=== PATIENT | female | born 1940 | race Caucasian/White ===

== ENCOUNTER 2022-09-14 16:32 | Observation (INO) | payer MEDICARE, OTHER, SELFPAY ==
[2022-09-14] VITALS (10 sets, daily range): BP systolic 112–130; BP diastolic 54–81; PULSE 60–80; RESP 16–18; TEMP 36.6–36.8; O2SAT 88–100; BMI 25.3; BMI 25.8
--- NOTE | 2022-09-14 17:22 | CRLHL7_ITS ---
For Patients: As a result of the Century Cures Act, medical imaging exams and procedure reports are released immediately into your electronic medical record. You may view this report before your referring provider. If you have questions, please contact your health care provider. INDICATION: Fall. TECHNIQUE: CT head without contrast. COMPARISON: None. FINDINGS: CSF spaces: Within normal limits for age. Brain parenchyma and extra-axial spaces: The freedman-white differentiation is normal. No sign of mass, hemorrhage, or midline shift. No extra-axial fluid collection. Skull base and calvarium: The visualized paranasal sinuses and mastoid air cells demonstrate no acute or significant findings. The visualized orbits are grossly unremarkable. Bilateral lens prostheses. No skull fractures. IMPRESSION: No intracranial hemorrhage identified. No skull fractures identified. Please note that all CT scans at this facility use dose modulation, iterative reconstruction, and/or weight-based dosing when appropriate to reduce radiation dose to as low as reasonably achievable. Dictated by Teresa Mendez MD @ 09/14/2022 7:17:10 PM (Electronically Signed)
--- NOTE | 2022-09-14 17:22 | CRLHL7_ITS ---
For Patients: As a result of the Century Cures Act, medical imaging exams and procedure reports are released immediately into your electronic medical record. You may view this report before your referring provider. If you have questions, please contact your health care provider. INDICATION: Shortness of breath. TECHNIQUE: Chest 1 views. COMPARISON: None. FINDINGS: Lungs: Diffuse interstitial prominence is suggestive of pulmonary edema. Patchy left lower lobe opacities. Pleura: Small left pleural effusion. Heart and Mediastinum: The heart is enlarged. Single lead pacemaker has its battery pack in the left chest wall. Valve annuloplasty appears to be in the aortic valve. The vessels are unremarkable. Bones: Unremarkable. IMPRESSION: Constellation of findings suggest congestive heart failure. Dictated by Randolph Haro MD @ 09/14/2022 7:17:18 PM (Electronically Signed)
--- NOTE | 2022-09-14 17:32 | ED_ITS ---
HPI - General Adult General Date Seen: 09/14/22 Chief complaint: Altered Mental Status Stated complaint: Psych episode earlier, incoherent Time Seen by Provider: 09/14/22 17:07 Source: patient and family History of Present Illness HPI narrative: Patient is an 81-year-old woman visiting here from [place], here with her daughter for evaluation of a confusional spell today. Her daughter says that around 130, she had an episode of vomiting which her daughter describes as bilious. After that, her daughter says she just was ?spaced out, she specifically denies any loss of consciousness or seizure activity, but she says her mom's answers to questions sometimes did not make sense. She says her mom was repeating the Lord's prayer. She asked her mom several times if she wanted to go the hospital but her mother said no. She does say that her mom has a history of some spells like this a number of years ago which she does not remember if they were ever specifically diagnosed as anything, and her mother and her dad who is 86, are not able to remember this as well. Patient says that she woke up feeling somewhat poorly this morning, she is not able to tell me exactly in what way she felt poorly. Her daughter says that she complained of a headache this morning as well as some stomach problems. There are no reported fevers, chest pain, coughing, abdominal pain or diarrhea. She has a history of a valve replacement and pacemaker, she is on Coumadin apparently for the valve. No reported history of atrial fibrillation or ME, no reported history of stroke. Symptoms persisted for about an hour or and then seem to improve somewhat, but daughter does not feel that she is completely back to normal and so ultimately brought her to the ER at around 430. Related Data Home Medications Medication Instructions Recorded Confirmed allopurinol 300 mg tablet 300 mg PO DAILY 09/14/22 09/14/22 amlodipine 5 mg tablet (Norvasc) 5 mg PO DAILY 09/14/22 09/14/22 coq10 09/14/22 folic acid 1 mg tablet 1 mg PO DAILY 09/14/22 09/14/22 furosemide 20 mg tablet 20 mg PO DAILY 09/14/22 09/14/22 glucosamine chond 09/14/22 hydrochlorothiazide 12.5 mg tablet 12.5 mg PO DAILY 09/14/22 09/14/22 isosorbide dinitrate 30 mg tablet 30 mg PO BID 09/14/22 09/14/22 metoprolol succinate 100 mg 100 mg PO DAILY 09/14/22 09/14/22 tablet,extended release 24 hr metoprolol succinate 100 mg 100 mg PO DAILY 09/14/22 09/14/22 tablet,extended release 24 hr (Toprol XL) pantoprazole 40 mg tablet,delayed 40 mg PO DAILY 09/14/22 09/14/22 release potassium chloride 20 mEq oral 20 meq PO BID 09/14/22 09/14/22 packet (Klor-Con) prednisone 5 mg tablet 5 mg PO DAILY 09/14/22 09/14/22 trazodone 50 mg tablet 50 mg PO DAILY 09/14/22 09/14/22 vitamin d2 09/14/22 warfarin 2 mg tablet 2 mg PO DAILY 09/14/22 09/14/22 Allergies Allergy/AdvReac Type Severity Reaction Status Date / Time erythromycin base Allergy Unknown Verified 09/14/22 17:03 Review of Systems Status of ROS: Reports: unobtainable due to mental status PFSH [facility] Social History Smoking Status: Former smoker Do you use any of these nicotine containing products: None Second hand tobacco smoke exposure: No How often do you have a drink containing alcohol: never How often do you have six or more drinks on one occasion: Never AUDIT-C Alcohol total score: 0 Non-prescribed substance use: denies use Exam Narrative: Exam Narrative: Vital signs as noted above. In general, an alert, nontoxic elderly woman. Somewhat fatigued appearing. Head: Normocephalic, atraumatic. Eyes: Pupils are equal reactive. Extraocular movements are full. Conjunctivae are normal. ENT: Mucous membranes are moist. Throat is normal. Neck: Supple without lymphadenopathy. No bruits. Heart: Regular rate and rhythm. No murmur or rub. Lungs: Clear bilaterally. No increased work of breathing, crackles or wheezes. Abdomen: Soft and nondistended, intermittently seems to have some diffuse mild tenderness, no rebound guarding or rigidity. No organomegaly. Extremities: Well perfused. Mild bilateral lower extremity which daughter says is baseline. No calf tenderness. Neurologic: Patient is alert and conversant. Not oriented at this time to place or date, notes that she just can not remember right now. Speech is fluent. Face is symmetric. Moves all extremities equally, strength is equal in bilateral extremities. Not able to early repeat no ifs and or buts. Follows commands well. Cerebellar function is intact by finger-nose testing. Affect: Normal. Skin: Warm and dry. Well perfused. Const: Vital Signs, click to edit/add: Vital Signs - 24 hr 09/14/22 16:49 09/14/22 18:05 09/14/22 17:00 Temperature 98 F Pulse Rate [Pulse Oximeter] 74 67 66 Respiratory Rate 18 Blood Pressure [Ri ght Upper Arm] 115/54 L 112/74 115/54 L Pulse Oximetry 88 96 Oxygen Delivery Me thod Room Air Room Air 09/14/22 18:30 09/14/22 20:07 09/14/22 20:51 Temperature Pulse Rate [Pulse Oximeter] 60 72 Respiratory Rate Blood Pressure [Ri ght Upper Arm] 123/81 Pulse Oximetry 92 93 Oxygen Delivery Me thod Room Air Room Air 09/14/22 21:30 Temperature Pulse Rate [Pulse Oximeter] 72 Respiratory Rate Blood Pressure [Ri ght Upper Arm] Pulse Oximetry 93 Oxygen Delivery Me thod Room Air Documenting provider has reviewed patient's vital signs: yes Course Course Hospital Course: Following initial evaluation, patient had an EKG which by my review shows a paced rhythm, ventricular rate of 65 beats per minute. I do think noncontrast head CT is warranted, I do not think a CT angiogram is likely to be very helpful as I would doubt that she is going to have large vessel occlusion. At this time, she seems to have some confusion, history of perhaps some speech diffic ulty although it is difficult to say for sure given the daughter's history. She is notably not at all hypertensive here. She is mildly hypoxic on room air without specific complaints of shortness of breath. At this time, I think her symptoms certainly could be metabolic, cardiac, infectious, verses TIA/stroke. Patient's daughter felt that she did improve somewhat while here but not entirely back to baseline. She said that she did remember her birthday after I left the room. Did not have any further episodes of entirely nonsensical speech. Labs were overall fairly unremarkable. She had a depressed white blood cell count of 3.2, but her viral swabs were all negative including COVID, influenza and RSV. Hemoglobin slightly low 11.1. INR was therapeutic at 2.25. Venous gas fairly unremarkable, bicarb was a little high at 31 but her pH was normal, pCO2 was 50. Metabolic panel unremarkable, sodium was 140, potassium slightly low at 3.3. BUN creatinine normal, LFTs entirely within normal limits. Her BNP was 44, TSH was a little elevated but her free T4 was essentially normal, slightly elevated at 1.93. Urinalysis notable for 2+ blood and 1+ leukocyte Estrace but essentially negative otherwise with 2-5 red cells and 2-5 white cells. A troponin was 0.01. Head CT by my review was negative for anything acute, final radiology read was likewise negative. Her chest x-ray idalia wed diffuse interstitial patchiness, which Radiology read as likely congestive heart failure. She also has cardiomegaly. No previous available for comparison. I did discuss this with the radiologist as with a BNP of 44 I think congestive heart failure is a very unlikely cause for her chest x-ray findings. He said that it could be potentially an atypical pneumonia, she definitely has small effusion on the left and he said that that could be hiding something like a more bacterial pneumonia. She does have borderline O2 sats hanging out in the low 90s, but she does not have complaints of shortness of breath or cough. My suspicion for bacterial pneumonia is rather low given the absence of fever and with a low white blood cell count, but certainly a viral process would be a possibility. It is not out of the realm of possibility that she could have had a very small stroke tonight as well, and I have discussed this possibility with her daughter as well as the patient. Neurologically she is very nonfocal at this time aside from some minor memory problems and difficulty with repeating phrases, and occasionally her daughter says she still saying some things that do not make sense. However, with her pacemaker, an MRI will not be a possibility here. A CT angiogram I think will be of limited use in terms of anything definitive, it would potentially be helpful just to rule out any critical stenoses. However, it is possible is a chest CT will also help further define what ever process is going on her chest, and I think of the [address] is probably the more helpful tonight. Therefore, I am going to order a chest CT, and we can push CT angiogram of the head until tomorrow. Patient will stay in the hospital for observation for tonight. Vital Signs Vital signs: Initial Vital Signs Temperature 98 F 09/14/22 16:49 Temperature Source Temporal Artery Scan 09/14/22 16:49 Pulse Rate 74 09/14/22 16:49 Respiratory Rate 18 09/14/22 16:49 Blood Pressure 115/54 L 09/14/22 16:49 Blood Pressure Mean 74 09/14/22 16:49 Blood Pressure Position Supine 09/14/22 16:49 Pulse Oximetry 88 09/14/22 16:49 Oxygen Delivery Method 09/14/22 16:49 Vital Signs Temperature 98 F 09/14/22 16:49 Pulse Rate 74 09/14/22 16:49 Respiratory Rate 18 09/14/22 16:49 Blood Pressure 115/54 L 09/14/22 16:49 Pulse Oximetry 88 09/14/22 16:49 Oxygen Delivery Method 09/14/22 16:49 Temperature 98 F 09/14/22 16:49 Pulse Rate 72 09/14/22 21:30 Respiratory Rate 18 09/14/22 16:49 Blood Pressure 123/81 09/14/22 18:30 Pulse Oximetry 93 09/14/22 21:30 Oxygen Delivery Method 09/14/22 21:30 Medical Decision Making Lab Data Labs: Lab Results 09/14/22 09/14/22 09/14/22 Range/Units 17:24 17:29 17:50 WBC 3.21 L (4.50-11.00) K/uL RBC 4.01 (4.00-5.20) m/uL Hgb 11.1 L (12.0-16.0) gm/dL Hct 35.6 (33.0-51.0) % MCV 89 (80-100) fL MCH 28 (26-34) pg MCHC 31 L (32-36) gm/dL RDW Coeff of Monica 18.8 H (11.5-15.5) % Plt Count 129 L (140-440) K/uL Neut % (Auto) 57.4 (42.0-72.0) % Lymph % (Auto) 25.2 (20-44) % [place] % (Auto) 10.6 (0.0-11.0) % Eos % (Auto) 5.6 (0.0-7.0) % Baso % (Auto) 1.2 (0.0-3.0) % Neut # (Auto) 1.80 (1.7-7.0) K/uL Lymph # (Auto) 0.80 L (0.90-2.90) K/uL [place] # (Auto) 0.30 (0.00-0.90) K/UL Eos # (Auto) 0.20 (0.00-0.50) K/uL Baso # (Auto) 0.00 (0.00-0.30) K/uL Abs Immat Gran (auto) 0.00 (0.00-0.30) K/uL Imm/Tot Granulo (auto) Not Reportable INR (0.91-1.10) VBG pH (7.32-7.43) VBG pCO2 (40-50) mmHG VBG pO2 (25-47) mmHG VBG HCO3 (21-28) mmol/L Sodium (135-149) mmol/L Potassium (3.6-5.1) mmol/L Chloride (96-114) mmol/L Carbon Dioxide (20-32) mmol/L BUN (7-30) mg/dL Creatinine (0.5-1.5) mg/dL Estimated Creat Clear Estimated GFR ml/min Glucose (60-115) mg/dL Lactate (0.5-1.9) mmol/L Calcium (8.4-10.6) mg/dL Total Bilirubin (0.1-1.5) mg/dL Direct Bilirubin (0.0-0.5) mg/dL AST (12-35) U/L ALT (4-35) U/L Alkaline Phosphatase (40-150) U/L C-Reactive Protein (0.5-1.0) mg/dL NT-Pro-B Natriuret Pep (0-450) PG/mL Total Protein (6.0-8.3) g/dL Albumin (3.3-5.0) g/dL TSH (0.270-4.200) uIU/mL Free T4 (0.70-1.85) ng/dL Urine Color (Yellow) Urine Appearance (Clear) Urine pH (5.0-8.5) Ur Specific [place] (1.000-1.030) Urine Protein (Negative) Urine Glucose (UA) (Negative) Urine Ketones (Negative) Urine Blood (Negative) Urine Nitrite (Negative) Urine Bilirubin (Negative) Urine Urobilinogen (0.2-1.0) Ur Leukocyte Esterase (Negative) Urine RBC (0-2) Urine WBC (0-5) Ur Squamous Epith Cells (None-Few) Urine Bacteria (None) SARS-CoV-2 (PCR) Negative SARS-CoV-2 (Negative) Influenza Type A (PCR) Negative PCR FLU A (Negative) Influenza Type B (PCR) Negative PCR FLU B (Negative) RSV (PCR) Negative PCR RSV (Negative) POC Troponin I 0.01 (0.01-0.04) ng/ml 09/14/22 09/14/22 09/14/22 Range/Units 17:50 17:50 17:50 WBC (4.50-11.00) K/uL RBC (4.00-5.20) m/uL Hgb (12.0-16.0) gm/dL Hct (33.0-51.0) % MCV (80-100) fL MCH (26-34) pg MCHC (32-36) gm/dL RDW Coeff of Monica (11.5-15.5) % Plt Count (140-440) K/uL Neut % (Auto) (42.0-72.0) % Lymph % (Auto) (20-44) % [place] % (Auto) (0.0-11.0) % Eos % (Auto) (0.0-7.0) % Baso % (Auto) (0.0-3.0) % Neut # (Auto) (1.7-7.0) K/uL Lymph # (Auto) (0.90-2.90) K/uL [place] # (Auto) (0.00-0.90) K/UL Eos # (Auto) (0.00-0.50) K/uL Baso # (Auto) (0.00-0.30) K/uL Abs Immat Gran (auto) (0.00-0.30) K/uL Imm/Tot Granulo (auto) INR (0.91-1.10) VBG pH (7.32-7.43) VBG pCO2 (40-50) mmHG VBG pO2 (25-47) mmHG VBG HCO3 (21-28) mmol/L Sodium 140 (135-149) mmol/L Potassium 3.3 L (3.6-5.1) mmol/L Chloride 101 (96-114) mmol/L Carbon Dioxide 30 (20-32) mmol/L BUN 25 (7-30) mg/dL Creatinine 1.1 (0.5-1.5) mg/dL Estimated Creat Clear 33.74 Estimated GFR 51 ml/min Glucose 99 (60-115) mg/dL Lactate 0.7 (0.5-1.9) mmol/L Calcium 9.5 (8.4-10.6) mg/dL Total Bilirubin 1.0 (0.1-1.5) mg/dL Direct Bilirubin 0.1 (0.0-0.5) mg/dL AST 33 (12-35) U/L ALT 17 (4-35) U/L Alkaline Phosphatase 89 (40-150) U/L C-Reactive Protein 0.6 (0.5-1.0) mg/dL NT-Pro-B Natriuret Pep (0-450) PG/mL Total Protein 6.5 (6.0-8.3) g/dL Albumin 4.2 (3.3-5.0) g/dL TSH 4.560 H (0.270-4.200) uIU/mL Free T4 1.93 H (0.70-1.85) ng/dL Urine Color (Yellow) Urine Appearance (Clear) Urine pH (5.0-8.5) Ur Specific [place] (1.000-1.030) Urine Protein (Negative) Urine Glucose (UA) (Negative) Urine Ketones (Negative) Urine Blood (Negative) Urine Nitrite (Negative) Urine Bilirubin (Negative) Urine Urobilinogen (0.2-1.0) Ur Leukocyte Esterase (Negative) Urine RBC (0-2) Urine WBC (0-5) Ur Squamous Epith Cells (None-Few) Urine Bacteria (None) SARS-CoV-2 (PCR) (Negative) Influenza Type A (PCR) (Negative) Influenza Type B (PCR) (Negative) RSV (PCR) (Negative) POC Troponin I (0.01-0.04) ng/ml 09/14/22 09/14/22 09/14/22 Range/Units 17:50 17:50 18:26 WBC (4.50-11.00) K/uL RBC (4.00-5.20) m/uL Hgb (12.0-16.0) gm/dL Hct (33.0-51.0) % MCV (80-100) fL MCH (26-34) pg MCHC (32-36) gm/dL RDW Coeff of Monica (11.5-15.5) % Plt Count (140-440) K/uL Neut % (Auto) (42.0-72.0) % Lymph % (Auto) (20-44) % [place] % (Auto) (0.0-11.0) % Eos % (Auto) (0.0-7.0) % Baso % (Auto) (0.0-3.0) % Neut # (Auto) (1.7-7.0) K/uL Lymph # (Auto) (0.90-2.90) K/uL [place] # (Auto) (0.00-0.90) K/UL Eos # (Auto) (0.00-0.50) K/uL Baso # (Auto) (0.00-0.30) K/uL Abs Immat Gran (auto) (0.00-0.30) K/uL Imm/Tot Granulo (auto) INR 2.25 H (0.91-1.10) VBG pH 7.394 (7.32-7.43) VBG pCO2 50 (40-50) mmHG VBG pO2 41.7 (25-47) mmHG VBG HCO3 31 H (21-28) mmol/L Sodium (135-149) mmol/L Potassium (3.6-5.1) mmol/L Chloride (96-114) mmol/L Carbon Dioxide (20-32) mmol/L BUN (7-30) mg/dL Creatinine (0.5-1.5) mg/dL Estimated Creat Clear Estimated GFR ml/min Glucose (60-115) mg/dL Lactate (0.5-1.9) mmol/L Calcium (8.4-10.6) mg/dL Total Bilirubin (0.1-1.5) mg/dL Direct Bilirubin (0.0-0.5) mg/dL AST (12-35) U/L ALT (4-35) U/L Alkaline Phosphatase (40-150) U/L C-Reactive Protein (0.5-1.0) mg/dL NT-Pro-B Natriuret Pep (0-450) PG/mL Total Protein (6.0-8.3) g/dL Albumin (3.3-5.0) g/dL TSH (0.270-4.200) uIU/mL Free T4 (0.70-1.85) ng/dL Urine Color Yellow (Yellow) Urine Appearance Clear (Clear) Urine pH 5.0 (5.0-8.5) Ur Specific [place] 1.015 (1.000-1.030) Urine Protein Negative (Negative) Urine Glucose (UA) Negative (Negative) Urine Ketones Negative (Negative) Urine Blood 2+ A (Negative) Urine Nitrite Negative (Negative) Urine Bilirubin Negative (Negative) Urine Urobilinogen 0.2 (0.2-1.0) Ur Leukocyte Esterase 1+ A (Negative) Urine RBC 2-5 A (0-2) Urine WBC 2-5 (0-5) Ur Squamous Epith Cells Few (None-Few) Urine Bacteria None (None) SARS-CoV-2 (PCR) (Negative) Influenza Type A (PCR) (Negative) Influenza Type B (PCR) (Negative) RSV (PCR) (Negative) POC Troponin I (0.01-0.04) ng/ml 09/14/22 Range/Units 19:21 WBC (4.50-11.00) K/uL RBC (4.00-5.20) m/uL Hgb (12.0-16.0) gm/dL Hct (33.0-51.0) % MCV (80-100) fL MCH (26-34) pg MCHC (32-36) gm/dL RDW Coeff of Monica (11.5-15.5) % Plt Count (140-440) K/uL Neut % (Auto) (42.0-72.0) % Lymph % (Auto) (20-44) % [place] % (Auto) (0.0-11.0) % Eos % (Auto) (0.0-7.0) % Baso % (Auto) (0.0-3.0) % Neut # (Auto) (1.7-7.0) K/uL Lymph # (Auto) (0.90-2.90) K/uL [place] # (Auto) (0.00-0.90) K/UL Eos # (Auto) (0.00-0.50) K/uL Baso # (Auto) (0.00-0.30) K/uL Abs Immat Gran (auto) (0.00-0.30) K/uL Imm/Tot Granulo (auto) INR (0.91-1.10) VBG pH (7.32-7.43) VBG pCO2 (40-50) mmHG VBG pO2 (25-47) mmHG VBG HCO3 (21-28) mmol/L Sodium (135-149) mmol/L Potassium (3.6-5.1) mmol/L Chloride (96-114) mmol/L Carbon Dioxide (20-32) mmol/L BUN (7-30) mg/dL Creatinine (0.5-1.5) mg/dL Estimated Creat Clear Estimated GFR ml/min Glucose (60-115) mg/dL Lactate (0.5-1.9) mmol/L Calcium (8.4-10.6) mg/dL Total Bilirubin (0.1-1.5) mg/dL Direct Bilirubin (0.0-0.5) mg/dL AST (12-35) U/L ALT (4-35) U/L Alkaline Phosphatase (40-150) U/L C-Reactive Protein (0.5-1.0) mg/dL NT-Pro-B Natriuret Pep 44 (0-450) PG/mL Total Protein (6.0-8.3) g/dL Albumin (3.3-5.0) g/dL TSH (0.270-4.200) uIU/mL Free T4 (0.70-1.85) ng/dL Urine Color (Yellow) Urine Appearance (Clear) Urine pH (5.0-8.5) Ur Specific [place] (1.000-1.030) Urine Protein (Negative) Urine Glucose (UA) (Negative) Urine Ketones (Negative) Urine Blood (Negative) Urine Nitrite (Negative) Urine Bilirubin (Negative) Urine Urobilinogen (0.2-1.0) Ur Leukocyte Esterase (Negative) Urine RBC (0-2) Urine WBC (0-5) Ur Squamous Epith Cells (None-Few) Urine Bacteria (None) SARS-CoV-2 (PCR) (Negative) Influenza Type A (PCR) (Negative) Influenza Type B (PCR) (Negative) RSV (PCR) (Negative) POC Troponin I (0.01-0.04) ng/ml Discharge Plan Discharge Discharge Location: [facility] Prescriptions: No Action potassium chloride [Klor-Con] 20 mEq packet 20 meq PO BID prednisone 5 mg tablet 5 mg PO DAILY allopurinol 300 mg tablet 300 mg PO DAILY metoprolol succinate [Toprol XL] 100 mg tablet extended release 24 hr 100 mg PO DAILY folic acid 1 mg tablet 1 mg PO DAILY pantoprazole 40 mg tablet,delayed release (DR/EC) 40 mg PO DAILY warfarin 2 mg tablet 2 mg PO DAILY amlodipine [Norvasc] 5 mg tablet 5 mg PO DAILY metoprolol succinate 100 mg tablet extended release 24 hr 100 mg PO DAILY vitamin d2 isosorbide dinitrate 30 mg tablet 30 mg PO BID Rx Instructions: allow nitrate-free interval of 12-14 hrs per 24-hr period hydrochlorothiazide 12.5 mg tablet 12.5 mg PO DAILY glucosamine chond coq10 trazodone 50 mg tablet 50 mg PO DAILY furosemide 20 mg tablet 20 mg PO DAILY
--- OUTSIDE RECORDS SUMMARY | 2022-09-14 17:49 | XMS_ITS | Continuity of Care Document ---
:1940 External Reference #:[id number] Author Care Team Providers Name Role Phone Avelina Banks M.D. Care Team Information [employer]ologist Rosmery Ku M.D. Primary Care Physician Unavailable Allergies and adverse reactions Active Allergies Criticality Reaction Severity Comments Date Persantine Unable to assess 06/01/2007 criticality Erythromycin Unable to assess 06/01/2007 criticality Celebrex Unable to assess 06/01/2007 criticality Neurontin Unable to assess 06/01/2007 criticality Levaquin Unable to assess 06/01/2007 criticality Medications Active Medications SIG Qnty Indications Ordering Provide r Date Amoxicillin Pre-Surgery Stephania Ward PA-C 06/01/2007 Fosamax Unknown Zetia Unknown Coumadin Unknown Desyrel Unknown Protonix Unknown Toprol XL Unknown Prednisone Unknown Folic Acid Unknown Tricor Unknown Norvasc Unknown Lasix Unknown Potassium Chloride Unknown [place]-3 Unknown Calcium Unknown
--- OUTSIDE RECORDS SUMMARY | 2022-09-14 17:49 | XMS_ITS ---
:1940 Author Organization [facility] Address [address] [place] [address] Care Team Providers Name Role Phone PARK CRUZ Primary Care Physician Encounter PAMT_JENNA [id number] Date(s): 09/09/19 - 09/09/[address] [address] [facility] Discharge Disposition: 01 DISCHARGED HOME/SELF CARE Attending Physician: JAKOB CONROY MD Admitting Physician: JAKOB CONROY MD Referring Physician: PARK CRUZ MD Reason for Visit REF LABS Problem List Condition Effective Dates Status Health Status Informant Activity intolerance(Confirmed)1 Active Gout of right wrist(Confirmed) Active At risk for falls(Confirmed)2 Active Cervical cancer(Confirmed) Resolved Chest pain(Confirmed) Active CHF - Congestive heart Active failure(Confirmed) Chronic atrial Active fibrillation(Confirmed) 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) Active Decreased cardiac output(Confirmed)3 Active Corticosteroid dependence(Confirmed) Active GERD - Gastro-esophageal reflux Active disease(Confirmed) Gout(Confirmed) Active H/O mitral valve replacement with Active mechanical valve(Confirmed) Hypertension(Confirmed) Active JOSETTE (acute kidney injury)(Confirmed) Active Wound of left lower Active extremity(Confirmed) MRSA infection(Confirmed) < 08/21/18 Resolved 1Problem added automatically by system based on initiation of Activity Intolerance Plan of Care.2Problem added automatically by system based on initiation of Falls Risk of Plan of Care.3Problem added automatically by system based on initiation of the Cardiac Output-Decreased Plan of Care. Allergies, Adverse Reactions, Alerts Substance Reaction Severity Status erythromycin Unknown Active Neosporin Unknown Active Neurontin Unknown Active Levaquin Unknown Active Lidoderm Unknown Active Vioxx Unknown Active CeleBREX Unknown Active Eggs Unknown Active Medications acetaminophen (Tylenol 325 mg oral tablet) 2 Tab(s) Oral every 4 hours as needed Pain-mild or Tem p > 100.4 F. Al hydroxide/Mg hydroxide/simethicone (Maalox Antacid [place] Regular Strength) 30 Milliliter(s) Oral every 4 hours as needed dyspepsi a. allopurinol 300 Milligram(s) Oral every day. amLODIPine (Norvasc) 10 Milligram(s) Oral every day. atorvastatin (Lipitor 10 mg oral tablet) 1 Tab(s) Oral every day. calcium carbonate (Tums 500 (1250 mg calcium carbonate ) oral tablet, chewable) 2 Tab(s) Chewed every 2 hours (interval) as needed ind igestion. ergocalciferol (Vitamin D2) 50,000 International Unit(s) Oral every week. folic acid 1 Milligram(s) Oral every day. furosemide (furosemide 40 mg oral tablet) 1 Tab(s) Oral twice a day. isosorbide dinitrate (isosorbide dinitrate 10 mg oral tablet) 3 Tab(s) Oral three times a day. metoprolol (Toprol-XL 100 mg oral tablet, extended rel ease) 1 Tab(s) Oral every day. oxyCODONE-acetaminophen (Percocet 5/325) 1 Tab(s) Oral every 6 hours (interval) as needed pain- moderate 4 to 6. pantoprazole 40 Milligram(s) Oral every day. potassium chloride (potassium chloride 20 mEq oral tab let, extended release) 1 Tab(s) Oral twice a day. predniSONE (predniSONE 5 mg oral tablet) 1 Tab(s) Oral every day. spironolactone (Aldactone 25 mg oral tablet) 1 Tab(s) Oral every day. traZODone 50 Milligram(s) Oral once a day (at bedtime). vancomycin (vancomycin 750 mg/150 mL-D5% intravenous s olution) 150 Milliliter(s) Intravenous every 12 hours. warfarin (Coumadin 4 mg oral tablet) 1 Tab(s) Oral every day. Refills: 0. Ordering provider: HILDA CRUZ MD Results Most recent to oldest [Reference Range]: 1 RBC [4.04-5.48 x10^6/mcL] 3.30 x10^6/mcL *LOW* (09/09/19 12:53 PM) Basophil Man [0-2 %] 1 % (09/09/19 12:53 PM) BUN [7-25 mg/dL] 43 mg/dL *HI* (09/09/19 12:53 PM) Albumin [3.5-5.7 g/dL] 4.0 g/dL (09/09/19 12:53 PM) Alkaline Phosphatase [34-104 unit/L] 66 unit/L (09/09/19 12:53 PM) ALT [7-52 unit/L] 11 unit/L (09/09/19 12:53 PM) Anisocytosis 1+ (09/09/19 12:53 PM) AST [13-39 unit/L] 18 unit/L (09/09/19 12:53 PM) Basophils# Auto [0.00-0.26 x10^3/mcL] 0.00 x10^3/mcL (09/09/19 12:53 PM) Basophils% Auto [0.0-2.6 %] 0.4 % (09/09/19 12:53 PM) Bili Total [0.3-1.0 mg/dL] 1.3 mg/dL *HI* (09/09/19 12:53 PM) Calcium [8.6-10.3 mg/dL] 9.0 mg/dL (09/09/19 12:53 PM) Creatinine [0.6-1.3 mg/dL] 2.2 mg/dL *HI* (09/09/19 12:53 PM) eGFR 24 *NA* (09/09/19 12:53 PM) eGFR Non 21 *NA* (09/09/19 12:53 PM) Eos# Auto [0.00-0.70 x10^3/mcL] 0.30 x10^3/mcL (09/09/19 12:53 PM) Eosinophils% Auto [0.0-7.0 %] 4.4 % (09/09/19 12:53 PM) HCT [35.9-47.9 %] 29.4 % *LOW* (09/09/19 12:53 PM) Hgb [12.6-16.2 g/dL] 9.9 g/dL *LOW* (09/09/19 12:53 PM) Potassium [3.5-5.1 mmol/L] 3.5 mmol/L (09/09/19 12:53 PM) Lymphocytes# Auto [0.60-3.40 x10^3/mcL] 1.30 x10^3/mcL (09/09/19 12:53 PM) Lymphocytes% Auto [15.0-45.0 %] 20.5 % (09/09/19 12:53 PM) Lymphocytes Man [15-45 %] 22 % (09/09/19 12:53 PM) MCH [25.4-34.6 pg] 30.1 pg (09/09/19 12:53 PM) MCHC [30.0-36.0 gm/dL] 33.8 gm/dL (09/09/19 12:53 PM) MCV [80.0-98.0 fL] 89.1 fL (09/09/19 12:53 PM) Monocytes# Auto [0.00-1.22 x10^3/mcL] 0.50 x10^3/mcL (09/09/19 12:53 PM) Monocytes% Auto [0.0-12.0 %] 8.3 % (09/09/19 12:53 PM) Monocytes Man [0-12 %] 5 % (09/09/19 12:53 PM) Neutrophils# Auto [2.00-6.90 x10^3/mcL] 4.10 x10^3/mcL (09/09/19 12:53 PM) Neutrophils% Auto [45.0-80.0 %] 66.4 % (09/09/19 12:53 PM) Neutrophils Man [45-80 %] 69 % (09/09/19 12:53 PM) Plt Estimate Decreased *ABN* (09/09/19 12:53 PM) Plt Cnt [142-424 x10^3 cells/mcL] 77 x10^3 cells/mcL *CRIT* (09/09/19 12:53 PM) Platelets Large 1+ (09/09/19 12:53 PM) Poikilocytosis 1+ (09/09/19 12:53 PM) Prot Total [6.4-8.9 g/dL] 6.2 g/dL *LOW* (09/09/19 12:53 PM) RDW [11.6-14.8 %] 16.6 % *HI* (09/09/19 12:53 PM) WBC [4.60-10.20 x10^3/mcL] 6.20 x10^3/mcL (09/09/19 12:53 PM) Sodium [136-145 mmol/L] 139 mmol/L (09/09/19 12:53 PM) Ca Corrected [8.6-10.3 mg/dL] 9.0 mg/dL (09/09/19 12:53 PM) Glucose [65-110 mg/dL] 80 mg/dL (09/09/19 12:53 PM) MPV [6.7-11.3 fL] 10.3 fL (09/09/19 12:53 PM) Chloride [98-107 mmol/L] 101 mmol/L (09/09/19 12:53 PM) Eosinophil Man [0-7 %] 3 % (09/09/19 12:53 PM) Sed Rate Auto [0-30 mm/hr] 17 mm/hr (09/09/19 12:53 PM) Vancomycin Lvl Tr [5.00-10.00 mcg/mL] 11.63 mcg/mL *HI* (09/09/19 12:53 PM) Basophils Absolute Man [0-0 thou/mcL] 0 thou/mcL (09/09/19 12:53 PM) Eosinophils Absolute Man [0-1 thou/mcL] 0 thou/mcL (09/09/19 12:53 PM) Lymphocytes Absolute Man [1-3 thou/mcL] 1 thou/mcL (09/09/19 12:53 PM) Monocytes Absolute Man [0-1 thou/mcL] 0 thou/mcL (09/09/19 12:53 PM) Neutrophils Absolute Man [2-5 thou/mcL] 4 thou/mcL (09/09/19 12:53 PM) Carbon Dioxide [21-31 mmol/L] 28 mmol/L (09/09/19 12:53 PM) Procedures Procedure Date Related Diagnosis Body Site Status Wound Debridement (Surgery)1 08/22/18 Completed Heart valve repair Completed Hysterectomy Completed Open heart surgery Completed 1auto-populated from documented surgical case Social History Social History Type Response Smoking Status Tobacco use status 30 days p rior to admission No tobacco use of any form; Former smoker, quit more than 30 days ago entered on: 08/21/19
--- OUTSIDE RECORDS SUMMARY | 2022-09-14 17:50 | XMS_ITS | Encounter Summary ---
:1940 Author Care Team Providers Name Role Phone Rosmery Leroy Primary Care Provider [phone] Michael Esquivel Button Grader [phone] Shwetha SCOTT-Pascale Software Developer Mid Level [phone] Bren Rain MD Ophthalmologist [phone] Jose Brannon MD Orthopedic Surgeon [phone] Alli Bahena MD Orthopedic Surgeon [phone] Ashwin Chand MD Medical Oncologist [phone] Reason for Visit Telehealth Medicare Wellness Visit - Fem arlene, Subsequent Assessment and Plan Assessment Note Medicare Wellness Visit performed via [facility] with patient. Service was provided using telemedicine. Patient verbally consents to this services (virtual check-in). Names and roles of all persons participa ting in telemedicine services include: EDUAR DOWNEY RN, BSN Patient is located at [facility] an d is an established patient. A total of _33__ minutes were spent in c onsultation via [email or web address] audio only for this wellness visit. The following component(s) vital signs p leonarda auscultation of lungs, heart, and abdomen, and provider palpation of abdomen and skin were not obtained due to the service being provided via telehealth during the COVID-19 pandemic. Time Spent: Alcohol screening and counselin marcel eric Depression Screening and counselin m inutes 1. Adult health examination ? Advance Care Directives Patient Webli nk Handout ? advance directives: care instructions ? multi-dimensional health assessment q uestionnaire* ? hearing loss: care instructions ? heart-healthy diet: care instructions ? dash diet: care instructions ? preventing falls: care instructions 2. Screening for disorder 3. Depression screening 4. Body mass index 25-29 - overweight Discussion Note: None recorded. Plan of Care Patient Instructions Personalized Health Plan and Screening Recommendations Advance Directives - Do you have one? No Refer to handout Advance Care Directives Weblink handout and Advance Directives: Care Instructions Advance Directives - Do we have your adv ance directive on file in your health record? Primary Prevention/Intervention (preven ts or decreases the chance of common diseases from occurring) Tobacco/Nicotine Risk: Former Smoker DAVID T 44 YEARS AGO Alcohol Misuse Screening: Low risk Weight: Overweight Physical activity: Maintain appropriate physical activity Nutrition: Good Fall Risk (screened today): Intermediate risk Recommend regular use of cane or walker Vaccines Influenza: Not indicated/ALLERGIC Pneumococcal: Series completed Shingles: Series completed COVID-19: Recommended? ALLERGY Tetanus: Hepatitis B: Secondary Prevention/Intervention (dete cts treatable diseases before they may cause symptoms, disability, or ) Breast Cancer Screening with mammogram: Recommended today, but you have declinedLAST MAMMOGRAM WAS 10/11/2017 Cervical Cancer Screening: No screening necessary Osteoporosis Screening: Recommended toda y, but you have declinedLAST DEXA WAS 10/11/2017=OSTEOPENIA Colon Cancer Screening: Colonoscopy Herb mmended today, but you have declined Eye Disease Screening: Recommended Depression Screening: Low risk Cognitive Screening: Normal Diabetes Screening: Not indicated Cardiovascular Disease (CVD) Screening: labs - Aspirin Recommendations: you are ON COUM FROYLAN Abdominal Aortic Aneurysm (AAA) Screeni ng: Lung Cancer Screening: Hepatitis B Screening: Hepatitis C Screening: Sexually Transmitted Infections Screenin g: Human Immunodeficiency Virus (HIV) Scree darian: Tertiary Prevention/Intervention (ident ifies your current known diseases and attempts to prevent complications of those diseases) Complications of many of these diseases can be minimized through the primary prevention/interventions listed above but some may require medication addition/change or referrals and will be addressed today or at a follow-up appointment Pain Control Status: no pain or pain und er adequate control Pain Medication Use and Risk for Opioid Misuse: You do not use addictive opioid medications, and therefore are not at risk Pain Management Plan: Reminders Provider Appointments *Follow-up 15 10/19/2022 1:45PM Rosmery adams MD Lab None recorded. ? ? Referral None recorded. ? ? Procedures None recorded. ? ? Surgeries None recorded. ? ? Imaging None recorded. ? ? Medications Name Start Date ? ? allopurinol 300 mg tablet ? TAKE 1 TABLET ONCE DAILY amlodipine 5 mg tablet ? TAKE 1 TABLET DAILY Calcium 600 + D(3) 600 mg-5 mcg (200 unit) tablet ? ONE PILL TWICE A DAY coenzyme Q10 100 mg capsule 09/01/2020 2 DAILY ergocalciferol (vitamin D2) 1,250 mcg (50,000 unit) ca psule ? one cap weekly folic acid 1 mg tablet ? one tab daily furosemide 20 mg tablet ? TAKE 1 TABLET DAILY Glucosamine ? 2 DAILY hydrochlorothiazide 12.5 mg capsule ? Take 1 capsule every day by oral route. hydrocortisone 2.5 % topical cream with perineal appli cator ? APPLY A THIN LAYER TO THE AFFECTED AREA(S) BY TOPICAL ROUTE 2-4 TIMESDAILY isosorbide mononitrate 10 mg tablet ? Take 1 tablet every day by oral route. Jantoven 2 mg tablet ? 1-1/2 tabs daily or as dir. Klor-Con M20 mEq tablet,extended release ? lactulose 10 gram/15 mL oral solution ? bid NEEDED metoprolol succinate ER 100 mg tablet,extended release 24 hr ? TAKE 1 TABLET DAILY FOR BLOOD PRESSURE, HOLD IF HEART RATE LESS THAN 50 PERMINUTE Miralax 17 gram/dose oral powder ? Take 34 g twice a day by oral route. pantoprazole 40 mg tablet,delayed release ? TAKE 1 TABLET DAILY (ACID REFLUX/HEARTBURN) prednisone 5 mg tablet ? TAKE 1 TABLET DAILY rosuvastatin 10 mg tablet ? 1 TABLET DAILY (LOWERS CHOLESTEROL) senna ? bid NEEDED trazodone 50 mg tablet ? 1 tab at bedtime Tylenol 8 Hour 650 mg tablet,extended release ? 2 TABS EVERY 8 HOURS NEEDED Notes: COMPLETE MEDICATION REVIEW WAS DONE WITH PATIENT TODAY, 09/07/2022, AND MEDCIATION LIST WAS UPDATED. Medications Administered None recorded. Vitals Height Weight BMI 5 ft 3 in 142 lbs 25.2 kg/m2 Results Lab Results None recorded. Allergies Code Code System Name Reaction Severity Onset 988931 RxNorm Celebrex ? ? ? 3521 RxNorm Dipyridamole ? ? ? 4268866 RxNorm Egg ? ? ? 4053 RxNorm Erythromycin Base ? ? ? 1411022 RxNorm Fluad [id number] (65 Yr up)(Pf) ? ? ? 5521 RxNorm Hydroxychloroquine ? ? ? 712406 RxNorm Levaquin ? ? ? 789659 RxNorm Lidoderm ? ? ? Neosporin ([id number]) ? ? ? 623401 RxNorm Neurontin ? ? ? Persantine ? ? ? 673382 RxNorm Plaquenil ? ? ? 031598 RxNorm Rofecoxib ? ? ? Vioxx ? ? ? Notes: ALLERGIES UPDATED TODAY, 2021. Problems Name Status Onset Date Source ? Endocarditis Active 11/14/1976 ? Rheumatic Fever without Heart Involvement Active 1992 ? Atrial Fibrillation Active 04/14/1993 ? Urolith Active 04/14/1993 ? Depressive Disorder Active 07/09/1994 ? Alopecia Active 05/12/1995 ? Osteoarthritis Active 10/24/1995 ? Acute Pyelonephritis Active 06/07/1997 ? Hypertensive Disorder Active 02/06/1999 ? Fibromyositis Active 03/09/1999 ? Osteopenia Active 04/21/2000 ? Thyroid Nodule Active 06/07/2011 ? Hyperlipidemia Active 05/28/2013 ? Hip Pain Active 05/28/2013 ? Replacement of Total Knee Joint Active 04/03/2014 ? Anemia Active 05/22/2014 ? Gouty Arthropathy Active 06/13/2014 ? Disorder of Connective Tissue Active 07/31/2014 ? 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 Infection Due to Streptococcus Group D Active 5 ? Diastolic Heart Failure Active 12/01/2014 ? Vitamin D Deficiency Active 08/18/2015 ? Tomography - Chest Abnormal Active 09/25/2015 ? Raised Antinuclear Antibody Active 09/25/2015 ? Systemic Lupus Erythematosus Active 09/30/2015 ? Splenic Infarction Active 10/14/2015 ? Asthma Active 03/03/2016 ? Mixed Hyperlipidemia Active 07/01/2016 History Postmenopausal State Active 08/22/2017 ? Essential Hypertension Active 09/19/2017 External Coronary Arteriosclerosis in [place] Artery Active 09/19 External Mitral Valve Disorder Active 09/19/2017 External Aortic Valve Stenosis with Insufficiency Active 017 External Tricuspid Valve Disorder, Non-rheumatic Active 09/19/20 17 External Rheumatoid Arthritis Active 09/19/2017 External Fibromyalgia Active 09/19/2017 External Ex-smoker Active 09/19/2017 External Cardiac Pacemaker in Situ Active 09/19/2017 ? Heart Valve Replacement Active 09/19/2017 External Secondary Pulmonary Hypertension Active 04/26/2018 External Sciatica Active 04/26/2018 External Electrocardiogram Abnormal Active 04/26/2018 Exter nal Polymyalgia Rheumatica Active 10/25/2018 ? Hypothyroidism Active 11/12/2018 External Family History of Ischemic Heart Disease Active 018 External Hyperglycemia Active 03/21/2019 ? Bacterial Endocarditis Active 08/29/2019 ? Renal Failure Syndrome Active 08/29/2019 ? 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 Edema Active 08/05/2020 External Chest Pain Active 08/19/2020 ? Cardiomyopathy Active 09/03/2020 External Congestive Heart Failure Active 09/03/2020 ? Fever Active 09/03/2020 External Cough Active 09/03/2020 External Chronic Systolic Heart Failure Active 10/21/2021 E xternal Chronic Atrial Fibrillation Active ? Exte rnal Sinus Node Dysfunction Active ? External Chronic Kidney Disease Stage 1 Active ? E xternal Abnormal Findings Diagnostic Imaging Heart+coronary Active ? External Circulat Procedures Date Name Performed by ? ? Colonoscopy Information not avai lable Notes: MITRAL VALVE REPLACEMENT CHOLEYSTECTOMY PACEMAKER RIGHT TOTAL KNEE LEFT LEG SKIN GRAFT left hip replacement Vaccine List Vaccine Type influenza, seasonal, injectable 08/22/2013 09/04/2014 influenza, unspecified formulation 09/04/2001 07/06/2002 08/31/2002 05/06/2003 08/28/2003 02/08/2005 10/13/2005 09/08/2006 09/30/2008 09/15/2010 07/26/2011 11/23/2012 pneumococcal conjugate PCV 13 10/01/2015?0.5 mL pneumococcal polysaccharide PPV23 11/14/1997 10/13/2011 Td(adult) unspecified formulation 12/15/1999 09/14/2010 zoster live 01/25/2011 Notes: Declined, 02/08/2005, CVX: 88, Vaccine: flu vax, Reason: ; Social History Tobacco Smoking Status Former Smoker Do you have difficulty walking Y Notes: USES A CANE FOR or climbing stairs? STABILIZATION AT [facility] What type of diet are you REGULAR following? Are you able to care for Y yourself? 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 Advance directive - Provider N has reviewed directives and consents to follow them (insert provider name with any objections in notes field) What is your relationship status? What is your level of alcohol None consumption? Do you wear a helmet when N Notes: N/A biking? Are you deaf or do you have N serious difficulty hearing? Do you use your seat belt or Y car seat routinely? Are you passively exposed to N smoke? Do you or have you ever used N any other forms of tobacco or nicotine? At what age did you start 19 smoking tobacco? Are there any guns present in Y Notes: S ECURED your home? Do you have difficulty N dressing or bathing? What is the highest grade or [id number] level of school you have completed or the highest degree you have received? Has tobacco cessation N Notes: QUIT 44 Y EARS AGO counseling been provided? Are you blind or do you have N Notes: PT FOLLOWS WITH difficulty seeing? [employer] FOR HER EYE CARE. LAST EXAM WAS 2 YEAR S AGO, SHE WILL NOT GO DUE TO C OVID FEAR. DENIES ANY VISUAL DI STURBANCE. SHE WEARS CORRECTIVE LENSES FOR READING ONLY. Do you have smoke and carbon Y monoxide detectors in your home? Do you have difficulty doing N Notes: MA EFERS NOT TO GO errands alone? ALONE, HER A CCOMPANIES HER. Do you use sunscreen N Notes: AVOIDS DIR ECT SUN routinely? EXPOSURE What was the date of your most 09/07/2022 recent tobacco screening? Do you have an advanced N directive? Presence of domestic violence N Do you use any illicit or N recreational drugs? When did you quit smoking? 17+yearssincelastcijorge Notes: QUIT 44 YEARS AGO e How many years have you smoked 19 tobacco? What is your exercise level? None Do you have difficulty N concentrating, remembering or making decisions? What is your level of caffeine None Notes: USES DECAF PRODUCTS consumption? Have you recently traveled N Notes: ROB [place]VAR[place]O VISITING abroad? HER DAUGHTER IN [facility] FOR 3 WEEKS. Family History Relation Problem Onset Age of Age Notes Mother Arthritis (No Information) N/A (No Notes) Mother Hypertensive disorder (No Information) N/A (N o Notes) Functional Status Do you have difficulty walking or climbing stairs?? Yes Past Encounters 09/07/2022 Adult Health Examination; Screening for Disorder; Depression Screening; Body Mass Index 25-29 - Overweight Rosmery Harper MD: [address] [place] [address], Ph. History of Present Illness None recorded. Review of Systems None recorded. Physical Exam None recorded.
--- OUTSIDE RECORDS SUMMARY | 2022-09-14 17:50 | XMS_ITS | Continuity of Care Document ---
:1940 External Reference #:[id number] Author Care Team Providers Name Role Phone Avelina Banks M.D. Care Team Information Hand Alterations Tailor Rosmery Ku M.D. Primary Care Physician Unavailable [...] Norvasc Unknown Lasix Unknown Potassium Chloride Unknown [place]-3 Unknown Calcium Unknown
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
--- OUTSIDE RECORDS SUMMARY | 2022-09-14 17:50 | XMS_ITS ---
:1940 Author Organization [facility] Address [address] [place] [id number] Care Team Providers Name Role Phone PARK CRUZ Primary Care Physician Encounter JULIETTE_JENNA [id number] Date(s): 09/03/19 - 09/03/19 [facility] [address] [place] [id number] [place] Discharge Disposition: 01 DISCHARGED HOME/SELF CARE Attending Physician: JAKOB CONROY MD Admitting Physician: JAKOB CONROY MD Referring Physician: JAKOB CONROY MD Reason for Visit ENDOCARDITIS HTN Problem List Condition Effective Dates Status Health Status Informant Activity intolerance(Confirmed)1 Active Gout of right wrist(Confirmed) Active At risk for falls(Confirmed)2 Active Cervical cancer(Confirmed) Resolved Chest pain(Confirmed) Active CHF - Congestive heart Active failure(Confirmed) Chronic atrial Active fibrillation(Confirmed) 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) Active Decreased cardiac output(Confirmed)3 Active Corticosteroid [...] recent to oldest [Reference Range]: 1 RBC [3.42-5.26 x10^6/mcL] 3.78 x10^6/mcL (09/03/19 2:55 PM) PT [12.0-14.1 second(s)] 46.5 second(s) 1 *HI* (09/03/19 2:55 PM) INR [0.90-1.11] 4.98 2, 3 *HI* (09/03/19 2:55 PM) BUN [7-25 mg/dL] 42 mg/dL *HI* (09/03/19 2:55 PM) Albumin [3.5-5.7 g/dL] 4.1 g/dL (09/03/19 2:55 PM) Alkaline Phosphatase [34-104 unit/L] 76 unit/L (09/03/19 2:55 PM) ALT [7-52 unit/L] 8 unit/L (09/03/19 2:55 PM) Anion Gap [3-11 mmol/L] 11 mmol/L (09/03/19 2:55 PM) AST [13-39 unit/L] 18 unit/L (09/03/19 2:55 PM) Basophils# Auto [0.0-0.2 x10^3/mcL] 0.1 x10^3/mcL (09/03/19 2:55 PM) Basophils% Auto [0.0-1.9 %] 0.8 % (09/03/19 2:55 PM) Bili Total [0.30-1.00 mg/dL] 1.07 mg/dL *HI* (09/03/19 2:55 PM) Calcium [8.6-10.3 mg/dL] 9.1 mg/dL (09/03/19 2:55 PM) Creatinine [0.60-1.30 mg/dL] 2.24 mg/dL *HI* (09/03/19 2:55 PM) eGFR 24 *NA* (09/03/19 2:55 PM) eGFR Non 20 *NA* (09/03/19 2:55 PM) Eos# Auto [0.0-0.5 x10^3/mcL] 0.3 x10^3/mcL (09/03/19 2:55 PM) Eosinophils% Auto [0.0-6.4 %] 4.2 % (09/03/19 2:55 PM) HCT [35.4-44.0 %] 33.8 % *LOW* (09/03/19 2:55 PM) Hgb [12.5-15.3 g/dL] 11.0 g/dL *LOW* (09/03/19 2:55 PM) Potassium [3.5-5.1 mmol/L] 3.9 mmol/L (09/03/19 2:55 PM) Lymphocytes# Auto [1.0-3.2 x10^3/mcL] 1.1 x10^3/mcL (09/03/19 2:55 PM) Lymphocytes% Auto [16.2-42.4 %] 14.7 % *LOW* (09/03/19 2:55 PM) MCH [27.7-34.9 pg] 29.2 pg (09/03/19 2:55 PM) MCHC [33.4-37.2 g/dL] 32.7 g/dL *LOW* (09/03/19 2:55 PM) MCV [79.8-97.2 fL] 89.4 fL (09/03/19 2:55 PM) Monocytes# Auto [0.0-0.9 x10^3/mcL] 0.5 x10^3/mcL (09/03/19 2:55 PM) Monocytes% Auto [2.9-10.7 %] 6.8 % (09/03/19 2:55 PM) Neutrophils# Auto [1.4-6.2 x10^3/mcL] 5.6 x10^3/mcL (09/03/19 2:55 PM) Neutrophils% Auto [42.5-71.3 %] 73.5 % *HI* (09/03/19 2:55 PM) Plt Cnt [126-398 x10^3/mcL] 102 x10^3/mcL *LOW* (09/03/19 2:55 PM) Prot Total [6.4-8.9 g/dL] 6.5 g/dL (09/03/19 2:55 PM) RDW [10.3-13.1 %] 14.9 % *HI* (09/03/19 2:55 PM) WBC [3.7-9.9 x10^3/mcL] 7.7 x10^3/mcL (09/03/19 2:55 PM) Sodium [136-145 mmol/L] 138 mmol/L (09/03/19 2:55 PM) Glucose [65-99 mg/dL] 103 mg/dL *HI* (09/03/19 2:55 PM) MPV [4.9-9.9 fL] 10.5 fL *HI* (09/03/19 2:55 PM) Chloride [98-107 mmol/L] 104 mmol/L (09/03/19 2:55 PM) Sed Rate Auto [0-36 mm/hr] 33 mm/hr 4 (09/03/19 2:55 PM) Vancomycin Lvl Tr [5.0-10.0 mcg/mL] 17.5 mcg/mL 5, 6 *CRIT* (09/03/19 2:55 PM) C Reactive Protein [0.00-10.00 mg/L] 2.37 mg/L (09/03/19 2:55 PM) Carbon Dioxide [21-31 mmol/L] 24 mmol/L (09/03/19 2:55 PM) 1Result Comment: RESULT [id number] Comment: RESULT [id number] Comment: Faxed report to [phone]_ at 09/03/2019 20:26:08 EDT_ by [email or web address]_.4Result Comment: RESULTS VERIFIED BY REPEAT ANALYSIS.5Result Comment: Called to Marialuisa/customer service at 09/03/2019 19:54:16 EDT by [id number] Comment: Service Called 09/03/2019 20:11:25 EDT spn Critical Result Called with Read Back Verification to Marita 09/03/2019 20:25:08 EDT spn Procedures Procedure Date Related Diagnosis Body Site [...]
--- OUTSIDE RECORDS SUMMARY | 2022-09-14 17:50 | XMS_ITS ---
:1940 Author Care Team Providers Name Role Phone PARK NANCY Primary Care Provider [phone] JENNY LOZA PA-C Bonding Machine Operator [phone] AILEEN ARGUETA MD Orthopedic Surgeon [phone] JESSICA SEGAL MD Orthopedic Surgeon [phone] LONNY NICHOLS MD Medical Oncologist [phone] LONNY CRUZ Critical Care Physician Assistant [phone] STEFANY SHEFFIELD MD Ophthalmologist [phone] Allergies Code Code System Name Reaction Severity Status Onset 175858 RxNorm Celebrex ? ? Active ? 3521 RxNorm Dipyridamole ? ? Active ? 5316744 RxNorm Egg ? ? Active ? 4053 RxNorm Erythromycin Base ? ? Active ? 5129956 RxNorm Fluad 6440-8455 (65 Yr ? ? Active ? up)(Pf) 5521 RxNorm Hydroxychloroquine ? ? Active ? 653868 RxNorm Levaquin ? ? Active ? 514257 RxNorm Lidoderm ? ? Active ? Neosporin ([id number]) ? ? Acti ve ? 490786 RxNorm Neurontin ? ? Active ? Persantine ? ? Active ? [id number] RxNorm Plaquenil ? ? Active ? 739101 RxNorm Rofecoxib ? ? Active ? Vioxx ? ? Active ? Notes: ALLERGIES UPDATED TODAY, 2021. Medications Name Status Start Date Stop Date ? ? allopurinol 300 mg tablet Active ? Not av ailable amlodipine 10 mg tablet Completed ? 04/08/20 21 amlodipine 5 mg tablet Active ? Not avail able amoxicillin 500 mg-potassium clavulanate 125 mg Completed ? 04/08/2021 tablet baclofen 10 mg tablet Completed ? 03/08/2022 bumetanide 1 mg tablet Completed ? 05/26/202 1 Calcium 600 + D(3) 600 mg-5 mcg (200 unit) tablet Active ? Not available ONE PILL TWICE A DAY cephalexin 500 mg capsule Completed ? 2021 cephalexin 500 mg tablet Completed ? 022 one tab daily as dir. coenzyme Q10 100 mg capsule Active 09/01/2020 Not available 2 DAILY ergocalciferol (vitamin D2) 1,250 mcg (50,000 Active ? Not available unit) capsule folic acid 1 mg tablet Active ? Not avail able furosemide 20 mg tablet Active ? Not avai lable Glucosamine Active ? Not available 2 DAILY hydrochlorothiazide 12.5 mg capsule Active ? Not available Take 1 capsule every day by oral route. hydrochlorothiazide 12.5 mg tablet Completed ? 06/22/2022 hydrochlorothiazide 25 mg tablet Completed ? 08/11/2021 hydrocortisone 2.5 % topical cream with Active ? Not available perineal applicator isosorbide dinitrate 30 mg tablet Completed ? 04/08/2021 isosorbide mononitrate 10 mg tablet Active ? Not available isosorbide mononitrate ER 30 mg tablet,extended Completed ? 04/07/2022 release 24 hr isosorbide mononitrate ER 60 mg tablet,extended Completed ? 10/14/2021 release 24 hr Jantoven 2 mg tablet Active ? Not availab le Klor-Con M20 mEq tablet,extended release Active ? Not available lactulose 10 gram/15 mL oral solution Active ? Not available bid NEEDED lactulose 20 gram/30 mL oral solution Completed ? 03/08/2022 Take 30 mL every day by oral route as needed. methylprednisolone 4 mg tablets in a dose pack Completed ? 06/22/2022 metoprolol succinate ER 100 mg tablet,extended Active ? Not available release 24 hr Miralax 17 gram oral powder packet Completed ? 09/07/2022 Miralax 17 gram/dose oral powder Active ? Not available Take 34 g twice a day by oral route. pantoprazole 40 mg tablet,delayed release Active ? Not available potassium chloride ER 10 mEq tablet,extended Completed ? 06/22/2022 release potassium chloride ER 10 mEq tablet,extended Completed ? 09/07/2022 release(part/cryst) potassium chloride ER 20 mEq tablet,extended Completed ? 02/16/2022 release prednisone 5 mg tablet Active ? Not avail able rosuvastatin 10 mg tablet Active ? Not av ailable senna Active ? Not available bid NEEDED torsemide 20 mg tablet Completed ? tramadol 50 mg tablet Completed ? 06/22/2022 trazodone 50 mg tablet Active ? Not avail able Tylenol 8 Hour 650 mg tablet,extended release Active ? Not available 2 TABS EVERY 8 HOURS NEEDED Notes: COMPLETE MEDICATION REVIEW WAS DONE WITH PATIENT TODAY, 09/07/2022, AND MEDCIATION LIST WAS UPDATED. Problems Name Status Onset Date Source ? 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 08/25/2022 PT/INR Alert Inr 2.13 ? Final [facility] (Lab): [address] [facility] ? ? Alert Prothrom 22.2 sec Final [facility] bin Time .9 sec [facility] (Lab): [address] [facility] 07/22/2022 PT/INR Alert Inr 2.23 ? Final [facility] (Lab): [address] [facility] ? ? Alert Prothrom 23.2 sec Final [facility] bin Time .9 sec [facility] (Lab): [address] [facility] 07/22/2022 PT/INR ? Prothrom 23.2 ? ? bin Time 07/22/2022 INR, Plasma ? Inr 2.23 ? ? 06/21/2022 PT/INR Alert Inr 2.64 ? Final [facility] (Lab): [address], [place] ? ? Alert Prothrom 27.2 sec 10.1-11 Final [place] High bin Time .9 sec [facility] (Lab): [address], [place] 06/07/2022 PT/INR Alert Inr 2.20 ? Final [facility] (Lab): [address] , [place] ? ? Alert Prothrom 22.9 sec 10.1-11 Final Wayn e High bin Time .9 sec [facility] (Lab): [address] , [place] 06/03/2022 PT/INR Panic Inr 4.19 ? Final [facility] (Lab): [address] ? ? Alert Prothrom 42.3 sec 10.1-11 Final Wayn e High bin Time .9 sec [facility] (Lab): [address], [place] 06/03/2022 PT/INR ? Prothrom 42.3 ? ? bin Time 06/03/2022 INR, Plasma ? Inr 4.19 ? ? 05/20/2022 PT/INR Alert Inr 3.52 ? Final [facility] (Lab): [address] ? ? Alert Prothrom 35.8 sec 10.1-11 Final Wayn e High bin Time .9 sec [facility] (Lab): [address], [place] 05/20/2022 PT/INR ? Prothrom 35.8 ? ? bin Time 05/20/2022 INR, Plasma ? Inr 3.52 ? ? 05/06/2022 PT/INR Alert Inr 2.22 ? Final [facility] (Lab): [address] ? ? Alert Prothrom 23.1 sec 10.1-11 Final Wayn e High bin Time .9 sec [facility] (Lab): [address], [place] 05/04/2022 PT/INR Alert Inr 3.93 ? Final [facility] (Lab): [address] , [place] ? ? Alert Prothrom 39.8 sec 10.1-11 Final Wayn e High bin Time .9 sec [facility] (Lab): [address] , [place] 05/04/2022 PT/INR ? Prothrom 39.8 ? ? bin Time 05/04/2022 INR, Plasma ? Inr 3.93 ? ? 04/27/2022 INR, Plasma ? Inr 1.83 ? ? 04/23/2022 PT/INR Alert Inr 3.34 ? Final [facility] (Lab): [address] [facility] [place] ? ? Alert Prothrom 34.1 sec 10.1-11 [facility] .[facility] (Lab): [address] [facility] 04/23/2022 PT/INR ? Prothrom 34.1 ? ? bin Time 04/23/2022 INR, Plasma ? Inr 3.34 ? ? 04/21/2022 PT/INR Panic Inr 4.50 ? Final [facility] (Lab): [address] [facility] ? ? Alert Prothrom 45.2 sec 10.1-11 [facility] Time .9 sec [facility] (Lab): [address] [facility] 04/21/2022 PT/INR ? Prothrom 45.2 ? ? bin Time 04/21/2022 INR, Plasma ? Inr 4.5 ? ? 04/07/2022 PT/INR ? Prothrom 37.4 ? ? bin Time 04/07/2022 INR, Plasma ? Inr 3.1 ? ? 03/31/2022 CBC W/ Auto BLOOD ? Wbc 5.10 4.60-10 Final Herman Diff x10^3/mcL .20 [place] x10^3/m [facility] c[facility] (Lab): [address], [place] ? ? BLOOD Low Rbc 3.85 4.04-5. Final Herman x10^6/mcL 48 [place] x10^6/m [facility] (Lab): [address], [place] ? ? BLOOD Low Hgb 10.9 g/dL 12.6-16 Final Herman .2 g/dL [facility] (Lab): [address], [place] ? ? BLOOD Low Hct 33.6 % 35.9-47 Final Herman .9 % [facility] (Lab): [address], [place] ? ? BLOOD ? Mch 28.2 pg 25.4-34 Final Herman .[address] [facility] (Lab): [address], [place] ? ? BLOOD ? Mchc 32.3 gm/dL 30.0-36 Final Herman .0 [place] gm/dL [facility] (Lab): [address], [place] ? ? BLOOD ? Mcv 87.2 fL 80.0-98 Final Herman .[address] [facility] (Lab): [address], [place] ? ? BLOOD ? Plt Cnt 154 x10^3 142-424 Final Dillan s cells/mcL x10^3 [place] cells/m [facility] c[facility] (Lab): [address], [place] ? ? BLOOD ? Mpv 10.4 fL 6.7-11. Final Herman [address] [facility] (Lab): [address], [place] ? ? BLOOD High Rdw 16.2 % 11.6-14 Final Herman .8 % [facility] (Lab): [address], [place] 03/31/2022 Wbc Diff, BLOOD ? Neutroph 60.8 % 45.0-80 Final Herman Auto, Blood ils% Auto .0 % [facility] (Lab): [address], [place] ? ? BLOOD ? Lymphocy 25.8 % 15.0-45 Final Herman eric% Auto .0 % [facility] (Lab): [address], [place] ? ? BLOOD ? Monocyte 8.2 % 0.0-12. Final Herman s% Auto 0 % [facility] (Lab): [address], [place] ? ? BLOOD ? Eosinoph 4.4 % 0.0-7.0 Final Herman ils% Auto % [facility] (Lab): [address], [place] ? ? BLOOD ? Basophil 0.8 % 0.0-2.6 Final Herman s% Auto % [facility] (Lab): [address], [place] ? ? BLOOD ? Neutroph 3.10 2.00-6. Final Herman ils# Auto x10^3/mcL 90 Tayl or x10^3/m Hospital c[facility] (Lab): [address], [place] ? ? BLOOD ? Lymphocy 1.30 0.60-3. Final Herman eric# Auto x10^3/mcL 40 Tayl or x10^3/m Hospital cL (Lab): [address], [place] ? ? BLOOD ? Monocyte 0.40 0.00-1. Final Herman s# Auto x10^3/mcL 22 [place] x10^3/m Hospital c[facility] (Lab): [address], [place] ? ? BLOOD ? Eos# 0.20 0.00-0. Final Herman Auto x10^3/mcL 70 [place] x10^3/m [facility] (Lab): [address], [place] ? ? BLOOD ? Basophil 0.00 0.00-0. Final Herman s# Auto x10^3/mcL 26 [place] x10^3/m [facility] (Lab): [address], [place] 03/31/2022 PT/INR ? Prothrom 26 ? ? bin Time 03/31/2022 INR, Plasma ? Inr 2.2 ? ? 03/25/2022 PT/INR ? Prothrom 26.2 ? ? bin Time 03/25/2022 INR, Plasma ? Inr 2.2 ? ? 03/23/2022 PT/INR ? Prothrom 46.8 ? ? bin Time 03/23/2022 INR, Plasma ? Inr 3.9 ? ? 03/22/2022 PT/INR ? Prothrom 47.7 ? ? bin Time 03/22/2022 INR, Plasma ? Inr 4.0 ? ? 03/12/2022 PT/INR BLOOD High Pt 20.9 11.6-14 Final [facility] second(s) .8 [facility]( Hospital s) (Lab): [address] [facility] ? ? BLOOD High Inr 1.78 0.90-1. Final [facility] r 11 [facility] (Lab): [address] [facility] 03/08/2022 PT/INR BLOOD High Pt 29.4 11.6-14 Final [facility] second(s) .8 [facility]( Hospital s) (Lab): [address] [facility] ? ? BLOOD High Inr 2.74 0.90-1. Final [facility] r 11 [facility] (Lab): [address] [facility] 03/05/2022 CBC W/ Auto BLOOD Low Wbc 3.4 4.5-11. Final Ron-Bar Diff x10^3/mcL 0 re Gene ral x10^3/m Hospital cL (Lab): [address] [facility] ? ? BLOOD Low WBC Cnt 3.4 4.5-11. Final Ron- Bar x10^3/mcL 0 re Gene ral x10^3/m Hospital cL (Lab): [address] [facility] ? ? BLOOD Low Rbc 2.87 3.79-5. Final Ron-Ba r x10^6/mcL 23 re Gene ral x10^6/m Hospital cL (Lab): [address] [facility] ? ? BLOOD Low Hgb 8.9 g/dL 11.7-15 Final [facility]- Bar .7 g/dL [facility] (Lab): [address] [facility] ? ? BLOOD Low Hct 27.5 % 34.9-46 Final Ron-Ba r .9 % [facility] (Lab): [address] [facility] ? ? BLOOD ? Mch 30.9 pg 26.6-33 Final Ron-B ar .8 pg [facility] (Lab): [address] [facility] ? ? BLOOD ? Mchc 32.3 g/dL 31.5-35 Final [facility] -Bar .9 g/dL [facility] (Lab): [address] [facility] ? ? BLOOD ? Mcv 95.6 fL 80.5-99 Final [facility]-B ar .7 fL [facility] (Lab): [address] [facility] ? ? BLOOD Low Plt Cnt 117 150-400 Final [facility]- Bar x10^3/mcL x10^3/m [facility] (Lab): [address] [facility] ? ? BLOOD ? Mpv 10.7 fL 8.0-13. Final [facility] ar 0 fL [facility] (Lab): [address] [place] [address] ? ? BLOOD High Rdw 17.1 % 11.0-16 Final Ron-Ba r .0 % [facility] (Lab): [address] [facility] ? ? BLOOD ? Conditio present ? Final Ron -Bar n [facility] (Lab): [address] [facility] 03/05/2022 Wbc Diff, BLOOD ? Neutroph 53.2 % 42.0-76 Final Ron-Bar Auto, Blood ils% Auto .0 % [facility] (Lab): [address] [facility] ? ? BLOOD ? Lymphocy 30.7 % 17.0-51 Final [facility] -Bar eric% Auto .0 % [facility] (Lab): [address] [facility] ? ? BLOOD ? Monocyte 10.3 % 4.8-12. Final Ron -Bar s% Auto 8 % [facility] (Lab): [address] [facility] ? ? BLOOD High Eosinoph 5.4 % 0.0-4.5 Final Ron -Bar ils% Auto % [facility] (Lab): [address] [facility] ? ? BLOOD ? Basophil 0.4 % 0.0-2.0 Final Ron -Bar s% Auto % [facility] (Lab): [address] [facility] ? ? BLOOD ? Neutroph 1.8 1.8-7.7 Final Ron -Bar ils# Auto x10^3/mcL x10^3/m [facility] (Lab): [address] [facility] ? ? BLOOD ? Lymphocy 1.0 1.0-4.8 Final [facility] -Bar eric# Auto x10^3/mcL x10^3/m [facility] (Lab): [address] [facility] ? ? BLOOD ? Monocyte 0.3 0.0-1.5 Final [facility] -Bar s# Auto x10^3/mcL x10^3/m [facility] (Lab): [address] [facility] ? ? BLOOD ? Eos# 0.2 0.0-0.7 Final Ron-Ba r Auto x10^3/mcL x10^3/m [facility] (Lab): [address] [facility] ? ? BLOOD ? Basophil 0.0 0.0-0.2 Final [facility] -Bar s# Auto x10^3/mcL x10^3/m [facility] (Lab): [address] [facility] 03/05/2022 BMP, Blood BLOOD ? Sodium 143 mmol/L 136-145 Fin al Ron-Bar mmol/L [facility] (Lab): [address] [facility] ? ? BLOOD ? Potassiu 4.2 mmol/L 3.5-5.1 Final Wi lkes-Bar m mmol/L [facility] (Lab): [address] [facility] ? ? BLOOD ? Chloride 106 mmol/L 98-107 Final Gerry kes-Bar mmol/L [facility] (Lab): [address] [facility] ? ? BLOOD [place] 33 mmol/L 21-31 Final [facility] -Bar Dioxide mmol/L [facility] (Lab): [address] [facility] ? ? BLOOD ? Bun 14 mg/dL 7-25 Final [facility]-B ar mg/dL [facility] (Lab): [address] [place] [address] ? ? BLOOD ? Creatini 0.82 mg/dL 0.60-1. Final Mi lkes-Bar ne 30 [facility] mg/dL Hospital (Lab): [address] [place] [address] ? ? BLOOD ? Glucose 66 mg/dL 65-99 Final [facility] -Bar mg/dL [facility] (Lab): [address] [facility] ? ? BLOOD Low Calcium 8.3 mg/dL 8.6-10. Final Rosa M es-Bar 3 mg/dL [facility] (Lab): [address] [place] [address] ? ? BLOOD ? eGFR Non 68 ? Final Ron- Bar [facility] (Lab): [address] [place] [address] ? ? BLOOD ? eGFR 78 ? Final Ron-Bar [facility] (Lab): [address] [place] [address] ? ? BLOOD ? Anion 4 mmol/L 3-11 Final [facility]-B ar [place] mmol/L [facility] (Lab): [address] [place] [address] 03/05/2022 PT/INR BLOOD High Pt 33.5 11.6-14 Final Kamlesh s-Bar second(s) .8 [facility] second( Hospital s) (Lab): [address] [place] [address] ? ? BLOOD High Inr 3.23 0.90-1. Final Ron-Ba r 11 [facility] (Lab): [address] [place] [address] 03/01/2022 PT/INR BLOOD High Pt 29.6 11.6-14 Final [facility] second(s) .8 [facility] second( Hospital s) (Lab): [address] [facility] ? ? BLOOD High Inr 2.77 0.90-1. Final [facility] r 11 [facility] (Lab): [address] [facility] 02/26/2022 PT/INR BLOOD High Pt 24.6 11.6-14 Final [facility] second(s) .8 [facility] second( Hospital s) (Lab): [address] [facility] ? ? BLOOD High Inr 2.19 0.90-1. Final [facility] 11 [facility] (Lab): [address] [facility] 02/18/2022 CBC W/ Auto BLOOD ? Wbc 5.50 4.60-10 Final Herman Diff x10^3/mcL .20 [place] x10^3/m [facility] (Lab): [address], [place] ? ? BLOOD Low Rbc 3.23 4.04-5. Final Herman x10^6/mcL 48 [place] x10^6/m [facility] c[facility] (Lab): [address], [place] ? ? BLOOD Low Hgb 10.0 g/dL 12.6-16 Final Herman .2 g/dL [facility] (Lab): [address], [place] ? ? BLOOD Low Hct 29.1 % 35.9-47 Final Herman .9 % [facility] (Lab): [address], [place] ? ? BLOOD ? Mch 30.9 pg 25.4-34 Final Herman .[address] [facility] (Lab): [address], [place] ? ? BLOOD ? Mchc 34.2 gm/dL 30.0-36 Final Herman .0 [place] gm/[facility] (Lab): [address], [place] ? ? BLOOD ? Mcv 90.2 fL 80.0-98 Final Herman .[address] [facility] (Lab): [address], [place] ? ? BLOOD CRITICAL Plt Cnt 111 x10^3 142-424 Final Mo ses LOW cells/mcL x10^3 [facility] cells/[facility] cL (Lab): [address], [place] ? ? BLOOD ? Mpv 10.0 fL 6.7-11. Final Herman [address] [facility] (Lab): [address], [place] ? ? BLOOD High Rdw 16.5 % 11.6-14 Final Herman .8 % [facility] (Lab): [address], [place] 02/18/2022 Wbc Diff, BLOOD ? Neutroph 66.9 % 45.0-80 Final Herman Auto, Blood ils% Auto .0 % [facility] (Lab): [address], [place] ? ? BLOOD ? Lymphocy 21.8 % 15.0-45 Final Herman eric% Auto .0 % [facility] (Lab): [address], [place] ? ? BLOOD ? Monocyte 7.3 % 0.0-12. Final Herman s% Auto 0 % [facility] (Lab): [address], [place] ? ? BLOOD ? Eosinoph 2.6 % 0.0-7.0 Final Herman ils% Auto % [facility] (Lab): [address], [place] ? ? BLOOD ? Basophil 1.4 % 0.0-2.6 Final Herman s% Auto % [facility] (Lab): [address], [place] ? ? BLOOD ? Neutroph 3.70 2.00-6. Final Herman ils# Auto x10^3/mcL 90 [facility] (Lab): [address], [place] ? ? BLOOD ? Lymphocy 1.20 0.60-3. Final Herman eric# Auto x10^3/mcL 40 Tayl or x10^3/m Hospital c[facility] (Lab): [address], [place] ? ? BLOOD ? Monocyte 0.40 0.00-1. Final Herman s# Auto x10^3/mcL 22 [place] x10^3/m Hospital [facility] (Lab): [address], [place] ? ? BLOOD ? Eos# 0.10 0.00-0. Final Herman Auto x10^3/mcL 70 [place] x10^3/m Hospital [facility] (Lab): [address], [place] ? ? BLOOD ? Basophil 0.10 0.00-0. Final Herman s# Auto x10^3/mcL 26 [place] x10^3/m [facility] (Lab): [address], [place] 02/18/2022 CMP, Serum BLOOD ? Sodium 140 mmol/L 136-145 Fin al Herman or Plasma mmol/L [facility] (Lab): [address], [place] ? ? BLOOD CRITICAL Potassiu 2.9 mmol/L 3.5-5.1 Final Herman LOW m mmol/L [facility] (Lab): [address], [place] ? ? BLOOD ? Chloride 104 mmol/L 98-107 Final Mos es mmol/L [facility] (Lab): [address], [place] ? ? BLOOD ? Carbon 29 mmol/L 21-31 Final Herman Dioxide mmol/L [facility] (Lab): [address], [place] ? ? BLOOD ? Bun 13 mg/dL 7-25 Final Herman mg/dL [facility] (Lab): [address], [place] ? ? BLOOD ? Creatini 0.9 mg/dL 0.6-1.3 Final Mos es ne mg/dL [facility] (Lab): [address], [place] ? ? BLOOD ? eGFR Non 60 ? Final [facility] (Lab): [address], [place] ? ? BLOOD ? eGFR >60 ? Final [facility] (Lab): [address], [place] ? ? BLOOD ? Glucose 93 mg/dL 65-110 Final Herman mg/dL [facility] (Lab): [address], [place] ? ? BLOOD ? Calcium 9.2 mg/dL 8.6-10. Final Dillan s 3 mg/dL [facility] (Lab): [address], [place] ? ? BLOOD Low Prot 5.7 g/dL 6.4-8.9 Final Herman Total g/dL [facility] (Lab): [address], [place] ? ? BLOOD ? Albumin 3.9 g/dL 3.5-5.7 Final Herman g/dL [facility] (Lab): [address], [place] ? ? BLOOD ? Bili 1.0 mg/dL 0.3-1.0 Final Herman Total mg/dL [facility] (Lab): [address], [place] ? ? BLOOD ? Ast 21 unit/L 13-39 Final Herman unit/L [facility] (Lab): [address], [place] ? ? BLOOD ? Alt 14 unit/L 7-52 Final Herman unit/L [facility] (Lab): [address], [place] ? ? BLOOD ? Alkaline 76 unit/L 34-104 Final Dillan s Phosphata unit/L [facility] (Lab): [address], [place] ? ? BLOOD ? Ca 9.3 mg/dL 8.6-10. Final Herman Corrected 3 mg/dL [facility] (Lab): [address], [place] ? ? BLOOD ? Anion 9.9 mmol/L 7.0-16. Final Herman [place] 0 [place] mmol/L [facility] (Lab): [address], [place] 02/18/2022 PT/INR BLOOD High Pt 24.0 9.5-12. Final Herman second(s) 1 [facility]( Hospital s) (Lab): [address], [place] ? ? BLOOD High Inr 2.36 0.86-1. Final Herman 15 [facility] (Lab): [address], [place] 02/18/2022 Magnesium, BLOOD ? Magnesiu 1.8 mg/dL 1.6-2.4 Fi nal [facility] Serum or m mg/dL [facility] (Lab): [address], [place] 02/18/2022 Troponin I, BLOOD CRITICAL Troponin 17 pg/mL 0-12 F inal Herman Serum or HIGH I Qnt pg/mL [facility] (Lab): [address], [place] 02/18/2022 TSH, Serum BLOOD ? Tsh 1.58 mIU/L 0.45-5. Carolina l Herman or Plasma 33 [place] mIU/L [facility] (Lab): [address], [place] 02/13/2022 CBC W/ Auto BLOOD ? Wbc 5.30 4.60-10 Final Herman Diff x10^3/mcL .20 [place] x10^3/m [facility] c[facility] (Lab): [address], [place] ? ? BLOOD ? Rbc 4.36 4.04-5. Final Herman x10^6/mcL 48 [place] x10^6/m [facility] (Lab): [address], [place] ? ? BLOOD ? Hgb 13.3 g/dL 12.6-16 Final Herman .2 g/dL [facility] (Lab): [address], [place] ? ? BLOOD ? Hct 39.2 % 35.9-47 Final Herman .9 % [facility] (Lab): [address], [place] ? ? BLOOD ? Mch 30.6 pg 25.4-34 Final Herman .[address] [facility] (Lab): [address], [place] ? ? BLOOD ? Mchc 34.0 gm/dL 30.0-36 Final Herman .0 [place] gm/dL [facility] (Lab): [address], [place] ? ? BLOOD ? Mcv 89.9 fL 80.0-98 Final Herman .[address] [facility] (Lab): [address], [place] ? ? BLOOD CRITICAL Plt Cnt 112 x10^3 142-424 Final Mo ses LOW cells/mcL x10^3 [place] cells/m [facility] c[facility] (Lab): [address], [place] ? ? BLOOD ? Mpv 10.0 fL 6.7-11. Final Herman [address] [facility] (Lab): [address], [place] ? ? BLOOD High Rdw 16.8 % 11.6-14 Final Herman .8 % [facility] (Lab): [address], [place] 02/13/2022 Wbc Diff, BLOOD ? Neutroph 75.1 % 45.0-80 Final Herman Auto, Blood ils% Auto .0 % [facility] ([facility] [address], [place] ? ? BLOOD Low Lymphocy 14.1 % 15.0-45 Final Herman eric% Auto .0 % [facility] (Lab): [address], [place] ? ? BLOOD ? Monocyte 5.6 % 0.0-12. Final Herman s% Auto 0 % [facility] (Lab): [address], [place] ? ? BLOOD ? Eosinoph 4.1 % 0.0-7.0 Final Herman ils% Auto % [facility] (Lab): [address], [place] ? ? BLOOD ? Basophil 1.1 % 0.0-2.6 Final Herman s% Auto % [facility] (Lab): [address], [place] ? ? BLOOD ? Neutroph 4.00 2.00-6. Final Herman ils# Auto x10^3/mcL 90 [facility] (Lab): [address], [place] ? ? BLOOD ? Lymphocy 0.80 0.60-3. Final Herman eric# Auto x10^3/mcL 40 [facility] or x10^3/m Hospital cL (Lab): [address], [place] ? ? BLOOD ? Monocyte 0.30 0.00-1. Final Herman s# Auto x10^3/mcL 22 [facility] x10^3/m [facility] (Lab): [address], [place] ? ? BLOOD ? Eos# 0.20 0.00-0. Final Herman Auto x10^3/mcL 70 [facility] x10^3/m [facility] cL (Lab): [address], [place] ? ? BLOOD ? Basophil 0.10 0.00-0. Final Herman s# Auto x10^3/mcL 26 [facility] x10^3/m [facility] cL (Lab): [address], [place] 02/13/2022 Fecal Occult FECES ABNORMAL Occult positive negativ F inal Herman Blood, Stool Bld Card e Ta ylor [address] [place] [address] (Lab): [address], [place] ? ? FECES ? Dev Lot [id number] ? Final Herman Number [facility] (Lab): [address], [place] ? ? FECES ? Dev Exp [id number] ? Final Herman [facility] (Lab): [address], [place] 02/13/2022 PT BLOOD High Thrombop 32.2 23.9-30 Final Mo ses (Prothrombin lastin second(s) .7 T aylor Time) Mixing Time second( Hos pital Study Partial s) (Lab): [address], [place] 02/13/2022 PT/INR BLOOD High Pt 24.4 9.5-12. Final Herman second(s) 1 [facility] second( Hospital s) (Lab): [address], [place] ? ? BLOOD High Inr 2.40 0.86-1. Final Herman 15 [facility] (Lab): [address], [place] 02/13/2022 Lipase, BLOOD ? Lipase 45 unit/L 11-82 Final M oses Serum or unit/L [facility] (Lab): [address], [place] 02/13/2022 Troponin I, BLOOD ? Troponin 12 pg/mL 0-12 Fin al [facility] Serum or I Qnt pg/mL [facility] (Lab): [address], [place] 02/13/2022 CMP, Serum BLOOD ? Sodium 136 mmol/L 136-145 Fin al [facility] or Plasma mmol/L [facility] (Lab): [address], [place] ? ? BLOOD ? Potassiu 4.3 mmol/L 3.5-5.1 Final Mo ses m mmol/L [facility] (Lab): [address], [place] ? ? BLOOD ? Chloride 101 mmol/L 98-107 Final Mos es mmol/L [facility] (Lab): [address], [place] ? ? BLOOD ? Carbon 27 mmol/L 21-31 Final Herman Dioxide mmol/L [facility] (Lab): [address], [place] ? ? BLOOD ? Bun 18 mg/dL 7-25 Final Herman mg/dL [facility] (Lab): [address], [place] ? ? BLOOD ? Creatini 0.8 mg/dL 0.6-1.3 Final Mos es ne mg/dL [facility] (Lab): [address], [place] ? ? BLOOD ? eGFR Non >60 ? [facility] [address], [place] ? ? BLOOD ? eGFR >60 ? Final [facility] (Lab): [address], [place] ? ? BLOOD High Glucose 128 mg/dL 65-110 Final Herman mg/dL [facility] (Lab): [address], [place] ? ? BLOOD ? Calcium 9.7 mg/dL 8.6-10. Final Dillan s 3 mg/dL [facility] (Lab): [address], [place] ? ? BLOOD ? Prot 6.9 g/dL 6.4-8.9 Final Herman Total g/dL [facility] (Lab): [address], [place] ? ? BLOOD ? Albumin 4.5 g/dL 3.5-5.7 Final Herman g/dL [facility] (Lab): [address], [place] ? ? BLOOD High Bili 1.5 mg/dL 0.3-1.0 Final Herman Total mg/dL [facility] (Lab): [address], [place] ? ? BLOOD High Ast 41 unit/L 13-39 Final Herman unit/L [facility] (Lab): [address], [place] ? ? BLOOD ? Alt 17 unit/L 7-52 Final Herman unit/L [facility] (Lab): [address], [place] ? ? BLOOD ? Alkaline 68 unit/L 34-104 Final Dillan s Phosphata unit/L [facility] (Lab): [address], [place] ? ? BLOOD ? Ca 9.3 mg/dL 8.6-10. Final Herman Corrected 3 mg/dL [facility] (Lab): [address], [place] ? ? BLOOD ? Anion 12.3 7.0-16. Final Herman [place] mmol/L 0 [facility] mmol/L [facility] (Lab): [address], [place] 02/13/2022 Leukocyte URINE ? Ur void ? Final Mos es Esterase, Collectio Tayl or QL, Urine n [facility] ([facility] [address], [place] ? ? URINE ? Ur Color yellow yellow Final [facility] (Lab): [address], [place] ? ? URINE ? Ur clear clear Final Herman Appearanc [facility] (Lab): [address], [place] ? ? URINE ? Ur negative negativ Final [facility] Glucose e [facility] (Lab): [address], [place] ? ? URINE ? Ur Bili negative negativ Final [facility] (Lab): [address], [place] ? ? URINE ? Ur negative negativ Final [facility] Ketone [facility] (Lab): [address], [place] ? ? URINE ? Ur 1.014 1.001-1 Final Herman Specific .030 [facility] (Lab): [address], [place] ? ? URINE ? Ur Blood negative negativ Final [facility] e [facility] (Lab): [address], [place] ? ? URINE ? Ur pH 6.0 4.5-8.0 Final [facility] (Lab): [address], [place] ? ? URINE ? Ur negative negativ Final [facility] Protein [facility] (Lab): [address], [place] ? ? URINE ABNORMAL Ur 4.0 mg/dL normal Final [facility] Urobilino mg/dL [facility] (Lab): [address], [place] ? ? URINE ? Ur negative negativ Final [facility] Nitrite [facility] (Lab): [address], [place] ? ? URINE ? Ur negative negativ Final [facility] Leukocyte [facility] (Lab): [address], [place] ? ? URINE ? Ur WBC 0-4 /hpf 0-4 Final [facility] /hpf [facility] (Lab): [address], [place] ? ? URINE ? Ur RBC 0-2 /hpf 0-2 Final Herman /[facility] (Lab): [address], [place] ? ? URINE ABNORMAL Ur rare /hpf none Final [facility] Epithelia /hpf [facility] (Lab): [address], [place] ? ? URINE ? Ur rare /hpf none Final [facility] Bacteria /hpf [facility] (Lab): [address], [place] ? ? URINE ABNORMAL Ur Mucus trace /lpf none Final M oses seen [facility] (Lab): [address], [place] 02/13/2022 Culture, U ? Urine ? ? Final [facility] Urine CLEANC Culture [facility] (Lab): [address], [place] 02/10/2022 Leukocyte URINE ? Ur void ? Final Reg ional Esterase, Collectio Hosp ital QL, Urine n Source [facility] [place] (Lab): [address], [place] ? ? URINE ? Ur Color yellow ? Final [facility] [place] (Lab): [address], [place] ? ? URINE ? Ur slightly clear Final [facility] [place] (Lab): [address], [place] ? ? URINE ? Ur negative negativ Final Regiona l Glucose mg/dL e mg/dL [facility] [place] (Lab): [address], [place] ? ? URINE ? Ur Bili negative negativ Final Regio nal mg/dL e mg/dL [facility] [place] (Lab): [address], [place] ? ? URINE ? Ur negative negativ Final Regiona l Ketone mg/dL e mg/dL [facility] [place] (Lab): [address], [place] ? ? URINE ? Ur 1.013 1.005-1 Final Regional Specific .030 [facility] [place] (Lab): [address], [place] ? ? URINE ? Ur Blood negative negativ Final Abril onal mg/dL e mg/dL [facility] [place] (Lab): [address], [place] ? ? URINE ? Ur pH 5.0 5.0-8.0 Final [facility] (Lab): [address], [place] ? ? URINE ? Ur negative negativ Final Regiona l Protein mg/dL e mg/dL [facility] [place] (Lab): [address], [place] ? ? URINE ? Ur normal normal Final Regional Urobilino mg/dL mg/dL Hospita [facility] gen [facility] [place] (Lab): [address], [place] ? ? URINE ? Ur negative negativ Final Regiona l Nitrite e [facility] [place] (Lab): [address], [place] ? ? URINE ABNORMAL Ur large negativ Final Regiona l Leukocyte e Hospita l Esterase [facility] [place] (Lab): [address], [place] ? ? URINE High Ur WBC 33 /hpf 0-4 Final Regional /[facility] [place] (Lab): [address], [place] ? ? URINE ? Ur RBC 1 /hpf 0-5 Final [facility] [place] (Lab): [address], [place] ? ? URINE ? Ur 5 /lpf 0-5 Final Regional Epithelia /lpf Hospita l l Cells [facility] [place] (Lab): [address], [place] ? ? URINE ? Ur few /hpf negativ Final Regiona l Bacteria e /hpf [facility] (Lab): [address], [place] ? ? URINE ABNORMAL Ur Mucus rare /lpf negativ Final R egional e /lpf [facility] (Lab): [address], [place] ? ? URINE ABNORMAL Urine rare negativ Final Regiona l Amorphous e [facility] [place] (Lab): [address] [place] 02/09/2022 CBC W/ Auto BLOOD ? Wbc 5.20 4.80-10 Final Regional Diff x10^3/mcL .80 Hospita l x10^3/m [facility] [place] (Lab): [address], [place] ? ? BLOOD ? Rbc 4.43 4.20-5. Final Regional x10^6/mcL 40 Hospita l x10^6/m [facility] [place] (Lab): [address], [place] ? ? BLOOD ? Hgb 13.2 g/dL 12.0-16 Final Region al .0 g/dL [facility] (Lab): [address], [place] ? ? BLOOD ? Hct 40.8 % 37.0-47 Final Regional .0 % [facility] (Lab): [address], [place] ? ? BLOOD ? Mch 29.8 pg 26.0-34 Final Regional .0 pg [facility] (Lab): [address], [place] ? ? BLOOD ? Mchc 32.3 g/dL 32.0-36 Final Region al .0 g/dL [facility] (Lab): [address], [place] ? ? BLOOD ? Mcv 92.2 fL 81.0-99 Final Regional .0 fL [facility] (Lab): [address], [place] ? ? BLOOD Low Plt Cnt 104.0 130.0-4 Final Regiona l x10^3/mcL 00.0 Hospita l x10^3/m Of [place] (Lab): [address], [place] ? ? BLOOD ? Mpv 10.2 fL 7.3-11. Final Regional 9 fL [facility] ([facility] [address], [place] ? ? BLOOD High Rdw 17.3 % 11.5-15 Final Regional .5 % [facility] [place] (Lab): [address] [place] 02/09/2022 Wbc Diff, BLOOD High Neutroph 78.1 % 42.2-75 Final Regional Auto, Blood ils% Auto .2 % Ho [facility]ital [facility] [place] (Lab): [address], [place] ? ? BLOOD Low Lymphocy 12.5 % 15.0-41 Final Region al eric% Auto .0 % [facility]osp[facility] [place] (Lab): [address], [place] ? ? BLOOD ? Monocyte 7.1 % 0.0-13. Final Region al s% Auto 0 % [facility] [place] (Lab): [address], [place] ? ? BLOOD ? Eosinoph 1.4 % 0.0-10. Final Region al ils% Auto 0 % [facility]osp[facility] [place] (Lab): [address], [place] ? ? BLOOD ? Basophil 0.9 % 0.0-2.0 Final Region al s% Auto % [facility] [place] (Lab): [address], [place] ? ? BLOOD ? Neutroph 4.00 1.40-6. Final Region al ils# Auto x10^3/mcL 50 Hosp ital x10^3/m Of cL [place] (Lab): [address], [place] ? ? BLOOD Low Lymphocy 0.60 1.00-3. Final Region al eric# Auto x10^3/mcL 00 Hosp ital x10^3/m Of cL [place] (Lab): [address], [place] ? ? BLOOD ? Monocyte 0.40 0.00-1. Final Region al s# Auto x10^3/mcL 00 Hospit al x10^3/m Of cL [place] (Lab): [address], [place] ? ? BLOOD ? Eos# 0.10 0.00-0. Final Regional Auto x10^3/mcL 70 Hospita l x10^3/m Of cL [place] (Lab): [address], [place] ? ? BLOOD ? Basophil 0.00 0.00-0. Final Region al s# Auto x10^3/mcL 10 Hospit al x10^3/m Of cL [place] (Lab): [address] [place] 02/09/2022 Lactic Acid, BLOOD ? Lactic 1.0 mmol/L 0.5-2.2 F inal Regional Blood Acid mmol/L [facility] (Lab): [address] [place] 02/09/2022 Magnesium, BLOOD ? Magnesiu 1.9 mg/dL 1.9-2.7 Fi nal Regional Serum or m mg/dL [facility] Plasma [facility] [address] [place] 02/09/2022 CMP, Serum BLOOD ? Sodium 143 mmol/L 136-145 Fin al Regional or Plasma mmol/L [facility]ospita [facility] [place] (Lab): [address], [place] ? ? BLOOD Low Potassiu 3.6 mmol/L 3.8-5.1 Final Re gional m mmol/L [facility] (Lab): [address] [place] ? ? BLOOD ? Chloride 105 mmol/L 98-107 Final Reg ional mmol/L [facility] (Lab): [address] [place] ? ? BLOOD ? Carbon 28 mmol/L 21-31 Final Region al Dioxide mmol/L [facility] (Lab): [address], [place] ? ? BLOOD ? Bun 22 mg/dL 7-25 Final Regional mg/dL [facility] (Lab): [address], [place] ? ? BLOOD ? Creatini 0.9 mg/dL 0.6-1.2 Final Reg ional ne mg/dL [facility] (Lab): [address], [place] ? ? BLOOD ? eGFR Non 60 ? Final Regiona [facility] (Lab): [address], [place] ? ? BLOOD ? eGFR >60 ? Final [facility] (Lab): [address], [place] ? ? BLOOD High Glucose 154 mg/dL 70-105 Final Regio nal mg/dL [facility] (Lab): [address], [place] ? ? BLOOD ? Calcium 10.3 mg/dL 8.6-10. Final Reg ional 3 mg/dL [facility] (Lab): [address], [place] ? ? BLOOD ? Prot 7.1 g/dL 6.4-8.9 Final Regiona l Total g/dL [facility] (Lab): [address], [place] ? ? BLOOD ? Albumin 4.4 g/dL 3.5-5.7 Final Regio nal g/dL [facility] (Lab): [address], [place] ? ? BLOOD High Bili 1.10 mg/dL 0.30-1. Final Regio nal Total 00 Hospital mg/dL [facility] ([facility] [address], [place] ? ? BLOOD ? Ast 21 unit/L 13-39 Final Regiona l unit/L [facility] (Lab): [address], [place] ? ? BLOOD ? Alt 14 unit/L 7-52 Final Regiona l unit/L [facility] (Lab): [address], [place] ? ? BLOOD ? Alkaline 63 unit/L 34-104 Final Abril onal Phosphata unit/L Hospita l [facility] (Lab): [address], [place] ? ? BLOOD ? Globulin 2.7 g/dL 2.4-3.5 Final Abril onal g/dL [facility] (Lab): [address], [place] ? ? BLOOD ? Albumin/ 1.6 g/dL 1.1-2.2 Final Abril onal globulin g/dL Hospital Ratio [facility] [place] (Lab): [address], [place] ? ? BLOOD ? Ca 10.0 mg/dL 8.8-10. Final Regio nal Corrected 2 mg/dL Hospit [facility] (Lab): [address], [place] ? ? BLOOD ? BUN/crea 24.4 mg/dL 6.7-40. Final Re gional Ratio 0 mg/dL [facility] (Lab): [address], [place] ? ? BLOOD ? Anion 13.6 7.0-16. Final Regional Gap mmol/L 0 Hospital mmol/L [facility] [place] (Lab): [address] [place] 02/09/2022 Troponin I, BLOOD CRITICAL Troponin 17 pg/mL 0-14 F inal Regional Serum or HIGH I Qnt pg/mL Hospital Plasma [facility] [place] (Lab): [address] [place] 02/09/2022 BNP (B-type BLOOD High B Type 147.0 0.0-100 Final Regional Natriuretic Natriuret pg/mL .0 Ho spital Peptide), ic pg/mL Of Blood Peptide [place] (Lab): [address] [place] 02/09/2022 Rapid SARS NASAL ? First yes ? Final Re gional CoV 2 Ag, QL SWAB Test? Hosp ital [place], Of Respiratory Scran ton Specimen (Lab): [address], [place] ? ? NASAL ? Employed no ? Final Regiona l SWAB in Hospital [facility] Of e? [place] (Lab): [address], [place] ? ? NASAL ? Symptoma no ? Final Regiona l SWAB tic as Hospital Defined Of by Cdc? [place] (Lab): [address], [place] ? ? NASAL ? Date of n/a ? Final Regional SWAB Symptom Hospital Onset? [facility] [place] (Lab): [address], [place] ? ? NASAL ? Hospital unknown ? Final Region al SWAB ized? [facility] [place] (Lab): [address], [place] ? ? NASAL ? Icu? no ? Final Regional SWAB [facility] [place] (Lab): [address], [place] ? ? NASAL ? Resident no ? Final Regiona l SWAB in Hospital Congregat Of e Care? [place] (Lab): [address], [place] ? ? NASAL ? no ? Final Regiona l SWAB ?. [facility] [place] (Lab): [address], [place] ? ? NASAL ? [id number] negative negativ Final Abril onal SWAB arsagfia e [facility] ([facility] [address], [place] 02/09/2022 Troponin I, BLOOD CRITICAL Troponin 21 pg/mL 0-14 F [facility] Regional Serum or HIGH I Qnt pg/mL Hospital Plasma [facility] [place] (Lab): [address], [place] 02/04/2022 PT Panel, Alert Inr 2.3 0.9-1.2 Final [facility]: Coagulation, High [address] , Poor Plasma [place] ? ? Alert Prothrom 23.4 sec 9.1-12. Final Labc orp: High bin Time 0 sec [address], [place] 01/29/2022 PT Panel, Alert Inr 3.4 0.9-1.2 Final [facility]: Coagulation, High [address] , Poor Plasma [place] ? ? Alert Prothrom 34.7 sec 9.1-12. Final Labc orp: High bin Time 0 sec [address], [place] 01/12/2022 PT Panel, Alert Inr 2.9 0.9-1.2 Final [facility]: Coagulation, High [address] , Poor Plasma [place] ? ? Alert Prothrom 29.5 sec 9.1-12. Final Labc orp: High bin Time 0 sec [address], [place] 12/28/2021 PT Panel, Alert Inr 2.2 0.9-1.2 Final [facility]: Coagulation, High [address] , Poor Plasma [place] ? ? Alert Prothrom 23.0 sec 9.1-12. Final Labc orp: High bin Time 0 sec [address], [place] 12/21/2021 PT Panel, Alert Inr 1.7 0.9-1.2 Final [facility]: Coagulation, High [address] , Poor Plasma [place] ? ? Alert Prothrom 17.7 sec 9.1-12. Final Labc orp: High bin Time 0 sec [address], [place] 12/18/2021 PT/INR ? Prothrom 29.3 ? ? bin Time 12/18/2021 INR, Plasma ? Inr 2.9 ? ? 12/17/2021 PT Panel, Alert Inr 2.9 0.9-1.2 Final [facility]: Coagulation, High [address] , Poor Plasma [place] ? ? Alert Prothrom 29.3 sec 9.1-12. Final Labc orp: High bin Time 0 sec [address], [place] 12/16/2021 PT/INR ? Prothrom 47.1 ? ? bin Time 12/16/2021 INR, Plasma ? Inr 4.7 ? ? 12/15/2021 PT Panel, Alert Inr 4.7 0.9-1.2 Final [facility]: Coagulation, High [address] , Poor Plasma [place] ? ? Alert Prothrom 47.1 sec 9.1-12. Final Labc orp: High bin Time 0 sec [address], [place] 12/01/2021 PT/INR Alert Inr 3.07 ? Final [facility] ([facility] [address] [facility] ? ? Alert Prothrom 31.4 sec 10.1-[address] [facility] High bin Time [address] [place] [address] (Lab): [address] [facility] 12/01/2021 PT/INR ? Prothrom 31.4 ? ? bin Time 12/01/2021 INR, Plasma ? Inr 3.07 ? ? 12/01/2021 PT/INR ? No ? ? ? observati on recorded. 11/25/2021 PT/INR Alert Inr 1.56 ? Final [facility] (Lab[facility] [address] [facility] ? ? Alert Prothrom 16.5 sec 10.1-[address] [facility] High bin Time [address] [place] [address] (Lab): [address] [facility] 11/25/2021 PT/INR ? Prothrom 16.5 ? ? bin Time 11/25/2021 INR, Plasma ? Inr 1.56 ? ? 11/17/2021 PT/INR Alert Inr 1.52 ? Final [facility] (Lab[facility] [address] [facility] ? ? Alert Prothrom 16.1 sec 10.1-11 Final [facility] bin Time [address] [place] [address] (Lab): [address] [facility] 11/17/2021 PT/INR ? Prothrom 16.1 ? ? bin Time 11/17/2021 INR, Plasma ? Inr 1.52 ? ? 10/26/2021 PT/INR Alert Inr 2.27 ? Final [facility] (Lab): [address] ? ? Alert Prothrom 23.6 sec 10.1-11 Final [facility] bin Time .9 [facility] (Lab): [address] 10/20/2021 PT/INR Alert Inr 1.72 ? Final [facility] (Lab): [address] ? ? Alert Prothrom 18.1 sec 10.-11 Final [facility] bin Time [address] [place] [address] (Lab): [address] 10/20/2021 INR, Blood ? No ? ? ? observati on recorded. 10/20/2021 PT/INR ? Prothrom 18.1 ? ? bin Time 10/20/2021 INR, Plasma ? Inr 1.72 ? ? 10/15/2021 PT/INR Alert Inr 1.63 ? Final [facility] (Lab): [address] ? ? Alert Prothrom 17.2 sec 10.-11 Final [facility] bin Time .9 [facility] (Lab): [address] 10/01/2021 PT/INR ? Prothrom 18.1 ? ? bin Time 10/01/2021 INR, Plasma ? Inr 1.72 ? ? 09/30/2021 PT/INR Alert Inr 1.72 ? Final [facility] (Lab): [address] ? ? Alert Prothrom 18.1 sec 10.-11 Final [facility] bin Time .9 [facility] (Lab): [address] 08/26/2021 PT/INR ? Prothrom 24.6 ? ? bin Time 08/26/2021 INR, Plasma ? Inr 2.1 ? ? 08/10/2021 PT/INR ? Prothrom 30.1 ? ? bin Time 08/10/2021 INR, Plasma ? Inr 2.5 ? ? 08/03/2021 PT/INR ? Prothrom 37.5 ? ? bin Time 08/03/2021 INR, Plasma ? Inr 3.1 ? ? 07/29/2021 PT/INR BLOOD High Pt 38.0 12.6-14 Final Kamlesh second(s) .4 [facility]( General s) Hospital: [address] [place] [address] ? ? BLOOD High Inr 3.88 0.90-1. Final [address]: [address] [place] [address] 07/22/2021 PT/INR BLOOD High Pt 30.1 12.6-14 Final Kamlesh second(s) .4 [facility] Hospital: [address] [place] [address] ? ? BLOOD High Inr 2.86 0.90-1. Final [address]: [address] [place] [address] 07/22/2021 BMP, Serum BLOOD ? Sodium 140 mmol/L 136-145 Fin al Ron or Plasma mmol/L [facility]: [address] [place] [address] ? ? BLOOD ? Potassiu 3.8 mmol/L 3.5-5.1 Final Wi lkes m mmol/L [facility]: [address] [place] [address] ? ? BLOOD ? Chloride 100 mmol/L 98-107 Final Gerry kes mmol/L [facility]: [address] [place] [address] ? ? BLOOD High Carbon 33 mmol/L 21-31 Final [facility] Dioxide mmol/L [facility]: [address] [place] [address] ? ? BLOOD ? Bun 13 mg/dL 7-25 Final [facility] mg/dL [facility]: [address] [place] [address] ? ? BLOOD ? Creatini 0.79 mg/dL 0.60-1. Final Wi lkes ne [address] [facility] [place] mg/dL [facility]: [address] [place] [address] ? ? BLOOD ? Glucose 81 mg/dL 65-99 Final [facility] mg/dL [facility]: [address] [place] [address] ? ? BLOOD Low Calcium 8.5 mg/dL 8.6-10. Final Rosa M es 3 mg/dL [facility]: [address] [place] [address] ? ? BLOOD ? eGFR Non 71 ? Final [facility]: [address] [place] [address] ? ? BLOOD ? eGFR 83 ? Final [facility]: [address] [place] [address] ? ? BLOOD ? Anion 7 mmol/L 3-11 Final [facility] Gap mmol/L [facility]: [address] [place] [address] 07/17/2021 PT/INR BLOOD High Pt 23.9 12.6-14 Final Kamlesh s second(s) .4 [facility] second( General s) Hospital: [address] [place] [address] ? ? BLOOD High Inr 2.11 0.90-1. Final [facility] 11 [facility]: [address] [place] [address] 07/17/2021 Ferritin, BLOOD ? Ferritin 152.0 11.0-30 Final [facility] Quant, Blood NG/mL 7.0 De Anda e NG/mL [facility]: [address] [place] [address] 07/17/2021 BMP, Serum BLOOD Low Sodium 135 mmol/L 136-145 Fin al Ron or Plasma mmol/L [facility]: [address] [place] [place] [address] ? ? BLOOD Low Potassiu 3.0 mmol/L 3.5-5.1 Final Wi lkes m mmol/L [facility]: [address] [place] [address] ? ? BLOOD Low Chloride 97 mmol/L 98-107 Final Rosa M es mmol/L [facility]: [address] [place] [address] ? ? BLOOD ? Carbon 31 mmol/L 21-31 Final Ron Dioxide mmol/L [facility]: [address] [place] [address] ? ? BLOOD ? Bun 21 mg/dL 7-25 Final Ron mg/dL [facility]: [address] [place] [address] ? ? BLOOD ? Creatini 0.87 mg/dL 0.60-1. Final Wi lkes ne 30 [place] mg/dL [facility]: [address] [place] [address] ? ? BLOOD ? Glucose 84 mg/dL 65-99 Final Ron mg/dL [facility]: [address] [place] [address] ? ? BLOOD Low Calcium 8.0 mg/dL 8.6-10. Final Rosa M es 3 mg/dL [facility]: [address] [place] [address] ? ? BLOOD ? eGFR Non 63 ? Final [facility]: [address] [place] [address] ? ? BLOOD ? eGFR 73 ? Final [facility]: [address] [place] [address] ? ? BLOOD ? Anion 8 mmol/L 3-11 Final Ron Gap mmol/L [facility]: [address] [place] [address] 07/17/2021 Iron + Total BLOOD Low Iron 16 mcg/dL 50-212 Carolina hanna Velasquez Iron-binding mcg/dL [facility]: Serum [address] [place] [address] ? ? BLOOD Low Iron 8 % 20-55 % Final Ron Saturatio [place] [facility] Hospital: [address] [place] [address] ? ? BLOOD ? Ibc 182 mcg/dL 155-355 Final Kamlesh s Unbound mcg/dL [facility]: [address] [place] [address] ? ? BLOOD Low Ibc 198 mcg/dL 262-474 Final Kamlesh s Total mcg/dL [facility]: [address] [place] [address] 07/13/2021 Cbc BLOOD ? Wbc 5.4 4.5-11. Final Kamlesh s x10^3/mcL 0 [place] x10^3/m [facility]: [address] [place] [address] ? ? BLOOD ? WBC Cnt 5.4 4.5-11. Final Ron x10^3/mcL 0 [place] x10^3/[facility] Hospital: [address] [place] [address] ? ? BLOOD Low Rbc 2.63 3.79-5. Final Ron x10^6/mcL 23 [place] x10^6/m [facility]: [address] [place] [address] ? ? BLOOD Low Hgb 7.9 g/dL 11.7-15 Final Ron .7 g/dL [facility]: [address] [place] [address] ? ? BLOOD Low Hct 24.2 % 34.9-46 Final [facility] .9 % [facility]: [address] [place] [address] ? ? BLOOD ? Mch 30.1 pg 26.6-33 Final [facility] .8 pg [facility]: [address] [place] [address] ? ? BLOOD ? Mchc 32.8 g/dL 31.5-35 Final Ron .9 g/dL [facility]: [address] [place] [address] ? ? BLOOD ? Mcv 91.7 fL 80.5-99 Final [facility] .7 fL [facility]: [address] [place] [address] ? ? BLOOD ? Plt Cnt 195 150-400 Final Ron x10^3/mcL x10^3/m [facility] Hospital: [address] [place] [address] ? ? BLOOD ? Mpv 9.9 fL 8.0-13. Final [facility] 0 fL [facility]: [address] [place] [address] ? ? BLOOD High Rdw 17.6 % 11.0-16 Final Ron .0 % [facility]: [address] [place] [address] ? ? BLOOD ? Conditio present ? Final [facility] Hospital: [address] [place] [address] 07/13/2021 PT/INR BLOOD High Pt 27.1 12.6-14 Final Kamlesh s second(s) .4 [place] second( General s) Hospital: [address] [place] [address] ? ? BLOOD High Inr 2.49 0.90-1. Final [address]: [address] [place] [address] 07/10/2021 Cbc BLOOD ? Wbc 5.4 4.5-11. Final Kamlesh s x10^3/mcL 0 [place] x10^3/m [facility]: [address] [place] [address] ? ? BLOOD ? WBC Cnt 5.4 4.5-11. Final [facility] x10^3/mcL 0 [place] x10^3/m [facility]: [address] [place] [address] ? ? BLOOD Low Rbc 2.74 3.79-5. Final [facility] x10^6/mcL 23 [place] x10^6/m [facility]: [address] [place] [address] ? ? BLOOD Low Hgb 8.2 g/dL 11.7-15 Final Ron .7 g/dL [facility]: [address] [place] [address] ? ? BLOOD Low Hct 24.9 % 34.9-46 Final [facility] .9 % [facility]: [address] [place] [address] ? ? BLOOD ? Mch 29.9 pg 26.6-33 Final Ron .8 pg [facility]: [address] [place] [address] ? ? BLOOD ? Mchc 32.9 g/dL 31.5-35 Final [facility] .9 g/dL [facility]: [address] [place] [address] ? ? BLOOD ? Mcv 90.9 fL 80.5-99 Final Ron .7 fL [facility]: [address] [place] [address] ? ? BLOOD ? Plt Cnt 214 150-400 Final Ron x10^3/mcL x10^3/m [place] [facility]: [address] [place] [address] ? ? BLOOD ? Mpv 9.6 fL 8.0-13. Final Ron 0 fL [facility]: [address] [place] [address] ? ? BLOOD High Rdw 17.3 % 11.0-16 Final [facility] .0 % [facility]: [address] [place] [address] ? ? BLOOD ? Conditio present ? Final [facility]: [address] [place] [address] 07/10/2021 BMP, Serum BLOOD ? Sodium 138 mmol/L 136-145 Fin al Ron or Plasma mmol/L [facility]: [address] [place] [address] ? ? BLOOD ? Potassiu 4.3 mmol/L 3.5-5.1 Final Wi lkes m mmol/L [facility]: [address] [place] [address] ? ? BLOOD ? Chloride 106 mmol/L 98-107 Final Gerry kes mmol/L [facility]: [address] [place] [address] ? ? BLOOD ? Carbon 28 mmol/L 21-31 Final [facility] Dioxide mmol/L [facility]: [address] [place] [address] ? ? BLOOD ? Bun 14 mg/dL 7-25 Final [facility] mg/dL [facility]: [address] [place] [address] ? ? BLOOD ? Creatini 0.87 mg/dL 0.60-1. Final Wi lkes ne 30 [place] mg/dL [facility]: [address] [place] [address] ? ? BLOOD ? Glucose 86 mg/dL 65-99 Final Ron mg/dL [facility]: [address] [place] [address] ? ? BLOOD ? Calcium 8.6 mg/dL 8.6-10. Final Rosa M es 3 mg/dL [facility]: [address] [place] [address] ? ? BLOOD ? eGFR Non 63 ? Final [facility]: [address] [place] [address] ? ? BLOOD ? eGFR 73 ? Final [facility]: [address] [place] [address] ? ? BLOOD ? Anion 4 mmol/L 3-11 Final [facility] Gap mmol/L [facility]: [address] [facility] 07/09/2021 PT/INR BLOOD High Pt 27.6 12.6-14 Final Kamlesh s second(s) .4 [place] second( General s) Hospital: [address] [facility] ? ? BLOOD High Inr 2.55 0.90-1. Final [facility] 11 [facility]: [address] [facility] 06/27/2021 PT BLOOD ? Thrombop 29.1 22.6-29 Final Re gional (Prothrombin lastin second(s) .2 H ospital Time) Mixing Time second( Of Study Partial s) [place] (Lab): [address] 06/27/2021 PT/INR BLOOD High Pt 22.1 9.4-11. Final Regio nal second(s) 6 Hospita l second( Of s) [place] (Lab): [address] ? ? BLOOD High Inr 2.18 0.89-1. Final [address] (Lab): [address] 06/27/2021 CMP, Serum BLOOD ? Sodium 142 mmol/L 136-145 Fin al Regional or Plasma mmol/L [facility] (Lab): [address] [place] ? ? BLOOD Low Potassiu 3.0 mmol/L 3.8-5.1 Final Re gional m mmol/L [facility] (Lab): [address] [place] ? ? BLOOD ? Chloride 103 mmol/L 98-107 Final Reg ional mmol/L [facility] (Lab): [address] [place] ? ? BLOOD ? Carbon 31 mmol/L 21-31 Final Region al Dioxide mmol/L [facility] (Lab): [address] [place] ? ? BLOOD ? Bun 13 mg/dL 7-25 Final [facility] mg/dL [facility] (Lab): [address] [place] ? ? BLOOD ? Creatini 1.1 mg/dL 0.6-1.2 Final Reg ional ne mg/dL [facility] (Lab): [address] [place] ? ? BLOOD ? eGFR Non 48 ? Final Regiona l [facility] (Lab): [address] [place] ? ? BLOOD ? eGFR 55 ? Final [facility] (Lab): [address] [place] ? ? BLOOD High Glucose 107 mg/dL 70-105 Final Regio nal mg/dL [facility] (Lab): [address] [place] ? ? BLOOD ? Calcium 9.5 mg/dL 8.6-10. Final Abril onal 3 mg/dL [facility] (Lab): [address] [place] ? ? BLOOD Low Prot 6.2 g/dL 6.4-8.9 Final Regiona l Total g/dL [facility] (Lab): [address] [place] ? ? BLOOD ? Albumin 4.3 g/dL 3.5-5.7 Final Regio nal g/dL [facility] (Lab): [address] [place] ? ? BLOOD High Bili 1.4 mg/dL 0.3-1.0 Final Region al Total mg/dL [facility] (Lab): [address] [place] ? ? BLOOD ? Ast 22 unit/L 13-39 Final Regiona l unit/L [facility] (Lab): [address] [place] ? ? BLOOD ? Alt 14 unit/L 7-52 Final Regiona l unit/L [facility] (Lab): [address] [place] ? ? BLOOD ? Alkaline 55 unit/L 34-104 Final Abril onal Phosphata unit/L [facility] [address] [place] ? ? BLOOD Low Globulin 1.9 g/dL 2.4-3.5 Final Abril onal g/dL [facility] (Lab): [address] [place] ? ? BLOOD High Albumin/ 2.3 g/dL 1.1-2.2 Final Abril onal globulin g/dL [facility] (Lab): [address] ? ? BLOOD ? Ca 9.3 mg/dL 8.8-10. Final Region al Corrected 2 mg/dL Hospit al [facility] [place] (Lab): [address] ? ? BLOOD ? BUN/crea 11.8 mg/dL 6.7-40. Final Re gional Ratio 0 mg/dL [facility] (Lab): [address] ? ? BLOOD ? Anion 11.0 7.0-16. Final Regional Gap mmol/L 0 Hospital mmol/L [facility] [place] (Lab): [address] 06/27/2021 Pathology BLOOD ? Smear yes ? Final Reg ional Review, Review Hospital Smear Performed Of ? [facility] (Lab): [address] ? ? BLOOD ? Action? RBC ? Final Regional morphology Hospit al [facility] (Lab): [address] 06/27/2021 RBC BLOOD ABNORMAL Anisocyt slight ? Final R egional Morphology, osis Hospi tommy Blood [facility] [place] (Lab): [address] ? ? BLOOD ABNORMAL Poikiloc moderate ? Final Reg ional ytosis [facility] (Lab): [address] ? ? BLOOD ABNORMAL Ovalocyt few ? Final Regio nal es [facility] (Lab): [address] ? ? BLOOD ABNORMAL Schistoc few ? Final [facility] [address] ? ? BLOOD ? Plt decreased ? Final Regiona l Estimate [facility] (Lab): [address] 06/27/2021 CBC W/ Auto BLOOD ? Wbc 5.60 4.80-10 Final Regional Diff x10^3/mcL .80 Hospita l x10^3/m Of cL [place] (Lab): [address] ? ? BLOOD Low Rbc 4.17 4.20-5. Final Regional x10^6/mcL 40 Hospita l x10^6/m Of cL [facility] (Lab): [address] ? ? BLOOD ? Hgb 12.9 g/dL 12.0-16 Final Region al .0 g/dL [facility] (Lab): [address] ? ? BLOOD ? Hct 37.3 % 37.0-47 Final Regional .0 % [facility] (Lab): [address] [place] ? ? BLOOD ? Mch 30.8 pg 26.0-34 Final Regional .0 pg [facility] (Lab): [address] [place] ? ? BLOOD ? Mchc 34.5 g/dL 32.0-36 Final Region al .0 g/dL [facility] (Lab): [address] [place] ? ? BLOOD ? Mcv 89.4 fL 81.0-99 Final Regional .0 fL [facility] (Lab): [address] [place] ? ? BLOOD Low Plt Cnt 88.0 130.0-4 Final Regiona l x10^3/mcL 00.0 Hospita l x10^3/m Of [facility] (Lab): [address] [place] ? ? BLOOD ? Mpv 10.8 fL 7.3-11. Final Regional 9 fL [facility] (Lab): [address] ? ? BLOOD High Rdw 16.1 % 11.5-15 Final Regional .5 % [facility] (Lab): [address] ? ? BLOOD ? Smear yes ? Final Regional Review? [facility] (Lab): [address] 06/27/2021 Wbc Diff, BLOOD ? Neutroph 67.1 % 42.2-75 Final Regional Auto, Blood ils% Auto .2 % Ho spital [facility] (Lab): [address] ? ? BLOOD ? Lymphocy 24.0 % 15.0-41 Final Region al eric% Auto .0 % Hospita l [facility] (Lab): [address] ? ? BLOOD ? Monocyte 6.1 % 0.0-13. Final Region al s% Auto 0 % [facility] (Lab): [address], [place] ? ? BLOOD ? Eosinoph 2.2 % 0.0-10. Final Region al ils% Auto 0 % Hospita l [facility] [place] (Lab): [address], [place] ? ? BLOOD ? Basophil 0.6 % 0.0-2.0 Final Region al s% Auto % Hospital [facility] [place] (Lab): [address], [place] ? ? BLOOD ? Neutroph 3.70 1.40-6. Final Region al ils# Auto x10^3/mcL 50 Hosp ital x10^3/m Of cL [place] (Lab): [address], [place] ? ? BLOOD ? Lymphocy 1.30 1.00-3. Final Region al eric# Auto x10^3/mcL 00 Hosp ital x10^3/m Of cL [place] (Lab): [address], [place] ? ? BLOOD ? Monocyte 0.30 0.00-1. Final Region al s# Auto x10^3/mcL 00 Hospit al x10^3/m Of cL [place] (Lab): [address], [place] ? ? BLOOD ? Eos# 0.10 0.00-0. Final Regional Auto x10^3/mcL 70 Hospita l x10^3/m Of cL [place] (Lab): [address], [place] ? ? BLOOD ? Basophil 0.00 0.00-0. Final Region al s# Auto x10^3/mcL 10 Hospit al x10^3/m Of cL [facility] (Lab): [address], [place] 06/27/2021 Rapid SARS NASAL ? First unknown ? Final R egional CoV 2 Ag, QL SWAB Test? Hosp ital [place], Of Respiratory Scran ton Specimen (Lab): [address], [place] ? ? NASAL ? Employed no ? Final Regiona l SWAB in Hospital Healthcar Of e? [place] (Lab): [address], [place] ? ? NASAL ? Symptoma no ? Final Regiona l SWAB tic as Hospital Defined Of by Cdc? [facility] (Lab): [address], [place] ? ? NASAL ? Date of n/a ? Final Regional SWAB Symptom Hospital Onset? [facility] [place] (Lab): [address], [place] ? ? NASAL ? Hospital no ? Final Regiona l SWAB ized? [facility] (Lab): [address], [place] ? ? NASAL ? Icu? no ? Final Regional SWAB [facility] (Lab): [address], [place] ? ? NASAL ? Resident no ? Final Regiona l SWAB in Hospital Congregat Of e Care? [facility] (Lab): [address], [place] ? ? NASAL ? no ? Final Regiona l SWAB ?. [facility] (Lab): [address], [place] ? ? NASAL ? [id number] negative negativ Final Abril onal SWAB arsagfia e [facility] (Lab): [address] 06/27/2021 Abo Group + BLOOD ? ABORH A neg ? Final R egional Rh Type, Solid Hospital Blood Phase [facility] [place] (Lab): [address] 06/27/2021 Antibody BLOOD ? Antibody positive ? Final Regional Screen Solid Screen absc Hosp ital Phase Solid Of Phase [place] (Lab): [address] 06/27/2021 Direct BLOOD ? JESSICA-poly negative ? Final R egional Antiglobulin Hosp ital Test, IgG Of Specific [place] Reagent, (Lab): 7 46 Qualitative, Nabeel asher RBC Sonal, [place] 06/27/2021 Antibody BLOOD ? Antibody ? ? Final R egional Screen W/ Id Hospita l Identificati Of on, Serum [place] (Lab): [address] 06/27/2021 RBC Antigen BLOOD ? Antigen C- ? Final Regional Typing [facility] (Lab): [address] 06/27/2021 RBC Count, BLOOD ? Product yes ? Final Regional Blood Ready RBC Hospita l [facility] [place] (Lab): [address] 06/23/2021 PT/INR ? Prothrom 22.4 ? ? bin Time 06/23/2021 INR, Plasma ? Inr 2.15 ? ? 06/22/2021 PT/INR Alert Inr 2.15 ? Final [facility] (Lab): [address] ? ? Alert Prothrom 22.4 sec 10.1-11 Final Wayn e High bin Time .9 sec [facility] (Lab): [address] 06/08/2021 PT/INR Alert Inr 2.12 ? Final [facility] (Lab): [address] ? ? Alert Prothrom 22.1 sec 10.1-11 Final Wayn e High bin Time .9 sec [facility] (Lab): [address] 06/04/2021 PT/INR Alert Inr 1.19 ? Final [facility] (Lab): [address] ? ? Alert Prothrom 12.6 sec 10.1-11 Final Wayn e High bin Time .9 sec [facility] (Lab): [address] 06/04/2021 INR, Plasma ? Inr 1.19 ? ? 05/25/2021 PT/INR iStat ? No ? ? ? Berny observati [facility]oria l on Hospital recorded. (Outpat ien t Dept): [address] 05/25/2021 PT/INR Alert Inr 3.27 ? Final [facility] (Lab): [address] ? ? Alert Prothrom 33.9 sec 10.1-11 Final Wayn e High bin Time .9 sec [facility] (Lab): [address] 05/25/2021 PT/INR ? Prothrom 33.9 ? ? bin Time 05/25/2021 INR, Plasma ? Inr 3.29 ? ? 04/23/2021 PT/INR Alert Inr 2.92 ? Final [facility] (Lab): [address] ? ? Alert Prothrom 30.3 sec 10.1-11 Final Wayn e High bin Time .9 sec [facility] (Lab): [address] 04/09/2021 CMP, Serum ? Glucose 82 mg/dL 65-99 Final [facility] or Plasma mg/dL [facility]: [address], [place] ? ? ? Bun 15 mg/dL 8-27 Final [facility] mg/dL [facility]: [address] [place] ? ? ? Creatini 0.93 mg/dL 0.57-1. Final [facility] ne 00 [facility]: 69 mg/dL [address], [place] ? ? Below Low eGFR If 59 >59 Final [facility] Normal Nonafricn mL/min/1.7 mL/min/ PS C: [address] [place] ? ? ? eGFR If 68 >59 Final [facility] Africn AM mL/min/1.7 mL/min/ PS C: [address] [place] ? ? ? BUN/crea 16 12-28 Final [facility] tinine [facility]: [address], [place] ? ? ? Sodium 142 mmol/L 134-144 Final [facility] orp mmol/L [facility]: [address] [place] ? ? ? Potassiu 3.6 mmol/L 3.5-5.2 Final [facility] m mmol/L [facility]: [address], [place] ? ? ? Chloride 105 mmol/L 96-106 Final Lab zoila mmol/L [facility]: [address] [place] ? ? ? Carbon 25 mmol/L 20-29 Final [facility] p Dioxide, mmol/L [facility]: [address] [place] ? ? ? Calcium 9.2 mg/dL 8.7-10. Final [facility] orp 3 mg/dL [facility]: [address] [place] ? ? ? Protein, 6.3 g/dL 6.0-8.5 Final [facility] Total g/dL [facility]: [address], [place] ? ? ? Albumin 4.1 g/dL 3.7-4.7 Final [facility] g/dL [facility]: [address] [place] ? ? ? Globulin 2.2 g/dL 1.5-4.5 Final Lab[facility] orp , Total g/dL [facility]: [address] [place] ? ? ? A/g 1.9 1.2-2.2 Final [facility] Ratio [facility]: [address] [place] ? ? ? Bilirubi 0.9 mg/dL 0.0-1.2 Final Lab zoila n, Total mg/dL [facility]: [address] [place] ? ? ? Alkaline 66 IU/L 48-121 Final [facility] p Phosphata IU/L [facility]: [address] [place] ? ? ? Ast 23 IU/L 0-40 Final [facility] (Sgot) IU/L [facility]: [address] [place] ? ? ? Alt 16 IU/L 0-32 Final [facility] (Sgpt) IU/L [facility]: [address] [place] 04/09/2021 Lipid Panel, ? Choleste 160 mg/dL 100-199 Final [facility] Serum rol, mg/dL [facility]: [address] [place] ? ? ? Triglyce 64 mg/dL 0-149 Final [facility] rides mg/dL [facility]: [address] [place] ? ? ? HDL 95 mg/dL >39 Final [facility] Cholester mg/dL [facility]: [address] [place] ? ? ? VLDL 13 mg/dL 5-40 Final [facility] Cholester mg/dL [facility]: [address] [place] ? ? ? LDL Chol 52 mg/dL 0-99 Final [facility] Calc mg/dL [facility]: [address] [place] ? ? ? 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 Cancelled [facility]: [address] [place] 04/09/2021 PT/INR Alert Inr 2.72 ? Final [facility] (Lab): [address] [facility] ? ? Alert Prothrom 28.3 sec 10.11-24 Final [facility] bin Time .9 [facility] (Lab): [address] [facility] 04/09/2021 PT/INR ? Prothrom 28.3 ? ? bin Time 04/09/2021 INR, Plasma ? Inr 2.72 ? ? 03/19/2021 PT/INR Alert Inr 2.75 ? Final [facility] (Lab): [address] [facility] ? ? Alert Prothrom 28.6 sec 10.-11 Final [facility] bin Time .9 [facility] (Lab): [address] [facility] 03/19/2021 PT/INR ? Prothrom 28.6 ? ? bin Time 03/19/2021 INR, Plasma ? Inr 2.75 ? ? 02/20/2021 PT/INR Alert Inr 2.54 ? Final [facility] (Lab): [address] ? ? Alert Prothrom 26.4 sec 10.-11 Final [facility] bin Time .9 sec [facility] (Lab): [address] 02/20/2021 PT/INR ? Prothrom 26.4 ? ? bin Time 02/20/2021 INR, Plasma ? Inr 2.54 ? ? 01/22/2021 PT/INR Alert Inr 3.23 ? Final [facility] (Lab): [address] ? ? Alert Prothrom 33.8 sec 10.- Final [facility] bin Time .9 sec [facility] (Lab): [address] 01/22/2021 PT/INR ? Prothrom 33.8 ? ? bin Time 01/22/2021 INR, Plasma ? Inr 3.23 ? ? 01/22/2021 PT/INR ? No ? ? ? observati on recorded. ? Multi-dimens ? No ? ? ? Pha_ [facility] observati P cp: 521 Assessment on [facility] Questionnair recorded. 1 , e* [place] ? Multi-dimens ? No ? ? ? Pha_ [facility] observati P cp: 521 Assessment on [facility] Questionnair recorded. 1 , e* [place] Past Encounters 09/07/2022 Adult Health Examination; Screening for Disorder; Depression Screening; Body Mass Index 25-29 - Overweight Park Harper MD: [address] [address], [place] [phone], Ph. 06/22/2022 Overweight; Mixed Hyperlipidemia; Long-t erm Current Use of Anticoagulant; Congestive Heart Failure Park Harper MD: [address] [address], [place] [phone], Ph. 03/15/2022 Anemia; Peripheral Edema Park Harper MD: [address] [address], [place] [phone], Ph. 03/08/2022 Rectal Hemorrhage SONIA Dior: [address] [facility] [address], [place] [phone], Ph. 02/15/2022 Asthenia; Thrombocytopenic Disorder Park Harper MD: [address] [address] [phone], Ph. 09/02/2021 Adult Health Examination; Screening for Disorder; Depression Screening Park Harper MD: [address] [address] [phone], Ph. 08/11/2021 Anemia; Congestive Heart Failure Park Harper MD: [address] [address] [phone], Ph. 04/08/2021 Hyperlipidemia; Hypertensive Disorder Park Harper MD: [address] [address] [phone], Ph. Social History Tobacco Smoking Status Former Smoker Vaccine List Vaccine Type influenza, seasonal, injectable 08/22/2013 09/04/2014 influenza, unspecified formulation 09/04/2001 07/06/2002 08/31/2002 05/06/2003 08/28/2003 02/08/2005 10/13/2005 09/08/2006 09/30/2008 09/15/2010 07/26/2011 11/23/2012 pneumococcal conjugate PCV 13 10/01/2015?0.5 mL pneumococcal polysaccharide [id number] 11/14/1997 10/13/2011 Td(adult) unspecified formulation 12/15/1999 09/14/2010 zoster live 01/25/2011 Notes: Declined, 02/08/2005, CVX: 88, Vaccine: flu vax, Reason: ; Plan of Care Patient Instructions Personalized Health [...] diseases from occurring) Tobacco/Nicotine Risk: Former Smoker DAVDI T 44 YEARS AGO Alcohol Misuse Screening: [...] are not at risk Pain Management Plan: Personalized Health Plan and Screening Recommendations Advance Directives - Do you have one??No ?You have indicated that you are capable of preparing your advance care directive Advance Directives - Do we have your adv ance directive on file in your health record?? Primary Prevention/Intervention (preven ts or decreases the chance of common diseases from occurring) Tobacco/Nicotine Risk:?Non-Smoker? Alcohol Misuse Screening:?Low risk? Weight:?Appropriate? Physical activity:?Appropriate physical activity? Nutrition:?Good? Fall Risk (screened today):?Intermediate risk? Vaccines Influenza:?Not indicated Pneumococcal:? Shingles:? COVID-19:? Tetanus:? Hepatitis B:? Secondary Prevention/Intervention (dete cts treatable diseases before they may cause symptoms, disability, or ) Breast Cancer Screening with mammogram:? No screening necessary Cervical Cancer Screening: No screening necessary Osteoporosis Screening:?Recommended Colon Cancer Screening:?No screening nec essary? Eye Disease Screening:?Recommended Depression Screening:?Low risk? Cognitive Screening:?Normal ? Diabetes Screening: Not indicated Cardiovascular Disease (CVD) Screening: labs - Not indicated Aspirin Recommendations: you are not at increased risk Abdominal Aortic Aneurysm (AAA) Screeni ng: Not indicated Lung Cancer Screening: Not indicated Hepatitis B Screening: You are not at in creased risk, testing is not indicated today Hepatitis C Screening: You are not at in creased risk, testing is not indicated today Sexually Transmitted Infections Screenin g: You are not at increased risk, testing is not indicated today Human Immunodeficiency Virus (HIV) Scree darian: You are not at increased risk, testing is not indicated today Tertiary Prevention/Intervention (ident ifies your current known diseases and attempts to prevent complications of those diseases) Complications of many of these diseases can be minimized through the primary prevention/interventions listed above but some may require medication addition/change or referrals and will be addressed today or at a follow-up appointment? Pain Control Status: ?no pain or pain un kimberlee adequate control Pain Medication Use and Risk for Opioid Misuse: ?You do not use addictive opioid medications, and therefore are not at risk Pain Management Plan: ?No interventions or changes required, alternative therapies have been assessed and documented in your chart Please review your medication list of y our Summary of Care from this visit and if any differences from what you are candace vac[place] taking at home please call us to discuss. Reminders Provider Appointments None recorded. ? ? Lab None recorded. ? ? Referral None recorded. ? ? Procedures None recorded. ? ? Surgeries None recorded. ? ? Imaging None recorded. ? ? Vitals 09/07/2022 03:15PM *[facility] 30 Height Weight BMI 5 ft 3 in 142 lbs 25.2 kg/m2 06/22/2022 01:30PM *Follow-up 15 Height Weight BMI Blood Pressure 5 ft 3 in 142 lbs 25.2 kg/m2 100/50 mm[Hg] 03/15/2022 10:30AM *Follow-up 15 Height Weight BMI Blood Pressure 5 ft 3 in 147 lbs 26 kg/m2 142/62 mm[Hg] 03/08/2022 11:00AM *New Patient 30 Height Weight BMI Blood Pressure 5 ft 3 in 145 lbs 25.7 kg/m2 126/74 mm[Hg] 08/11/2021 10:15AM *Follow-up 15 Height Weight BMI Blood Pressure 5 ft 3 in 148 lbs 26.2 kg/m2 122/62 mm[Hg] 04/08/2021 01:30PM Est Patient 15m Height Weight BMI Blood Pressure 5 ft 3 in 154 lbs 27.3 kg/m2 120/64 mm[Hg] 11/18/2020 Height Weight BMI Blood Pressure 5 ft 3 in 153 lbs 27.10 kg/m2 126/64 mm[Hg] 07/16/2020 Height Weight BMI Blood Pressure 5 ft 3 in 157 lbs 27.81 kg/m2 120/60 mm[Hg] 03/29/2020 Height Weight BMI 5 ft 3 in 158 lbs 27.99 kg/m2 08/29/2019 Height Weight BMI Blood Pressure 5 ft 3 in 158 lbs 27.99 kg/m2 130/62 mm[Hg] 08/06/2019 Height Weight BMI Blood Pressure 5 ft 3 in 160 lbs 28.34 kg/m2 130/62 mm[Hg] 03/21/2019 Height Weight BMI Blood Pressure 5 ft 3 in 165 lbs 29.23 kg/m2 118/58 mm[Hg] 09/19/2018 Weight BMI Blood Pressure 157.08 lbs 28.27 kg/m2 124/60 mm[Hg] 08/07/2018 Weight BMI Blood Pressure 168 lbs 30.23 kg/m2 142/60 mm[Hg] 02/21/2018 Weight BMI Blood Pressure 167.08 lbs 30.18 kg/m2 136/62 mm[Hg] 08/22/2017 Height Weight BMI Blood Pressure 5 ft 2.5 in 169.04 lbs 30.54 kg/m2 (1) 140/60 mm[H g] (2) 140/70 mm[Hg ] (3) 138/70 mm[Hg ] 03/23/2017 Height Weight BMI Blood Pressure 5 ft 3 in 168.04 lbs 29.87 kg/m2 126/70 mm[Hg] 02/04/2017 Weight BMI Blood Pressure 167 lbs 30.17 kg/m2 132/60 mm[Hg] 10/21/2016 Weight BMI Blood Pressure 169.08 lbs 30.54 kg/m2 132/64 mm[Hg] 07/01/2016 Weight BMI Blood Pressure 163 lbs 29.44 kg/m2 134/60 mm[Hg] 03/03/2016 Height Weight BMI Blood Pressure 5 ft 2.5 in 156 lbs 28.18 kg/m2 140/60 mm[Hg] 10/30/2015 Height Weight BMI Blood Pressure 5 ft 3 in 169 lbs 29.93 kg/m2 140/92 mm[Hg] 09/30/2015 Height Weight BMI Blood Pressure 5 ft 2.75 in 164 lbs 29.39 kg/m2 140/70 mm[Hg] 09/25/2015 Weight BMI Blood Pressure 164 lbs 29.28 kg/m2 122/60 mm[Hg] 09/01/2015 Weight BMI Blood Pressure 167 lbs 29.82 kg/m2 134/60 mm[Hg] 08/18/2015 Height Weight BMI Blood Pressure 5 ft 2.75 in 171 lbs 30.64 kg/m2 140/70 mm[Hg] 05/14/2015 Height Weight BMI Blood Pressure 5 ft 2.75 in 168 lbs 29.99 kg/m2 142/60 mm[Hg] 02/18/2015 Height Weight BMI Blood Pressure 5 ft 2.5 in 158 lbs 28.54 kg/m2 116/64 mm[Hg] 01/14/2015 Height Weight BMI Blood Pressure 5 ft 2.5 in 166 lbs 29.99 kg/m2 130/60 mm[Hg] 09/04/2014 Weight BMI Blood Pressure 180 lbs 32.00 kg/m2 132/64 mm[Hg] 07/31/2014 Height Weight BMI Blood Pressure 5 ft 3 in 181 lbs 32.18 kg/m2 120/80 mm[Hg] 06/25/2014 Height Weight BMI Blood Pressure 5 ft 3 in 181 lbs 32.18 kg/m2 120/80 mm[Hg] 06/13/2014 Weight BMI Blood Pressure 180 lbs 32.00 kg/m2 116/62 mm[Hg] 06/05/2014 Weight BMI Blood Pressure 183 lbs 32.53 kg/m2 128/60 mm[Hg] 05/22/2014 Weight BMI Blood Pressure 181 lbs 32.18 kg/m2 142/60 mm[Hg] 02/04/2014 Height Weight BMI Blood Pressure 5 ft 3 in 187 lbs 33.25 kg/m2 142/66 mm[Hg] 08/22/2013 Weight BMI Blood Pressure 181 lbs 32.18 kg/m2 138/70 mm[Hg] 05/28/2013 Weight BMI Blood Pressure 184 lbs 32.71 kg/m2 152/70 mm[Hg] 04/16/2013 Height Weight BMI Blood Pressure 5 ft 3 in 184 lbs 32.71 kg/m2 136/70 mm[Hg] 06/28/2012 Weight BMI Blood Pressure 178 lbs 31.15 kg/m2 144/70 mm[Hg] 05/12/2012 Height Weight BMI Blood Pressure 5 ft 3.5 in 176 lbs 30.80 kg/m2 144/70 mm[Hg] 02/28/2012 Weight BMI Blood Pressure 171 lbs 29.92 kg/m2 122/70 mm[Hg] 10/13/2011 Weight BMI Blood Pressure 175 lbs 30.62 kg/m2 122/64 mm[Hg] 06/04/2011 Height Weight BMI Blood Pressure 5 ft 3.5 in 164 lbs 28.70 kg/m2 122/60 mm[Hg] 01/25/2011 Height Weight BMI Blood Pressure 5 ft 3.5 in 157.5 lbs 27 kg/m2 (1) 120/60 mm[H g] (2) 122/60 mm[Hg ] 09/14/2010 Weight Blood Pressure 164 lbs 122/80 mm[Hg] 05/13/2010 Height Weight Blood Pressure 5 ft 3.5 in 165 lbs 132/74 mm[Hg] 04/23/2010 Height Weight Blood Pressure 8 ft 2.4 in 164 lbs 120/80 mm[Hg] 02/09/2010 Height Weight Blood Pressure 5 ft 3 in 163 lbs (1) 120/80 mm[Hg] (2) 126/80 mm[Hg] 09/08/2009 Weight Blood Pressure 170 lbs 128/78 mm[Hg] 06/02/2009 Weight Blood Pressure 170 lbs 142/70 mm[Hg] 01/29/2009 Height Weight Blood Pressure 5 ft 3.75 in 171 lbs 140/70 mm[Hg] 09/30/2008 Weight Blood Pressure 179 lbs 144/78 mm[Hg] 07/01/2008 Weight Blood Pressure 199 lbs 130/70 mm[Hg] 02/26/2008 Height Weight Blood Pressure 5 ft 3.5 in 195 lbs 134/78 mm[Hg] 10/25/2007 Weight Blood Pressure 189 lbs 124/80 mm[Hg] 07/26/2007 Weight Blood Pressure 194 lbs 150/80 mm[Hg] 04/24/2007 Weight Blood Pressure 194 lbs 148/80 mm[Hg] 02/13/2007 Weight Blood Pressure 188 lbs 148/80 mm[Hg] 01/20/2007 Weight Blood Pressure 189 lbs 132/80 mm[Hg] 10/14/2006 Weight Blood Pressure 195 lbs 138/80 mm[Hg] 06/13/2006 Weight Blood Pressure 193 lbs 138/80 mm[Hg] 02/11/2006 Weight Blood Pressure 185 lbs 128/80 mm[Hg] 10/13/2005 Weight Blood Pressure 187 lbs 144/80 mm[Hg] 06/11/2005 Height Weight Blood Pressure 5 ft 3.75 in 179 lbs 140/80 mm[Hg] 02/08/2005 Weight Blood Pressure 187 lbs 132/78 mm[Hg] 10/14/2004 Weight Blood Pressure 192 lbs 130/80 mm[Hg] 09/16/2004 Weight Blood Pressure 192 lbs 124/70 mm[Hg] 09/02/2004 Weight Blood Pressure 191 lbs 150/82 mm[Hg] 06/08/2004 Weight Blood Pressure 195 lbs 134/80 mm[Hg] 02/07/2004 Height Weight Blood Pressure 5 ft 3.5 in 194 lbs 140/70 mm[Hg] 10/09/2003 Weight Blood Pressure 198 lbs 110/70 mm[Hg] 08/28/2003 Weight Blood Pressure 197 lbs 130/90 mm[Hg] 07/17/2003 Weight Blood Pressure 195 lbs 132/70 mm[Hg] 05/15/2003 Blood Pressure 160/90 mm[Hg] 05/06/2003 Weight Blood Pressure 188 lbs 142/80 mm[Hg] 01/02/2003 Height Weight Blood Pressure 5 ft 3.75 in 189 lbs 154/80 mm[Hg] 08/31/2002 Weight Blood Pressure 192 lbs 138/70 mm[Hg] 08/01/2002 Height Blood Pressure 5 ft 146/80 mm[Hg] 07/06/2002 Height Blood Pressure 5 ft 4 in 138/76 mm[Hg] 04/11/2002 Weight Blood Pressure 192 lbs 134/80 mm[Hg] 02/22/2002 Blood Pressure 146/90 mm[Hg] 02/05/2002 Blood Pressure 144/90 mm[Hg] 01/29/2002 Weight Blood Pressure 193 lbs 144/80 mm[Hg] 01/05/2002 Height Weight Blood Pressure 5 ft 4 in 195 lbs 128/84 mm[Hg] 09/04/2001 Height Weight Blood Pressure 5 ft 4 in 199 lbs 142/80 mm[Hg] 08/07/2001 Weight Blood Pressure 198 lbs 144/80 mm[Hg] 05/05/2001 Height Weight Blood Pressure 5 ft 3.75 in 188 lbs 144/80 mm[Hg] 01/30/2001 Weight Blood Pressure 184 lbs 138/80 mm[Hg] 04/14/2000 Height 5 ft 3.25 in
--- OUTSIDE RECORDS SUMMARY | 2022-09-14 17:51 | XMS_ITS ---
:1940 Author Organization [facility] Address [address] [place] [address] Care Team Providers Name Role Phone PARK CRUZ Primary Care Physician Encounter PARS_FIN [id number] Date(s): 08/25/20 - 08/25/20 [facility] [address] [facility] [place] [address] [facility] Discharge Disposition: DISCHARGED HOME/SELF CARE Attending Physician: LONNY CRUZ MD Admitting Physician: LONNY CRUZ MD Referring Physician: LONNY CRUZ MD Reason for Visit LEFT AND RIGHT Problem List Condition Effective Dates Status Health Status Informant Activity intolerance(Confirmed)1 Active Gout of right wrist(Confirmed) Active At risk for falls(Confirmed)2 Active Cervical cancer(Confirmed) Resolved Chest pain(Confirmed) Active CHF - Congestive heart Active failure(Confirmed) Chronic atrial Active fibrillation(Confirmed) 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 acetaminophen (Tylenol 8 Hour Caplet 650 mg oral table t, extended release) Status: Ordered Start Date: 08/06/20 1 Tab(s) Oral every day as needed. allopurinol Status: Ordered Start Date: 08/19/18 300 Milligram(s) Oral every day. amLODIPine (Norvasc) Status: Ordered Start Date: 08/19/18 5 Milligram(s) Oral every day. atorvastatin (Lipitor 10 mg oral tablet) Status: Ordered Start Date: 08/29/18 1 Tab(s) Oral every day. ergocalciferol (Vitamin D2) Status: Ordered Start Date: 08/19/18 50,000 International Unit(s) Oral every week. folic acid Status: Ordered Start Date: 08/19/18 1 Milligram(s) Oral every day. glucosamine (glucosamine 500 mg oral capsule) Status: Ordered Start Date: 08/06/20 2 cap Oral every day. hydrochlorothiazide (hydrochlorothiazide 12.5 mg oral tablet) Status: Ordered Start Date: 08/06/20 1 Tab(s) Oral every day. isosorbide dinitrate (isosorbide dinitrate 10 mg oral tablet) Status: Ordered Start Date: 08/29/18 1 Tab(s) Oral three times a day. metoprolol (Toprol-XL 100 mg oral tablet, extended rel ease) Status: Ordered Start Date: 08/19/18 1 Tab(s) Oral every day. pantoprazole Status: Ordered Start Date: 08/19/18 40 Milligram(s) Oral every day. polyethylene glycol 3350 (MiraLax) Status: Ordered Start Date: 08/06/20 1 cap Oral every day as needed. potassium chloride (potassium chloride 20 mEq oral tab let, extended release) Status: Ordered Start Date: 08/21/19 1 Tab(s) Oral twice a day. predniSONE (predniSONE 5 mg oral tablet) Status: Ordered Start Date: 08/21/19 1 Tab(s) Oral every day. traZODone Status: Ordered Start Date: 08/19/18 50 Milligram(s) Oral once a day (at bedtime). warfarin Status: Ordered Start Date: 08/06/20 See Instructions. 3/4 MG Oral Daily i nstructed last dose 08/21/20. Results Most recent to oldest [Reference Range]: 1 PT [9.9-11.6 second(s)] 12.1 second(s) *HI* (08/25/20 12:00 PM) INR [0.92-1.09] 1.17 *HI* (08/25/20 12:00 PM) Procedures Procedure Date Related Diagnosis Body Site Status Wound Debridement (Surgery)1 08/22/18 Completed Hysterectomy Completed mvr Completed 1auto-populated from documented surgical case Social History Social History Type Response Smoking Status Tobacco use status 30 days p rior to admission No tobacco use of any form; Former smoker, quit more than 30 days ago entered on: 08/06/20
--- OUTSIDE RECORDS SUMMARY | 2022-09-14 17:51 | XMS_ITS ---
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 Allergies, Adverse Reactions, Alerts [...] oral tablet) 1 Tab(s) Oral every day. ergocalciferol (Vitamin D2) 50,000 International Unit(s) Oral every week. folic acid 1 Milligram(s) Oral every day. furosemide (furosemide 40 mg oral tablet) 1 Tab(s) Oral twice a day. glucagon (glucagon 1 mg injection) 1 Kit(s) Intramuscular As Indicated as needed other (s ee comment). glucose (glucose 50% intravenous solution) 25 Milliliter(s) Intravenous Push As Indicated as need ed other (see comment). insulin lispro Medium-Dose Subcutaneous four time s a day (with meals and at bedtime). See Order Comments for Sliding Scale Comments.. isosorbide dinitrate (isosorbide dinitrate 10 mg oral tablet) 3 Tab(s) Oral three times a day. magnesium hydroxide (Milk of Magnesia 8% oral suspensi on) 30 Milliliter(s) Oral every day as needed constipation . meropenem 1 gram IV Piggyback every 12 hours (interval) for 10 D ays. metoprolol (Toprol-XL 100 mg oral tablet, extended rel ease) 1 Tab(s) Oral every day. oxyCODONE (oxyCODONE 5 mg oral tablet) 1 Tab(s) Oral every 4 hours as needed pain-moderate 4 to 6. oxyCODONE (oxyCODONE 5 mg oral tablet) 2 Tab(s) Oral every 4 hours as needed pain-severe 7 to 10. pantoprazole 40 Milligram(s) Oral every day. polyethylene glycol 3350 (MiraLax) 17 gram Oral twice a day. predniSONE 5 Milligram(s) Oral every day. start 09/02/2018. spironolactone (Aldactone 25 mg oral tablet) 1 Tab(s) Oral every day. traZODone 50 Milligram(s) Oral once a day (at bedtime). vancomycin (vancomycin 1 g/200 mL-D5% intravenous solu tion) 200 Milliliter(s) Intravenous every 24 hours (interval ) for 10 Days. warfarin (warfarin 5 mg oral tablet) 1 Tab(s) Oral every day for 30 Days. Refills: 0. Ordering provider: MARINE NORWOOD MD Procedures Procedure Date Related Diagnosis Body Site Status Wound Debridement (Surgery)1 08/22/18 Completed Heart valve repair Completed Hysterectomy Completed 1auto-populated from documented surgical case Social History Social History Type Response Smoking Status Tobacco use status 30 days p rior to admission No tobacco use of any form; Former smoker entered on: 08/19/18
--- OUTSIDE RECORDS SUMMARY | 2022-09-14 17:51 | XMS_ITS ---
:1940 Author Organization [facility] Address [address] [address] Care Team Providers Name Role Phone PARK CRUZ Primary Care Physician Encounter PARS_FIN [id number] Date(s): 09/18/19 - 09/18/19 [facility] [address] [facility] [place] [address] [facility] Discharge Disposition: DISCHARGED HOME/SELF CARE Attending Physician: PARK CRUZ MD Admitting Physician: PARK CRUZ MD Referring Physician: PARK CRUZ MD Reason for Visit LAB DROP OFF Problem List Condition Effective Dates Status Health Status Informant Activity intolerance(Confirmed)1 Active Gout of right wrist(Confirmed) Active At risk for falls(Confirmed)2 Active Cervical cancer(Confirmed) Resolved Chest pain(Confirmed) Active CHF - Congestive heart Active failure(Confirmed) Chronic atrial Active fibrillation(Confirmed) 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 Decreased cardiac output(Confirmed)3 Active Corticosteroid [...] recent to oldest [Reference Range]: 1 RBC [4.20-5.40 x10^6/mcL] 3.35 x10^6/mcL *LOW* (09/18/19 4:00 PM) Basophils# Auto [0.00-0.10 x10^3/mcL] 0.00 x10^3/mcL (09/18/19 4:00 PM) Basophils% Auto [0.0-2.0 %] 0.7 % (09/18/19 4:00 PM) Creatinine [0.60-1.20 mg/dL] 1.80 mg/dL *HI* (09/18/19 4:00 PM) eGFR 31 *NA* (09/18/19 4:00 PM) eGFR Non 27 *NA* (09/18/19 4:00 PM) Eos# Auto [0.00-0.70 x10^3/mcL] 0.10 x10^3/mcL (09/18/19 4:00 PM) Eosinophils% Auto [0.0-10.0 %] 2.0 % (09/18/19 4:00 PM) HCT [37.0-47.0 %] 30.2 % *LOW* (09/18/19 4:00 PM) Hgb [12.0-16.0 g/dL] 10.4 g/dL *LOW* (09/18/19 4:00 PM) Lymphocytes# Auto [1.00-3.00 x10^3/mcL] 0.90 x10^3/mcL *LOW* (09/18/19 4:00 PM) Lymphocytes% Auto [15.0-41.0 %] 13.9 % *LOW* (09/18/19 4:00 PM) MCH [26.0-34.0 pg] 30.9 pg (09/18/19 4:00 PM) MCHC [32.0-36.0 g/dL] 34.3 g/dL (09/18/19 4:00 PM) MCV [81.0-99.0 fL] 89.9 fL (09/18/19 4:00 PM) Monocytes# Auto [0.00-1.00 x10^3/mcL] 0.30 x10^3/mcL (09/18/19 4:00 PM) Monocytes% Auto [0.0-13.0 %] 3.9 % (09/18/19 4:00 PM) Neutrophils# Auto [1.40-6.50 x10^3/mcL] 5.30 x10^3/mcL (09/18/19 4:00 PM) Neutrophils% Auto [42.2-75.2 %] 79.5 % *HI* (09/18/19 4:00 PM) Plt Cnt [130.0-400.0 x10^3/mcL] 96.0 x10^3/mcL *LOW* (09/18/19 4:00 PM) RDW [11.5-15.5 %] 17.3 % *HI* (09/18/19 4:00 PM) WBC [4.80-10.80 x10^3/mcL] 6.60 x10^3/mcL (09/18/19 4:00 PM) MPV [7.3-11.9 fL] 10.8 fL (09/18/19 4:00 PM) Sed Rate Manual [0-30 mm/hr] 30 mm/hr (09/18/19 4:00 PM) Vancomycin Lvl Tr [10.0-20.0 mcg/mL] 10.1 mcg/mL (09/18/19 4:00 PM) C Reactive Protein [0.00-10.00 mg/dL] 0.35 mg/dL (09/18/19 4:00 PM) Procedures Procedure Date Related Diagnosis Body [...]
--- OUTSIDE RECORDS SUMMARY | 2022-09-14 17:51 | XMS_ITS ---
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 CHF - Congestive heart failure (Discharge Diagnosis) - 08/10/19 Hyperbilirubinemia (Discharge Diagnosis) - 08/18/19 JOSETTE (acute kidney injury) (Discharge Diagnosis) - 08/10/19 CAD in [place] artery (Discharge Diagnosis) - 08/10/19 Thrombocytopenia (Discharge Diagnosis) - 08/11/19 Acute on chronic systolic heart failure (Discharge Diagnosis) - 08/14/19 GERD - Gastro-esophageal reflux disease (Discharge Diagnosis) - 08/10/19 Gout (Discharge Diagnosis) - 08/10/19 Hypertension (Discharge Diagnosis) - 08/10/19 Corticosteroid dependence (Discharge Diagnosis) - 08/10/19 Chronic atrial fibrillation (Discharge Diagnosis) - 08/10/19 H/O mitral valve replacement with mechanical valve (Discharge Diagnosis) - 08/10/19 Discharge Disposition: 03 LONG-TERM FACILITY Attending Physician: HILDA CRUZ MD Admitting Physician: HILDA CRUZ MD Referring Physician: HILDA CRUZ MD Reason for Visit SIRS Vital Signs Most recent to oldest [Reference Range]: 1 2 Patient Height 160.02 cm (08/10/19 12:58 PM) Patient Weight (kg) 55.9 kg (08/10/19 12:58 PM) [place] Body Weight Calculated 52.4 kg (08/10/19 12:43 PM) BSA Measured 1.58 m2 (08/10/19 12:43 PM) Body Mass Index Measured 21.83 kg/m2 21.83 kg/m2 (08/10/19 12:58 PM) (08/10/19 12:58 PM) Blood Pressure [95-120/59-81 mmHg] 148/70 mmHg *HI* (08/21/19 12:21 PM) Mean Arterial Pressure, Cuff 96 mmHg (08/21/19 12:21 PM) Problem List Condition Effective Dates Status Health Status Informant Activity intolerance(Confirmed)1 Active Gout of right wrist(Confirmed) Active At risk for falls(Confirmed)2 Active Cervical cancer(Confirmed) Resolved Chest pain(Confirmed) Active CHF - Congestive heart Active failure(Confirmed) Chronic atrial Active fibrillation(Confirmed) CAD in [place] artery(Confirmed) Active Decreased cardiac output(Confirmed)3 Active Corticosteroid [...] HILDA CRUZ MD Results Most recent to 2 3 4 5 6 7 8 9 10 11 oldest [Reference Range]: RBC [4.20-5.40 4.17 x10^6/mcL 3.76 x10^6/mcL 3.80 x10^6/mcL 3.96 x10^ 6/mcL 4.22 x10^6/mcL 4.48 x10^6/mcL x10^6/mcL] *LOW* *LOW* *LOW* *LOW* (08/11/19 7:46 AM) (08/10/19 9:00 AM) (08/18/19 9:23 AM) (08/16/19 7:18 AM) (08/13/19 8:51 AM) (08/12/19 9:03 AM) PT [9.9-11.6 16.4 second(s) 15.0 second(s) 22.1 second(s) 26.3 second (s) 30.3 second(s) 43.9 second(s) 40.6 second(s) 28.7 second(s) 19.3 second(s) 17.3 second(s) 18.6 second(s) second(s)] *HI* *HI* *HI* *HI* *HI* *HI* *HI* *HI* *HI* *HI* *HI * (08/21/19 5:50 AM) (08/20/19 9:15 AM) (08/18/19 9:23 AM) (08/17/19 11:23 AM) (08/16/19 7:18 AM) (08/15/19 8:37 AM) (08/14/19 8:20 AM) (08/13/19 8:51 AM) (08/12/19 9:03 AM) (08/11/19 7:46 AM) (08/10/19 9:00 AM) INR [0.92-1.09] 1.57 1.43 2.13 2.55 2.98 4.38 4.04 2.82 1.85 1.65 1.78 *HI* *HI* *HI* *HI* *HI* *HI* *HI* *HI* *HI* *HI* *HI* (08/21/19 5:50 AM) (08/20/19 9:15 AM) (08/18/19 9:23 AM) (08/17/19 11:23 AM) (08/16/19 7:18 AM) (08/15/19 8:37 AM) (08/14/19 8:20 AM) (08/13/19 8:51 AM) (08/12/19 9:03 AM) (08/11/19 7:46 AM) (08/10/19 9:00 AM) BUN [7-25 15 mg/dL 11 mg/dL 8 mg/dL 7 mg/dL 10 mg/dL 18 mg/dL 16 mg/dL 23 mg/dL mg/dL] (08/21/19 5:50 AM) (08/20/19 9:15 AM) (08/18/19 9:23 AM) (08/16/19 7:18 AM) (08/15/19 8:37 AM) (08/12/19 9:03 AM) (08/11/19 7:46 AM) (08/10/19 9:00 AM) Flu Comment A negative test result does not eliminate the possibility of influenza A or influenza B infection and should be confirmed by viral culture or an FDA-cleared influenza A and B molecular assay. Please no tify the laboratory immediat scout if you would like to order confirmation testing. *Unknown* (08/11/19 11:32 AM) Albumin 3.2 g/dL 3.8 g/dL 3.4 g/dL 3.9 g/dL 3.3 g/dL 3.7 g/dL 3.7 g/dL 4. 4 g/dL [3.5-5.7 g/dL] *LOW* (08/20/19 9:15 AM) *LOW* (08/18/19 9:23 AM) *LOW* (08/15/19 8:37 AM) (08/11/19 7:46 AM) (08/10/19 9:00 AM) (08/21/19 5:50 AM) (08/19/19 8:15 AM) (08/16/19 7:18 AM) Alkaline 89 unit/L 121 unit/L 113 unit/L 133 unit/L 106 unit/L 169 unit/L Phosphatase (08/21/19 5:50 AM) *HI* *HI* *HI* *HI* *HI* [34-104 unit/L] (08/20/19 9:15 AM) (08/19/19 8:15 AM) ( 9:23 AM) (08/16/19 7:18 AM) (08/10/19 9:00 AM) ALT [7-52 10 unit/L 13 unit/L 15 unit/L 19 unit/L 24 unit/L 26 unit/L unit/L] (08/21/19 5:50 AM) (08/20/19 9:15 AM) (08/19/19 8:15 AM) (08/18/19 9:23 AM) (08/16/19 7:18 AM) (08/10/19 9:00 AM) Anion Gap 10.4 mmol/L 11.8 mmol/L 10.2 mmol/L 13.1 mmol/L 13.1 mmol/L 12.3 mmol/L 11.7 mmol/L 13.4 mmol/L [7.0-16.0 (08/21/19 5:50 AM) (08/20/19 9:15 AM) (08/18/19 9:23 AM) (08/16/19 7:18 AM) (08/15/19 8:37 AM) (08/12/19 9:03 AM) (08/11/19 7:46 AM) (08/10/19 9:00 AM ) mmol/L] Anisocytosis Slight Slight *ABN* *ABN* (08/12/19 9:03 AM) (08/10/19 9:00 AM) AST [13-39 13 unit/L 17 unit/L 18 unit/L 22 unit/L 22 unit/L 42 unit/L unit/L] (08/21/19 5:50 AM) (08/20/19 9:15 AM) (08/19/19 8:15 AM) (08/18/19 9:23 AM) (08/16/19 7:18 AM) *HI* (08/10/19 9:00 AM) Basophils# Auto 0.00 x10^3/mcL 0.00 x10^3/mcL 0.00 x10^3/mcL 0.00 x10 ^3/mcL 0.00 x10^3/mcL 0.10 x10^3/mcL [0.00-0.10 (08/18/19 9:23 AM) (08/16/19 7:18 AM) (08/13/19 8:51 AM) (08/12/19 9:03 AM) (08/11/19 7:46 AM) (08/10/19 9:00 AM) x10^3/mcL] Basophils% Auto 0.4 % 1.0 % 0.4 % 0.6 % 0.4 % 0.8 % [0.0-2.0 %] (08/18/19 9:23 AM) (08/16/19 7:18 AM) (08/13/19 8:51 AM) (08/12/19 9:03 AM) (08/11/19 7:46 AM) (08/10/19 9:00 AM) Bili Direct 1.14 mg/dL 2.02 mg/dL [0.03-0.18 *HI* *HI* mg/dL] (08/20/19 9:15 AM) (08/19/19 8:15 AM) Bili Total 1.7 mg/dL 2.7 mg/dL 4.1 mg/dL 4.5 mg/dL 4.0 mg/dL 1.4 mg/dL [0.3-1.0 mg/dL] *HI* *HI* *HI* *HI* *HI* *HI* (08/21/19 5:50 AM) (08/20/19 9:15 AM) (08/19/19 8:15 AM) (08/18/19 9:23 AM) (08/16/19 7:18 AM) (08/10/19 9:00 AM) BUN/Crea Ratio 11.5 mg/dL 9.2 mg/dL 8.9 mg/dL 10.0 mg/dL 12.5 mg/dL 20.0 mg/dL 16.0 mg/dL 16.4 mg/dL [6.7-40.0 (08/21/19 5:50 AM) (08/20/19 9:15 AM) (08/18/19 9:23 AM) (08/16/19 7:18 AM) (08/15/19 8:37 AM) (08/12/19 9:03 AM) (08/11/19 7:46 AM) (08/10/19 9:00 AM ) mg/dL] Calcium 8.6 mg/dL 9.3 mg/dL 9.0 mg/dL 8.3 mg/dL 8.6 mg/dL 8.5 mg/dL 8.4 mg/dL 9.6 mg/dL [8.6-10.3 (08/21/19 5:50 AM) (08/20/19 9:15 AM) (08/18/19 9:23 AM) *LOW * (08/15/19 8:37 AM) *LOW* *LOW* (08/10/19 9:00 AM) mg/dL] (08/16/19 7:18 AM) (08/12/19 9:03 AM) ( 9 7:46 AM) Creatinine 1.30 mg/dL 1.20 mg/dL 0.90 mg/dL 0.70 mg/dL 0.80 mg/dL 0.90 m g/dL 1.00 mg/dL 1.40 mg/dL [0.60-1.20 *HI* (08/20/19 9:15 AM) (08/18/19 9:23 AM) (08/16/19 7: 18 AM) (08/15/19 8:37 AM) (08/12/19 9:03 AM) (08/11/19 7:46 AM) *HI* mg/dL] (08/21/19 5:50 AM) (08/10/19 9:00 AM) eGFR 46 50 >60 >60 >60 >60 >60 42 [place] *NA* *NA* *NA* *NA* *NA* *NA* *NA* *NA* (08/21/19 5:50 AM) (08/20/19 9:15 AM) (08/18/19 9:23 AM) (08/16/19 7:18 AM) (08/15/19 8:37 AM) (08/12/19 9:03 AM) (08/11/19 7:46 AM) (08/10/19 9:00 AM) eGFR Non 40 44 >60 >60 >60 >60 54 36 *NA* *NA* *NA* *NA* *NA* *NA* *NA* *NA* [place] (08/21/19 5:50 AM) (08/20/19 9:15 AM) (08/18/19 9:23 AM) (08/16/19 7:18 AM) (08/15/19 8:37 AM) (08/12/19 9:03 AM) (08/11/19 7:46 AM) (08/10/19 9:00 AM ) Eos# Auto 0.30 x10^3/mcL 0.30 x10^3/mcL 0.10 x10^3/mcL 0.10 x10^3/mc L 0.00 x10^3/mcL 0.00 x10^3/mcL [0.00-0.70 (08/18/19 9:23 AM) (08/16/19 7:18 AM) (08/13/19 8:51 AM) (08/12/19 9:03 AM) (08/11/19 7:46 AM) (08/10/19 9:00 AM) x10^3/mcL] Eosinophils% 4.5 % 6.0 % 1.7 % 1.9 % 0.0 % 0.0 % Auto [0.0-10.0 (08/18/19 9:23 AM) (08/16/19 7:18 AM) (08/13/19 8:51 AM ) (08/12/19 9:03 AM) (08/11/19 7:46 AM) (08/10/19 9:00 AM) %] Globulin 2.3 g/dL 2.7 g/dL 2.2 g/dL 2.4 g/dL 2.1 g/dL 2.1 g/dL [2.4-3.5 g/dL] *LOW* (08/20/19 9:15 AM) *LOW* (08/18/19 9:23 AM) *LOW* *LOW* (08/21/19 5:50 AM) (08/19/19 8:15 AM) (08/16/19 7:18 AM) ( 9:00 AM) HCT [37.0-47.0 37.6 % 33.2 % 33.9 % 35.6 % 38.6 % 40.9 % %] (08/18/19 9:23 AM) *LOW* *LOW* *LOW* (08/11/19 7:46 AM) (08/10/19 9:00 AM) (08/16/19 7:18 AM) (08/13/19 8:51 AM) (08/12/19 9:03 AM) Hgb [12.0-16.0 12.3 g/dL 11.4 g/dL 11.3 g/dL 11.8 g/dL 12.5 g/dL 13.4 g/dL g/dL] (08/18/19 9:23 AM) *LOW* *LOW* *LOW* (08/11/19 7:46 AM) (08/10/19 9:00 AM) (08/16/19 7:18 AM) (08/13/19 8:51 AM) (08/12/19 9:03 AM) Potassium 3.4 mmol/L 3.8 mmol/L 3.2 mmol/L 3.1 mmol/L 3.1 mmol/L 3.3 mmo l/L 3.7 mmol/L 3.4 mmol/L [3.8-5.1 *LOW* (08/20/19 9:15 AM) *LOW* *LOW* *LOW* *LOW* *LOW* *LOW* mmol/L] (08/21/19 5:50 AM) (08/18/19 9:23 AM) (08/16/19 7: 18 AM) (08/15/19 8:37 AM) (08/12/19 9:03 AM) (08/11/19 7:46 AM) (08/10/19 9:00 AM) Lymphocytes# 1.00 x10^3/mcL 0.90 x10^3/mcL 0.80 x10^3/mcL 0.50 x10^3/ mcL 0.60 x10^3/mcL 0.60 x10^3/mcL Auto [1.00-3.00 (08/18/19 9:23 AM) *LOW* *LOW* *LOW* *LOW* *LOW* x10^3/mcL] (08/16/19 7:18 AM) (08/13/19 8:51 AM) (08/12/19 9: 03 AM) (08/11/19 7:46 AM) (08/10/19 9:00 AM) Lymphocytes% 17.9 % 18.1 % 17.2 % 13.2 % 12.6 % 8.9 % Auto [15.0-41.0 (08/18/19 9:23 AM) (08/16/19 7:18 AM) (08/13/19 8:51 AM) *LOW* *LOW* *LOW* %] (08/12/19 9:03 AM) (08/11/19 7:46 AM) (08/10/19 9:00 AM) MCH [26.0-34.0 29.6 pg 30.3 pg 29.7 pg 29.8 pg 29.6 pg 29.8 pg pg] (08/18/19 9:23 AM) (08/16/19 7:18 AM) (08/13/19 8:51 AM) (07/16 08/02 9:03 AM) (08/11/19 7:46 AM) (08/10/19 9:00 AM) MCHC [32.0-36.0 32.8 g/dL 34.4 g/dL 33.2 g/dL 33.1 g/dL 32.3 g/dL 32.7 g/d L g/dL] (08/18/19 9:23 AM) (08/16/19 7:18 AM) (08/13/19 8:51 AM) (07/16 08/02 9:03 AM) (08/11/19 7:46 AM) (08/10/19 9:00 AM) MCV [81.0-99.0 90.2 fL 88.1 fL 89.3 fL 90.1 fL 91.5 fL 91.3 fL fL] (08/18/19 9:23 AM) (08/16/19 7:18 AM) (08/13/19 8:51 AM) (07/16 08/02 9:03 AM) (08/11/19 7:46 AM) (08/10/19 9:00 AM) Monocytes# Auto 0.60 x10^3/mcL 0.50 x10^3/mcL 0.40 x10^3/mcL 0.30 x10 ^3/mcL 0.30 x10^3/mcL 0.50 x10^3/mcL [0.00-1.00 (08/18/19 9:23 AM) (08/16/19 7:18 AM) (08/13/19 8:51 AM) (08/12/19 9:03 AM) (08/11/19 7:46 AM) (08/10/19 9:00 AM) x10^3/mcL] Monocytes% Auto 9.9 % 10.5 % 9.5 % 8.7 % 5.1 % 7.6 % [0.0-13.0 %] (08/18/19 9:23 AM) (08/16/19 7:18 AM) (08/13/19 8:51 AM) (08/12/19 9:03 AM) (08/11/19 7:46 AM) (08/10/19 9:00 AM) Neutrophils# 3.90 x10^3/mcL 3.10 x10^3/mcL 3.10 x10^3/mcL 2.70 x10^3/ mcL 4.20 x10^3/mcL 5.30 x10^3/mcL Auto [1.40-6.50 (08/18/19 9:23 AM) (08/16/19 7:18 AM) (08/13/19 8:51 A M) (08/12/19 9:03 AM) (08/11/19 7:46 AM) (08/10/19 9:00 AM) x10^3/mcL] Neutrophils% 67.3 % 64.4 % 71.2 % 75.6 % 81.9 % 82.7 % Auto [42.2-75.2 (08/18/19 9:23 AM) (08/16/19 7:18 AM) (08/13/19 8:51 AM) *HI* *HI* *HI* %] (08/12/19 9:03 AM) (08/11/19 7:46 AM) (08/10/19 9:00 AM) Plt Estimate Decreased Decreased Decreased Decreased (08/13/19 8:51 AM) (08/12/19 9:03 AM) (08/11/19 7:46 AM) (08/10/19 9:00 AM) Plt Cnt 213.0 x10^3/mcL 127.0 x10^3/mcL 62.0 x10^3/mcL 63.0 x10^3/ mcL 74.0 x10^3/mcL 81.0 x10^3/mcL [130.0-400.0 (08/18/19 9:23 AM) *LOW* *LOW* *LOW* *LOW* *LOW* x10^3/mcL] (08/16/19 7:18 AM) (08/13/19 8:51 AM) (08/12/19 9: 03 AM) (08/11/19 7:46 AM) (08/10/19 9:00 AM) Poikilocytosis Slight Slight Slight *ABN* *ABN* *ABN* (08/13/19 8:51 AM) (08/12/19 9:03 AM) (08/10/19 9:00 AM) Prot Total 5.5 g/dL 6.5 g/dL 5.6 g/dL 6.3 g/dL 5.4 g/dL 6.5 g/dL [6.4-8.9 g/dL] *LOW* (08/20/19 9:15 AM) *LOW* *LOW* *LOW* (08/10/19 9:00 AM) (08/21/19 5:50 AM) (08/19/19 8:15 AM) (08/18/19 9:23 AM) (08/16/19 7:18 AM) Thromboplastin 34.0 second(s) Time Partial *HI* [22.0-30.0 (08/10/19 9:00 AM) second(s)] RDW [11.5-15.5 16.7 % 16.7 % 16.7 % 16.7 % 16.8 % 16.6 % %] *HI* *HI* *HI* *HI* *HI* *HI* (08/18/19 9:23 AM) (08/16/19 7:18 AM) (08/13/19 8:51 AM) (07/16 08/02 9:03 AM) (08/11/19 7:46 AM) (08/10/19 9:00 AM) WBC [4.80-10.80 5.80 x10^3/mcL 4.70 x10^3/mcL 4.40 x10^3/mcL 3.60 x10 ^3/mcL 5.10 x10^3/mcL 6.50 x10^3/mcL x10^3/mcL] (08/18/19 9:23 AM) *LOW* *LOW* *LOW* (08/11/19 7: 46 AM) (08/10/19 9:00 AM) (08/16/19 7:18 AM) (08/13/19 8:51 AM) (08/12/19 9:03 AM) Sodium [136-145 134 mmol/L 134 mmol/L 138 mmol/L 137 mmol/L 139 mmol/L 137 mmol/L 138 mmol/L 138 mmol/L mmol/L] *LOW* *LOW* (08/18/19 9:23 AM) (08/16/19 7:18 AM) (08/15/19 8:37 AM) (08/12/19 9:03 AM) (08/11/19 7:46 AM) (08/10/19 9:00 AM) (08/21/19 5:50 AM) (08/20/19 9:15 AM) Albumin/Globuli 1.4 g/dL 1.4 g/dL 1.5 g/dL 1.6 g/dL 1.6 g/dL 2.1 g/dL n Ratio (08/21/19 5:50 AM) (08/20/19 9:15 AM) (08/19/19 8:15 AM) (08/18/19 9:23 AM) (08/16/19 7:18 AM) (08/10/19 9:00 AM) [1.1-2.2 g/dL] Ca Corrected 9.2 mg/dL 9.5 mg/dL 9.1 mg/dL 8.9 mg/dL 8.8 mg/dL 8.6 mg/dL 9.3 mg/dL [8.8-10.2 (08/21/19 5:50 AM) (08/20/19 9:15 AM) (08/18/19 9:23 AM) (08/16/19 7:18 AM) (08/15/19 8:37 AM) *LOW* (08/10/19 9:00 AM) mg/dL] (08/11/19 7:46 AM) Glucose [70-105 100 mg/dL 88 mg/dL 150 mg/dL 83 mg/dL 128 mg/dL 110 mg/d L 91 mg/dL 109 mg/dL mg/dL] (08/21/19 5:50 AM) (08/20/19 9:15 AM) *HI* (08/16/19 7:18 AM) *H I* *HI* (08/11/19 7:46 AM) *HI* (08/18/19 9:23 AM) (08/15/19 8:37 AM) (08/12/19 9:03 AM) (08/10/19 9:00 AM) MPV [7.3-11.9 10.2 fL 10.0 fL 10.8 fL 10.3 fL 10.7 fL 10.4 fL fL] (08/18/19 9:23 AM) (08/16/19 7:18 AM) (08/13/19 8:51 AM) (07/16 08/02 9:03 AM) (08/11/19 7:46 AM) (08/10/19 9:00 AM) Chloride 96 mmol/L 92 mmol/L 96 mmol/L 98 mmol/L 102 mmol/L 104 mmol/L 1 06 mmol/L 99 mmol/L [98-107 mmol/L] *LOW* *LOW* *LOW* (08/16/19 7:18 AM) ( 8:37 AM) (08/12/19 9:03 AM) (08/11/19 7:46 AM) (08/10/19 9:00 AM) (08/21/19 5:50 AM) (08/20/19 9:15 AM) (08/18/19 9:23 AM) Action? RBC Morphology RBC Morphology RBC Morphology RBC Morphology (08/13/19 8:51 AM) (08/12/19 9:03 AM) (08/11/19 7:46 AM) (08/10/19 9:00 AM) Sed Rate Manual 15 mm/hr [0-30 mm/hr] (08/16/19 7:18 AM) Ur Appearance Clear [Clear] (08/11/19 2:27 AM) Ur Bacteria Rare /HPF [Negative /HPF] (08/11/19 2:27 AM) Ur Bili Negative mg/dL [Negative (08/11/19 2:27 AM) mg/dL] Ur Blood Moderate mg/dL [Negative *ABN* mg/dL] (08/11/19 2:27 AM) Ur Collection Void Source *NA* (08/11/19 2:27 AM) Ur Color Yellow [Yellow] (08/11/19 2:27 AM) ur Epithelial 1 /LPF Cells [0-5 (08/11/19 2:27 AM) /LPF] Ur Glucose Negative mg/dL [Negative (08/11/19 2:27 AM) mg/dL] Ur Ketone Negative mg/dL [Negative (08/11/19 2:27 AM) mg/dL] Ur Leukocyte Negative Esterase (08/11/19 2:27 AM) [Negative] Ur Nitrite Negative [Negative] (08/11/19 2:27 AM) Ur pH [5.0-8.0] 5.0 (08/11/19 2:27 AM) Ur RBC [0-5 <1 /HPF /HPF] (08/11/19 2:27 AM) Ur Specific 1.013 Antoine (08/11/19 2:27 AM) [1.005-1.030] Ur Urobilinogen Normal mg/dL [Normal mg/dL] (08/11/19 2:27 AM) Ur WBC [0-4 1 /HPF /HPF] (08/11/19 2:27 AM) B Type 304.0 pg/mL Natriuretic *HI* Peptide (08/10/19 9:00 AM) [0.0-100.0 pg/mL] Phosphorus 1.3 mg/dL 2.4 mg/dL [2.5-5.0 mg/dL] *LOW* *LOW* (08/15/19 8:37 AM) (08/11/19 7:46 AM) Vancomycin Lvl 12.3 mcg/mL 11.5 mcg/mL Tr [10.0-20.0 (08/18/19 5:10 PM) (08/14/19 5:30 PM) mcg/mL] Influenza A Negative (08/11/19 11:32 AM) Influenza B Negative (08/11/19 11:32 AM) CRP Highly 3.51 mg/L Sensitive *NA* (08/16/19 7:18 AM) Ur Protein Negative mg/dL [Negative (08/11/19 2:27 AM) mg/dL] Lactic Acid 1.0 mmol/L [0.5-2.2 (08/10/19 9:00 AM) mmol/L] Carbon Dioxide 31 mmol/L 34 mmol/L 35 mmol/L 29 mmol/L 27 mmol/L 24 mmol /L 24 mmol/L 29 mmol/L [21-31 mmol/L] (08/21/19 5:50 AM) *HI* *HI* (08/16/19 7:18 AM) (08/15/19 8:37 AM) (08/12/19 9:03 AM) (08/11/19 7:46 AM) (08/10/19 9:00 AM) (08/20/19 9:15 AM) (08/18/19 9:23 AM) Microbiology Reports TEST:Blood Culture STATUS:Order in Progress BODY SITE: SOURCE:Blood COLLECTED DATE/TIME:08/17/19 1:18 PMPRELIMINARY REPORTNo growth at 72 hours.TEST:Blood Culture STATUS:Auth (Verified) BODY SITE: SOURCE:Blood COLLECTED DATE/TIME:08/13/19 3:30 PMFINAL REPORTNo growth at 5 days.TEST: Blood Culture STATUS:Auth (Verified) BODY SITE: SOURCE:Blood COLLECTED DATE/TIME:08/13/19 3:30 PMFINAL REPORTFrom Aerobic Bottle: Methicillin-Resistant Staphylococcus aureus See blood culture from 08/10 for sensitivities. Known Mrsa PatientSTAIN REPORTFrom Aerobic Bottle: Gram Positive Cocci Result(s) called by NEVIN at 08/15/2019 16:02:19 with verbal readback given by RL OJEDA ON 7ETEST:Urine Culture STATUS:Auth (Verified) BODY SITE:Bladder SOURCE:Random Urine COLLECTED DATE/TIME:08/11/19 2:27 AMFINAL REPORTNo growthTEST:Blood Culture STATUS:Auth (Verified) BODY SITE: SOURCE:Blood COLLECTED DATE/TIME:08/10/19 9:00 AMFINAL REPORTMethicillin-Resistant Staphylococcus aureus From Aerobic And Anaerobic Bottles Methicillin Resistant Staphylococcus Aureus Isolated THIS MAY REQUIRE ISOLATION Result(s) called by ROSA M at 08/13/2019 07:30:10 with verbal readback given by OTTONIEL SANON, 7ESTAIN REPORTFrom Anaerobic Bottle: Gram Positive Cocci Result(s) called by ERIC at 08/11/2019 14:06:27 with verbal readback given by PARK SHIPMAN From Aerobic Bottle: Gram Positive Cocci Result(s) called by MARLYS at 08/12/2019 0206 AM with verbal readback given by AVILA VELASQUEZ ORGANISM:Methicillin-Resistant Staphylococcus aureusTEST:Blood Culture STATUS:Auth (Verified) BODY SITE: SOURCE:Blood COLLECTED DATE/TIME:08/10/19 9:00 AMFINAL REPORTFrom Anaerobic Bottle: Methicillin-Resistant Staphylococcus aureus See other blood culture from 08/10/19 for sensitivities Methicillin Resistant Staphylococcus Aureus Isolated THIS MAY REQUIRE ISOLATION Result(s) called by ROSA M at 08/13/2019 07:30:16 with verbal readback given by OTTONIEL SANON, 7ESTAIN REPORTFrom Anaerobic Bottle: Gram Positive Cocci Result(s) called by ERIC at 08/11/2019 1625 with verbal readback given by OTTONIEL SANON Procedures Procedure Date Related Diagnosis Body Site Status Wound Debridement (Surgery)1 08/22/18 Completed Heart valve repair Completed Hysterectomy Completed Open heart surgery Completed 1auto-populated from documented surgical case Social History Social History Type Response Smoking Status Tobacco use status 30 days p rior to admission No tobacco use of any form; Former smoker, quit more than 30 days ago entered on: 08/21/19 Assessment and Plan Extracted from: Title: Clinical Summary Author: Faisal Hightower Rn Date: 08/21/[address] [place] [id number] Clinical Discharge Summary PATIENT INFORMATION Name: FAN CHACON : 1940 FIN: [id number] PHYSICIANS Admitting Physician: HILDA CRUZ MD Attending Physician: HILDA CRUZ MD PCP: PARK CRUZ MD Discharge Diagnosis: 1:MRSA bacteremia; 2:Prosthetic valve endocarditis; 3:Systemic inflammatory response syndrome (SIRS); 4:Hyperbilirubinemia; 5:Acute on chronic systolic heart failure; 6:JOSETTE (acute k idney injury); 7:Thrombocytopenia; 8:CAD in [place] artery; 9:H/O mitral valve replacement with mechanical valve; 10:Chronic atrial fibrillation; 11:Hypertension; 12:Gout; 13:Corticosteroid dependence; 1 4:GERD - Gastro-esophageal reflux diseas e; CHF - Congestive heart failure; Staphylococcus aureus bacteremia PATIENT EDUCATION INFORMATION Instructions: Atrial Fibrillation, [id number] Medication Leaflets warfarin Follow-up With: Address: When: Coumadin 4 mg daily with PT/INR surveill ance and dose modify as necessary to maintain INR 2.00-3.00. INR 1.57 (08/21/19). With: Address: When: Maintain peripherally inserted central c atheter per facility protocol. With: Address: When: Please obtain CBC, renal function profil e, ESR, CRP, and Vancomycin trough weekly beginning on , 08/23/19. With: Address: When: Vancomycin will continue for 6 week dura tion, concluding September 24, 2019. With: Address: When: PARK CRUZ [address] [place] [address] [phone] Business (1) Within 2 to 4 days Future Appointments No Future Appointments Scheduled MEDICATION LIST Active Medication Orders Prior to Transf er: Order Name Order Details acetaminophen 325 mg Tab 650 mg 2 tab(s), Oral, -1, q4H PRN Pain- mild or Temp > 100.4 F, Routine, 08/10/19 12:07:00 EDT, 08/10/19 12:07:00 EDT, UD, 1, -1, [facility] ER, [facility] Oral Drugs, 10.80, 2.00 albuterol-ipratropium Soln-Inh; 3 mL 3 mL, NEB, -1, 08/21/19 19:00:00 EDT, UD , 1, [facility]ARS UBC 7E, [facility]ARS Topical/Inhalers, 11.93, 2.21 albuterol-ipratropium Soln-Inh; 3 mL 3 mL, NEB, -1, 08/22/19 1:00:00 EDT, UD, 1, PARS UBC 7E, PARS Topical/Inhalers, 11.93, 2.21 albuterol-ipratropium Soln-Inh; 3 mL 3 mL, NEB, -1, RTQ6H, Routine, 08/11/19 13:00:00 EDT, 08/11/19 13:00:00 EDT, UD, 1, [facility]ARS UBC 7E, [facility] Topical/Inhalers, 11.93, 2.21 albuterol-ipratropium Soln-Inh; 3 mL 3 mL, NEB, -1, 08/21/19 13:00:00 EDT, UD , 1, [facility]ARS UBC 7E, [facility] Topical/Inhalers, 11.93, 2.21 albuterol-ipratropium Soln-Inh; 3 mL 3 mL, NEB, -1, 08/22/19 13:00:00 EDT, UD , 1, [facility]ARS UBC 7E, [facility] Topical/Inhalers, 11.93, 2.21 albuterol-ipratropium Soln-Inh; 3 mL 3 mL, NEB, -1, 08/22/19 7:00:00 EDT, UD, 1, [facility] UBC 7E, [facility] Topical/Inhalers, 11.93, 2.21 allopurinol 300 mg Tab 300 mg 1 tab(s), Oral, -1, 08/22/19 10:0 0:00 EDT, UD, 1, -1, [facility], [facility] Oral Drugs, 3.28, 0.61 allopurinol 300 mg Tab 300 mg 1 tab(s), Oral, -1, Daily, Routin e, 08/11/19 10:00:00 EDT, 08/11/19 10:00:00 EDT, UD, 1, -1, [facility], [facility] Oral Drugs, 3.28, 0.61 amLODIPine 10 mg Tab 10 mg 1 tab(s), Oral, -1, 08/22/19 10:00 :00 EDT, UD, 1, -1, [facility], [facility] Oral Drugs, 12.82, 2.37 amLODIPine 10 mg Tab 10 mg 1 tab(s), Oral, -1, Daily, Routine , 08/11/19 10:00:00 EDT, 08/11/19 10:00:00 EDT, UD, 1, -1, [facility], [facility] Oral Drugs, 12.82, 2.37 atorvastatin 10 mg Tab 10 mg 1 tab(s), Oral, -1, 08/21/19 22:00 :00 EDT, UD, 1, -1, [facility], [facility] Oral Drugs, 1.99, 0.37 atorvastatin 10 mg Tab 10 mg 1 tab(s), Oral, -1, Daily, Routine , 08/10/19 22:00:00 EDT, 08/10/19 22:00:00 EDT, UD, 1, -1, [facility], [facility] Oral Drugs, 1.99, 0.37 calcium carbonate 1,000 mg 2 tab(s), Chewed, [id number], PRN indigestion, 0, 08/21/19 12:09:00 EDT, Maintenance, Tab-Chew calcium carbonate 500 mg Tab-Chew 1,000 mg 2 tab(s), Chewed, -1, [id number] P RN indigestion, Routine, 08/13/19 10:20:00 EDT, 08/13/19 10:20:00 EDT, UD, 1, -1, [facility] UBC 7E, [facility] Oral Drugs, 0.82, 0.15 diphenhydrAMINE 25 mg Cap 25 mg 1 cap(s), Oral, -1, q6H PRN itchin g, Routine, 08/10/19 16:22:00 EDT, 08/10/19 16:22:00 EDT, UD, 1, -1, [facility] UBC 7E, [facility] Oral [facility], 0.68, 0.13 folic acid 1 mg Tab 1 mg 1 tab(s), Oral, -1, Daily, Routine, 08/11/19 10:00:00 EDT, 08/11/19 10:00:00 EDT, UD, 1, -1, [facility], [facility] Oral Drugs, 1.94, 0.36 folic acid 1 mg Tab 1 mg 1 tab(s), Oral, -1, 08/22/19 10:00: 00 EDT, UD, 1, -1, [facility], [facility] Oral Drugs, 1.94, 0.36 furosemide 40 mg Tab 40 mg 1 tab(s), Oral, -1, 08/22/19 16:00 :00 EDT, UD, 1, -1, [facility] UBC 7E, [facility] Oral Drugs, 0.91, 0.17 furosemide 40 mg Tab 40 mg 1 tab(s), Oral, -1, 08/21/19 16:00 :00 EDT, UD, 1, -1, [facility] UBC 7E, [facility] Oral Drugs, 0.91, 0.17 furosemide 40 mg Tab 40 mg 1 tab(s), Oral, -1, BID, Routine, 08/20/19 16:00:00 EDT, 08/20/19 16:00:00 EDT, UD, 1, -1, [facility] UBC 7E, [facility] Oral Drugs, 0.91, 0.17 furosemide 40 mg Tab 40 mg 1 tab(s), Oral, -1, 08/22/19 8:00: 00 EDT, UD, 1, -1, [facility] UBC 7E, [facility] Oral Drugs, 0.91, 0.17 heparin flush 100 unit(s)/mL Soln-IV; 3 mL 300 unit(s) 3 mL, IntraCatheter, -1, As Indicated PRN other (see comment), Routine, 08/21/19 9:38:00 EDT, 08/21/19 9:38:00 EDT, INJ, 1, -1, [facility] UBC 7E, [facility] Injectables, 12.04, 2.23 heparin flush 100 unit(s)/mL Soln-IV; 5 mL 500 unit(s) 5 mL, IV Push, -1, One Time Unscheduled PRN flush, Routine, 08/20/19 15:32:00 EDT, 08/20/19 15:32:00 EDT, INJ, 1, -1, [facility] UBC 7E, [facility] Injectables, 20.03, 3.71 isosorbide dinitrate 10 mg Tab 30 mg 3 tab(s), Oral, -1, 0, 08/21/19 17 :00:00 EDT, UD, 0, 1, -1, 0, [facility] Oral Drugs, 2.55, 0.47 isosorbide dinitrate 10 mg Tab 30 mg 3 tab(s), Oral, -1, 0, 08/22/19 12 :00:00 EDT, UD, 0, 1, -1, 0, [facility], [facility] Oral Drugs, 2.55, 0.47 isosorbide dinitrate 10 mg Tab 30 mg 3 tab(s), Oral, -1, TID WM (with m eals), 0, Routine, 08/10/19 12:00:00 EDT, 08/10/19 12:00:00 EDT, UD, 0, 1, -1, 0, [facility] [facility], 2.34068, 0.4719 isosorbide dinitrate 10 mg Tab 30 mg 3 tab(s), Oral, -1, 0, 08/22/19 8: 00:00 EDT, UD, 0, 1, -1, 0, [facility], [facility], 2.55, 0.47 metoprolol succinate 100 mg Tab-ER 100 mg 1 tab(s), Oral, -1, Daily, Routin e, 08/19/19 10:00:00 EDT, 08/19/19 10:00:00 EDT, UD, 1, P[facility] UBC 7E, [facility], 9.38, 1.74 metoprolol succinate 100 mg Tab-ER 100 mg 1 tab(s), Oral, -1, 08/22/19 10:0 0:00 EDT, UD, 1, PARS UBC 7E, [facility], 9.38, 1.74 ondansetron 4 mg/2 mL Soln-Inj 4 mg 2 mL, IV Push, -1, q8H PRN nausea/v omiting, Routine, 08/19/19 11:55:00 EDT, 08/19/19 11:55:00 EDT, INJ, 1, [facility] UBC 7E, [facility] Injectables, 12.96, 2.40 oxyCODONE-acetaminophen 1 tab(s), Oral, [id number], PRN pain-modera te 4 to 6, 0, 0, 08/21/19 12:09:00 EDT, Maintenance, Tab oxyCODONE-acetaminophen 5 mg-325 mg Tab 1 tab(s), Oral, -1, [id number] PRN pain-mod erate 4 to 6, Routine, 08/20/19 11:24:00 EDT, 08/12/19 14:54:00 EDT, UD, 1, [facility] UBC 7E, [facility], 0.04 pantoprazole 40 mg Tab-DR 40 mg 1 tab(s), Oral, -1, Daily, Routine , 08/11/19 8:00:00 EDT, 08/11/19 8:00:00 EDT, UD, 0, 1, -1, 0, PARS UBC ER, [facility], 28.66275, 5.2671 pantoprazole 40 mg Tab-DR 40 mg 1 tab(s), Oral, -1, 08/22/19 8:00: 00 EDT, UD, 0, 1, -1, 0, PARS UBC ER, [facility], 28.37789, 5.2671 potassium chloride 20 mEq 1 tab(s), Oral, BID, 0, 08/21/19 12:09:00 EDT, Maintenance, Tab-ER potassium chloride 20 mEq Tab-ER 20 mEq 1 tab(s), Oral, -1, 08/22/19 8:00 :00 EDT, UD, 1, [facility] UBC 7E, [facility], 5.40, 1.00 potassium chloride 20 mEq Tab-ER 20 mEq 1 tab(s), Oral, -1, 08/21/19 17:0 0:00 EDT, UD, 1, [facility] UBC 7E, [facility], 5.40, 1.00 potassium chloride 20 mEq Tab-ER 20 mEq 1 tab(s), Oral, -1, BID, Routine, 08/14/19 17:00:00 EDT, 08/14/19 17:00:00 EDT, UD, 1, [facility] UBC 7E, [facility], 5.40, 1.00 predniSONE 5 mg 1 tab(s), Oral, Daily, 0, 08/21/19 12:09:00 EDT, Maintenance, Tab predniSONE 5 mg Tab 5 mg 1 tab(s), Oral, -1, Daily, Routine, 08/11/19 8:00:00 EDT, 08/11/19 8:00:00 EDT, UD, 0, 1, -1, 0, [facility] UBC 7E, [facility], 0.87012, 0.1116 predniSONE 5 mg Tab 5 mg 1 tab(s), Oral, -1, 08/22/19 8:00:0 0 EDT, UD, 0, 1, -1, 0, [facility] UBC 7E, [facility], 0.60, 0.11 promethazine 6.25 mg 0.25 mL, IV Piggyback, -1, q6H P RN nausea/vomiting, 0, Routine, 30 minute(s), 08/19/19 11:53:00 EDT, 08/19/19 11:53:00 EDT, IVPB, 100 mL/hr, 50, 0, [id number], 3, -1, 0, PARS [facility], Standard, [id number], [id number] spironolactone 25 mg Tab 25 mg 1 tab(s), Oral, -1, 08/22/19 8:00: 00 EDT, UD, 1, -1, [facility] UBC 7E, [facility], 2.31, 0.43 spironolactone 25 mg Tab 25 mg 1 tab(s), Oral, -1, Daily, NOW, 14:54:00 EDT, 08/12/19 14:54:00 EDT, UD, 1, -1, [facility] UBC 7E, [facility], 2.31, 0.43 traZODone 50 mg Tab 50 mg 1 tab(s), Oral, -1, Daily at [facility] PRN insomnia, Routine, 08/10/19 11:49:00 EDT, 08/10/19 11:49:00 EDT, UD, 1, -1, [facility], [facility], 2.35, 0.44 vancomycin 750 mg 150 mL, IV, q12H, 0, 08/21/19 12: 09:00 EDT, Maintenance, Injection vancomycin 750 mg / 150 mL D5W Soln-IV; 150 mL 750 mg 150 mL, IV, 0, q12H, 0, 1 hr, 05/02 6:00:00 EDT, 08/19/19 6:00:00 EDT, IVPB, 150 mL/hr, 150, 0, 3, 0, 1, [facility], [facility] Injectables, 78.87073441, 14.3272596 vancomycin 750 mg / 150 mL D5W Soln-IV; 150 mL 750 mg 150 mL, IV, 0, 0, 1 hr, 08/21/19 18:00:00 EDT, IVPB, 150 mL/hr, 150, 0, 3, 0, 1, [facility], PARS Injectables, 78.12402154, 14.3649034 vancomycin 750 mg / 150 mL D5W Soln-IV; 150 mL 750 mg 150 mL, IV, 0, 0, 1 hr, 08/22/19 6:00:00 EDT, IVPB, 150 mL/hr, 150, 0, 3, 0, 1, [facility], [facility] Injectables, 78.82076940, 14.1835528 warfarin 4 mg 1 tab(s), Oral, Daily, 30 tab(s), 0 , 0, 08/21/19 12:09:00 EDT, Maintenance, Do Not Route, other reason (Rx), Tab Patient? s Active Home Medication List Discharge: Other Medications acetaminophen (Tylenol 325 mg oral table t) 2 Tab(s) Oral every 4 hours as needed Pain-mild or Temp > 100.4 F. Al hydroxide/Mg hydroxide/simethicone (M aalox Antacid [place] Regular Strength) 30 Milliliter(s) Oral every 4 hours as needed dyspepsia. allopurinol 300 Milligram(s) Oral every day. amLODIPine (Norvasc) 10 Milligram(s) Ora l every day. atorvastatin (Lipitor 10 mg oral tablet) 1 Tab(s) Oral every day. calcium carbonate (Tums 500 (1250 mg pete cium carbonate) oral tablet, chewable) 2 Tab(s) Chewed every 2 hours (interval) as needed indigestion. ergocalciferol (Vitamin D2) 50,000 Inter national Unit(s) Oral every week. folic acid 1 Milligram(s) Oral every day . furosemide (furosemide 40 mg oral tablet ) 1 Tab(s) Oral twice a day. isosorbide dinitrate (isosorbide dinitra te 10 mg oral tablet) 3 Tab(s) Oral three times a day. metoprolol (Toprol-XL 100 mg oral tablet , extended release) 1 Tab(s) Oral every day. oxyCODONE-acetaminophen (Percocet 5/325) 1 Tab(s) Oral every 6 hours (interval) as needed pain-moderate 4 to 6. pantoprazole 40 Milligram(s) Oral every day. potassium chloride (potassium chloride 2 0 mEq oral tablet, extended release) 1 Tab(s) Oral twice a day. predniSONE (predniSONE 5 mg oral tablet) 1 Tab(s) Oral every day. spironolactone (Aldactone 25 mg oral tab let) 1 Tab(s) Oral every day. traZODone 50 Milligram(s) Oral once a da y (at bedtime). vancomycin (vancomycin 750 mg/150 mL-D5% intravenous solution) 150 Milliliter(s) Intravenous every 12 hours. warfarin (Coumadin 4 mg oral tablet) 1 T ab(s) Oral every day. Refills: 0. OrdersOrder Name Order Details Hospital Discharge Instructions Patient Hepwdfdze60/27/2019 08:41:00Atrial Fibrillation, Nzcq-dl-ErymDyyyoz Fibrillation Atrial fibrillation is a type of heartbeat that is irregular or fast (rapid). If you have this condition, your heart keeps quivering in a weird (chaotic) way. This condition can make it so your heart cannot pump blood normally. Having this condition gives a person more risk for stroke, heart failure, and other heart problems. There are different types of atrial fibrillation. Talk with your doctor to learn about the type that you have. Follow these instructions at home: ??? Take kkdx-cmf-ksbgeyn and prescription medicines only as told by your doctor. ??? If your doctor prescribed a blood-thinning medicine, take it exactly as told. Taking too much ofit can cause bleeding. If you do not take enough of it, you will not have the protection that you need against stroke and other problems. ??? Do not use any tobacco products. These include cigarettes, chewing tobacco, and e-cigarettes. Ifyou need help quitting, ask your doctor. ??? If you have apnea (obstructive sleep apnea), manage it as told by your doctor. ??? Do not drink alcohol. ??? Do not drink beverages that have caffeine. These include coffee, soda, and tea. ??? Maintain a healthy weight. Do not use diet pills unless your doctor says they are safe for you. Diet pills may make heart problems worse. ??? Follow diet instructions as told by your doctor. ??? Exercise regularly as told by your doctor. ??? Keep all follow-up visits as told by your doctor. This is important. Contact a doctor if: ??? You notice a change in the speed, rhythm, or strength of your heartbeat. ??? You are taking a blood-thinning medicine and you notice more bruising. ??? You get tired more easily when you move or exercise. Get help right away if: ??? You have pain in your chest or your belly (abdomen). ??? You have sweating or weakness. ??? You feel sick to your stomach (nauseous). ??? You notice blood in your throw up (vomit), poop (stool), or pee (urine). ??? You are short of breath. ??? You suddenly have swollen feet and ankles. ??? You feel dizzy. ??? Your suddenly get weak or numb in your face, arms, or legs, especially if it happens on one sideof your body. ??? You have trouble talking, trouble understanding, or both. ??? Your face or your eyelid droops on one side. These symptoms may be an emergency. Do not wait to see if the symptoms will go away. Get medical help right away. Call your local emergency services (911 in the [place] Do not drive yourself to the hospital. This information is not intended to replace advice given to you by your health care provider. Make sure you discuss any questions you have with your health care provider. Document Released: 08/09/2009 Document Revised: 04/07/2017 Document Reviewed: 02/25/2016 [email or web address] Interactive Patient Education ?? 2019 [employer]
--- OUTSIDE RECORDS SUMMARY | 2022-09-14 17:51 | XMS_ITS ---
:1940 Author Organization [facility] Address [address] [address] Care Team Providers Name Role Phone PARK CRUZ Primary Care Physician Encounter PARS_FIN [id number] Date(s): 03/29/19 - 03/29/19 [facility] [address] [place] [address] [facility] Discharge Disposition: 01 DISCHARGED HOME/SELF CARE Attending Physician: PARK CRUZ MD Admitting Physician: PARK CRUZ MD Referring Physician: PARK CRUZ MD Reason for Visit CAROTID BRUIT Problem List Condition Effective Dates Status Health Status Informant 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
--- OUTSIDE RECORDS SUMMARY | 2022-09-14 17:51 | XMS_ITS ---
:1940 Author Organization [facility] Address [address] [place] [id number] Care Team Providers Name Role Phone PARK CRUZ Primary Care Physician Encounter PARS_FIN [id number] Date(s): 08/06/20 - 08/06/[address] [address] [place] [phone] Encounter Diagnosis Chronic CHF (congestive heart failure) (Discharge Diagnosis) - 08/06/20 Chronic edema (Discharge Diagnosis) - 08/06/20 Discharge Disposition: 01 DISCHARGED HOME/SELF CARE Attending Physician: ANTWAN SPAIN DO Admitting Physician: ANTWAN SPAIN DO Referring Physician: ANTWAN SPAIN DO Reason for Visit SOB RETAINING FLUID Vital Signs Most recent to oldest [Reference Range]: 1 Patient Height 160.02 cm (08/06/20 9:32 AM) Patient Weight (kg) 70.76 kg (08/06/20 9:32 AM) [place] Body Weight Calculated 52.4 kg (08/06/20 9:32 AM) Blood Pressure [95-120/59-81 mmHg] 143/92 mmHg *HI* (08/06/20 1:02 PM) Mean Arterial Pressure, Cuff 91 mmHg (08/06/20 9:32 AM) Problem List Condition Effective Dates Status Health Status Informant Activity intolerance(Confirmed)1 Active Gout of right wrist(Confirmed) Active At risk for falls(Confirmed)2 Active Cervical cancer(Confirmed) Resolved Chest pain(Confirmed) Active CHF - Congestive heart Active failure(Confirmed) Chronic atrial Active fibrillation(Confirmed) 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 hydrochlorothiazide (hydrochlorothiazide 12.5 mg oral tablet) Status: Ordered Start Date: 08/06/20 1 Tab(s) Oral every day. isosorbide dinitrate (isosorbide dinitrate 10 mg oral tablet) Status: Ordered Start Date: 08/29/18 3 Tab(s) Oral three times a day. [...] bedtime). warfarin Status: Ordered Start Date: 08/06/20 3/4 MG Oral Daily instructed. Results Most recent to oldest [Reference Range]: 1 RBC [4.20-5.40 x10^6/mcL] 4.72 x10^6/mcL (08/06/20 9:45 AM) PT [9.9-11.6 second(s)] 23.0 second(s) *HI* (08/06/20 9:45 AM) INR [0.92-1.09] 2.28 *HI* (08/06/20 9:45 AM) BUN [7-25 mg/dL] 18 mg/dL (08/06/20 9:45 AM) Albumin [3.5-5.7 g/dL] 4.7 g/dL (08/06/20 9:45 AM) Alkaline Phosphatase [34-104 unit/L] 85 unit/L (08/06/20 9:45 AM) ALT [7-52 unit/L] 16 unit/L (08/06/20 9:45 AM) Anion Gap [7.0-16.0 mmol/L] 15.6 mmol/L (08/06/20 9:45 AM) AST [13-39 unit/L] 23 unit/L (08/06/20 9:45 AM) Basophils# Auto [0.00-0.10 x10^3/mcL] 0.00 x10^3/mcL (08/06/20 9:45 AM) Basophils% Auto [0.0-2.0 %] 0.9 % (08/06/20 9:45 AM) Bili Total [0.3-1.0 mg/dL] 1.4 mg/dL *HI* (08/06/20 9:45 AM) BUN/Crea Ratio [6.7-40.0 mg/dL] 20.0 mg/dL (08/06/20 9:45 AM) Calcium [8.6-10.3 mg/dL] 9.9 mg/dL (08/06/20 9:45 AM) Creatinine [0.60-1.20 mg/dL] 0.90 mg/dL (08/06/20 9:45 AM) eGFR >60 *NA* (08/06/20 9:45 AM) eGFR Non >60 *NA* (08/06/20 9:45 AM) Eos# Auto [0.00-0.70 x10^3/mcL] 0.20 x10^3/mcL (08/06/20 9:45 AM) Eosinophils% Auto [0.0-10.0 %] 3.6 % (08/06/20 9:45 AM) Globulin [2.4-3.5 g/dL] 2.6 g/dL (08/06/20 9:45 AM) HCT [37.0-47.0 %] 41.8 % (08/06/20 9:45 AM) Hgb [12.0-16.0 g/dL] 13.7 g/dL (08/06/20 9:45 AM) Potassium [3.8-5.1 mmol/L] 3.6 mmol/L *LOW* (08/06/20 9:45 AM) Lymphocytes# Auto [1.00-3.00 x10^3/mcL] 0.90 x10^3/mcL *LOW* (08/06/20 9:45 AM) Lymphocytes% Auto [15.0-41.0 %] 19.1 % (08/06/20 9:45 AM) MCH [26.0-34.0 pg] 28.9 pg (08/06/20 9:45 AM) MCHC [32.0-36.0 g/dL] 32.7 g/dL (08/06/20 9:45 AM) MCV [81.0-99.0 fL] 88.5 fL (08/06/20 9:45 AM) Monocytes# Auto [0.00-1.00 x10^3/mcL] 0.30 x10^3/mcL (08/06/20 9:45 AM) Monocytes% Auto [0.0-13.0 %] 7.2 % (08/06/20 9:45 AM) Neutrophils# Auto [1.40-6.50 x10^3/mcL] 3.20 x10^3/mcL (08/06/20 9:45 AM) Neutrophils% Auto [42.2-75.2 %] 69.2 % (08/06/20 9:45 AM) Plt Cnt [130.0-400.0 x10^3/mcL] 105.0 x10^3/mcL *LOW* (08/06/20 9:45 AM) Prot Total [6.4-8.9 g/dL] 7.3 g/dL (08/06/20 9:45 AM) RDW [11.5-15.5 %] 17.3 % *HI* (08/06/20 9:45 AM) WBC [4.80-10.80 x10^3/mcL] 4.70 x10^3/mcL *LOW* (08/06/20 9:45 AM) Sodium [136-145 mmol/L] 139 mmol/L (08/06/20 9:45 AM) Albumin/Globulin Ratio [1.1-2.2 g/dL] 1.8 g/dL (08/06/20 9:45 AM) Ca Corrected [8.8-10.2 mg/dL] 9.3 mg/dL (08/06/20 9:45 AM) Glucose [70-105 mg/dL] 86 mg/dL (08/06/20 9:45 AM) MPV [7.3-11.9 fL] 10.8 fL (08/06/20 9:45 AM) Chloride [98-107 mmol/L] 101 mmol/L (08/06/20 9:45 AM) B Type Natriuretic Peptide [0.0-100.0 pg/mL] 143.0 pg/ mL *HI* (08/06/20 9:45 AM) Troponin I Qnt [0-14 pg/mL] 8 pg/mL (08/06/20 9:45 AM) Carbon Dioxide [21-31 mmol/L] 26 mmol/L (08/06/20 9:45 AM) Procedures Procedure Date Related Diagnosis Body Site Status Wound Debridement (Surgery)1 08/22/18 Completed Heart valve repair Completed Hysterectomy Completed Open heart surgery Completed 1auto-populated from documented surgical case Social History Social History Type Response Smoking Status Tobacco use status 30 days p rior to admission No tobacco use of any form; Former smoker, quit more than 30 days ago entered on: 08/06/20 Hospital Discharge Instructions Patient Cctyowqnm54/23/2020 09:21:51EdemaEdema Edema is an abnormal buildup of fluids in the body tissues and under the skin. Swelling of the legs,feet, and ankles is a common symptom that becomes more likely as you get older. Swelling is also common in looser tissues, like around the eyes. When the affected area is squeezed, the fluid may move out of that spot and leave a dent for a few moments. This dent is called pitting edema. There are many possible causes of edema. Eating too much salt (sodium) and being on your feet or sitting for a long time can cause edema in your legs, feet, and ankles. Hot weather may make edema worse. Common causes of edema include: ??? Heart failure. ??? Liver or kidney disease. ??? Weak leg blood vessels. ??? Cancer. ??? An injury. ??? . ??? Medicines. ??? Being obese. ??? Low protein levels in the blood. Edema is usually painless. Your skin may look swollen or shiny. Follow these instructions at home: ??? Keep the affected body part raised (elevated) above the level of your heart when you are sittingor lying down. ??? Do not sit still or stand for long periods of time. ??? Do not wear tight clothing. Do not wear garters on your upper legs. ??? Exercise your legs to get your circulation going. This helps to move the fluid back into your blood vessels, and it may help the swelling go down. ??? Wear elastic bandages or support stockings to reduce swelling as told by your health care provider. ??? Eat a low-salt (low-sodium) diet to reduce fluid as told by your health care provider. ??? Depending on the cause of your swelling, you may need to limit how much fluid you drink (fluid restriction). ??? Take vira-eli-zzochth and prescription medicines only as told by your health care provider. Contact a health care provider if: ??? Your edema does not get better with treatment. ??? You have heart, liver, or kidney disease and have symptoms of edema. ??? You have sudden and unexplained weight gain. Get help right away if: ??? You develop shortness of breath or chest pain. ??? You cannot breathe when you lie down. ??? You develop pain, redness, or warmth in the swollen areas. ??? You have heart, liver, or kidney disease and suddenly get edema. ??? You have a fever and your symptoms suddenly get worse. Summary ??? Edema is an abnormal buildup of fluids in the body tissues and under the skin. ??? Eating too much salt (sodium) and being on your feet or sitting for a long time can cause edema in your legs, feet, and ankles. ??? Keep the affected body part raised (elevated) above the level of your heart when you are sittingor lying down. This information is not intended to replace advice given to you by your health care provider. Make sure you discuss any questions you have with your health care provider. Document Released: 10/31/2006 Document Revised: 11/03/2018 Document Reviewed: 12/03/2017 [employer] Patient Education ?? 2020 [employer]. Heart Failure ExacerbationHeart Failure Exacerbation Heart failure is a condition in which the heart does not fill up with enough blood, and therefore does not pump enough blood and oxygen to the body. When this happens, parts of the body do not get the blood and oxygen they need to function properly. This can cause symptoms such as breathing problems, fatigue, swelling, and confusion. Heart failure exacerbation refers to heart failure symptoms that get worse. The symptoms may get worse suddenly or develop slowly over time. Heart failure exacerbation is a serious medical problem thatshould be treated right away. What are the causes? A heart failure exacerbation can be triggered by: ??? Not taking your heart failure medicines correctly. ??? Infections. ??? Eating an unhealthy diet or a diet that is high in salt (sodium). ??? Drinking too much fluid. ??? Drinking alcohol. ??? Taking illegal drugs, such as cocaine or methamphetamine. ??? Not exercising. Other causes include: ??? Other heart conditions such as an irregular heartbeat (arrhythmia). ??? Anemia. ??? Other medical problems, such as kidney failure. Sometimes the cause of the exacerbation is not known. What are the signs or symptoms? When heart failure symptoms suddenly or slowly get worse, this may be a sign of heart failure exacerbation. Symptoms of heart failure include: ??? Breathing problems or shortness of breath. ??? Chronic coughing or wheezing. ??? Fatigue. ??? Nausea or lack of appetite. ??? Feeling light-headed. ??? Confusion or memory loss. ??? Increased heart rate or irregular heartbeat. ??? Buildup of fluid in the legs, ankles, feet, or abdomen. ??? Difficulty breathing when lying down. How is this diagnosed? This condition is diagnosed based on: ??? Your symptoms and medical history. ??? A physical exam. You may also have tests, including: ??? Electrocardiogram (ECG). This test measures the electrical activity of your heart. ??? Echocardiogram. This test uses sound waves to take a picture of your heart to see how well it works. ??? Blood tests. ??? Imaging tests, such as: ? Chest X-ray. ? MRI. ? Ultrasound. ??? Stress test. This test examines how well your heart functions when you exercise. Your heart is monitored while you exercise on a treadmill or exercise bike. If you cannot exercise, medicines may beused to increase your heartbeat in place of exercise. ??? Cardiac catheterization. During this test, a thin, flexible tube (catheter) is inserted into a blood vessel and threaded up to your heart. This test allows your health care provider to check the arteries that lead to your heart (coronary arteries). ??? Right heart catheterization. During this test, the pressure in your heart is measured. How is this treated? This condition may be treated by: ??? Adjusting your heart medicines. ??? Maintaining a healthy lifestyle. This includes: ? Eating a heart-healthy diet that is low in sodium. ? Not using any products that contain nicotine or tobacco, such as cigarettes and e-cigarettes. ? Regular exercise. ? Monitoring your fluid intake. ? Monitoring your weight and reporting changes to your health care provider. ??? Treating sleep apnea, if you have this condition. ??? Surgery. This may include: ? Implanting a device that helps both sides of your heart contract at the same time (cardiac resynchronization therapy device). This can help with heart function and relieve heart failure symptoms. ? Implanting a device that can correct heart rhythm problems (implantable cardioverter defibrillator). ? Connecting a device to your heart to help it pump blood (ventricular assist device). ? Heart transplant. Follow these instructions at home: Medicines ??? Take choj-sce-gwjrfnz and prescription medicines only as told by your health care provider. ??? Do not stop taking your medicines or change the amount you take. If you are having problems or side effects from your medicines, talk to your health care provider. ??? If you are having difficulty paying for your medicines, contact a social service assistant or your clinic. There are many programs to assist with medicine costs. ??? Talk to your health care provider before starting any new medicines or supplements. ??? Make sure your health care provider and pharmacist have a list of all the medicines you are taking. Eating and drinking ??? Avoid drinking alcohol. ??? Eat a heart-healthy diet as told by your health care provider. This includes: ? Plenty of fruits and vegetables. ? Lean proteins. ? Low-fat dairy. ? Whole grains. ? Foods that are low in sodium. Activity ??? Exercise regularly as told by your health care provider. Balance exercise with rest. ??? Ask your health care provider what activities are safe for you. This includes sexual activity, exercise, and daily tasks at home or work. Lifestyle ??? Do not use any products that contain nicotine or tobacco, such as cigarettes and e-cigarettes. If you need help quitting, ask your health care provider. ??? Maintain a healthy weight. Ask your health care provider what weight is healthy for you. ??? Consider joining a patient support group. This can help with emotional problems you may have, such as stress and anxiety. General instructions ??? Talk to your health care provider about flu and pneumonia vaccines. ??? Keep a list of medicines that you are taking. This may help in emergency situations. ??? Keep all follow-up visits as told by your health care provider. This is important. Contact a health care provider if: ??? You have questions about your medicines or you miss a dose. ??? You feel anxious, depressed, or stressed. ??? You have swelling in your feet, ankles, legs, or abdomen. ??? You have shortness of breath during activity or exercise. ??? You have a cough. ??? You have a fever. ??? You have trouble sleeping. ??? You gain 2???3 lb (1???1.4 kg) in 24 hours or 5 lb (2.3 kg) in a week. Get help right away if: ??? You have chest pain. ??? You have shortness of breath while resting. ??? You have severe fatigue. ??? You are confused. ??? You have severe dizziness. ??? You have a rapid or irregular heartbeat. ??? You have nausea or you vomit. ??? You have a cough that is worse at night or you cannot lie flat. ??? You have a cough that will not go away. ??? You have severe depression or sadness. Summary ??? When heart failure symptoms get worse, it is called heart failure exacerbation. ??? Common causes of this condition include taking medicines incorrectly, infections, and drinking alcohol. ??? This condition may be treated by adjusting medicines, maintaining a healthy lifestyle, or surgery. ??? Do not stop taking your medicines or change the amount you take. If you are having problems or side effects from your medicines, talk to your health care provider. This information is not intended to replace advice given to you by your health care provider. Make sure you discuss any questions you have with your health care provider. Document Released: 03/14/2018 Document Revised: 10/13/2018 Document Reviewed: 03/14/2018 [employer] Patient Education ?? 2020 [employer] Please double up on your hydrochlorothiazide at noon time take during the day contact your PCP as well as your senior web developer today to make an appointment to follow-up with regards to today's ER visit ifanything changes throughout the next 2 days please return back to the ER immediately
--- OUTSIDE RECORDS SUMMARY | 2022-09-14 17:51 | XMS_ITS ---
:1940 Author Organization [facility] Address [address] [place] [address] Care Team Providers Name Role Phone PARK CRUZ Primary Care Physician Encounter SHAWN_JENNA [id number] Date(s): 08/22/20 - 08/22/20 [facility] [address] [place] [address] [facility] Discharge Disposition: DISCHARGED HOME/SELF CARE Attending Physician: LONNY CRUZ MD Admitting Physician: LONNY CRUZ MD Referring Physician: LONNY CRUZ MD Reason for Visit [facility] Problem List Condition Effective Dates Status Health Status Informant Activity intolerance(Confirmed)1 Active Gout of right wrist(Confirmed) Active At risk for falls(Confirmed)2 Active Cervical cancer(Confirmed) Resolved Chest pain(Confirmed) Active CHF - Congestive heart Active failure(Confirmed) Chronic atrial Active fibrillation(Confirmed) 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
--- OUTSIDE RECORDS SUMMARY | 2022-09-14 17:51 | XMS_ITS ---
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) - 08/20/18 JOSETTE (acute kidney injury) (Discharge Diagnosis) - 08/20/18 Infected hematoma of left lower extremity S/P I&D 08-22, Acinetobacter and MRSA (Discharge Diagnosis) - 08/20/18 Hypokalemia (Discharge Diagnosis) - 08/21/18 CHF - Congestive heart failure (Discharge Diagnosis) - 08/21/18 GERD - Gastro-esophageal reflux disease (Discharge Diagnosis) - 08/21/18 H/O mitral valve replacement with mechanical valve (Discharge Diagnosis) - 08/21/18 Corticosteroid dependence (Discharge Diagnosis) - 08/21/18 Gout of right wrist (Discharge Diagnosis) - 08/22/18 Discharge Disposition: 03 ALF FACILITY Attending Physician: BRITTA PARRA MD Admitting Physician: BRITTA PARRA MD Referring Physician: BRITTA PARRA MD Reason for Visit chest pain Vital Signs Most recent to oldest [Reference Range]: 1 Patient Height 163 cm (08/20/18 2:08 AM) Patient Weight 74.4 kg (08/28/18 4:49 AM) [place] Body Weight Calculated 55.098 kg (08/25/18 12:26 PM) BSA Measured 0 m2 (08/28/18 4:49 AM) Body Mass Index Measured 27.81 kg/m2 (08/25/18 12:26 PM) Blood Pressure [95-120/59-81 mmHg] 102/38 mmHg (08/29/18 10:25 AM) Mean Arterial Pressure, Cuff 59 mmHg (08/29/18 10:25 AM) Problem List Condition Effective Dates Status Health Status Informant Activity intolerance(Confirmed)1 Active Gout of right wrist(Confirmed) Active At risk for falls(Confirmed)2 Active Cervical cancer(Confirmed) Resolved Chest pain(Confirmed) Active CHF - Congestive heart Active failure(Confirmed) 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 start 09/02/2018. predniSONE (predniSONE 10 mg oral tablet) 1 Tab(s) Oral twice a day for 3 Days. till 09/01/2018. Refills: 0. Ordering provider: MARINE NORWOOD MD spironolactone (Aldactone 25 mg oral tablet) 1 Tab(s) Oral every day. traZODone 50 Milligram(s) Oral once a day (at bedtime). vancomycin (vancomycin 1 g/200 mL-D5% intravenous solu tion) 200 Milliliter(s) Intravenous every 24 hours (interval ) for 10 Days. warfarin (warfarin 5 mg oral tablet) 1 Tab(s) Oral every day for 30 Days. Refills: 0. Ordering provider: MARINE NORWOOD MD Results Hematology Most recent to 1 2 3 4 5 6 7 8 9 10 11 oldest [Reference Range]: WBC [4.80-10.80 6.10 x10^3/mcL 6.20 x10^3/mcL 5.90 x10^3/mcL 5.40 x10 ^3/mcL 7.70 x10^3/mcL 6.70 x10^3/mcL 6.20 x10^3/mcL x10^3/mcL] (08/29/18 7:05 AM) (08/28/18 5:59 AM) (08/27/18 6:17 A M) (08/25/18 5:30 AM) (08/24/18 5:48 AM) (08/21/18 5:50 AM) (08/19/18 6:53 PM) RBC [4.20-5.40 3.82 x10^6/mcL 3.62 x10^6/mcL 3.70 x10^6/mcL 3.43 x10^ 6/mcL 3.40 x10^6/mcL 3.67 x10^6/mcL 4.23 x10^6/mcL x10^6/mcL] *LOW* *LOW* *LOW* *LOW* *LOW* *LOW* (08/19/18 6:53 PM) (08/29/18 7:05 AM) (08/28/18 5:59 AM) (08/27/18 6:17 AM) ( 08/25/18 5:30 AM) (08/24/18 5:48 AM) (08/21/18 5:50 AM) Hgb [12.0-16.0 10.4 g/dL 9.9 g/dL 10.0 g/dL 9.3 g/dL 9.2 g/dL 9.9 g/dL 1 1.6 g/dL g/dL] *LOW* *LOW* *LOW* *LOW* *LOW* *LOW* *LOW* (08/29/18 7:05 AM) (08/28/18 5:59 AM) (08/27/18 6:17 AM) ( 08/25/18 5:30 AM) (08/24/18 5:48 AM) (08/21/18 5:50 AM) (08/19/18 6:53 PM) HCT [37.0-47.0 %] 32.0 % 30.4 % 30.9 % 28.8 % 28.3 % 30.2 % 35.6 % *LOW* *LOW* *LOW* *LOW* *LOW* *LOW* *LOW* (08/29/18 7:05 AM) (08/28/18 5:59 AM) (08/27/18 6:17 AM) ( 08/25/18 5:30 AM) (08/24/18 5:48 AM) (08/21/18 5:50 AM) (08/19/18 6:53 PM) MCH [27.0-31.0 27.2 pg 27.2 pg 27.1 pg 27.2 pg 27.1 pg 27.1 pg 27.4 pg pg] (08/29/18 7:05 AM) (08/28/18 5:59 AM) (08/27/18 6:17 AM) ( 08/25/18 5:30 AM) (08/24/18 5:48 AM) (08/21/18 5:50 AM) (08/19/18 6:53 PM) MCHC [32.0-36.0 32.4 g/dL 32.4 g/dL 32.5 g/dL 32.4 g/dL 32.6 g/dL 32.8 g /dL 32.6 g/dL g/dL] (08/29/18 7:05 AM) (08/28/18 5:59 AM) (08/27/18 6:17 A M) (08/25/18 5:30 AM) (08/24/18 5:48 AM) (08/21/18 5:50 AM) (08/19/18 6:53 PM) MCV [81.0-99.0 83.8 fL 84.0 fL 83.5 fL 84.0 fL 83.3 fL 82.5 fL 84.1 fL fL] (08/29/18 7:05 AM) (08/28/18 5:59 AM) (08/27/18 6:17 AM) ( 08/25/18 5:30 AM) (08/24/18 5:48 AM) (08/21/18 5:50 AM) (08/19/18 6:53 PM) Plt Cnt 147.0 x10^3/mcL 149.0 x10^3/mcL 147.0 x10^3/mcL 137.0 x10^ 3/mcL 135.0 x10^3/mcL 141.0 x10^3/mcL 146.0 x10^3/mcL [130.0-400.0 (08/29/18 7:05 AM) (08/28/18 5:59 AM) (08/27/18 6:17 A M) (08/25/18 5:30 AM) (08/24/18 5:48 AM) (08/21/18 5:50 AM) (08/19/18 6:53 PM) x10^3/mcL] MPV [7.3-11.9 fL] 9.0 fL 9.6 fL 9.5 fL 9.7 fL 9.5 fL 9.8 fL 8.9 fL (08/29/18 7:05 AM) (08/28/18 5:59 AM) (08/27/18 6:17 AM) ( 08/25/18 5:30 AM) (08/24/18 5:48 AM) (08/21/18 5:50 AM) (08/19/18 6:53 PM) RDW [11.5-15.5 %] 18.8 % 18.6 % 19.0 % 18.5 % 18.7 % 18.4 % 18.7 % *HI* *HI* *HI* *HI* *HI* *HI* *HI* (08/29/18 7:05 AM) (08/28/18 5:59 AM) (08/27/18 6:17 AM) ( 08/25/18 5:30 AM) (08/24/18 5:48 AM) (08/21/18 5:50 AM) (08/19/18 6:53 PM) Neutrophils% Auto 72.9 % 71.2 % [42.2-75.2 %] (08/21/18 5:50 AM) (08/19/18 6:53 PM) Lymphocytes% Auto 14.2 % 19.8 % [15.0-41.0 %] *LOW* (08/19/18 6:53 PM) (08/21/18 5:50 AM) Monocytes% Auto 11.0 % 7.0 % [0.0-13.0 %] (08/21/18 5:50 AM) (08/19/18 6:53 PM) Basophils% Auto 0.8 % 1.0 % [0.0-2.0 %] (08/21/18 5:50 AM) (08/19/18 6:53 PM) Eosinophils% Auto 1.1 % 1.0 % [0.0-10.0 %] (08/21/18 5:50 AM) (08/19/18 6:53 PM) Neutrophils# Auto 4.90 x10^3/mcL 4.40 x10^3/mcL [1.40-6.50 (08/21/18 5:50 AM) (08/19/18 6:53 PM) x10^3/mcL] Lymphocytes# Auto 1.00 x10^3/mcL 1.20 x10^3/mcL [1.00-3.00 (08/21/18 5:50 AM) (08/19/18 6:53 PM) x10^3/mcL] Monocytes# Auto 0.70 x10^3/mcL 0.40 x10^3/mcL [0.00-1.00 (08/21/18 5:50 AM) (08/19/18 6:53 PM) x10^3/mcL] Basophils# Auto 0.10 x10^3/mcL 0.10 x10^3/mcL [0.00-0.10 (08/21/18 5:50 AM) (08/19/18 6:53 PM) x10^3/mcL] Eos# Auto 0.10 x10^3/mcL 0.10 x10^3/mcL [0.00-0.70 (08/21/18 5:50 AM) (08/19/18 6:53 PM) x10^3/mcL] Sed Rate Manual 15 mm/hr [0-30 mm/hr] (08/21/18 5:50 AM) Coagulation Most recent to 1 2 3 4 5 6 7 8 9 10 11 oldest [Reference Range]: PT [9.6-11.3 12.9 second(s) 13.0 second(s) 13.7 second(s) 13.0 second (s) 11.9 second(s) 11.7 second(s) 12.0 second(s) 14.3 second(s) 19.9 second(s) 22.2 second(s) 24.0 second(s) second(s)] *HI* *HI* *HI* *HI* *HI* *HI* *HI* *HI* *HI* *HI* *HI * (08/29/18 7:05 AM) (08/28/18 5:59 AM) (08/27/18 6:17 AM) ( 08/26/18 1:05 AM) (08/25/18 5:30 AM) (08/24/18 5:48 AM) (08/23/18 1:30 AM) (08/22/18 5:51 AM) (08/21/18 5:50 AM) (08/20/18 6:17 AM) (08/19/18 6:53 PM) INR [0.92-1.09] 1.26 1.27 1.34 1.27 1.16 1.13 1.17 1.41 2.00 2.25 2.45 *HI* *HI* *HI* *HI* *HI* *HI* *HI* *HI* *HI* *HI* *HI* (08/29/18 7:05 AM) (08/28/18 5:59 AM) (08/27/18 6:17 AM) ( 08/26/18 1:05 AM) (08/25/18 5:30 AM) (08/24/18 5:48 AM) (08/23/18 1:30 AM) (08/22/18 5:51 AM) (08/21/18 5:50 AM) (08/20/18 6:17 AM) (08/19/18 6:53 PM) Thromboplastin Time 60.3 second(s) 75.4 second(s) 51.8 second(s) 82.2 second(s) 127.5 second(s) 1 68.8 second(s) 46.5 second(s) 28.2 second(s) 45.0 second(s) Partial [22.0-30.0 *HI* *HI* *HI* *HI* *CRIT* *HI* *HI* (08/25/18 6: 25 PM) *HI* second(s)] (08/28/18 5:59 AM) (08/27/18 11:30 PM) (08/27/18 3:17 PM) (08/27/18 8:50 AM) (08/27/18 6:17 AM) (08/26/18 8:31 AM) (08/26/18 1:05 AM) (08/19/18 6:53 PM) D Dimer Qnt 0.67 mg/L 2 [0.00-0.50 mg/L] *CRIT* (08/19/18 6:53 PM) 1Result Comment: Results called to enma mar (Nurse or Doctor) at 08/27/2018 07:18:51 EDT (Date/Time) by evens ([employer]) and read back and verified by kb (Nurse or Doctor).2Result Comment: Results called to Jd Byers (Nurse or Doctor) at 08/19/2018 20:29:59 EDT_ (Date/Time) by _loyd ([employer]) and read back and verified by _SC (Nurse or Doctor).Urinalysis Most recent to oldest [Reference Range]: 1 2 3 4 5 6 7 8 9 10 11 Ur Collection Source U Clean Catch (08/20/18 12:08 AM) Ur Color [Yellow] Yellow (08/20/18 12:08 AM) Ur Appearance [Clear] Clear (08/20/18 12:08 AM) Ur Glucose [Negative mg/dL] Negative mg/dL (08/20/18 12:08 AM) Ur Bili [Negative mg/dL] Negative mg/dL (08/20/18 12:08 AM) Ur Ketone [Negative mg/dL] Negative mg/dL (08/20/18 12:08 AM) Ur Specific Nathalie [1.005-1.030] 1.010 (08/20/18 12:08 AM) Ur Blood [Negative mg/dL] Negative mg/dL (08/20/18 12:08 AM) Ur pH [5.0-8.0] 6.0 (08/20/18 12:08 AM) Ur Protein [Negative mg/dL] Negative mg/dL (08/20/18 12:08 AM) Ur Urobilinogen [Normal mg/dL] 2.0 mg/dL *ABN* (08/20/18 12:08 AM) Ur Nitrite [Negative] Negative (08/20/18 12:08 AM) Ur Leukocyte Esterase [Negative] Small *ABN* (08/20/18 12:08 AM) Ur WBC [0-4 /HPF] 4 /HPF (08/20/18 12:08 AM) Ur RBC [0-5 /HPF] <1 /HPF (08/20/18 12:08 AM) ur Epithelial Cells [0-5 /LPF] 2 /LPF (08/20/18 12:08 AM) Ur Mucus [Negative /LPF] Rare /LPF *ABN* (08/20/18 12:08 AM) Ur Cast Hyaline [0-2 /LPF] 1 /LPF (08/20/18 12:08 AM) Chemistry Most recent to 1 2 3 4 5 6 7 8 9 10 11 oldest [Reference Range]: Sodium [136-145 136 mmol/L 136 mmol/L 134 mmol/L 132 mmol/L 134 mmol/L 135 mmol/L 136 mmol/L mmol/L] (08/29/18 7:05 AM) (08/28/18 5:59 AM) *LOW* *LOW* *LOW* *L OW* (08/19/18 6:53 PM) (08/25/18 5:30 AM) (08/24/18 5:48 AM) (08/22/18 5:51 AM) (08/21/18 5:50 AM) Potassium 3.9 mmol/L 3.6 mmol/L 4.3 mmol/L 4.3 mmol/L 4.7 mmol/L 3.3 mmo l/L 4.5 mmol/L [3.8-5.1 mmol/L] (08/29/18 7:05 AM) *LOW* (08/25/18 5:30 AM) ( 5:48 AM) (08/22/18 5:51 AM) *LOW* (08/19/18 6:53 PM) (08/28/18 5:59 AM) (08/21/18 5:50 AM) Chloride [98-107 97 mmol/L 98 mmol/L 99 mmol/L 97 mmol/L 96 mmol/L 96 mm ol/L 100 mmol/L mmol/L] *LOW* (08/28/18 5:59 AM) (08/25/18 5:30 AM) *LOW* *LOW* *L OW* (08/19/18 6:53 PM) (08/29/18 7:05 AM) (08/24/18 5:48 AM) (08/22/18 5:51 AM) (08/21/18 5:50 AM) Carbon Dioxide 32 mmol/L 32 mmol/L 27 mmol/L 26 mmol/L 30 mmol/L 29 mmol /L 28 mmol/L [21-31 mmol/L] *HI* *HI* (08/25/18 5:30 AM) (08/24/18 5:4 8 AM) (08/22/18 5:51 AM) (08/21/18 5:50 AM) (08/19/18 6:53 PM) (08/29/18 7:05 AM) (08/28/18 5:59 AM) BUN [7-25 mg/dL] 24 mg/dL 27 mg/dL 25 mg/dL 28 mg/dL 18 mg/dL 12 mg/dL 2 7 mg/dL (08/29/18 7:05 AM) *HI* (08/25/18 5:30 AM) *HI* (1 5:51 AM) (08/21/18 5:50 AM) *HI* (08/28/18 5:59 AM) (08/24/18 5:48 AM) ( 6:53 PM) Creatinine 0.80 mg/dL 0.90 mg/dL 1.00 mg/dL 1.00 mg/dL 1.40 mg/dL 1.20 m g/dL 1.60 mg/dL [0.60-1.20 mg/dL] (08/29/18 7:05 AM) (08/28/18 5:59 AM) (08/25/18 5 :30 AM) (08/24/18 5:48 AM) *HI* (08/21/18 5:50 AM) *HI* (08/22/18 5:51 AM) (08/19/18 6:53 PM) eGFR >60 >60 >60 >60 42 51 36 [place] *NA* *NA* *NA* *NA* *NA* *NA* *NA* (08/29/18 7:05 AM) (08/28/18 5:59 AM) (08/25/18 5:30 AM) ( 08/24/18 5:48 AM) (08/22/18 5:51 AM) (08/21/18 5:50 AM) (08/19/18 6:53 PM) eGFR Non >60 >60 55 55 36 44 31 [place] *NA* *NA* *NA* *NA* *NA* *NA* *NA* (08/29/18 7:05 AM) (08/28/18 5:59 AM) (08/25/18 5:30 AM) ( 08/24/18 5:48 AM) (08/22/18 5:51 AM) (08/21/18 5:50 AM) (08/19/18 6:53 PM) Glucose [70-105 160 mg/dL 244 mg/dL 203 mg/dL 170 mg/dL 248 mg/dL 128 mg /dL 105 mg/dL mg/dL] *HI* *HI* *HI* *HI* *HI* *HI* (08/19/18 6:53 PM) (08/29/18 7:05 AM) (08/28/18 5:59 AM) (08/25/18 5:30 AM) ( 08/24/18 5:48 AM) (08/22/18 5:51 AM) (08/21/18 5:50 AM) Calcium [8.6-10.3 8.6 mg/dL 8.3 mg/dL 8.6 mg/dL 8.3 mg/dL 9.2 mg/dL 8.7 mg/dL 9.2 mg/dL mg/dL] (08/29/18 7:05 AM) *LOW* (08/25/18 5:30 AM) *LOW* (1 5:51 AM) (08/21/18 5:50 AM) (08/19/18 6:53 PM) (08/28/18 5:59 AM) (08/24/18 5:48 AM) Anion Gap 10.9 mmol/L 9.6 mmol/L 12.3 mmol/L 13.3 mmol/L 12.7 mmol/L 1 3.3 mmol/L 12.5 mmol/L [7.0-16.0 mmol/L] (08/29/18 7:05 AM) (08/28/18 5:59 AM) (08/25/18 5 :30 AM) (08/24/18 5:48 AM) (08/22/18 5:51 AM) (08/21/18 5:50 AM) (08/19/18 6:53 PM) BUN/Crea Ratio 30.0 mg/dL 30.0 mg/dL 25.0 mg/dL 28.0 mg/dL 12.9 mg/dL 10.0 mg/dL 16.9 mg/dL [6.7-40.0 mg/dL] (08/29/18 7:05 AM) (08/28/18 5:59 AM) (08/25/18 5: 30 AM) (08/24/18 5:48 AM) (08/22/18 5:51 AM) (08/21/18 5:50 AM) (08/19/18 6:53 PM) Albumin [3.5-5.7 3.5 g/dL 4.0 g/dL g/dL] (08/21/18 5:50 AM) (08/19/18 6:53 PM) Alkaline 87 unit/L Phosphatase (08/19/18 6:53 PM) [34-104 unit/L] ALT [7-52 unit/L] 12 unit/L (08/19/18 6:53 PM) AST [13-39 21 unit/L unit/L] (08/19/18 6:53 PM) Bili Total 0.6 mg/dL [0.3-1.0 mg/dL] (08/19/18 6:53 PM) CK [30-223 17 unit/L 20 unit/L 20 unit/L unit/L] *LOW* *LOW* *LOW* (08/21/18 12:13 AM) (08/20/18 6:00 PM) (08/20/18 12:14 PM) Phosphorus 3.4 mg/dL 2.9 mg/dL [2.5-5.0 mg/dL] (08/29/18 7:05 AM) (08/21/18 5:50 AM) Prot Total 6.6 g/dL [6.4-8.9 g/dL] (08/19/18 6:53 PM) Uric Acid 5.2 mg/dL [2.3-6.6 mg/dL] (08/21/18 5:50 AM) Globulin [2.4-3.5 2.6 g/dL g/dL] (08/19/18 6:53 PM) Albumin/Globulin 1.5 g/dL Ratio [1.1-2.2 (08/19/18 6:53 PM) g/dL] Magnesium 2.6 mg/dL 2.1 mg/dL [1.9-2.7 mg/dL] (08/29/18 7:05 AM) (08/21/18 5:50 AM) Hgb A1C [4.0-6.0 6.0 % %] (08/28/18 5:59 AM) Hgb A1C Mean Bld 125.5 % Glucose *NA* (08/28/18 5:59 AM) Ca Corrected 9.1 mg/dL 9.2 mg/dL [8.8-10.2 mg/dL] (08/21/18 5:50 AM) (08/19/18 6:53 PM) Cardiac Markers Most recent to oldest 1 2 3 4 5 6 7 8 9 10 11 [Reference Range]: CKMB [0.6-5.0 ng/mL] 0.5 ng/mL 0.5 ng/mL 0.7 ng/mL *LOW* *LOW* (08/20/18 12:14 PM) (08/21/18 12:13 AM) (08/20/18 6:00 PM) Troponin I Qnt <0.03 ng/mL <0.03 ng/mL <0.03 ng/mL <0.03 ng/mL [0.00-0.03 ng/mL] (08/21/18 12:13 AM) (08/20/18 6:00 PM) (08/20/18 12: 14 PM) (08/19/18 6:53 PM) Therapeutic Drugs Most recent to oldest 1 2 3 4 5 6 7 8 9 10 11 [Reference Range]: Vancomycin Lvl Tr [10.0-20.0 11.1 mcg/mL 9.1 mcg/mL mcg/mL] (08/27/18 1:19 AM) *LOW* (08/23/18 1:30 AM) Special Chemistry Most recent to oldest [Reference Range]: 1 2 3 4 5 6 7 8 9 10 11 C Reactive Protein [0.00-10.00 mg/dL] 2.33 mg/dL (08/21/18 5:50 AM) Microbiology Reports TEST:Wound Culture w/GS Pnl STATUS:Auth (Verified) BODY SITE:Left Lower Leg SOURCE:Wound COLLECTED DATE/TIME:08/22/18 8:19 AMFINAL REPORTLight Growth Escherichia coli Scant growth Pseudomonas aeruginosa These bacterial species are known to produce a chromosomally encoded AMPC Beta lactamase. Penicillin or Cephalosporin monotherapy for serious infections may result in the emergence of high level resistance. Scant growth Methicillin-Resistant Staphylococcus aureus Treatment failure has been frequently reported in systemic MRSA infections where the Vancomycin is>1. For appropriate therapy please consult infectious disease. Result(s) called by CLW at 08/25/2018 08:09:49 with verbal readback given by ROSY ALAS ON 4TELSTAIN REPORTRare Polys Rare gram positive cocci ORGANISM:Escherichia coliORGANISM:Pseudomonas aeruginosaORGANISM:Methicillin- Resistant Staphylococcus aureusTEST:Blood Culture STATUS:Auth (Verified) BODY SITE:Antecubital L SOURCE:Blood COLLECTED DATE/TIME:08/21/18 10:26 AMFINAL REPORTNo growth at 5 days.TEST: Blood Culture STATUS:Auth (Verified) BODY SITE:Antecubital L SOURCE:Blood COLLECTED DATE/TIME:08/21/18 10:26 AMFINAL REPORTNo growth at 5 days. Procedures Procedure Date Related Diagnosis Body Site Status Wound Debridement (Surgery)1 08/22/18 Completed Heart valve repair Completed Hysterectomy Completed 1auto-populated from documented surgical case Social History Social History Type Response Smoking Status Tobacco use status 30 days p rior to admission No tobacco use of any form; Former smoker entered on: 08/19/18 Assessment and Plan Extracted from: Title: Clinical Summary Author: Rosy Yuen Rn Date: [address] [place] [id number] Clinical Discharge Summary PATIENT INFORMATION Name: FAN CHACON : 1940 FIN: [id number] [facility] Admitting Physician: BRITTA PARRA MD Attending Physician: BRITTA PARRA MD PCP: PARK CRUZ MD Discharge Diagnosis: 1:Infected hematoma of left lower extremity S/P I&D 08-22, Acinetobacter and MRSA; 2:Gout of right wrist; 3:H/O mitral valve replacement with mechanical valve; 4:CHF - Congestive heart failure; 5:GERD - Gastro-esophage al reflux disease; 6:Corticosteroid dependence; JOSETTE (acute kidney injury); 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; Hypokalemia PATIENT EDUCATION INFORMATION Instructions: Heart Failure, [id number] Medication Leaflets meropenem Follow-up With: Address: When: KIKI GAMEZ With: Address: When: ENMA CRUZ Within 1 to 2 weeks With: Address: When: LATASHA BROOKS Within 1 to 2 weeks With: Address: When: PARK CRUZ [address] [place] [address] [employer] Within 1 to 2 weeks MEDICATION LIST Active Medication Orders Prior to Transf er: Order Name Order Details Al hydroxide-Mg hydroxide-simethicone 20 0 mg-200 mg-20 mg/5 mL Susp-Oral; 30 mL UD 30 mL, Oral, -1, q4H PRN dyspepsia, Rout ine, 08/20/18 0:07:00 EDT, 08/20/18 0:07:00 EDT, UD, 1, PARS UBC ER, PARS Oral Drugs, 4.13, 0.77 Al hydroxide/Mg hydroxide/simethicone 30 mL, Oral, q4H, PRN dyspepsia, 0, 08/14 05/01 9:04:00 EDT, Maintenance, Susp-Oral acetaminophen 650 mg 2 tab(s), Oral, q4H, PRN Pain-mil d or Temp > 100.4 F, 0, 08/29/18 9:04:00 EDT, Maintenance, Tab acetaminophen 325 mg Tab 650 mg 2 tab(s), Oral, -1, q4H PRN Pain- mild or Temp > 100.4 F, Routine, 08/20/18 0:07:00 EDT, 08/20/18 0:07:00 EDT, UD, 1, -1, PARS UBC ER, PARS Oral Drugs, 10.80, 2.00 allopurinol 300 mg, Oral, Daily, 0, 08/19/18 18:55:0 0 EDT, Maintenance allopurinol 300 mg Tab 300 mg 1 tab(s), Oral, -1, 08/30/18 10:0 0:00 EDT, UD, 1, PARS UBC 4TEL, PARS Oral Drugs, 3.28, 0.61 allopurinol 300 mg Tab 300 mg 1 tab(s), Oral, -1, Daily, Routin e, 08/23/18 10:00:00 EDT, 08/23/18 10:00:00 EDT, UD, 1, PARS UBC 4TEL, PARS Oral Drugs, 3.28, 0.61 amLODIPine 10 mg, Oral, Daily, 0, 08/19/18 18:56:00 EDT, Maintenance amLODIPine 10 mg Tab 10 mg 1 tab(s), Oral, -1, 08/30/18 10:00 :00 EDT, UD, 0, 1, -1, 0, PARS UBC 4TEL, PARS Oral Drugs, 12.82, 2.37 amLODIPine 10 mg Tab 10 mg 1 tab(s), Oral, -1, Daily, Routine , 08/20/18 10:00:00 EDT, 08/20/18 10:00:00 EDT, UD, 0, 1, -1, 0, PARS UBC 4TEL, PARS Oral Drugs, 12.64695, 2.3733 amLODIPine 10 mg Tab 10 mg 1 tab(s), Oral, -1, 08/29/18 10:00 :00 EDT, UD, 0, 1, -1, 0, PARS UBC 4TEL, PARS [facility] Drugs, 12.82, 2.37 atorvastatin 10 mg 1 tab(s), Oral, Daily, 0, 08/29/18 9:04:00 EDT, Maintenance, Tab atorvastatin 10 mg Tab 10 mg 1 tab(s), Oral, -1, Daily, Routine , 08/20/18 22:00:00 EDT, 08/20/18 22:00:00 EDT, UD, 0, 1, -1, 0, PARS UBC 4TEL, P[facility], 1.15432, 0.3679 atorvastatin 10 mg Tab 10 mg 1 tab(s), Oral, -1, 08/29/18 22:00 :00 EDT, UD, 0, 1, -1, 0, [facility], [facility], 1.99, 0.37 dextrose 25 gm / 50 mL (50%) Soln-IV 12.5 gm 25 mL, IV Push, -1, As Indicated PRN other (see comment), 0, Routine, 08/28/18 10:54:00 EDT, 08/28/18 10:54:00 EDT, INJ, 0, 1, -1, 0, [facility], PARS Injectables, 30.1644, 5.586 ergocalciferol 50,000 IntlUnit(s), Oral, Weekly, 0, 05/01 18:56:00 EDT, Maintenance ergocalciferol 50,000 IntlUnit(s) Cap 50,000 IntlUnit(s) 1 cap(s), Oral, -1, W eekly, Routine, 08/24/18 8:00:00 EDT, 08/24/18 8:00:00 EDT, UD, 1, -1, 0, PARS [facility], [facility], 9.1017, 1.6855 folic acid 1 mg, Oral, Daily, 0, 08/19/18 18:55:00 EDT, Maintenance folic acid 1 mg Tab 1 mg 1 tab(s), Oral, -1, Daily, Routine, 08/20/18 10:00:00 EDT, 08/20/18 10:00:00 EDT, UD, 0, 1, -1, 0, PARS [facility], [facility], 1.00814, 0.3599 folic acid 1 mg Tab 1 mg 1 tab(s), Oral, -1, 08/30/18 10:00: 00 EDT, UD, 0, 1, -1, 0, [facility], [facility], 1.94, 0.36 furosemide 40 mg 1 tab(s), Oral, BID, 0, 08/29/18 9 :04:00 EDT, Maintenance, Tab furosemide 40 mg Tab 40 mg 1 tab(s), Oral, -1, 08/30/18 8:00: 00 EDT, UD, 0, 1, -1, 0, [facility], [facility], 0.98901, 0.1679 furosemide 40 mg Tab 40 mg 1 tab(s), Oral, -1, 08/30/18 16:00 :00 EDT, UD, 0, 1, -1, 0, PARS [facility], [facility], 0.16749, 0.1679 furosemide 40 mg Tab 40 mg 1 tab(s), Oral, -1, BID, Routine, 08/23/18 8:00:00 EDT, 08/22/18 16:00:00 EDT, UD, 0, 1, -1, 0, [facility], [facility], 0.06949, 0.1679 furosemide 40 mg Tab 40 mg 1 tab(s), Oral, -1, 08/29/18 16:00 :00 EDT, UD, 0, 1, -1, 0, PARS [facility], [facility], 0.15859, 0.1679 glucagon 1 mg 1 kit(s), IM, As Indicated, PRN oth er (see comment), 0, 08/29/18 9:04:00 EDT, Maintenance, Powder-Inj glucagon 1 mg Powder-Inj 1 mg 1 kit(s), IM, -1, As Indicated PRN other (see comment), Routine, 08/28/18 10:54:00 EDT, 08/28/18 10:54:00 EDT, INJ, 1, -1, PARS [facility], PARS Injectables, 1111.97, 205.92 glucose 12.5 gm 25 mL, IV Push, As Indicated, LA N other (see comment), 0, 08/29/18 9:04:00 EDT, Maintenance, Soln-IV heparin 25,000 unit(s) [12 unit/kg/hr] + Dextrose 5% 250 mL 250 mL, IV 28.2 hr, 8.87 mL/hr, 250, 10/31 17:31:00 EDT, -1, Routine, 08/25/18 17:31:00 EDT, Constant Indicator, LVP, 24 hr, [id number], 2, PARS [facility], PARS IV Fluids, 59.56, 11.03 insulin lispro Medium-Dose, Subcutaneous, QID (WM and Bedtime), See Order Comments for Sliding Scale Comments., 0, 08/29/18 9:04:00 EDT, Maintenance, Soln-Inj insulin lispro 300 unit(s)/3 mL Soln-Inj ; per unit Medium-Dose, Subcutaneous, QID (WM and Bedtime), 08/28/18 12:00:00 EDT, - 1, Routine, 08/28/18 12:00:00 EDT, INJ, 1, PARS [facility]EL, Injectable - Per Unit, 0.15 insulin lispro 300 unit(s)/3 mL Soln-Inj ; per unit Medium-Dose, Subcutaneous, 8 12:00:00 EDT, -1, INJ, 1, PARS [facility] 4[facility]EL, Injectable - Per Unit, 0.15 insulin lispro 300 unit(s)/3 mL Soln-Inj ; per unit Medium-Dose, Subcutaneous, 8 17:00:00 EDT, -1, INJ, 1, PARS [facility] 4TEL, Injectable - Per Unit, 0.15 insulin lispro 300 unit(s)/3 mL Soln-Inj ; per unit Medium-Dose, Subcutaneous, 8 22:00:00 EDT, -1, INJ, 1, PARS [facility] 4TEL, Injectable - Per Unit, 0.15 insulin lispro 300 unit(s)/3 mL Soln-Inj ; per unit Medium-Dose, Subcutaneous, 8 8:00:00 EDT, -1, INJ, 1, PARS [facility] 4[facility]EL, Injectable - Per Unit, 0.15 insulin lispro 300 unit(s)/3 mL Soln-Inj ; per unit Medium-Dose, Subcutaneous, 8 12:00:00 EDT, -1, INJ, 1, PARS [facility] 4[facility]EL, Injectable - Per Unit, 0.15 isosorbide dinitrate 30 mg 3 tab(s), Oral, TID, 0, 08/29/18 9 :04:00 EDT, Maintenance, Tab isosorbide dinitrate 10 mg Tab 30 mg 3 tab(s), Oral, -1, 08/29/18 16:00 :00 EDT, UD, 0, 1, -1, 0, PARS [facility], [facility], 2.55, 0.47 isosorbide dinitrate 10 mg Tab 30 mg 3 tab(s), Oral, -1, TID, Routine, 08/20/18 10:00:00 EDT, 08/20/18 10:00:00 EDT, UD, 0, 1, -1, 0, PARS [facility], [facility], 2.55, 0.47 isosorbide dinitrate 10 mg Tab 30 mg 3 tab(s), Oral, -1, 08/30/18 10:00 :00 EDT, UD, 0, 1, -1, 0, PARS [facility], [facility], 2.55, 0.47 isosorbide dinitrate 10 mg Tab 30 mg 3 tab(s), Oral, -1, 08/30/18 16:00 :00 EDT, UD, 0, 1, -1, 0, PARS [facility], [facility], 2.55, 0.47 isosorbide dinitrate 10 mg Tab 30 mg 3 tab(s), Oral, -1, 08/29/18 22:00 :00 EDT, UD, 0, 1, -1, 0, PARS [facility], [facility], 2.55, 0.47 magnesium hydroxide 2,400 mg 30 mL, Oral, Daily, PRN constip ation, 0, 08/29/18 9:04:00 EDT, Maintenance, Susp magnesium hydroxide 8% Susp-Oral; 30 mL UD 2,400 mg 30 mL, Oral, -1, Daily PRN cons tipation, 1, Routine, 08/20/18 0:07:00 EDT, 08/20/18 0:07:00 EDT, UD LIQ, 1, -1, PARS [facility], [facility], 3.20, 0.59 meropenem 1 gm, IV Piggyback, -1, 30 minute(s), 14:00:00 EDT, IVPB, 200 mL/hr, 100, 0, [id number], 3, -1, 2, PARS [facility], [facility] IV Fluids, 132.00, 24.44 meropenem 1 gm, IV Piggyback, -1, [id number], Routin e, 30 minute(s), 08/25/18 14:00:00 EDT, 08/25/18 14:00:00 EDT, IVPB, 200 mL/hr, 100, 0, [id number], 3, -1, 2, [facility], [facility] IV Fluids, 131.9976, 24.444 meropenem 1 gm, IV Piggyback, [id number], 0, 8 9:04:00 EDT, Maintenance meropenem 1 gm, IV Piggyback, -1, 30 minute(s), 14:00:00 EDT, IVPB, 200 mL/hr, 100, 0, [id number], 3, -1, 2, [facility], [facility] IV Fluids, 132.00, 24.44 meropenem 1 gm, IV Piggyback, -1, 30 minute(s), 2:00:00 EDT, IVPB, 200 mL/hr, 100, 0, [id number], 3, -1, 2, [facility], [facility] IV Fluids, 132.00, 24.44 metoprolol 100 mg 1 tab(s), Oral, Daily, 0, 8 18:55:00 EDT, Maintenance metoprolol succinate 100 mg Tab-ER 100 mg 1 tab(s), Oral, -1, 08/30/18 10:0 0:00 EDT, UD, 0, 1, -1, 0, [facility], [facility] Oral Drugs, 9.38, 1.74 metoprolol succinate 100 mg Tab-ER 100 mg 1 tab(s), Oral, -1, Daily, Routin e, 08/20/18 10:00:00 EDT, 08/20/18 10:00:00 EDT, UD, 0, 1, -1, 0, [facility] 4TEL, [facility] Oral Drugs, 9.3771, 1.7365 metoprolol succinate 100 mg Tab-ER 100 mg 1 tab(s), Oral, -1, 08/29/18 10:0 0:00 EDT, UD, 0, 1, -1, 0, [facility] 4TEL, [facility], 9.38, 1.74 morphine 8 mg/mL preservative-free Soln- Inj 5 mg 0.63 mL, IV Push, -1, [id number] PRN p ain-severe 7 to 10, 0, STAT, 08/28/18 19:00:00 EDT, 08/21/18 8:57:00 EDT, INJ, 0, 1, -1, 0, [facility] 4TEL, [facility] Injectables, 7.2576, 1.344 ondansetron 4 mg/2 mL Soln-Inj 4 mg 2 mL, IV Push, -1, q8H PRN nausea/v omiting, Routine, 08/20/18 0:07:00 EDT, 08/20/18 0:07:00 EDT, INJ, 1, -1, [facility] ER, [facility] Inject[facility], 12.96, 2.40 oxyCODONE 5 mg 1 tab(s), Oral, q4H, PRN pain-moder ate 4 to 6, 0, 0, 08/29/18 9:04:00 EDT, Maintenance, Tab oxyCODONE 10 mg 2 tab(s), Oral, q4H, PRN pain-jessica re 7 to 10, 0, 0, 08/29/18 9:04:00 EDT, Maintenance, Tab oxyCODONE 5 mg Tab 10 mg 2 tab(s), Oral, -1, q4H PRN pain-s evere 7 to 10, Routine, 08/28/18 19:00:00 EDT, 08/21/18 8:57:00 EDT, UD, 1, -1, [facility] 4TEL, [facility], 0.04 oxyCODONE 5 mg Tab 5 mg 1 tab(s), Oral, -1, q4H PRN pain-mo derate 4 to 6, Routine, 08/28/18 19:00:00 EDT, 08/21/18 8:57:00 EDT, UD, 1, -1, [facility] 4TEL, [facility], 0.04 pantoprazole 40 mg, Oral, Daily, 0, 08/19/18 18:55:00 EDT, Maintenance pantoprazole 40 mg Tab-DR 40 mg 1 tab(s), Oral, -1, Daily, Routine , 08/20/18 8:00:00 EDT, 08/20/18 8:00:00 EDT, UD, 0, 1, -1, 0, [facility] 4TEL, [facility], 28.14691, 5.2671 pantoprazole 40 mg Tab-DR 40 mg 1 tab(s), Oral, -1, 08/30/18 8:00: 00 EDT, UD, 0, 1, -1, 0, [facility] 4TEL, [facility], 28.33086, 5.2671 polyethylene glycol 3350 17 gm 1 packet(s), Oral, BID, 0, 8 9:04:00 EDT, Maintenance, Granule-Recon polyethylene glycol 3350 Granule-Recon; 17 gm 17 gm 1 packet(s), Oral, -1, BID, NOW, 1 22:00:00 EDT, 08/21/18 8:47:00 EDT, UD, 0, 1, -1, 0, [facility] 4TEL, [facility], 15.03, 2.78 polyethylene glycol 3350 Granule-Recon; 17 gm 17 gm 1 packet(s), Oral, -1, 08/29/18 22 :00:00 EDT, UD, 0, 1, -1, 0, [facility] 4TEL, [facility], 15.03, 2.78 polyethylene glycol 3350 Granule-Recon; 17 gm 17 gm 1 packet(s), Oral, -1, 08/30/18 10 :00:00 EDT, UD, 0, 1, -1, 0, [facility] 4TEL, [facility], 15.03, 2.78 polyethylene glycol 3350 Granule-Recon; 17 gm 17 gm 1 packet(s), Oral, -1, 08/29/18 10 :00:00 EDT, UD, 0, 1, -1, 0, [facility] 4TEL, [facility], 15.03, 2.78 predniSONE 5 mg, Oral, Daily, start 09/02/2018, 0, 08/19/18 18:53:00 EDT, Maintenance predniSONE 10 mg 1 tab(s), Oral, BID, till 09/01/20 18, 3 day(s), 6 tab(s), 0, 0, 08/29/18 9:04:00 EDT, Acute, 09/01/18 9:04:00 EDT, Do Not Route, other reason (Rx) predniSONE 20 mg Tab 20 mg 1 tab(s), Oral, -1, 08/29/18 17:00 :00 EDT, 08/29/18 17:00:00 EDT, UD, 1, - 1, [facility] 4TEL, [facility], 0.94, 0.17 predniSONE 20 mg Tab 20 mg 1 tab(s), Oral, -1, 08/30/18 8:00: 00 EDT, 08/30/18 8:00:00 EDT, UD, 1, -1, [facility] 4TEL, [facility], 0.94, 0.17 predniSONE 20 mg Tab 20 mg 1 tab(s), Oral, -1, BID, Routine, 08/22/18 17:00:00 EDT, Physician Stop, 08/22/18 17:00:00 EDT, 09/25/18 8:00:00 EST, UD, 1, -1, [facility] 4TEL, [facility], 0.94, 0.17 promethazine 6.25 mg 0.25 mL, IV Piggyback, -1, q6H P RN nausea/vomiting, 0, Routine, 15 minute(s), 08/20/18 0:07:00 EDT, 08/20/18 0:07:00 EDT, ON DEMAND INTERMITTENT, 200 mL/hr, 50, 0, 3, -1, 0, [facility], [facility] Injectables, 61.0190298496187, 11.4 [id number] spironolactone 25 mg 1 tab(s), Oral, Daily, 0, 08/29/18 9:04:00 EDT, Maintenance, Tab spironolactone 25 mg Tab 25 mg 1 tab(s), Oral, -1, Daily, Routine , 08/20/18 8:00:00 EDT, 08/20/18 8:00:00 EDT, UD, 0, 1, -1, 0, [facility] 4TEL, [facility], 2.3085, 0.4275 spironolactone 25 mg Tab 25 mg 1 tab(s), Oral, -1, 08/30/18 8:00: 00 EDT, UD, 0, 1, -1, 0, [facility] 4TEL, [facility], 2.31, 0.43 traZODone 50 mg, Oral, Daily at Bedtime, 0, 18:57:00 EDT, Maintenance traZODone 50 mg Tab 50 mg 1 tab(s), Oral, -1, 08/29/18 22:00 :00 EDT, UD, 0, 1, -1, 0, [facility] 4TEL, [facility], 2.35, 0.44 traZODone 50 mg Tab 50 mg 1 tab(s), Oral, -1, Daily at Bedti me, Routine, 08/20/18 22:00:00 EDT, 08/20/18 22:00:00 EDT, UD, 0, 1, -1, 0, [facility] 4TEL, [facility], 2.86368, 0.4351 vancomycin 1 gm 200 mL, IV, [id number], 0, 08/29/18 9 :04:00 EDT, Maintenance, Injection vancomycin 1 g/200 mL D5W Soln-IV; 200 m L 1 gm 200 mL, IV, -1, [id number], 0, 90 min dede(s), 08/24/18 2:00:00 EDT, 08/24/18 2:00:00 EDT, IVPB, 133.33 mL/hr, 200, 0, 3, 0, 0, [facility], [facility] Injectables, 194.4, 36 vancomycin 1 g/200 mL D5W Soln-IV; 200 m L 1 gm 200 mL, IV, -1, 0, 90 minute(s), 2:00:00 EDT, IVPB, 133.33 mL/hr, 200, 0, 3, 0, 0, [facility], [facility] Injectables, 194.4, 36 warfarin 5 mg 1 tab(s), Oral, Daily, 30 tab(s), 0 , 0, 08/29/18 9:04:00 EDT, Maintenance, Do Not Route, other reason [...] Oral every day. ergocalciferol (Vitamin D2) 50,000 Inter national Unit(s) Oral every week. folic acid 1 Milligram(s) Oral every day . furosemide (furosemide 40 mg oral tablet ) 1 Tab(s) Oral twice a day. glucagon (glucagon 1 mg injection) 1 Kit (s) Intramuscular As Indicated as needed other (see comment). glucose (glucose 50% intravenous solutio n) 25 Milliliter(s) Intravenous Push As Indicated as needed other (see comment). insulin lispro Medium-Dose Subcuta neous four times a day (with meals and at bedtime). See Order Comments for Sliding Scale Comments.., << Sliding Scale Comments >> Medium Dose For blood glucose: < 150 mg/dL= 0 units 151-200 mg/dL=2 unit 201-250 mg/dL=4 units 251-300 mg/dL=6 units 301-350 mg/dL=8 units 351-400 mg/dL=10 units >400 mg/dL= 12 units and call provider << Sliding Scale Comments >> isosorbide dinitrate (isosorbide dinitra te 10 mg oral tablet) 3 Tab(s) Oral three times a day. magnesium hydroxide (Milk of Magnesia 8% oral suspension) 30 Milliliter(s) Oral every day as needed constipation. meropenem 1 gram IV Piggyback every 12 h ours (interval) for 10 Days. metoprolol (Toprol-XL 100 mg oral tablet , extended release) 1 Tab(s) Oral every day. oxyCODONE (oxyCODONE 5 mg oral tablet) 2 Tab(s) Oral every 4 hours as needed pain-severe 7 to 10. oxyCODONE (oxyCODONE 5 mg oral tablet) 1 Tab(s) Oral every 4 hours as needed pain-moderate 4 to 6. pantoprazole 40 Milligram(s) Oral every day. polyethylene glycol 3350 (MiraLax) 17 gr am Oral twice a day. predniSONE 5 Milligram(s) Oral every day . start 09/02/2018. predniSONE (predniSONE 10 mg oral tablet ) 1 Tab(s) Oral twice a day for 3 Days. till 09/01/2018. Refills: 0. spironolactone (Aldactone 25 mg oral tab let) 1 Tab(s) Oral every day. traZODone 50 Milligram(s) Oral once a da y (at bedtime). vancomycin (vancomycin 1 g/200 mL-D5% in travenous solution) 200 Milliliter(s) Intravenous every 24 hours (interval) for 10 Days. warfarin (warfarin 5 mg oral tablet) 1 T ab(s) Oral every day for 30 Days. Refills: 0. OrdersOrder Name Order Details Hospital Discharge Instructions Patient Ytphijskm65/06/2018 18:21:45Heart Failure, [id number] Failure Heart failure means your heart has trouble pumping blood. This makes it hard for your body to work well. Heart failure is usually a long-term (chronic) condition. You must take good care of yourself and follow your doctor's treatment plan. HOME CARE ??? Take your heart medicine as told by your doctor. ? Do not stop taking medicine unless your doctor tells you to. ? Do not skip any dose of medicine. ? Refill your medicines before they run out. ? Take other medicines only as told by your doctor or pharmacist. ??? Stay active if told by your doctor. The elderly and people with severe heart failure should talkwith a doctor about physical activity. ??? Eat heart-healthy foods. Choose foods that are without trans fat and are low in saturated fat, cholesterol, and salt (sodium). This includes fresh or frozen fruits and vegetables, fish, lean meats,fat-free or low-fat dairy foods, whole grains, and high-fiber foods. Lentils and dried peas and beans (legumes) are also good choices. ??? Limit salt if told by your doctor. ??? Cook in a healthy way. Roast, grill, broil, bake, poach, steam, or stir-sarmiento foods. ??? Limit fluids as told by your doctor. ??? Weigh yourself every morning. Do this after you pee (urinate) and before you eat breakfast. Write down your weight to give to your doctor. ??? Take your blood pressure and write it down if your doctor tells you to. ??? Ask your doctor how to check your pulse. Check your pulse as told. ??? Lose weight if told by your doctor. ??? Stop smoking or chewing tobacco. Do not use gum or patches that help you quit without your doctor's approval. ??? Schedule and go to doctor visits as told. ??? Non women should have no more than 1 drink a day. Men should have no more than 2 drinks a day. Talk to your doctor about drinking alcohol. ??? Stop illegal drug use. ??? Stay current with shots (immunizations). ??? Manage your health conditions as told by your doctor. ??? Learn to manage your stress. ??? Rest when you are tired. ??? If it is really hot outside: ? Avoid intense activities. ? Use air conditioning or fans, or get in a cooler place. ? Avoid caffeine and alcohol. ? Wear loose-fitting, lightweight, and light-colored clothing. ??? If it is really cold outside: ? Avoid intense activities. ? Layer your clothing. ? Wear mittens or gloves, a hat, and a scarf when going outside. ? Avoid alcohol. ??? Learn about heart failure and get support as needed. ??? Get help to maintain or improve your quality of life and your ability to care for yourself as needed. GET HELP IF: ??? You gain weight quickly. ??? You are more short of breath than usual. ??? You cannot do your normal activities. ??? You tire easily. ??? You cough more than normal, especially with activity. ??? You have any or more puffiness (swelling) in areas such as your hands, feet, ankles, or belly (abdomen). ??? You cannot sleep because it is hard to breathe. ??? You feel like your heart is beating fast (palpitations). ??? You get dizzy or light-headed when you stand up. GET HELP RIGHT AWAY IF: ??? You have trouble breathing. ??? There is a change in mental status, such as becoming less alert or not being able to focus. ??? You have chest pain or discomfort. ??? You faint. MAKE SURE YOU: ??? Understand these instructions. ??? Will watch your condition. ??? Will get help right away if you are not doing well or get worse. This information is not intended to replace advice given to you by your health care provider. Make sure you discuss any questions you have with your health care provider. Document Released: 08/09/2009 Document Revised: 11/21/2015 Document Reviewed: 12/17/2013 [employer] Interactive Patient Education ??2017 [employer]
--- OUTSIDE RECORDS SUMMARY | 2022-09-14 17:52 | XMS_ITS ---
:1940 Author Care Team Providers Name Role Phone PARK NANCY Primary Care Provider [phone] JENNY LOZA PA-C Or Manager [phone] AILEEN ARGUETA MD Orthopedic Surgeon [phone] JESSICA SEGAL MD Orthopedic Surgeon [phone] LONNY NICHOLS MD Medical Oncologist [phone] LONNY CRUZ Mold Closer Helper [phone] STEFANY SHEFFIELD MD Ophthalmologist [phone] Allergies Code Code System Name Reaction Severity Status Onset 188653 RxNorm Celebrex ? ? Active ? 3521 RxNorm Dipyridamole ? ? Active ? 8372481 RxNorm Egg ? ? Active ? 4053 RxNorm Erythromycin Base ? ? Active ? 8559906 RxNorm Fluad [id number] (65 Yr ? ? Active ? up)(Pf) 5521 RxNorm Hydroxychloroquine ? ? Active ? 816564 RxNorm Levaquin ? ? Active ? 958897 RxNorm Lidoderm ? ? Active ? Neosporin (Ixw-wer-crquw) ? ? Acti ve ? 911654 RxNorm Neurontin ? ? Active ? Persantine ? ? Active ? 20240415 RxNorm Plaquenil ? ? Active ? 693544 RxNorm Rofecoxib ? ? Active ? 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 Final [facility] (Lab): [address] [facility] ? ? Alert Prothrom 22.2 sec Final [facility] bin Time .[address] [facility] (Lab): [address] [facility] 07/22/2022 PT/INR Alert Inr 2.23 ? Final [facility] (Lab): [address] [facility] ? ? Alert Prothrom 23.2 sec Final [facility] bin Time .[address] [facility] (Lab): [address] [facility] 07/22/2022 PT/INR ? Prothrom 23.2 ? ? bin Time 07/22/2022 INR, Plasma ? Inr 2.23 ? ? 06/21/2022 PT/INR Alert Inr 2.64 ? Final [facility] (Lab): [address], [place] ? ? Alert Prothrom 27.2 sec 10.1-11 Final Way[place] High bin Time .9 sec [facility] (Lab): [address], [place] 06/07/2022 PT/INR Alert Inr 2.20 ? Final [facility] (Lab): [address] , [place] ? ? Alert Prothrom 22.9 sec 10.1-11 Final Wayn e High bin Time .9 sec [facility] (Lab): [address] , [place] 06/03/2022 PT/INR Panic Inr 4.19 ? Final [facility] (Lab): [address] ? ? Alert Prothrom 42.3 sec 10.1-11 Final Wayn e High bin Time .[address] [facility] (Lab): [address], [place] 06/03/2022 PT/INR ? Prothrom 42.3 ? ? bin Time 06/03/2022 INR, Plasma ? Inr 4.19 ? ? 05/20/2022 PT/INR Alert Inr 3.52 ? Final [facility] (Lab): [address] [place] ? ? Alert Prothrom 35.8 sec 10.1-11 Final Wayn e High bin Time .[address] [facility] (Lab): [address], [place] 05/20/2022 PT/INR ? Prothrom 35.8 ? ? bin Time 05/20/2022 INR, Plasma ? Inr 3.52 ? ? 05/06/2022 PT/INR Alert Inr 2.22 ? Final [facility] (Lab): [address] ? ? Alert Prothrom 23.1 sec 10.1-11 Final Wayn e High bin Time .[address] [facility] (Lab): [address], [place] 05/04/2022 PT/INR Alert Inr 3.93 ? Final [facility] (Lab): [address] , [place] ? ? Alert Prothrom 39.8 sec 10.1-11 Final Wayn e High bin Time .[address] [facility] (Lab): [address] , [place] 05/04/2022 PT/INR ? Prothrom 39.8 ? ? bin Time 05/04/2022 INR, Plasma ? Inr 3.93 ? ? 04/27/2022 INR, Plasma ? Inr 1.83 ? ? 04/23/2022 PT/INR Alert Inr 3.34 ? Final [facility] (Lab): [address] [facility] [place] ? ? Alert Prothrom 34.1 sec 10.1-11 [facility] [facility] (Lab): [address] [facility] 04/23/2022 PT/INR ? Prothrom 34.1 ? ? bin Time 04/23/2022 INR, Plasma ? Inr 3.34 ? ? 04/21/2022 PT/INR Panic Inr 4.50 ? Final [facility] (Lab): [address] [facility] ? ? Alert Prothrom 45.2 sec 10.1-11 Final [facility] .[address] [facility] (Lab): [address] [facility] 04/21/2022 PT/INR ? Prothrom 45.2 ? ? bin Time 04/21/2022 INR, Plasma ? Inr 4.5 ? ? 04/07/2022 PT/INR ? Prothrom 37.4 ? ? bin Time 04/07/2022 INR, Plasma ? Inr 3.1 ? ? 03/31/2022 CBC W/ Auto BLOOD ? Wbc 5.10 4.60-10 Final Herman Diff x10^3/mcL .20 Irons x10^3/m [facility] (Lab): [address], [place] ? ? BLOOD Low Rbc 3.85 4.04-5. Final Herman x10^6/mcL 48 Irons x10^6/m [facility] c[facility] (Lab): [address], [place] ? ? BLOOD Low Hgb 10.9 g/dL 12.6-16 Final Herman .2 g/dL [facility] (Lab): [address], [place] ? ? BLOOD Low Hct 33.6 % 35.9-47 Final Herman .9 % [facility] (Lab): [address], [place] ? ? BLOOD ? Mch 28.2 pg 25.4-34 Final Herman .6 pg [facility] (Lab): [address], [place] ? ? BLOOD ? Mchc 32.3 gm/dL 30.0-36 Final Herman .0 Irons gm/dL [facility] (Lab): [address], [place] ? ? BLOOD ? Mcv 87.2 fL 80.0-98 Final Herman .0 fL [facility] (Lab): [address], [place] ? ? BLOOD ? Plt Cnt 154 x10^3 142-424 Final Dillan s cells/mcL x10^3 Irons cells/m Hospital cL (Lab): [address], [place] ? ? BLOOD ? Mpv 10.4 fL 6.7-11. Final Herman 3 fL [facility] (Lab): [address], [place] ? ? BLOOD High Rdw 16.2 % 11.6-14 Final Herman .8 % [facility] (Lab): [address], [place] 03/31/2022 Wbc Diff, BLOOD ? Neutroph 60.8 % 45.0-80 Final Herman Auto, Blood ils% Auto .0 % [facility] (Lab): [address], [place] ? ? BLOOD ? Lymphocy 25.8 % 15.0-45 Final Herman eric% Auto .0 % [facility] (Lab): [address], [place] ? ? BLOOD ? Monocyte 8.2 % 0.0-12. Final Herman s% Auto 0 % [facility] (Lab): [address], [place] ? ? BLOOD ? Eosinoph 4.4 % 0.0-7.0 Final Herman ils% Auto % [facility] (Lab): [address], [place] ? ? BLOOD ? Basophil 0.8 % 0.0-2.6 Final Herman s% Auto % [facility] (Lab): [address], [place] ? ? BLOOD ? Neutroph 3.10 2.00-6. [...] Final Herman Auto x10^3/mcL 70 [place] x10^3/m [facility] (Lab): [address], [place] ? ? BLOOD ? Basophil 0.00 0.00-0. Final Herman s# Auto x10^3/mcL 26 [place] x10^3/m [facility] (Lab): [address], [place] 03/31/2022 [...] PT/INR BLOOD High Pt 20.9 11.6-14 Final [facility] second(s) .8 [facility]( Hospital s) (Lab): [address] [facility] ? ? BLOOD High Inr 1.78 0.90-1. Final [facility] r 11 [facility] (Lab): [address] [facility] 03/08/2022 PT/INR BLOOD High Pt 29.4 11.6-[address] [facility] second(s) .8 [facility]( Hospital s) (Lab): [address] [facility] ? ? BLOOD High Inr 2.74 0.90-1. Final [facility] 11 [facility] (Lab): [address] [facility] 03/05/2022 CBC W/ Auto BLOOD Low Wbc 3.4 4.5-11. Final Ron-Bar Diff x10^3/mcL 0 re Gene ral x10^3/m Hospital cL (Lab): [address] [facility] ? ? BLOOD Low WBC Cnt 3.4 4.5-11. Final Ron- Bar x10^3/mcL 0 re Gene ral x10^3/m Hospital c[facility] (Lab): [address] [facility] ? ? BLOOD Low Rbc 2.87 3.79-5. Final Ron-Ba r x10^6/mcL 23 re Gene ral x10^6/m Hospital cL (Lab): [address] [facility] ? ? BLOOD Low Hgb 8.9 g/dL 11.7-15 Final [facility] .7 g/dL [facility] (Lab): [address] [facility] ? ? BLOOD Low Hct 27.5 % 34.9-46 Final Ron-Ba r .9 % [facility] (Lab): [address] [facility] ? ? BLOOD ? Mch 30.9 pg 26.6-33 Final Ron-B ar .8 pg [facility] (Lab): [address] [facility] ? ? BLOOD ? Mchc 32.3 g/dL 31.5-35 Final [facility] -[facility] .9 g/dL [facility] (Lab): [address] [facility] ? ? BLOOD ? Mcv 95.6 fL 80.5-99 Final [facility] .7 fL [facility] (Lab): [address] [facility] ? ? BLOOD Low Plt Cnt 117 150-400 Final [facility] x10^3/mcL x10^3/m [facility] (Lab): [address] [facility] ? ? BLOOD ? Mpv 10.7 fL 8.0-13. Final [facility] 0 fL [facility] (Lab): [address] [place] [address] ? ? BLOOD High Rdw 17.1 % 11.0-16 Final Ron-Ba r .0 % [facility] (Lab): [address] [facility] ? ? BLOOD ? Conditio present ? Final Ron -Bar n [facility] (Lab): [address] [facility] 03/05/2022 Wbc Diff, BLOOD ? Neutroph 53.2 % 42.0-76 Final Ron-Bar Auto, Blood ils% Auto .0 % [facility] (Lab): [address] [facility] ? ? BLOOD ? Lymphocy 30.7 % 17.0-51 Final [facility] -[facility] eric% Auto .0 % [facility] (Lab): [address] [facility] ? ? BLOOD ? Monocyte 10.3 % 4.8-12. Final Ron -Bar s% Auto 8 % [facility] (Lab): [address] [facility] ? ? BLOOD High Eosinoph 5.4 % 0.0-4.5 Final Ron -Bar ils% Auto % [facility] (Lab): [address] [facility] ? ? BLOOD ? Basophil 0.4 % 0.0-2.0 Final Ron -Bar s% Auto % [facility] (Lab): [address] [facility] ? ? BLOOD ? Neutroph 1.8 1.8-7.7 Final Ron -Bar ils# Auto x10^3/mcL x10^3/m [facility] (Lab): [address] [facility] ? ? BLOOD ? Lymphocy 1.0 1.0-4.8 Final [facility] -[facility] eric# Auto x10^3/mcL x10^3/m [facility] (Lab): [address] [facility] ? ? BLOOD ? Monocyte 0.3 0.0-1.5 Final [facility] -[facility] s# Auto x10^3/mcL x10^3/m [facility] (Lab): [address] [facility] ? ? BLOOD ? Eos# 0.2 0.0-0.7 Final Ron-Ba r Auto x10^3/mcL x10^3/m [facility] (Lab): [address] [facility] ? ? BLOOD ? Basophil 0.0 0.0-0.2 Final [facility] -[facility] s# Auto x10^3/mcL x10^3/m [facility] (Lab): [address] [facility] 03/05/2022 BMP, Blood BLOOD ? Sodium 143 mmol/L 136-145 Fin al Ron-Bar mmol/L [facility] (Lab): [address] [facility] ? ? BLOOD ? Potassiu 4.2 mmol/L 3.5-5.1 Final Wi lkes-Bar m mmol/L [facility] (Lab): [address] [facility] ? ? BLOOD ? Chloride 106 mmol/L 98-107 Final Gerry kes-Bar mmol/L [facility] (Lab): [address] [facility] ? ? BLOOD High Carbon 33 mmol/L 21-31 Final [facility] -Bar Dioxide mmol/L [facility] (Lab): [address] [facility] ? ? BLOOD ? Bun 14 mg/dL 7-25 Final [facility] mg/dL [facility] (Lab): [address] [place] [address] ? ? BLOOD ? Creatini 0.82 mg/dL 0.60-1. Final Ms lkes-Bar ne 30 [facility] mg/dL Hospital (Lab): [address] [place] [address] ? ? BLOOD ? Glucose 66 mg/dL 65-99 Final [facility] -[facility] mg/dL [facility] (Lab): [address] [facility] ? ? BLOOD Low Calcium 8.3 mg/dL 8.6-10. Final Rosa M es-Bar 3 mg/dL [facility] (Lab): [address] [place] [address] ? ? BLOOD ? eGFR Non 68 ? Final Ron- Bar [facility] (Lab): [address] [place] [address] ? ? BLOOD ? eGFR 78 ? Final Ron-Bar [facility] (Lab): [address] [place] [address] ? ? BLOOD ? Anion 4 mmol/L 3-11 Final [facility] [place] mmol/L [facility] (Lab): [address] [place] [address] 03/05/2022 PT/INR BLOOD High Pt 33.5 11.6-14 Final Kamlesh s-Bar second(s) .8 [facility] second( Hospital s) (Lab): [address] [place] [address] ? ? BLOOD High Inr 3.23 0.90-1. Final Ron-Ba r 11 [facility] (Lab): [address] [place] [address] 03/01/2022 PT/INR BLOOD High Pt 29.6 11.6-[address] [facility] second(s) .8 [facility] second( Hospital s) (Lab): [address] [facility] ? ? BLOOD High Inr 2.77 0.90-1. Final [facility] r 11 [facility] (Lab): [address] [facility] 02/26/2022 PT/INR BLOOD High Pt 24.6 11.6-[address] [facility] second(s) .8 [facility] second( Hospital s) (Lab): [address] [facility] ? ? BLOOD High Inr 2.19 0.90-1. Final [facility] (Lab): [address] [facility] 02/18/2022 CBC W/ Auto BLOOD ? Wbc 5.50 4.60-10 Final Herman Diff x10^3/mcL .20 Irons x10^3/m [facility] (Lab): [address], [place] ? ? BLOOD Low Rbc 3.23 4.04-5. Final Herman x10^6/mcL 48 Irons x10^6/m [facility] c[facility] (Lab): [address], [place] ? ? BLOOD Low Hgb 10.0 g/dL 12.6-16 Final Herman .2 g/dL [facility] (Lab): [address], [place] ? ? BLOOD Low Hct 29.1 % 35.9-47 Final Herman .9 % [facility] (Lab): [address], [place] ? ? BLOOD ? Mch 30.9 pg 25.4-34 Final Herman .6 pg [facility] (Lab): [address], [place] ? ? BLOOD ? Mchc 34.2 gm/dL 30.0-36 Final Herman .0 Irons gm/[facility] (Lab): [address], [place] ? ? BLOOD ? Mcv 90.2 fL 80.0-98 Final Herman .0 fL [facility] (Lab): [address], [place] ? ? BLOOD CRITICAL Plt Cnt 111 x10^3 142-424 Final Mo ses LOW cells/mcL x10^3 Irons cells/[facility] c[facility] (Lab): [address], [place] ? ? BLOOD ? Mpv 10.0 fL 6.7-11. Final Herman 3 fL [facility] (Lab): [address], [place] ? ? BLOOD High Rdw 16.5 % 11.6-14 Final Herman .8 % [facility] (Lab): [address], [place] 02/18/2022 Wbc Diff, BLOOD ? Neutroph 66.9 % 45.0-80 Final Herman Auto, Blood ils% Auto .0 % [facility] (Lab): [address], [place] ? ? BLOOD ? Lymphocy 21.8 % 15.0-45 Final Herman eric% Auto .0 % [facility] (Lab): [address], [place] ? ? BLOOD ? Monocyte 7.3 % 0.0-12. Final Herman s% Auto 0 % [facility] (Lab): [address], [place] ? ? BLOOD ? Eosinoph 2.6 % 0.0-7.0 Final Herman ils% Auto % [facility] (Lab): [address], [place] ? ? BLOOD ? Basophil 1.4 % 0.0-2.6 Final Herman s% Auto % [facility] (Lab): [address], [place] ? ? BLOOD ? Neutroph 3.70 2.00-6. Final Herman ils# Auto x10^3/mcL 90 [facility] (Lab): [address], [place] ? ? BLOOD ? Lymphocy 1.20 0.60-3. Final Herman eric# Auto x10^3/mcL 40 Tayl or x10^3/m Hospital cL (Lab): [address], [place] ? ? BLOOD ? Monocyte 0.40 0.00-1. Final Herman s# Auto x10^3/mcL 22 Irons x10^3/m Hospital c[facility] (Lab): [address], [place] ? ? BLOOD ? Eos# 0.10 0.00-0. Final Herman Auto x10^3/mcL 70 Irons x10^3/m Hospital c[facility] (Lab): [address], [place] ? ? BLOOD ? Basophil 0.10 0.00-0. Final Herman s# Auto x10^3/mcL 26 Irons x10^3/m [facility] c[facility] (Lab): [address], [place] 02/18/2022 CMP, Serum BLOOD ? Sodium 140 mmol/L 136-145 Fin al Herman or Plasma mmol/L [facility] (Lab): [address], [place] ? ? BLOOD CRITICAL Potassiu 2.9 mmol/L 3.5-5.1 Final Herman LOW m mmol/L [facility] (Lab): [address], [place] ? ? BLOOD ? Chloride 104 mmol/L 98-107 Final Mos es mmol/L [facility] (Lab): [address], [place] ? ? BLOOD ? Carbon 29 mmol/L 21-31 Final Herman Dioxide mmol/L [facility] (Lab): [address], [place] ? ? BLOOD ? Bun 13 mg/dL 7-25 Final Herman mg/dL [facility] (Lab): [address], [place] ? ? BLOOD ? Creatini 0.9 mg/dL 0.6-1.3 Final Mos es ne mg/dL [facility] (Lab): [address], [place] ? ? BLOOD ? eGFR Non 60 ? Final [facility] (Lab): [address], [place] ? ? BLOOD ? eGFR >60 ? Final [facility] (Lab): [address], [place] ? ? BLOOD ? Glucose 93 mg/dL 65-110 Final Herman mg/dL [facility] (Lab): [address], [place] ? ? BLOOD ? Calcium 9.2 mg/dL 8.6-10. Final Dillan s 3 mg/dL [facility] (Lab): [address], [place] ? ? BLOOD Low Prot 5.7 g/dL 6.4-8.9 Final Herman Total g/dL [facility] (Lab): [address], [place] ? ? BLOOD ? Albumin 3.9 g/dL 3.5-5.7 Final Herman g/dL [facility] (Lab): [address], [place] ? ? BLOOD ? Bili 1.0 mg/dL 0.3-1.0 Final Herman Total mg/dL [facility] (Lab): [address], [place] ? ? BLOOD ? Ast 21 unit/L 13-39 Final Herman unit/L [facility] (Lab): [address], [place] ? ? BLOOD ? Alt 14 unit/L 7-52 Final Herman unit/L [facility] (Lab): [address], [place] ? ? BLOOD ? Alkaline 76 unit/L 34-104 Final Dillan s Phosphata unit/L [facility] (Lab): [address], [place] ? ? BLOOD ? Ca 9.3 mg/dL 8.6-10. Final Herman Corrected 3 mg/dL [facility] (Lab): [address], [place] ? ? BLOOD ? Anion 9.9 mmol/L 7.0-16. Final Herman [place] 0 Irons mmol/L [facility] (Lab): [address], [place] 02/18/2022 PT/INR BLOOD High Pt 24.0 9.5-12. Final Herman second(s) 1 [facility]( Hospital s) (Lab): [address], [place] ? ? BLOOD High Inr 2.36 0.86-1. Final Herman 15 [facility] (Lab): [address], [place] 02/18/2022 Magnesium, BLOOD ? Magnesiu 1.8 mg/dL 1.6-2.4 Fi nal [facility] Serum or m mg/dL [facility] (Lab): [address], [place] 02/18/2022 Troponin I, BLOOD CRITICAL Troponin 17 pg/mL 0-12 F inal Herman Serum or HIGH I Qnt pg/mL [facility] (Lab): [address], [place] 02/18/2022 TSH, Serum BLOOD ? Tsh 1.58 mIU/L 0.45-5. Carolina l Herman or Plasma 33 Irons mIU/L [facility] (Lab): [address], [place] 02/13/2022 CBC W/ Auto BLOOD ? Wbc 5.30 4.60-10 Final Herman Diff x10^3/mcL .20 Irons x10^3/m [facility] c[facility] (Lab): [address], [place] ? ? BLOOD ? Rbc 4.36 4.04-5. Final Herman x10^6/mcL 48 Irons x10^6/m [facility] c[facility] (Lab): [address], [place] ? ? BLOOD ? Hgb 13.3 g/dL 12.6-16 Final Herman .2 g/dL [facility] (Lab): [address], [place] ? ? BLOOD ? Hct 39.2 % 35.9-47 Final Herman .9 % [facility] (Lab): [address], [place] ? ? BLOOD ? Mch 30.6 pg 25.4-34 Final Herman .6 pg [facility] (Lab): [address], [place] ? ? BLOOD ? Mchc 34.0 gm/dL 30.0-36 Final Herman .0 Irons gm/dL [facility] (Lab): [address], [place] ? ? BLOOD ? Mcv 89.9 fL 80.0-98 Final Herman .0 fL [facility] (Lab): [address], [place] ? ? BLOOD CRITICAL Plt Cnt 112 x10^3 142-424 Final Mo ses LOW cells/mcL x10^3 Irons cells/m [facility] (Lab): [address], [place] ? ? BLOOD ? Mpv 10.0 fL 6.7-11. Final Herman 3 fL [facility] (Lab): [address], [place] ? ? BLOOD High Rdw 16.8 % 11.6-14 Final Herman .8 % [facility] (Lab): [address], [place] 02/13/2022 Wbc Diff, BLOOD ? Neutroph 75.1 % 45.0-80 Final Herman Auto, Blood ils% Auto .0 % Ta [facility] (Lab): [address], [place] ? ? BLOOD Low Lymphocy 14.1 % 15.0-45 Final Herman eric% Auto .0 % [facility] (Lab): [address], [place] ? ? BLOOD ? Monocyte 5.6 % 0.0-12. Final Herman s% Auto 0 % [facility] (Lab): [address], [place] ? ? BLOOD ? Eosinoph 4.1 % 0.0-7.0 Final Herman ils% Auto % [facility] (Lab): [address], [place] ? ? BLOOD ? Basophil 1.1 % 0.0-2.6 Final Herman s% Auto % [facility] (Lab): [address], [place] ? ? BLOOD ? Neutroph 4.00 2.00-6. Final Herman ils# Auto x10^3/mcL 90 [facility] (Lab): [address], [place] ? ? BLOOD ? Lymphocy 0.80 0.60-3. Final Herman eric# Auto x10^3/mcL 40 [facility] or x10^3/m Hospital cL (Lab): [address], [place] ? ? BLOOD ? Monocyte 0.30 0.00-1. Final Herman s# Auto x10^3/mcL 22 [place]ons x10^3/m Hospital c[facility] (Lab): [address], [place] ? ? BLOOD ? Eos# 0.20 0.00-0. Final Herman Auto x10^3/mcL 70 [place]ons x10^3/m [facility] (Lab): [address], [place] ? ? BLOOD ? Basophil 0.10 0.00-0. Final Herman s# Auto x10^3/mcL 26 [place]ons x10^3/m [facility] c[facility] (Lab): [address], [place] 02/13/2022 Fecal Occult FECES ABNORMAL Occult positive negativ F inal Herman Blood, Stool Bld Card e Ta ylor [address] [place] [address] (Lab): [address], [place] ? ? FECES ? Dev Lot [id number] ? Final Herman Number [facility] (Lab): [address], [place] ? ? FECES ? Dev Exp [id number] ? Final Herman [facility] (Lab): [address], [place] 02/13/2022 PT BLOOD High Thrombop 32.2 23.9-30 Final Mo ses (Prothrombin lastin second(s) .7 T aylor Time) Mixing Time second( Hos pital Study Partial s) (Lab): [address], [place] 02/13/2022 PT/INR BLOOD High Pt 24.4 9.5-12. Final Herman second(s) 1 Irons second( Hospital s) (Lab): [address], [place] ? ? BLOOD High Inr 2.40 0.86-1. Final Herman 15 [facility] (Lab): [address], [place] 02/13/2022 Lipase, BLOOD ? Lipase 45 unit/L 11-82 Final M oses Serum or unit/L [facility] (Lab): [address], [place] 02/13/2022 Troponin I, BLOOD ? Troponin 12 pg/mL 0-12 Fin al [facility] Serum or I Qnt pg/mL [facility] (Lab): [address], [place] 02/13/2022 CMP, Serum BLOOD ? Sodium 136 mmol/L 136-145 Fin al [facility] or Plasma mmol/L [facility] (Lab): [address], [place] ? ? BLOOD ? Potassiu 4.3 mmol/L 3.5-5.1 Final Mo ses m mmol/L [facility] (Lab): [address], [place] ? ? BLOOD ? Chloride 101 mmol/L 98-107 Final Mos es mmol/L [facility] (Lab): [address], [place] ? ? BLOOD ? Carbon 27 mmol/L 21-31 Final Herman Dioxide mmol/L [facility] (Lab): [address], [place] ? ? BLOOD ? Bun 18 mg/dL 7-25 Final Ehrman mg/dL [facility] (Lab): [address], [place] ? ? BLOOD ? Creatini 0.8 mg/dL 0.6-1.3 Final Mos es ne mg/dL [facility] (Lab): [address], [place] ? ? BLOOD ? eGFR Non >60 ? [facility] [address], [place] ? ? BLOOD ? eGFR >60 ? Final [facility] (Lab): [address], [place] ? ? BLOOD High Glucose 128 mg/dL 65-110 Final Herman mg/dL [facility] (Lab): [address], [place] ? ? BLOOD ? Calcium 9.7 mg/dL 8.6-10. Final Dillan s 3 mg/dL [facility] (Lab): [address], [place] ? ? BLOOD ? Prot 6.9 g/dL 6.4-8.9 Final Herman Total g/dL [facility] (Lab): [address], [place] ? ? BLOOD ? Albumin 4.5 g/dL 3.5-5.7 Final Herman g/dL [facility] (Lab): [address], [place] ? ? BLOOD High Bili 1.5 mg/dL 0.3-1.0 Final Herman Total mg/dL [facility] (Lab): [address], [place] ? ? BLOOD High Ast 41 unit/L 13-39 Final Herman unit/L [facility] (Lab): [address], [place] ? ? BLOOD ? Alt 17 unit/L 7-52 Final Herman unit/L [facility] (Lab): [address], [place] ? ? BLOOD ? Alkaline 68 unit/L 34-104 Final Dillan s Phosphata unit/L [facility] (Lab): [address], [place] ? ? BLOOD ? Ca 9.3 mg/dL 8.6-10. Final Herman Corrected 3 mg/dL [facility] (Lab): [address], [place] ? ? BLOOD ? Anion 12.3 7.0-16. Final Herman [place] mmol/L 0 Irons mmol/L [facility] (Lab): [address], [place] 02/13/2022 Leukocyte URINE ? Ur void ? Final Mos es Esterase, Collectio Tayl or QL, Urine n Source [facility] [address], [place] ? ? URINE ? Ur Color yellow yellow Final [facility] (Lab): [address], [place] ? ? URINE ? Ur clear clear Final Herman [facility] (Lab): [address], [place] ? ? URINE ? Ur negative negativ Final [facility] Glucose e [facility] (Lab): [address], [place] ? ? URINE ? Ur Bili negative negativ [facility] [address], [place] ? ? URINE ? Ur negative negativ Final [facility] Ketone [facility] (Lab): [address], [place] ? ? URINE ? Ur 1.014 1.001-1 Final Herman Specific .030 [facility] (Lab): [address], [place] ? ? URINE ? Ur Blood negative negativ Final [facility] (Lab): [address], [place] ? ? URINE ? Ur pH 6.0 4.5-8.0 Final [facility] (Lab): [address], [place] ? ? URINE ? Ur negative negativ Final [facility] Protein [facility] (Lab): [address], [place] ? ? URINE ABNORMAL Ur 4.0 mg/dL normal Final [facility] Urobilino mg/dL [facility] (Lab): [address], [place] ? ? URINE ? Ur negative negativ Final [facility] Nitrite [facility] (Lab): [address], [place] ? ? URINE ? Ur negative negativ Final [facility] Leukocyte [facility] (Lab): [address], [place] ? ? URINE ? Ur WBC 0-4 /hpf 0-4 Final [facility] /hpf [facility] (Lab): [address], [place] ? ? URINE ? Ur RBC 0-2 /hpf 0-2 Final Herman /[facility] (Lab): [address], [place] ? ? URINE ABNORMAL Ur rare /hpf none Final [facility] Epithelia /hpf [facility] (Lab): [address], [place] ? ? URINE ? Ur rare /hpf none Final [facility] Bacteria /hpf [facility] (Lab): [address], [place] ? ? URINE ABNORMAL Ur Mucus trace /lpf none Final M oses seen [facility] (Lab): [address], [place] 02/13/2022 Culture, U ? Urine ? ? Final [facility] Urine CLEANC Culture [facility] (Lab): [address], [place] 02/10/2022 Leukocyte URINE ? Ur void ? Final Reg ional Esterase, Collectio Hosp ital QL, Urine n Source [facility] [place] (Lab): [address], [place] ? ? URINE ? Ur Color yellow ? Final [facility] [place] (Lab): [address], [place] ? ? URINE ? Ur slightly clear Final [facility] [place] (Lab): [address], [place] ? ? URINE ? Ur negative negativ Final Regiona l Glucose mg/dL e mg/dL [facility] [place] (Lab): [address], [place] ? ? URINE ? Ur Bili negative negativ Final Regio nal mg/dL e mg/dL [facility] [place] (Lab): [address], [place] ? ? URINE ? Ur negative negativ Final Regiona l Ketone mg/dL e mg/dL [facility] [place] (Lab): [address], [place] ? ? URINE ? Ur 1.013 1.005-1 Final Regional Specific .030 [facility] [place] (Lab): [address], [place] ? ? URINE ? Ur Blood negative negativ Final Abril onal mg/dL e mg/dL [facility] [place] (Lab): [address], [place] ? ? URINE ? Ur pH 5.0 5.0-8.0 Final [facility] (Lab): [address], [place] ? ? URINE ? Ur negative negativ Final Regiona l Protein mg/dL e mg/dL [facility] [place] (Lab): [address], [place] ? ? URINE ? Ur normal normal Final Regional Urobilino mg/dL mg/dL Hospita l gen [facility] [place] (Lab): [address], [place] ? ? URINE ? Ur negative negativ Final Regiona l Nitrite e [facility] [place] (Lab): [address], [place] ? ? URINE ABNORMAL Ur large negativ Final Regiona l Leukocyte e Hospita l Esterase [facility] [place] (Lab): [address], [place] ? ? URINE High Ur WBC 33 /hpf 0-4 Final Regional /[facility] [place] (Lab): [address], [place] ? ? URINE ? Ur RBC 1 /hpf 0-5 Final [facility] [place] (Lab): [address], [place] ? ? URINE ? Ur 5 /lpf 0-5 Final Regional Epithelia /lpf Hospita l l Cells [place] (Lab): [address], [place] ? ? URINE ? Ur few /hpf negativ Final Regiona l Bacteria e /hpf [facility] (Lab): [address], [place] ? ? URINE ABNORMAL Ur Mucus rare /lpf negativ Final R egional e /lpf [facility] (Lab): [address], [place] ? ? URINE ABNORMAL Urine rare negativ Final Regiona l Amorphous e Hospita l [facility] [place] (Lab): [address] [place] 02/09/2022 CBC W/ Auto BLOOD ? Wbc 5.20 4.80-10 Final Regional Diff x10^3/mcL .80 Hospita l x10^3/m [place] (Lab): [address], [place] ? ? BLOOD ? Rbc 4.43 4.20-5. Final Regional x10^6/mcL 40 Hospita l x10^6/m [place] (Lab): [address], [place] ? ? BLOOD ? Hgb 13.2 g/dL 12.0-16 Final Region al .0 g/dL [facility] (Lab): [address], [place] ? ? BLOOD ? Hct 40.8 % 37.0-47 Final Regional .0 % [facility] (Lab): [address], [place] ? ? BLOOD ? Mch 29.8 pg 26.0-34 Final Regional .0 pg [facility] (Lab): [address], [place] ? ? BLOOD ? Mchc 32.3 g/dL 32.0-36 Final Region al .0 g/dL [facility] (Lab): [address], [place] ? ? BLOOD ? Mcv 92.2 fL 81.0-99 Final Regional .0 fL [facility] (Lab): [address], [place] ? ? BLOOD Low Plt Cnt 104.0 130.0-4 Final Regiona l x10^3/mcL 00.0 Hospita l x10^3/m [place] (Lab): [address], [place] ? ? BLOOD ? Mpv 10.2 fL 7.3-11. Final Regional 9 [facility]L [facility] [address], [place] ? ? BLOOD High Rdw 17.3 % 11.5-15 Final Regional .5 % [facility] [place] (Lab): [address] [place] 02/09/2022 Wbc Diff, BLOOD High Neutroph 78.1 % 42.2-75 Final Regional Auto, Blood ils% Auto .2 % Ho spital [place] (Lab): [address], [place] ? ? BLOOD Low Lymphocy 12.5 % 15.0-41 Final Region al eric% Auto .0 % Hospita l [facility] [place] (Lab): [address], [place] ? ? BLOOD ? Monocyte 7.1 % 0.0-13. Final Region al s% Auto 0 % [facility] [place] (Lab): [address], [place] ? ? BLOOD ? Eosinoph 1.4 % 0.0-10. Final Region al ils% Auto 0 % Hospita l [place] (Lab): [address], [place] ? ? BLOOD ? Basophil 0.9 % 0.0-2.0 Final Region al s% Auto % [facility] [place] (Lab): [address], [place] ? ? BLOOD ? Neutroph 4.00 1.40-6. Final Region al ils# Auto x10^3/mcL 50 Hosp ital x10^3/m Of cL [place] (Lab): [address], [place] ? ? BLOOD Low Lymphocy 0.60 1.00-3. Final Region al eric# Auto x10^3/mcL 00 Hosp ital x10^3/m Of cL [place] (Lab): [address], [place] ? ? BLOOD ? Monocyte 0.40 0.00-1. Final Region al s# Auto x10^3/mcL 00 Hospit al x10^3/m Of cL [place] (Lab): [address], [place] ? ? BLOOD ? Eos# 0.10 0.00-0. Final Regional Auto x10^3/mcL 70 Hospita l x10^3/m Of cL [place] (Lab): [address], [place] ? ? BLOOD ? Basophil 0.00 0.00-0. Final Region al s# Auto x10^3/mcL 10 Hospit al x10^3/m Of cL [place] (Lab): [address] [place] 02/09/2022 Lactic Acid, BLOOD ? Lactic 1.0 mmol/L 0.5-2.2 F inal Regional Blood Acid mmol/L [facility] (Lab): [address] [place] 02/09/2022 Magnesium, BLOOD ? Magnesiu 1.9 mg/dL 1.9-2.7 Fi nal Regional Serum or m mg/dL [facility] [address] [place] 02/09/2022 CMP, Serum BLOOD ? Sodium 143 mmol/L 136-145 Fin al Regional or Plasma mmol/L Hospita l [facility] [place] (Lab): [address], [place] ? ? BLOOD Low Potassiu 3.6 mmol/L 3.8-5.1 Final Re gional m mmol/L [facility] (Lab): [address] [place] ? ? BLOOD ? Chloride 105 mmol/L 98-107 Final Reg ional mmol/L [facility] (Lab): [address] [place] ? ? BLOOD ? Carbon 28 mmol/L 21-31 Final Region al Dioxide mmol/L [facility] (Lab): [address], [place] ? ? BLOOD ? Bun 22 mg/dL 7-25 Final Regional mg/dL [facility] (Lab): [address], [place] ? ? BLOOD ? Creatini 0.9 mg/dL 0.6-1.2 Final Reg ional ne mg/dL [facility] (Lab): [address], [place] ? ? BLOOD ? eGFR Non 60 ? Final [facility] (Lab): [address], [place] ? ? BLOOD ? eGFR >60 ? Final [facility] (Lab): [address], [place] ? ? BLOOD High Glucose 154 mg/dL 70-105 Final Regio nal mg/dL [facility] (Lab): [address], [place] ? ? BLOOD ? Calcium 10.3 mg/dL 8.6-10. Final Reg ional 3 mg/dL [facility] (Lab): [address], [place] ? ? BLOOD ? Prot 7.1 g/dL 6.4-8.9 Final Regiona l Total g/dL [facility] (Lab): [address], [place] ? ? BLOOD ? Albumin 4.4 g/dL 3.5-5.7 Final Regio nal g/dL [facility] (Lab): [address], [place] ? ? BLOOD High Bili 1.10 mg/dL 0.30-1. Final Regio nal Total 00 [facility] [address], [place] ? ? BLOOD ? Ast 21 unit/L 13-39 Final Regiona l unit/L [facility] (Lab): [address], [place] ? ? BLOOD ? Alt 14 unit/L 7-52 Final Regiona l unit/L [facility] (Lab): [address], [place] ? ? BLOOD ? Alkaline 63 unit/L 34-104 Final Abril onal Phosphata unit/L Hospita l [facility] (Lab): [address], [place] ? ? BLOOD ? Globulin 2.7 g/dL 2.4-3.5 Final Abril onal g/dL [facility] (Lab): [address], [place] ? ? BLOOD ? Albumin/ 1.6 g/dL 1.1-2.2 Final Abril onal globulin g/dL Hospital Ratio [place] (Lab): [address], [place] ? ? BLOOD ? Ca 10.0 mg/dL 8.8-10. Final Regio nal Corrected 2 mg/dL Hospit [facility] (Lab): [address], [place] ? ? BLOOD ? BUN/crea 24.4 mg/dL 6.7-40. Final Re gional Ratio 0 mg/dL [facility] (Lab): [address], [place] ? ? BLOOD ? Anion 13.6 7.0-16. Final Regional Gap mmol/L 0 Hospital mmol/L [facility] [place] (Lab): [address] [place] 02/09/2022 Troponin I, BLOOD CRITICAL Troponin 17 pg/mL 0-14 F inal Regional Serum or HIGH I Qnt pg/mL Hospital Plasma [facility] [place] (Lab): [address] [place] 02/09/2022 BNP (B-type BLOOD High B Type 147.0 0.0-100 Final Regional Natriuretic Natriuret pg/mL .0 Ho spital Peptide), ic pg/mL Of Blood Peptide [place] (Lab): [address] [place] 02/09/2022 Rapid SARS NASAL ? First yes ? Final Re gional CoV 2 Ag, QL SWAB Test? Hosp ital [place], Of Respiratory Scran ton Specimen (Lab): [address], [place] ? ? NASAL ? Employed no ? Final Regiona l SWAB in Hospital [facility] Of e? [place] (Lab): [address], [place] ? ? NASAL ? Symptoma no ? Final Regiona l SWAB tic as Hospital Defined Of by Cdc? [place] (Lab): [address], [place] ? ? NASAL ? Date of n/a ? Final Regional SWAB Symptom Hospital Onset? [place] (Lab): [address], [place] ? ? NASAL ? Hospital unknown ? Final Region al SWAB ized? [facility] [place] (Lab): [address], [place] ? ? NASAL ? Icu? no ? Final Regional SWAB [facility] [place] (Lab): [address], [place] ? ? NASAL ? Resident no ? Final Regiona l SWAB in Hospital Congregat Of e Care? [place] (Lab): [address], [place] ? ? NASAL ? no ? Final Regiona l SWAB ?. [facility] [place] (Lab): [address], [place] ? ? NASAL ? [id number] negative negativ Final Abril onal SWAB [facility] [address], [place] 02/09/2022 Troponin I, BLOOD CRITICAL Troponin 21 pg/mL 0-14 F [facility] Regional Serum or HIGH I Qnt pg/mL Hospital Plasma [facility] [place] (Lab): [address], [place] 02/04/2022 PT Panel, Alert Inr 2.3 0.9-1.2 Final [facility]: Coagulation, High [address] , Poor Plasma [place] ? ? Alert Prothrom 23.4 sec 9.1-12. Final Labc orp: High bin Time 0 sec [address], [place] 01/29/2022 PT Panel, Alert Inr 3.4 0.9-1.2 Final [facility]: Coagulation, High [address] , Poor Plasma [place] ? ? Alert Prothrom 34.7 sec 9.1-12. Final Labc orp: High bin Time 0 sec [address], [place] 01/12/2022 PT Panel, Alert Inr 2.9 0.9-1.2 Final [facility]: Coagulation, High [address] , Poor Plasma [place] ? ? Alert Prothrom 29.5 sec 9.1-12. Final Labc orp: High bin Time 0 sec [address], [place] 12/28/2021 PT Panel, Alert Inr 2.2 0.9-1.2 Final [facility]: Coagulation, High [address] , Poor Plasma [place] ? ? Alert Prothrom 23.0 sec 9.1-12. Final Labc orp: High bin Time 0 sec [address], [place] 12/21/2021 PT Panel, Alert Inr 1.7 0.9-1.2 Final [facility]: Coagulation, High [address] , Poor Plasma [place] ? ? Alert Prothrom 17.7 sec 9.1-12. Final Labc orp: High bin Time 0 sec [address], [place] 12/18/2021 PT/INR ? Prothrom 29.3 ? ? bin Time 12/18/2021 INR, Plasma ? Inr 2.9 ? ? 12/17/2021 PT Panel, Alert Inr 2.9 0.9-1.2 Final [facility]: Coagulation, High [address] , Poor Plasma [place] ? ? Alert Prothrom 29.3 sec 9.1-12. Final Labc orp: High bin Time 0 sec [address], [place] 12/16/2021 PT/INR ? Prothrom 47.1 ? ? bin Time 12/16/2021 INR, Plasma ? Inr 4.7 ? ? 12/15/2021 PT Panel, Alert Inr 4.7 0.9-1.2 Final [facility]: Coagulation, High [address] , Poor Plasma [place] ? ? Alert Prothrom 47.1 sec 9.1-12. Final Labc orp: High bin Time 0 sec [address], [place] 12/01/2021 PT/INR Alert Inr 3.07 ? Final [facility] (Lab[facility] [address] [facility] ? ? Alert Prothrom 31.4 sec 10.1-11 Final [facility] High bin Time [address] [place] [address] (Lab): [address] [facility] 12/01/2021 PT/INR ? Prothrom 31.4 ? ? bin Time 12/01/2021 INR, Plasma ? Inr 3.07 ? ? 12/01/2021 PT/INR ? No ? ? ? observati on recorded. 11/25/2021 PT/INR Alert Inr 1.56 ? Final [facility] (Lab): [address] [facility] ? ? Alert Prothrom 16.5 sec 10.1-11 Final [facility] High bin Time [address] [place] [address] (Lab): [address] [facility] 11/25/2021 PT/INR ? Prothrom 16.5 ? ? bin Time 11/25/2021 INR, Plasma ? Inr 1.56 ? ? 11/17/2021 PT/INR Alert Inr 1.52 ? Final [facility] (Lab): [address] [facility] ? ? Alert Prothrom 16.1 sec 10.1-11 Final [facility] bin Time .[address] [place] [address] (Lab): [address] [facility] 11/17/2021 PT/INR ? Prothrom 16.1 ? ? bin Time 11/17/2021 INR, Plasma ? Inr 1.52 ? ? 10/26/2021 PT/INR Alert Inr 2.27 ? Final [facility] (Lab): [address] ? ? Alert Prothrom 23.6 sec 10.1-11 Final [facility] bin Time .9 [facility] (Lab): [address] 10/20/2021 PT/INR Alert Inr 1.72 ? Final [facility] (Lab): [address] ? ? Alert Prothrom 18.1 sec 10.-11 Final [facility] bin Time [address] [place] [address] (Lab): [address] 10/20/2021 INR, Blood ? No ? ? ? observati on recorded. 10/20/2021 PT/INR ? Prothrom 18.1 ? ? bin Time 10/20/2021 INR, Plasma ? Inr 1.72 ? ? 10/15/2021 PT/INR Alert Inr 1.63 ? Final [facility] (Lab): [address] ? ? Alert Prothrom 17.2 sec 10.-11 Final [facility] bin Time .9 [facility] (Lab): [address] 10/01/2021 PT/INR ? Prothrom 18.1 ? ? bin Time 10/01/2021 INR, Plasma ? Inr 1.72 ? ? 09/30/2021 PT/INR Alert Inr 1.72 ? Final [facility] (Lab): [address] ? ? Alert Prothrom 18.1 sec 10.-11 Final [facility] bin Time .9 [facility] (Lab): [address] 08/26/2021 PT/INR ? [...] Pt 38.0 12.6-14 Final Kamlesh second(s) .4 [facility]( General s) Hospital: [address] [place] [address] ? ? BLOOD High Inr 3.88 0.90-1. Final [address]: [address] [place] [address] 07/22/2021 PT/INR BLOOD High Pt 30.1 12.6-14 Final Kamlesh second(s) .4 [facility]( General s) Hospital: [address] [place] [address] ? ? BLOOD High Inr 2.86 0.90-1. Final [address]: [address] [place] [address] 07/22/2021 BMP, Serum BLOOD ? Sodium 140 mmol/L 136-145 Fin al Ron or Plasma mmol/L [facility]: [address] [place] [address] ? ? BLOOD ? Potassiu 3.8 mmol/L 3.5-5.1 Final Wi lkes m mmol/L [facility]: [address] [place] [address] ? ? BLOOD ? Chloride 100 mmol/L 98-107 Final Gerry kes mmol/L [facility]: [address] [place] [address] ? ? BLOOD High Carbon 33 mmol/L 21-31 Final [facility] Dioxide mmol/L [facility]: [address] [place] [address] ? ? BLOOD ? Bun 13 mg/dL 7-25 Final [facility] mg/dL [facility]: [address] [place] [address] ? ? BLOOD ? Creatini 0.79 mg/dL 0.60-1. Final Wi lkes ne 30 [place] mg/dL [facility]: [address] [place] [address] ? ? BLOOD ? Glucose 81 mg/dL 65-99 Final [facility] mg/dL [facility]: [address] [place] [address] ? ? BLOOD Low Calcium 8.5 mg/dL 8.6-10. Final Rosa M es 3 mg/dL [facility]: [address] [place] [address] ? ? BLOOD ? eGFR Non 71 ? Final [facility]: [address] [place] [address] ? ? BLOOD ? eGFR 83 ? Final [facility]: [address] [place] [address] ? ? BLOOD ? Anion 7 mmol/L 3-11 Final [facility] Gap mmol/L [facility]: [address] [place] [address] 07/17/2021 PT/INR BLOOD High Pt 23.9 12.6-14 Final Kamlesh s second(s) .4 [place] second( General s) Hospital: [address] [place] [address] ? ? BLOOD High Inr 2.11 0.90-1. Final [facility] 11 [facility]: [address] [place] [address] 07/17/2021 Ferritin, BLOOD ? Ferritin 152.0 11.0-30 Final [facility] Quant, Blood NG/mL 7.0 De Anda e NG/mL [facility] Hospital: [address] [place] [address] 07/17/2021 BMP, Serum BLOOD Low Sodium 135 mmol/L 136-145 Fin al Ron or Plasma mmol/L [facility]: [address] [place] [address] ? ? BLOOD Low Potassiu 3.0 mmol/L 3.5-5.1 Final Wi lkes m mmol/L [facility]: [address] [place] [address] ? ? BLOOD Low Chloride 97 mmol/L 98-107 Final Rosa M es mmol/L [facility]: [address] [place] [address] ? ? BLOOD ? Carbon 31 mmol/L 21-31 Final Ron Dioxide mmol/L [facility]: [address] [place] [address] ? ? BLOOD ? Bun 21 mg/dL 7-25 Final Ron mg/dL [facility]: [address] [place] [address] ? ? BLOOD ? Creatini 0.87 mg/dL 0.60-1. Final Wi lkes ne 30 [place] mg/dL [facility] Hospital: [address] [place] [address] ? ? BLOOD ? Glucose 84 mg/dL 65-99 Final Ron mg/dL [facility]: [address] [place] [address] ? ? BLOOD Low Calcium 8.0 mg/dL 8.6-10. Final Rosa M es 3 mg/dL [facility]: [address] [place] [address] ? ? BLOOD ? eGFR Non 63 ? Final [facility]: [address] [place] [address] ? ? BLOOD ? eGFR 73 ? Final [facility]: [address] [place] [address] ? ? BLOOD ? Anion 8 mmol/L 3-11 Final Ron Gap mmol/L [facility] Hospital: [address] [place] [address] 07/17/2021 Iron + Total BLOOD Low Iron 16 mcg/dL 50-212 Carolina hanna Velasquez Iron-binding mcg/dL [facility] Hospital: Serum [address] [place] [address] ? ? BLOOD Low Iron 8 % 20-55 % Final Ron [facility] [place] [facility] Hospital: [address] [place] [address] ? ? BLOOD ? Ibc 182 mcg/dL 155-355 Final Kamlesh s Unbound mcg/dL [facility] Hospital: [address] [place] [address] ? ? BLOOD Low Ibc 198 mcg/dL 262-474 Final Kamlesh s Total mcg/dL [facility]: [address] [place] [address] 07/13/2021 Cbc BLOOD ? Wbc 5.4 4.5-11. Final Kamlesh s x10^3/mcL 0 [place] x10^3/m [facility] Hospital: [address] [place] [address] ? ? BLOOD ? WBC Cnt 5.4 4.5-11. Final Ron x10^3/mcL 0 [place] x10^3/[facility] Hospital: [address] [place] [address] ? ? BLOOD Low Rbc 2.63 3.79-5. Final Ron x10^6/mcL 23 [place] x10^6/m [facility] Hospital: [address] [place] [address] ? ? BLOOD Low Hgb 7.9 g/dL 11.7-15 Final Ron .7 g/dL [facility] Hospital: [address] [place] [address] ? ? BLOOD Low Hct 24.2 % 34.9-46 Final [facility] .9 % [facility] Hospital: [address] [place] [address] ? ? BLOOD ? Mch 30.1 pg 26.6-33 Final [facility] .8 pg [facility]: [address] [place] [address] ? ? BLOOD ? Mchc 32.8 g/dL 31.5-35 Final Ron .9 g/dL [facility]: [address] [place] [address] ? ? BLOOD ? Mcv 91.7 fL 80.5-99 Final [facility] .7 fL [facility] Hospital: [address] [place] [address] ? ? BLOOD ? Plt Cnt 195 150-400 Final Ron x10^3/mcL x10^3/m [facility] Hospital: [address] [place] [address] ? ? BLOOD ? Mpv 9.9 fL 8.0-13. Final [facility] 0 fL [facility] Hospital: [address] [place] [address] ? ? BLOOD High Rdw 17.6 % 11.0-16 Final Ron .0 % [facility] Hospital: [address] [place] [address] ? ? BLOOD ? Conditio present ? Final [facility] Hospital: [address] [place] [address] 07/13/2021 PT/INR BLOOD High Pt 27.1 12.6-14 Final Kamlesh s second(s) .4 [place] second( General s) Hospital: [address] [place] [address] ? ? BLOOD High Inr 2.49 0.90-1. Final [address]: [address] [place] [address] 07/10/2021 Cbc BLOOD ? Wbc 5.4 4.5-11. Final Kamlesh s x10^3/mcL 0 [place] x10^3/m [facility] Hospital: [address] [place] [address] ? ? BLOOD ? WBC Cnt 5.4 4.5-11. Final [facility] x10^3/mcL 0 [place] x10^3/m [facility] Hospital: [address] [place] [address] ? ? BLOOD Low Rbc 2.74 3.79-5. Final [facility] x10^6/mcL 23 [place] x10^6/m [facility] Hospital: [address] [place] [address] ? ? BLOOD Low Hgb 8.2 g/dL 11.7-15 Final Ron .7 g/dL [facility] Hospital: [address] [place] [address] ? ? BLOOD Low Hct 24.9 % 34.9-46 Final [facility] .9 % [facility]: [address] [place] [address] ? ? BLOOD ? Mch 29.9 pg 26.6-33 Final Ron .8 pg [facility]: [address] [place] [address] ? ? BLOOD ? Mchc 32.9 g/dL 31.5-35 Final [facility] .9 g/dL [facility] Hospital: [address] [place] [address] ? ? BLOOD ? Mcv 90.9 fL 80.5-99 Final Ron .7 fL [facility]: [address] [place] [address] ? ? BLOOD ? Plt Cnt 214 150-400 Final Ron x10^3/mcL x10^3/m [place] [facility]: [address] [place] [address] ? ? BLOOD ? Mpv 9.6 fL 8.0-13. Final Ron 0 fL [facility]: [address] [place] [address] ? ? BLOOD High Rdw 17.3 % 11.0-16 Final [facility] .0 % [facility]: [address] [place] [address] ? ? BLOOD ? Conditio present ? Final [facility]: [address] [place] [address] 07/10/2021 BMP, Serum BLOOD ? Sodium 138 mmol/L 136-145 Fin al Ron or Plasma mmol/L [facility]: [address] [place] [address] ? ? BLOOD ? Potassiu 4.3 mmol/L 3.5-5.1 Final Wi lkes m mmol/L [facility]: [address] [place] [address] ? ? BLOOD ? Chloride 106 mmol/L 98-107 Final Gerry kes mmol/L [facility]: [address] [place] [address] ? ? BLOOD ? Carbon 28 mmol/L 21-31 Final [facility] Dioxide mmol/L [facility]: [address] [place] [address] ? ? BLOOD ? Bun 14 mg/dL 7-25 Final [facility] mg/dL [facility]: [address] [place] [address] ? ? BLOOD ? Creatini 0.87 mg/dL 0.60-1. Final Wi lkes ne 30 [place] mg/dL [facility] Hospital: [address] [place] [address] ? ? BLOOD ? Glucose 86 mg/dL 65-99 Final Ron mg/dL [facility]: [address] [place] [address] ? ? BLOOD ? Calcium 8.6 mg/dL 8.6-10. Final Rosa M es 3 mg/dL [facility]: [address] [place] [address] ? ? BLOOD ? eGFR Non 63 ? Final [facility]: [address] [place] [address] ? ? BLOOD ? eGFR 73 ? Final [facility]: [address] [place] [address] ? ? BLOOD ? Anion 4 mmol/L 3-11 Final [facility] [place] mmol/L [facility] Hospital: [address] [facility] 07/09/2021 PT/INR BLOOD High Pt 27.6 12.6-14 Final Kamlesh s second(s) .4 [place] second( General s) Hospital: [address] [facility] ? ? BLOOD High Inr 2.55 0.90-1. Final [facility] Hospital: [address] [facility] 06/27/2021 PT BLOOD ? Thrombop 29.1 22.6-29 Final Re gional (Prothrombin lastin second(s) .2 H ospital Time) Mixing Time second( Of Study Partial s) [place] (Lab): [address] 06/27/2021 PT/INR BLOOD High Pt 22.1 9.4-11. Final Regio nal second(s) 6 Hospita l second( Of s) [place] (Lab): [address] ? ? BLOOD High Inr 2.18 0.89-1. Final [address] (Lab): [address] 06/27/2021 CMP, Serum BLOOD ? Sodium 142 mmol/L 136-145 Fin al Regional or Plasma mmol/L [facility] (Lab): [address] [place] ? ? BLOOD Low Potassiu 3.0 mmol/L 3.8-5.1 Final Re gional m mmol/L [facility] (Lab): [address] [place] ? ? BLOOD ? Chloride 103 mmol/L 98-107 Final Reg ional mmol/L [facility] (Lab): [address] [place] ? ? BLOOD ? Carbon 31 mmol/L 21-31 Final Region al Dioxide mmol/L [facility] (Lab): [address] [place] ? ? BLOOD ? Bun 13 mg/dL 7-25 Final [facility] mg/dL [facility] (Lab): [address] [place] ? ? BLOOD ? Creatini 1.1 mg/dL 0.6-1.2 Final Reg ional ne mg/dL [facility] (Lab): [address] [place] ? ? BLOOD ? eGFR Non 48 ? Final Regiona l [facility] (Lab): [address] [place] ? ? BLOOD ? eGFR 55 ? Final [facility] (Lab): [address] [place] ? ? BLOOD High Glucose 107 mg/dL 70-105 Final Regio nal mg/dL [facility] (Lab): [address] [place] ? ? BLOOD ? Calcium 9.5 mg/dL 8.6-10. Final Abril onal 3 mg/dL [facility] (Lab): [address] [place] ? ? BLOOD Low Prot 6.2 g/dL 6.4-8.9 Final Regiona l Total g/dL [facility] (Lab): [address] [place] ? ? BLOOD ? Albumin 4.3 g/dL 3.5-5.7 Final Regio nal g/dL [facility] (Lab): [address] [place] ? ? BLOOD High Bili 1.4 mg/dL 0.3-1.0 Final Region al Total mg/dL [facility] (Lab): [address] [place] ? ? BLOOD ? Ast 22 unit/L 13-39 Final Regiona l unit/L [facility] (Lab): [address] [place] ? ? BLOOD ? Alt 14 unit/L 7-52 Final Regiona l unit/L [facility] (Lab): [address] [place] ? ? BLOOD ? Alkaline 55 unit/L 34-104 Final Abril [facility]al Phosphata unit/[facility] [address] [place] ? ? BLOOD Low Globulin 1.9 g/dL 2.4-3.5 Final Abril onal g/dL [facility] (Lab): [address] [place] ? ? BLOOD High Albumin/ 2.3 g/dL 1.1-2.2 Final Abril onal globulin g/dL [facility] (Lab): [address] ? ? BLOOD ? Ca 9.3 mg/dL 8.8-10. Final Region al Corrected 2 mg/dL Hospit al [place] (Lab): [address] ? ? BLOOD ? BUN/crea 11.8 mg/dL 6.7-40. Final Re gional Ratio 0 mg/dL [facility] (Lab): [address] ? ? BLOOD ? Anion 11.0 7.0-16. Final Regional [place] mmol/L 0 Hospital mmol/L [place] (Lab): [address] 06/27/2021 Pathology BLOOD ? Smear yes ? Final Reg ional Review, Review Hospital Smear Performed Of ? [facility] (Lab): [address] ? ? BLOOD ? Action? RBC ? Final Regional morphology Hospit al [facility] (Lab): [address] 06/27/2021 RBC BLOOD ABNORMAL Anisocyt slight ? Final R egional Morphology, osis Hospi tommy Blood [facility] [place] (Lab): [address] ? ? BLOOD ABNORMAL [place] moderate ? Final Reg ional ytosis [facility] (Lab): [address] ? ? BLOOD ABNORMAL Ovalocyt few ? Final Regio nal es [facility] (Lab): [address] ? ? BLOOD ABNORMAL Schistoc few ? [facility] [address] ? ? BLOOD ? Plt decreased ? Final Regiona l Estimate [facility] (Lab): [address] 06/27/2021 CBC W/ Auto BLOOD ? Wbc 5.60 4.80-10 Final Regional Diff x10^3/mcL .80 Hospita l x10^3/m Of cL [place] (Lab): [address] ? ? BLOOD Low Rbc 4.17 4.20-5. Final Regional x10^6/mcL 40 Hospita l x10^6/m Of cL [facility] (Lab): [address] ? ? BLOOD ? Hgb 12.9 g/dL 12.0-16 Final Region al .0 g/dL [facility] (Lab): [address] ? ? BLOOD ? Hct 37.3 % 37.0-47 Final Regional .0 % [facility] (Lab): [address] [place] ? ? BLOOD ? Mch 30.8 pg 26.0-34 Final Regional .0 pg [facility] (Lab): [address] [place] ? ? BLOOD ? Mchc 34.5 g/dL 32.0-36 Final Region al .0 g/dL [facility] (Lab): [address] [place] ? ? BLOOD ? Mcv 89.4 fL 81.0-99 Final Regional .0 fL [facility] (Lab): [address] [place] ? ? BLOOD Low Plt Cnt 88.0 130.0-4 Final Regiona l x10^3/mcL 00.0 Hospita l x10^3/m Of [facility] (Lab): [address] [place] ? ? BLOOD ? Mpv 10.8 fL 7.3-11. Final Regional 9 fL [facility] (Lab): [address] ? ? BLOOD High Rdw 16.1 % 11.5-15 Final Regional .5 % [facility] (Lab): [address] ? ? BLOOD ? Smear yes ? Final Regional Review? [facility] (Lab): [address] 06/27/2021 Wbc Diff, BLOOD ? Neutroph 67.1 % 42.2-75 Final Regional Auto, Blood ils% Auto .2 % Ho spital [facility] (Lab): [address] ? ? BLOOD ? Lymphocy 24.0 % 15.0-41 Final Region al eric% Auto .0 % Hospita l [facility] (Lab): [address] ? ? BLOOD ? Monocyte 6.1 % 0.0-13. Final Region al s% Auto 0 % [facility] (Lab): [address], [place] ? ? BLOOD ? Eosinoph 2.2 % 0.0-10. Final Region al ils% Auto 0 % Hospita l [facility] [place] (Lab): [address], [place] ? ? BLOOD ? Basophil 0.6 % 0.0-2.0 Final Region al s% Auto % [facility] (Lab): [address], [place] ? ? BLOOD ? Neutroph 3.70 1.40-6. Final Region al ils# Auto x10^3/mcL 50 Hosp ital x10^3/m Of cL [place] (Lab): [address], [place] ? ? BLOOD ? Lymphocy 1.30 1.00-3. [...] Of cL [facility] (Lab): [address], [place] ? ? BLOOD ? Basophil 0.00 0.00-0. Final Region al s# Auto x10^3/mcL 10 Hospit al x10^3/m Of cL [place] (Lab): [address], [place] 06/27/2021 Rapid SARS NASAL ? First unknown [...] by Cdc? [facility] (Lab): [address], [place] ? ? NASAL ? Date of n/a ? Final Regional SWAB Symptom Hospital Onset? [facility] [place] (Lab): [address] ? ? NASAL ? Hospital no ? Final Regiona l SWAB ized? [facility] (Lab): [address], [place] ? ? NASAL ? Icu? no ? Final Regional SWAB [facility] (Lab): [address], [place] ? ? NASAL ? Resident no ? Final Regiona l SWAB in Hospital Congregat Of e Care? [facility] (Lab): [address], [place] ? ? NASAL ? no ? Final Regiona l SWAB ?. [facility] (Lab): [address], [place] ? ? NASAL ? Wleht95R negative negativ Final Abril onal SWAB arsagfia e [facility] (Lab): [address] 06/27/2021 Abo Group + BLOOD ? ABORH A neg ? Final R egional Rh Type, Solid Hospital Blood Phase [place] (Lab): [address] 06/27/2021 Antibody BLOOD ? Antibody positive ? Final Regional Screen Solid Screen absc Hosp ital Phase Solid Of Phase [place] (Lab): [address] 06/27/2021 Direct BLOOD ? [...] ? Antigen C- ? Final Regional Typing [facility] (Lab): [address] 06/27/2021 RBC Count, BLOOD ? Product yes ? Final Regional Blood Ready RBC Hospita l [facility] [place] (Lab): [address] 06/23/2021 PT/INR ? Prothrom 22.4 ? ? bin Time 06/23/2021 INR, Plasma ? Inr 2.15 ? ? 06/22/2021 PT/INR Alert Inr 2.15 ? Final [facility] (Lab): [address] ? ? Alert Prothrom 22.4 sec 10.1-11 Final Wayn e High bin Time .9 sec [facility] (Lab): [address] 06/08/2021 PT/INR Alert Inr 2.12 ? Final [facility] (Lab): [address] ? ? Alert Prothrom 22.1 sec 10.1-11 Final Wayn e High bin Time .9 sec [facility] (Lab): [address] 06/04/2021 PT/INR Alert Inr 1.19 ? Final [facility] (Lab): [address] ? ? Alert Prothrom 12.6 sec 10.1-11 Final Wayn e High bin Time .[address] [facility] (Lab): [address] 06/04/2021 INR, Plasma ? Inr 1.19 ? ? 05/25/2021 PT/INR iStat ? No ? ? ? Berny observ[facility] recorded. (Outpat ien t Dept): [address] 05/25/2021 PT/INR Alert Inr 3.27 ? Final [facility] (Lab): [address] ? ? Alert Prothrom 33.9 sec 10.1-11 Final Wayn e High bin Time .[address] [facility] (Lab): [address] 05/25/2021 PT/INR ? Prothrom 33.9 ? ? bin Time 05/25/2021 INR, Plasma ? Inr 3.29 ? ? 04/23/2021 PT/INR Alert Inr 2.92 ? Final [facility] (Lab): [address] ? ? Alert Prothrom 30.3 sec 10.1-11 Final Wayn e High bin Time .[address] [facility] (Lab): [address] 04/09/2021 CMP, Serum ? Glucose 82 mg/dL 65-99 Final [facility] or Plasma mg/dL [facility]: [address], [place] ? ? ? Bun 15 mg/dL 8-27 Final [facility] mg/dL [facility]: [address], [place] ? ? ? Creatini 0.93 mg/dL 0.57-1. Final [facility] ne 00 [facility]: 69 mg/dL [address], [place] ? ? Below Low eGFR If 59 >59 Final [facility] Normal Nonafricn mL/min/1.7 mL/min/ PS C: [address] [place] ? ? ? eGFR If 68 >59 Final [facility] Africn AM mL/min/1.7 mL/min/ PS C: [address] [place] ? ? ? BUN/crea 16 12-28 Final [facility] tinine [facility]: [address], [place] ? ? ? Sodium 142 mmol/L 134-144 Final [facility] orp mmol/L [facility]: [address] [place] ? ? ? Potassiu 3.6 mmol/L 3.5-5.2 Final [facility] m mmol/L [facility]: [address], [place] ? ? ? Chloride 105 mmol/L 96-106 Final Lab zoila mmol/L [facility]: [address] [place] ? ? ? Carbon 25 mmol/L 20-29 Final [facility] p Dioxide, mmol/L [facility]: [address], [place] ? ? ? Calcium 9.2 mg/dL 8.7-10. Final [facility] orp 3 mg/dL [facility]: [address] [place] ? ? ? Protein, 6.3 g/dL 6.0-8.5 Final [facility] Total g/dL [facility]: [address], [place] ? ? ? Albumin 4.1 g/dL 3.7-4.7 Final [facility] g/dL [facility]: [address] [place] ? ? ? Globulin 2.2 g/dL 1.5-4.5 Final Lab[facility] orp , Total g/dL [facility]: [address], [place] ? ? ? A/g 1.9 1.2-2.2 Final [facility] Ratio [facility]: [address], [place] ? ? ? Bilirubi 0.9 mg/dL 0.0-1.2 Final Lab zoila n, Total mg/dL [facility]: [address] [place] ? ? ? Alkaline 66 IU/L 48-121 Final [facility] p Phosphata IU/L [facility]: [address], [place] ? ? ? Ast 23 IU/L 0-40 Final [facility] (Sgot) IU/L [facility]: [address] [place] ? ? ? Alt 16 IU/L 0-32 Final [facility] (Sgpt) IU/L [facility]: [address] [place] 04/09/2021 Lipid Panel, ? Choleste 160 mg/dL 100-199 Final [facility] Serum rol, mg/dL [facility]: [address] [place] ? ? ? Triglyce 64 mg/dL 0-149 Final [facility] rides mg/dL [facility]: [address] [place] ? ? ? HDL 95 mg/dL >39 Final [facility] Cholester mg/dL [facility]: [address] [place] ? ? ? VLDL 13 mg/dL 5-40 Final [facility] Cholester mg/dL [facility]: [address] [place] ? ? ? LDL Chol 52 mg/dL 0-99 Final [facility] Calc mg/dL [facility]: [address], [place] ? ? ? 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 Cancelled [facility]: [address] [place] 04/09/2021 PT/INR Alert Inr 2.72 ? Final [facility] (Lab): [address] [facility] ? ? Alert Prothrom 28.3 sec 10.11-24 Final [facility] bin Time .9 [facility] (Lab): [address] [facility] 04/09/2021 PT/INR ? Prothrom 28.3 ? ? bin Time 04/09/2021 INR, Plasma ? Inr 2.72 ? ? 03/19/2021 PT/INR Alert Inr 2.75 ? Final [facility] (Lab): [address] [facility] ? ? Alert Prothrom 28.6 sec 10.-11 Final [facility] bin Time .9 [facility] (Lab): [address] [facility] 03/19/2021 PT/INR ? Prothrom 28.6 ? ? bin Time 03/19/2021 INR, Plasma ? Inr 2.75 ? ? 02/20/2021 PT/INR Alert Inr 2.54 ? Final [facility] (Lab): [address] ? ? Alert Prothrom 26.4 sec 10.-11 Final [facility] bin Time .[address] [facility] (Lab): [address] 02/20/2021 PT/INR ? Prothrom 26.4 ? ? bin Time 02/20/2021 INR, Plasma ? Inr 2.54 ? ? 01/22/2021 PT/INR Alert Inr 3.23 ? Final [facility] (Lab): [address] ? ? Alert Prothrom 33.8 sec 10.- Final [facility] bin Time .[address] [facility] (Lab): [address] 01/22/2021 PT/INR ? Prothrom 33.8 ? ? bin Time 01/22/2021 INR, Plasma ? Inr 3.23 ? ? 01/22/2021 PT/INR ? No ? ? ? observati on recorded. ? Multi-dimens ? No ? ? ? Pha_ [facility] observati P cp: [address] [facility] Questionnair recorded. 1 , e* [place] ? Multi-dimens ? No ? ? ? Pha_ [facility] observati P cp: [address] [facility] Questionnair recorded. 1 , e* [place] Past Encounters 09/07/2022 Adult Health Examination; Screening for Disorder; Depression Screening; Body Mass Index 25-29 - Overweight Park Harper MD: [address] [address], [place] [address], Ph. 06/22/2022 Overweight; Mixed Hyperlipidemia; Long-t erm Current Use of Anticoagulant; Congestive Heart Failure Park Harepr MD: [address] [address], [place] [address], Ph. 03/15/2022 Anemia; Peripheral Edema Park Harper MD: [address] [address], [place] [address], Ph. 03/08/2022 Rectal Hemorrhage SONIA Dior: [address] [facility] [address], [place] [address], Ph. 02/15/2022 Asthenia; Thrombocytopenic Disorder Park Harper MD: [address] [address] [address], Ph. 09/02/2021 Adult Health Examination; Screening for Disorder; Depression Screening Park Harper MD: [address] [address] [address], Ph. 08/11/2021 Anemia; Congestive Heart Failure Park Harper MD: [address] [address] [address], Ph. 04/08/2021 Hyperlipidemia; Hypertensive Disorder Park Harper MD: [address] [address] [address], Ph. Social History Tobacco Smoking Status Former [...]
--- OUTSIDE RECORDS SUMMARY | 2022-09-14 17:52 | XMS_ITS | Encounter Summary ---
:1940 Author Care Team Providers Name Role Phone Rosmery Harper Primary Care Provider [phone] Michael Esquivel Geothermal System Installer [phone] Shwetha Deras PA-C Supervisor Network Control Operators [phone] Bren Rain MD Ophthalmologist [phone] Jose Brannon MD Orthopedic Surgeon [phone] Alli Bahena MD Orthopedic Surgeon [phone] Ashwin Chand MD Medical Oncologist [phone] Reason for Visit 3 month follow up [...] Code Code System Name Reaction Severity Onset 022632 RxNorm Celebrex ? ? ? 3521 RxNorm Dipyridamole ? ? ? 2219581 RxNorm Egg ? ? ? 4053 RxNorm Erythromycin Base ? ? ? 1274303 RxNorm Fluad 3657-1745 (65 Yr up)(Pf) ? ? ? 5521 RxNorm Hydroxychloroquine ? ? ? 292348 RxNorm Levaquin ? ? ? 406346 RxNorm Lidoderm ? ? ? Neosporin ([id number]) ? ? ? 376521 RxNorm Neurontin ? ? ? Persantine ? ? ? 569848 RxNorm Plaquenil ? ? ? 886083 RxNorm Rofecoxib ? ? ? Vioxx ? 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 STABILIZATION AT [facility] What type of diet are you REGULAR following? Are you able to care for Y yourself? 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 Advance directive - Provider N has [...] bathing? What is the highest grade or [id number] level of school you have completed or [...] Do you have difficulty doing N Notes: ID EFERS NOT TO GO errands alone? ALONE, [...] CURR ENLTY VISITING abroad? HER DAUGHTER IN [facility] FOR 3 WEEKS. Family History Relation Problem Onset Age of Age Notes Mother Arthritis (No Information) N/A (No Notes) Mother Hypertensive disorder (No Information) N/A (N o Notes) Functional Status Do you have difficulty walking or climbing stairs?? Yes Past Encounters 06/22/2022 Overweight; Mixed Hyperlipidemia; Long-t erm Current Use of Anticoagulant; Congestive Heart Failure Rosmery Harper MD: [address] [place] [address], Ph. History of Present Illness Note: <div>having [...]
--- OUTSIDE RECORDS SUMMARY | 2022-09-14 17:52 | XMS_ITS | Encounter Summary ---
:1940 Author Care Team Providers Name Role Phone Rosmery Leroy Primary Care Provider [phone] Michael Esquivel Welding Machine Operator Gas [phone] Shwetha SCOTT-Pascale Welt Stitcher [phone] Bren Rain MD Ophthalmologist [phone] Jose Brannon MD Orthopedic Surgeon [phone] Alli Bahena MD Orthopedic Surgeon [phone] Ashwin Chand MD Medical Oncologist [phone] Reason for Visit Telehealth Medicare Wellness Visit - Fem arlene, Subsequent Assessment and Plan Assessment Note Medicare Wellness Visit performed via [facility] [place] [facility] with patient. Service was provided using telemedicine. Patient verbally consents to this services (virtual check-in). Names and roles of all persons participa ting in telemedicine services include: EDUAR DOWNEY RN, BSN [facility] an d is an established patient. A total of _33__ minutes were spent in c onsultation via MED[employer] Mobile audio only for this wellness visit. The [...] Code Code System Name Reaction Severity Onset 922501 RxNorm Celebrex ? ? ? 3521 RxNorm Dipyridamole ? ? ? 4934651 RxNorm Egg ? ? ? 4053 RxNorm Erythromycin Base ? ? ? 9778469 RxNorm Fluad 3465-9813 (65 Yr up)(Pf) ? ? ? 5521 RxNorm Hydroxychloroquine ? ? ? 487894 RxNorm Levaquin ? ? ? 902171 RxNorm Lidoderm ? ? ? Neosporin (Kbt-kmo-[id number]) ? ? ? 163389 RxNorm Neurontin ? ? ? Persantine ? ? ? 656520 RxNorm Plaquenil ? ? ? 689056 RxNorm Rofecoxib ? ? ? Vioxx ? 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 STABILIZATION AT [facility] What type of diet are you REGULAR following? Are you able to care for Y yourself? 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 Advance directive - Provider N has reviewed [...] bathing? What is the highest grade or GR27560-1 level of school you have completed or [...] ROB ALVARADO VISITING abroad? HER DAUGHTER IN [facility] FOR 3 WEEKS. Family History Relation Problem Onset Age of Age Notes Mother Arthritis (No Information) N/A (No Notes) Mother Hypertensive disorder (No Information) N/A (N o Notes) Functional Status Do you have difficulty walking or climbing stairs?? Yes Past Encounters 09/07/2022 Adult Health Examination; Screening for Disorder; Depression Screening; Body Mass Index 25-29 - Overweight Rosmery Harper MD: [address] [place] [address], Ph. History of Present Illness None recorded. Review of Systems None recorded. Physical Exam None recorded.
[2022-09-14 18:01] LABS: Basophils Percent Auto 1.2 % (0.0-3.0); Eosinophils Percent Auto 5.6 % (0.0-7.0); Hematocrit 35.6 % (33.0-51.0); Hemoglobin* 11.1 gm/dL (12.0-16.0); Lymphocytes Percent Auto 25.2 % (20-44); Mean Corpuscular HGB Conc 31 gm/dL (32-36); Mean Corpuscular Hemoglobin 28 pg (26-34); Mean Corpuscular Volume 89 fL (80-100); Monocytes Percent Auto 10.6 % (0.0-11.0); Neutrophils Percent Auto 57.4 % (42.0-72.0); Platelet Count* 129 K/uL (140-440); RDW Coefficient of Variation % 18.8 % (11.5-15.5); Red Blood Count 4.01 m/uL (4.00-5.20); White Blood Count* 3.21 K/uL (4.50-11.00)
[2022-09-14 18:03] LABS: Slide Review Reflex No
[2022-09-14 18:04] LABS: HCO3 VBG 31 mmol/L (21-28); PCO2 VBG 50 mmHG (40-50); PO2 VBG 41.7 mmHG (25-47); pH VBG 7.394 (7.32-7.43)
[2022-09-14 18:07] LABS: Troponin, Point-of-Care* 0.01 ng/ml (0.01-0.04)
[2022-09-14 18:09] LABS: Lactate* 0.7 mmol/L (0.5-1.9)
[2022-09-14 18:20] LABS: PCR FLU A Negative PCR FLU A (Negative); PCR FLU B Negative PCR FLU B (Negative); PCR RSV Negative PCR RSV (Negative)
[2022-09-14 18:21] LABS: Albumin* 4.2 g/dL (3.3-5.0); Chloride* 101 mmol/L (96-114); Sodium* 140 mmol/L (135-149)
[2022-09-14 18:22] LABS: Potassium* 3.3 mmol/L (3.6-5.1)
[2022-09-14 18:24] LABS: SARS PCR* Negative SARS-CoV-2 (Negative)
[2022-09-14 18:25] LABS: Alanine Aminotransferase* 17 U/L (4-35); Alkaline Phosphatase* 89 U/L (40-150); Aspartate Amino Transferase* 33 U/L (12-35); Bilirubin Direct* 0.1 mg/dL (0.0-0.5); Blood Urea Nitrogen* 25 mg/dL (7-30); Calcium* 9.5 mg/dL (8.4-10.6); Carbon Dioxide* 30 mmol/L (20-32); Creatinine* 1.1 mg/dL (0.5-1.5); Est. Creatinine Clearance* 33.74; Estimated Glomerular Filt Rate 51 ml/min; Glucose* 99 mg/dL (60-115); Total Protein* 6.5 g/dL (6.0-8.3)
[2022-09-14 18:27] LABS: C Reactive Protein* 0.6 mg/dL (0.5-1.0)
[2022-09-14 18:30] LABS: Appearance Urine Clear (Clear); Bilirubin Urine Negative (Negative); Blood Urine 2+ (Negative); Color Urine Yellow (Yellow); Glucose Urine Negative (Negative); Ketones Urine Negative (Negative); Leukocyte Esterase Urine 1+ (Negative); Nitrite Urine Negative (Negative); Protein Urine Negative (Negative); Specific Gravity Urine 1.015 (1.000-1.030); Urobilinogen Urine 0.2 (0.2-1.0)
[2022-09-14 18:34] LABS: INR 2.25 (0.91-1.10)
[2022-09-14 18:47] LABS: Squamous Epithelial Cell Urine Few (None-Few)
[2022-09-14 19:54] LABS: Free T4 Free Thyroxine* 1.93 ng/dL (0.70-1.85)
[2022-09-14 20:07] LABS: NT Pro B Type NatriureticPept* 44 PG/mL (0-450)
--- NOTE | 2022-09-14 21:04 | CRLHL7_ITS ---
For Patients: As a result of the Century Cures Act, medical imaging exams and procedure reports are released immediately into your electronic medical record. You may view this report before your referring provider. If you have questions, please contact your health care provider. INDICATION: [id number]. TECHNIQUE: CT chest PE was acquired with 95 cc Isovue 370 IV contrast. COMPARISON: None. FINDINGS: Heart and vasculature: Contrast opacification of the pulmonary arterial tree is adequate. No sign of pulmonary embolism. Heart size is severely enlarged, especially biatrial enlargement, much worse on the left than the right. The prosthetic mitral valve is noted. Pacer leads extending to the right ventricle. Calcific atherosclerosis of the ascending aorta and aortic arch. The main pulmonary artery is enlarged measuring up to 34 millimeters in diameter.. Lungs and pleura: Mild bibasilar linear opacities likely atelectasis or scarring. Mild bibasilar bronchial wall thickening is noted. No pleural effusions, pleural thickening, or pneumothorax. Lymph nodes/mediastinum: No mediastinal, hilar, or axillary adenopathy. Prominent mediastinal nodes. Chest wall: Left chest wall pacer generator. Upper abdomen: No acute or significant findings. Status post cholecystectomy. Atrophy of the bilateral kidneys. Bones: Unremarkable for age. IMPRESSION: No pulmonary embolism identified. Severe cardiomegaly, especially biatrial enlargement much worse on the left than the right. Enlarged main pulmonary artery, may be seen in setting of pulmonary hypertension. Mild basilar atelectasis and/or scarring. Mild bronchial wall thickening, which can be seen with viral illness or small airways disease. Please note that all CT scans at this facility use dose modulation, iterative reconstruction, and/or weight-based dosing when appropriate to reduce radiation dose to as low as reasonably achievable. Dictated by Teresa Mendez MD @ 09/14/2022 10:22:13 PM (Electronically Signed)
--- NOTE | 2022-09-14 21:15 | W.PC.EDHO ---
Primary Language: Vietnamese Preferred Language: Orientation Status: [x] Alert & Oriented [] Slight Confusion [] Known Dx Dementia Transfers By: [x] Assist of 1 [] Assist of 2 [] Lift Active Medications Discontinued Medications Generic Name Dose Route Start Last Admin Trade Name Freq PRN Reason Stop Dose Admin Aspirin 324 mg 09/14/22 17:53 09/14/22 19:10 Aspirin 81 Mg Tab.Chew PO 09/14/22 17:54 Not Given ONCE ONE Description of Symptoms ED Triage Present Problem pt from [place], here visiting daughter. Description woke up not feeling well. 1330 throwing up bile, pinkish. pt blanked out and incoherent. could not understand what she was saying. an hour later became more coherent. hx ppm and artificial valve ED Triage Date of Onset of 09/14/22 Symptoms Female History Patient No [place] Coma Scale [place] coma scale total score 15 IV Insertion/Site Date of IV Line Insertion [ 09/14/22 Right Antecubital] Oxygen Administration Pulse Oximetry 93 Pulse Oximetry 92 Pulse Oximetry 96 Pulse Oximetry 88 Oxygen Delivery Method Room Air Oxygen Delivery Method Room Air Oxygen Delivery Method Room Air Oxygen Delivery Method Room Air Cardiac Monitoring EKG Method 12 Lead
--- NOTE | 2022-09-14 22:00 | P.IMHP_ITS ---
Hospitalist- H&P: HPI History of Present Illness Date Seen: 09/14/22 Chief complaint: Psych episode earlier, incoherent Narrative: Lucero Arroyo is a 81 year old female brought into the ED for confusion. She is in [place] from [place], visiting her daughter. Prior to the episode of confusion this afternoon, she had an episode of dry heaving and then had acute confusion. Patient remembers feeling confused, denies hallucinations, denies seizures. Daughter was present in the emergency room for interview and told the ER physician that her mother was not answering questions appropriately for approximately one hour. She was improved upon arrival to the ED, but not yet back to baseline. ER course and findings: - hemoglobin of 11.1 (unsure of outpatient baseline), mild hypokalemia at 3.3, therapeutic INR - reassuring head CT - Paced rhythm on EKG, T-wave abnormality, normal troponin When I see the patient in her hospital room, she is essentially back to baseline with no complaints. She specifically denies chest pain, dyspnea, abdominal pain, nausea, or vo miting. Her past medical history is reviewed and updated. She has a history of atrial fibrillation and mitral valve replacement (anticoagulated on Coumadin), pacemaker placement, GERD, essential HTN. She is also on daily Prednisone for a history of arthritis. Kaia lives in [place], [place] with her , she's here visiting daughter. She's retired, quit smoking in 1979, no ETOH use. Daughter Rianna would be medical decision maker if needed, requests Full Code status. Review of Systems Status of ROS: Reports: 10 or more systems reviewed and unremarkable except as noted in History and below Narrative: Has noted bleeding over the past 2 days (unsure if vaginal or recta l). No abdominal pain. [facility] PFSH Medical History (Updated 09/14/22 @ 23:01 by Josie Lujan MD) Anticoagulated on Coumadin Arthritis Atrial fibrillation Essential hypertension GERD (gastroesophageal reflux disease) Insomnia Surgical History (Updated 09/14/22 @ 22:54 by Josie Lujan MD) H/O mitral valve replacement History of hysterectomy Social History Smoking Status: Former smoker Do you use any of these nicotine containing products: None Second hand tobacco smoke exposure: No How often do you have a drink containing alcohol: never How often do you have six or more drinks on one occasion: Never AUDIT-C Alcohol total score: 0 Non-prescribed substance use: denies use Meds Home Medications and Allergies Home Medications Medication Instructions Recorded Confirmed Type allopurinol 300 mg tablet 300 mg PO DAILY 09/14/22 09/14/22 History amlodipine 5 mg tablet (Norvasc) 5 mg PO DAILY 09/14/22 09/14/22 History coq10 09/14/22 History folic acid 1 mg tablet 1 mg PO DAILY 09/14/22 09/14/22 History furosemide 20 mg tablet 20 mg PO DAILY 09/14/22 09/14/22 History glucosamine chond 09/14/22 History hydrochlorothiazide 12.5 mg tablet 12.5 mg PO DAILY 09/14/22 09/14/22 History isosorbide dinitrate 30 mg tablet 30 mg PO BID 09/14/22 09/14/22 History metoprolol succinate 100 mg 100 mg PO DAILY 09/14/22 09/14/22 History tablet,extended release 24 hr metoprolol succinate 100 mg 100 mg PO DAILY 09/14/22 09/14/22 History tablet,extended release 24 hr (Toprol XL) pantoprazole 40 mg tablet,delayed 40 mg PO DAILY 09/14/22 09/14/22 History release potassium chloride 20 mEq oral 20 meq PO BID 09/14/22 09/14/22 History packet (Klor-Con) prednisone 5 mg tablet 5 mg PO DAILY 09/14/22 09/14/22 History trazodone 50 mg tablet 50 mg PO HS 09/14/22 09/14/22 History vitamin d2 09/14/22 History warfarin 2 mg tablet 2 mg PO HS 09/14/22 09/14/22 History Allergies Allergy/AdvReac Type Severity Reaction Status Date / Time erythromycin base Allergy Unknown Verified 09/14/22 17:03 Exam Narrative: Exam Narrative: GEN: Alert and oriented, answering questions appropriately without any confusion HEENT: Normal external ears, EOMIs bilaterally, no scleral icterus CV: Irregular rate, harsh systolic murmur heard in left mid axillary line with radiation into left chest R: LCTA bilaterally without concerning wheezing, rales, or rhonchi : Normal external genitalia without evidence of vaginal bleeding, + external hemorrhoids noted Ext: wwp, mild edema left lower extremity with skin graft noted Skin: No other concerning skin lesions or rashes on exposed skin Neuro: Nonfocal Psych: Appropriate Const: Vital Signs, click to edit/add: Vital Signs - 24 hr 09/14/22 16:49 09/14/22 18:05 09/14/22 17:00 Temperature 98 F Pulse Rate [Pulse Oximeter] 74 67 66 Respiratory Rate 18 Blood Pressure [Ri ght Upper Arm] 115/54 L 112/74 115/54 L Pulse Oximetry 88 96 Oxygen Delivery Me thod Room Air Room Air 09/14/22 18:30 09/14/22 20:07 09/14/22 20:51 Temperature Pulse Rate [Pulse Oximeter] 60 72 Respiratory Rate Blood Pressure [Ri ght Upper Arm] 123/81 Pulse Oximetry 92 93 Oxygen Delivery Me thod Room Air Room Air 09/14/22 21:30 Temperature Pulse Rate [Pulse Oximeter] 72 Respiratory Rate Blood Pressure [Ri ght Upper Arm] Pulse Oximetry 93 Oxygen Delivery Me thod Room Air Hospitalist - H&P: Result Labs Labs: Short CBC 09/14/22 Range/Units 17:50 WBC 3.21 L (4.50-11.00) K/uL Hgb 11.1 L (12.0-16.0) gm/dL Hct 35.6 (33.0-51.0) % Plt Count 129 L (140-440) K/uL BMP 09/14/22 17:50 Sodium 140 Potassium 3.3 L Chloride 101 Carbon Dioxide 30 BUN 25 Creatinine 1.1 Glucose 99 Calcium 9.5 Liver Function 09/14/22 Range/Units 17:50 Total Bilirubin 1.0 (0.1-1.5) mg/dL Direct Bilirubin 0.1 (0.0-0.5) mg/dL AST 33 (12-35) U/L ALT 17 (4-35) U/L Alkaline Phosphatase 89 (40-150) U/L Albumin 4.2 (3.3-5.0) g/dL Urine 09/14/22 Range/Units 18:26 Urine Color Yellow (Yellow) Urine Appearance Clear (Clear) Urine pH 5.0 (5.0-8.5) Ur Specific [place] 1.015 (1.000-1.030) Urine Protein Negative (Negative) Urine Glucose (UA) Negative (Negative) INDICATION: [id number]. TECHNIQUE: CT chest PE was acquired with 95 cc Isovue 370 IV contrast. COMPARISON: None. FINDINGS: Heart and vasculature: Contrast opacification of the pulmonary arterial tree is adequate. No sign of pulmonary embolism. Heart size is severely enlarged, especially biatrial enlargement, much worse on the left than the right. The prosthetic mitral valve is noted. Pacer leads extending to the right ventricle. Calcific atherosclerosis of the ascending aorta and aortic arch. The main pulmonary artery is enlarged measuring up to 34 millimeters in diameter.. Lungs and pleura: Mild bibasilar linear opacities likely atelectasis or scarring. Mild bibasilar bronchial wall thickening is noted.? No pleural effusions, pleural thickening, or pneumothorax. Lymph nodes/mediastinum: No mediastinal, hilar, or axillary adenopathy. Prominent mediastinal nodes. Chest wall: Left chest wall pacer generator. Upper abdomen: No acute or significant findings. Status post cholecystectomy. Atrophy of the bilateral kidneys. Bones: Unremarkable for age. IMPRESSION: No pulmonary embolism identified. Severe cardiomegaly, especially biatrial enlargement much worse on the left than the right. Enlarged main pulmonary artery, may be seen in setting of pulmonary hypertension. Mild basilar atelectasis and/or scarring. Mild bronchial wall thickening, which can be seen with viral illness or small airways disease. Please note that all CT scans at this facility use dose modulation, iterative reconstruction, and/or weight-based dosing when appropriate to reduce radiation dose to as low as reasonably achievable. Dictated by Teresa Mendez MD @ 09/14/2022 10:22:13 PM Assessment and Plan Assessment and plan (1) Confusion: Status: Acute Assessment and Plan: - significantly improved upon arrival to the floor, source unclear - continue to monitor overnight, recheck am labs (2) Atrial fibrillation: Status: Acute Assessment and Plan: - rate controlled, continue Coumadin and Metoprolol (3) Anticoagulated on Coumadin: Status: Acute (4) Essential hypertension: Status: Acute (5) Hemorrhoids, external: Status: Acute Assessment and Plan: - not actively bleeding at this time, intermittent bleeding over the past 1-2 days. Continue to monitor and follow hemoglobin (11.1, baseline unclear) (6) Arthritis: Status: Acute Assessment and Plan: - continue home Prednisone dosing (7) Edema of left lower extremity: Status: Acute Assessment and Plan: - no signs of infection, unlikely to have a DVT given therapeutic INR, but will obtain ultrasound in the morning to assess Plan - per above
[2022-09-14] MEDS: POTASSIUM BICARB 25 MEQ EFFERVESCENT TAB PO (23:50)
[2022-09-14] MEDS: TRAZODONE HCL 50 MG TABLET PO (23:51)
[2022-09-14] MEDS: WARFARIN 2 MG TABLET PO (23:52)
[2022-09-15] VITALS (10 sets, daily range): BP systolic 104–132; BP diastolic 63–81; PULSE 60–106; RESP 16–20; TEMP 36.7–36.9; O2SAT 94–100
--- NOTE | 2022-09-15 | CRLHL7_ITS ---
For Patients: As a result of the Century Cures Act, medical imaging exams and procedure reports are released immediately into your electronic medical record. You may view this report before your referring provider. If you have questions, please contact your health care provider. CT ANGIOGRAM NECK DATE: 09/15/2022 CLINICAL HISTORY: Patient with difficulty speaking. TECHNIQUE: Standard helical CT image acquisition of the neck up to the skull base after bolus intravenous contrast enhancement. Multiplanar reconstructed images performed on a separate workstation. COMPARISON: CT 09/14/2022. FINDINGS: The origins of the great vessels from the aortic arch are patent. The origin of the right vertebral artery is patent. The origin of the left vertebral artery is patent. The common carotid arteries are patent. There is no stenosis at the origin of the right internal carotid artery. There is no stenosis at the origin of the left internal carotid artery. The rest of the cervical segments of the internal carotid arteries are patent up to the skull base. The left vertebral artery is dominant. The cervical segments of the vertebral arteries are patent up to the skull base. The visualized lung apices demonstrate marked enlargement of the main pulmonary vein. The thyroid gland demonstrates a 2.5cm hypodense lesion in the left lobe. The soft tissues of the neck are unremarkable. There are degenerative changes in the cervical spine. IMPRESSION: 1. Patent cervical vasculature. 2. Marked enlargement of the main pulmonary vein is suggestive of pulmonary venous hypertension. Clinical correlation is recommended. 3. 2.5cm hypodense left thyroid lesion. Further evaluation with ultrasound is recommended. Please note that all CT scans at this facility use dose modulation, iterative reconstruction, and/or weight-based dosing when appropriate to reduce radiation dose to as low as reasonably achievable. Dictated by: Fatou Mckeon MD @ 09/15/2022 13:01:26 (Electronically Signed)
[2022-09-15 06:45] LABS: HCO3 VBG 32 mmol/L (21-28); PCO2 VBG 47 mmHG (40-50); PO2 VBG 62.2 mmHG (25-47); pH VBG 7.437 (7.32-7.43)
[2022-09-15 06:46] LABS: Basophils Percent Auto 0.8 % (0.0-3.0); Eosinophils Percent Auto 7.1 % (0.0-7.0); Hematocrit 32.7 % (33.0-51.0); Hemoglobin* 10.3 gm/dL (12.0-16.0); Lymphocytes Percent Auto 29.6 % (20-44); Mean Corpuscular HGB Conc 32 gm/dL (32-36); Mean Corpuscular Hemoglobin 28 pg (26-34); Mean Corpuscular Volume 88 fL (80-100); Monocytes Percent Auto 11.3 % (0.0-11.0); Neutrophils Percent Auto 51.2 % (42.0-72.0); Platelet Count* 102 K/uL (140-440); RDW Coefficient of Variation % 18.8 % (11.5-15.5)
[2022-09-15 07:03] LABS: Chloride* 99 mmol/L (96-114); Potassium* 3.2 mmol/L (3.6-5.1); Sodium* 137 mmol/L (135-149)
[2022-09-15 07:05] LABS: Creatinine* 0.9 mg/dL (0.5-1.5); Est. Creatinine Clearance* 37.12; Estimated Glomerular Filt Rate 65 ml/min
[2022-09-15 07:06] LABS: Blood Urea Nitrogen* 21 mg/dL (7-30); Calcium* 8.9 mg/dL (8.4-10.6); Carbon Dioxide* 30 mmol/L (20-32); Glucose* 77 mg/dL (60-115)
[2022-09-15 07:18] LABS: Troponin I* 0.02 ng/mL (0.01-0.04)
[2022-09-15 07:25] LABS: Slide Review Reflex Yes
[2022-09-15 07:26] LABS: Slide Review Acceptable Review (Acceptable)
--- NOTE | 2022-09-15 07:29 | PC.NURSE ---
END OF SHIFT NOTE: PT PLEASANT AND COOPERATIVE. PT DENIES CP, SOB, N/V. VSS ON RA; AFEBRILE. LS CTA. IV SALINE LOCKED IN RIGHT AC. PT IS ALERT AND ORIENTED X4.
[2022-09-15] MEDS: hydroCHLOROthiazide 12.5 MG CAPSULE PO (09:54)
[2022-09-15] MEDS: predniSONE 5 MG TABLET PO (09:54)
[2022-09-15] MEDS: POTASSIUM CHLORIDE 10 MEQ CAPSULE ER 20 MEQ PO ×2 (09:54→21:08)
[2022-09-15] MEDS: METOPROLOL SUCCINATE (XL) 100 MG TAB PO (09:54)
[2022-09-15] MEDS: ISOSORBIDE MONONITRATE ER 30 MG TAB PO (09:54)
[2022-09-15] MEDS: allopurinoL 300 MG TABLET PO (09:54)
[2022-09-15] MEDS: OMEPRAZOLE 20 MG CAPSULE DR 40 MG PO (09:54)
[2022-09-15] MEDS: FOLIC ACID 1 MG TABLET PO (09:54)
[2022-09-15] MEDS: AMLODIPINE 5 MG TABLET PO (09:54)
[2022-09-15] MEDS: POTASSIUM BICARB 25 MEQ EFFERVESCENT TAB PO ×2 (09:54→15:28)
[2022-09-15] MEDS: FUROSEMIDE 20 MG TABLET PO (09:54)
--- NOTE | 2022-09-15 10:15 | CRLHL7_ITS ---
For Patients: As a result of the Century Cures Act, medical imaging exams and procedure reports are released immediately into your electronic medical record. You may view this report before your referring provider. If you have questions, please contact your health care provider. INDICATION: Leg pain and swelling. TECHNIQUE: Ultrasound venous duplex lower left extremity. Compression venous exam was performed using freedman-scale, color Doppler, and spectral Doppler analysis. COMPARISON: None. FINDINGS: Deep veins: Sonographic imaging demonstrates the left common femoral, deep femoral, superficial femoral, popliteal, posterior tibial and the contralateral right common femoral veins to be fully compressible with normal color Doppler blood flow. Superficial veins: Greater saphenous vein is fully compressible. No popliteal cyst. IMPRESSION: Normal left lower extremity venous ultrasound, no sign of deep venous thrombosis. Dictated by Mendel Navarrete MD @ 09/15/2022 9:46:06 AM (Electronically Signed)
[2022-09-15 10:47] LABS: Hemoglobin* 11.1 gm/dL (12.0-16.0)
--- NOTE | 2022-09-15 10:56 | CRLHL7_ITS ---
For Patients: As a result of the Century Cures Act, medical imaging exams and procedure reports are released immediately into your electronic medical record. You may view this report before your referring provider. If you have questions, please contact your health care provider. CT ANGIOGRAM HEAD DATE: 09/15/2022 CLINICAL HISTORY: Patient with difficulty speaking. TECHNIQUE: Standard helical CT image acquisition through the intracranial circulation following intravenous administration of contrast material with bolus tracking. Multiplanar reconstructed images were performed and interpreted. COMPARISON: CT 09/14/2022. FINDINGS: There is no cerebral aneurysm or large vessel occlusion. The right internal carotid artery is normal. The right middle cerebral artery and its branches are normal. The right anterior cerebral artery and its branches are normal. The left internal carotid artery is normal. The left middle cerebral artery and its branches are normal. The left anterior cerebral artery and its branches are normal. The anterior communicating artery is well visualized and appears normal. The right vertebral artery and PICA are normal. The left vertebral artery and PICA are normal. The left vertebral artery is dominant. The basilar artery is patent and appears normal. The right posterior cerebral artery is normal. The left posterior cerebral artery is normal. The visualized venous structures are patent. IMPRESSION: Normal CT angiogram of the head without intracranial aneurysm or other neurovascular abnormality. Please note that all CT scans at this facility use dose modulation, iterative reconstruction, and/or weight-based dosing when appropriate to reduce radiation dose to as low as reasonably achievable. Dictated by: Fatou Mckeon MD @ 09/15/2022 13:04:40 (Electronically Signed)
[2022-09-15 12:16] LABS: Magnesium* 1.7 mg/dL (1.5-2.6)
--- NOTE | 2022-09-15 16:52 | P.IMPN_ITS ---
Progress Note: A&P Assessment and plan (1) Acute confusion: Problem details: Seizure postictal versus TIA Status: Acute Assessment and Plan: I spoke with Dr. Christa Tolliver from [facility]. Patient has a history of seizure disorder, although she is not on any anti epileptic medications and it is unclear if the episodes she has been experiencing or had yesterday her seizure activity. Dr. Tolliver recommended 1 of 2 options: If there is no good support or follow-up, then hold off on anti epileptic medication and have patient follow-up with Neurology. If she has good support and follow up, then she can be on Keppra 500 mg twice a day and follow-up with neurology next week. It can then be determined if she could stop Keppra or she should continue on it. (2) Pancytopenia: Status: Acute Assessment and Plan: Present on admission, worse today than yesterday. She is on warfarin and her platelet count is trending down. Discussed this diagnosis with her and her daughter they were aware of anemia, but not aware of any history of pancytopenia. She does follow with a face worker and is understanding and agreeable to follow-up with her face worker within the next few weeks. Monitor with follow-up labs tomorrow morning. Anemia appears stable. Notable is that she has microscopic hematuria and bleeding hemorrhoids, each of which may be a possible source of anemia, but not pancytopenia. No indication for transfusion at this time. (3) Hematuria: Status: Acute Assessment and Plan: Will need outpatient follow-up. (4) Pulmonary hypertension: Problem details: On CT chest 09/15/2022: Enlarged main pulmonary artery, may be seen in setting of pulmonary hypertension. Status: Suspected Assessment and Plan: Will need outpatient follow-up. (5) Cardiac enlargement: Problem details: On CT chest 09/15/2022: Severe cardiomegaly, especially biatrial enlargement much worse on the left than the right. Status: Acute Assessment and Plan: Will need outpatient follow-up. (6) Edema of left lower extremity: Problem details: Lower extremity ultrasound negative for DVT 09/15/2022. Status: Acute (7) Arthritis: Status: Chronic (8) Essential hypertension: Status: Chronic (9) Anticoagulated on Coumadin: Status: Chronic Assessment and Plan: Check daily INR. (10) Atrial fibrillation: Status: Chronic Assessment and Plan: Rate is well controlled. Continue anticoagulation with warfarin. (11) Hemorrhoids, external: Status: Acute (12) Hypokalemia: Status: Acute Assessment and Plan: Magnesium was checked today and is within normal limits. Continue oral replacement of potassium and recheck in the morning. (13) Protein calorie malnutrition: Problem details: Suspected. Patient is gaunt and appears to have muscle wasting. She has previously been told to increase the calories in her diet. She has trouble doing so because she only likes eating fruit and strongly dislikes meat. Status: Acute Assessment and Plan: We discussed non meet protein sources and dietary supplementation. Patient and daughter were willing to give this a try. (14) Thyroid nodule: Problem details: 2.[address] neck 09/15/22 Status: Acute Assessment and Plan: According to her records from [facility], she has a history of a thyroid nodule of onset 06/07/2011, however it is unclear what came of that. Notably her TSH and free T4 are mildly elevated. Follow-up with her primary care provider as an outpatient. (15) Elevated TSH: Problem details: mild and mild free T4 elevation Status: Acute Time Spent With Patient Total time spent: Today I spent 60 minutes rounding on the patient. Greater than 50% included discussing care with the patient and her daughter, reviewing data, updating and managing the care plan. Subjective Time Seen by Provider: 10:00 Date Seen: 09/15/22 Interval history: As I entered Kaia's room, her daughter, Rianna, called. Had Kaia put Rianna on speaker phone and Rianna was present for my interview and examination. Kaia tells me that she feels well today and has no residual affects. Her daughter concurs that there does not appear to be anything residual at this time. Her daughter noted that Kaia has had several of these episodes in the past, but this was the 1st associated with slurred speech or difficulty speaking. She describes episodes where her mother will suddenly stopped responding and appear to be staring through her. This usually is a very brief period of time and then she will be confused for about an hour. This time the episode of staring without responding to her name lasted about a minute and then she started speaking, but her speech was unclear and slurred or garbled. She was also confused. This lasted a little over an hour. We also discussed Kaia's extensive past medical history and I reviewed her medical records from [place] both prior to going in the room and with the patient and her daughter. They acknowledged that she has a very complicated past medical history and we discussed how she has a care team in place at [facility] already including an appointment coming up with her primary care provider on 09/24/2022. Her primary care provider is [facility]. Phone number [phone]. I later went back to speak with Kaia and also spoke with her daughter by phone at a separate time to tell them I had time to review the EMR and recommended a CTA head and neck today as well as an echocardiogram. They demonstrated understanding. Exam Narrative: Exam Narrative: General: No acute distress. Awake, alert, oriented x3. No pallor. No jaundice. Gaunt. Muscle wasting present in face and extremities. Oropharynx: Clear. Mucous membranes moist. Cardiovascular: Irregularly irregular. Harsh grade 3/6 holosystolic murmur loudest at the left sternal border. Respiratory: Clear to auscultation bilaterally. No wheezes or crackles. Abdomen: Bowel sounds present. Soft, nondistended, nontender. Extremities: No pedal edema. Neuro: There are no focal deficits. Moves all extremities. No facial asymmetry. Const: Vital Signs, click to edit/add: Vital Signs - 24 hr 09/14/22 18:05 09/14/22 17:00 09/14/22 18:30 Temperature Pulse Rate Pulse Rate [Pulse Oximeter] 67 66 Respiratory Rate Blood Pressure [Le ft Arm] Blood Pressure [Ri ght Upper Arm] 112/74 115/54 L 123/81 Pulse Oximetry 96 Oxygen Delivery Me thod Room Air Oxygen Flow Rate 09/14/22 20:07 09/14/22 20:51 09/14/22 21:30 Temperature Pulse Rate Pulse Rate [Pulse Oximeter] 60 72 72 Respiratory Rate Blood Pressure [Le ft Arm] Blood Pressure [Ri ght Upper Arm] Pulse Oximetry 92 93 93 Oxygen Delivery Me thod Room Air Room Air Room Air Oxygen Flow Rate 09/14/22 22:00 09/14/22 22:00 09/14/22 23:08 Temperature 98.3 F 97.8 F Pulse Rate Pulse Rate [Pulse Oximeter] 61 80 Respiratory Rate 18 18 16 Blood Pressure [Le ft Arm] 130/76 126/65 Blood Pressure [Ri ght Upper Arm] Pulse Oximetry 100 100 100 Oxygen Delivery Me thod Room Air Room Air Room Air Oxygen Flow Rate 09/14/22 23:27 09/15/22 03:55 09/15/22 07:28 Temperature 98.2 F Pulse Rate 68 Pulse Rate [Pulse Oximeter] 60 Respiratory Rate 18 Blood Pressure [Le ft Arm] 132/67 Blood Pressure [Ri ght Upper Arm] Pulse Oximetry 97 96 Oxygen Delivery Me thod Room Air Room Air Oxygen Flow Rate 09/15/22 07:35 09/15/22 07:36 09/15/22 07:25 Temperature 98.2 F Pulse Rate 75 Pulse Rate [Pulse Oximeter] 77 Respiratory Rate 18 Blood Pressure [Le ft Arm] 104/81 Blood Pressure [Ri ght Upper Arm] Pulse Oximetry 95 95 Oxygen Delivery Me thod Room Air Room Air Oxygen Flow Rate 09/15/22 11:26 09/15/22 15:30 09/15/22 15:00 Temperature 98.1 F Pulse Rate 74 Pulse Rate [Pulse Oximeter] 66 106 H Respiratory Rate 18 20 Blood Pressure [Le ft Arm] 119/70 Blood Pressure [Ri ght Upper Arm] Pulse Oximetry 94 Oxygen Delivery Me thod Room Air Oxygen Flow Rate 09/15/22 15:00 09/15/22 15:00 Temperature 97.6 F Pulse Rate Pulse Rate [Pulse Oximeter] 106 H Respiratory Rate 20 20 Blood Pressure [Le ft Arm] 104/81 Blood Pressure [Ri ght Upper Arm] Pulse Oximetry 94 94 Oxygen Delivery Me thod Nasal Cannula Nasal Cannula Oxygen Flow Rate 2.5 2.5 Labs Labs: Laboratory Results - last 24 hr 09/14/22 09/14/22 09/14/22 17:24 17:29 17:50 WBC 3.21 L RBC 4.01 Hgb 11.1 L Hct 35.6 MCV 89 MCH 28 MCHC 31 L RDW Coeff of Monica 18.8 H Plt Count 129 L Neut % (Auto) 57.4 Lymph % (Auto) 25.2 [place] % (Auto) 10.6 Eos % (Auto) 5.6 Baso % (Auto) 1.2 Neut # (Auto) 1.80 Lymph # (Auto) 0.80 L [place] # (Auto) 0.30 Eos # (Auto) 0.20 Baso # (Auto) 0.00 Abs Immat Gran (auto) 0.00 Imm/Tot Granulo (auto) Not Reportable Diff Slide Review INR VBG pH VBG pCO2 VBG pO2 VBG HCO3 Sodium Potassium Chloride Carbon Dioxide BUN Creatinine Estimated Creat Clear Estimated GFR Glucose Lactate Calcium Magnesium Total Bilirubin Direct Bilirubin AST ALT Alkaline Phosphatase Troponin I C-Reactive Protein NT-Pro-B Natriuret Pep Total Protein Albumin TSH Free T4 Urine Color Urine Appearance Urine pH Ur Specific [place] Urine Protein Urine Glucose (UA) Urine Ketones Urine Blood Urine Nitrite Urine Bilirubin Urine Urobilinogen Ur Leukocyte Esterase Urine RBC Urine WBC Ur Squamous Epith Cells Urine Bacteria SARS-CoV-2 (PCR) Negative SARS-CoV-2 Influenza Type A (PCR) Negative PCR FLU A Influenza Type B (PCR) Negative PCR FLU B RSV (PCR) Negative PCR RSV POC Troponin I 0.01 09/14/22 09/14/22 09/14/22 17:50 17:50 17:50 WBC RBC Hgb Hct MCV MCH MCHC RDW Coeff of Monica Plt Count Neut % (Auto) Lymph % (Auto) [place] % (Auto) Eos % (Auto) Baso % (Auto) Neut # (Auto) Lymph # (Auto) [place] # (Auto) Eos # (Auto) Baso # (Auto) Abs Immat Gran (auto) Imm/Tot Granulo (auto) Diff Slide Review INR VBG pH VBG pCO2 VBG pO2 VBG HCO3 Sodium 140 Potassium 3.3 L Chloride 101 Carbon Dioxide 30 BUN 25 Creatinine 1.1 Estimated Creat Clear 33.74 Estimated GFR 51 Glucose 99 Lactate 0.7 Calcium 9.5 Magnesium Total Bilirubin 1.0 Direct Bilirubin 0.1 AST 33 ALT 17 Alkaline Phosphatase 89 Troponin I C-Reactive Protein 0.6 NT-Pro-B Natriuret Pep Total Protein 6.5 Albumin 4.2 TSH 4.560 H Free T4 1.93 H Urine Color Urine Appearance Urine pH Ur Specific [place] Urine Protein Urine Glucose (UA) Urine Ketones Urine Blood Urine Nitrite Urine Bilirubin Urine Urobilinogen Ur Leukocyte Esterase Urine RBC Urine WBC Ur Squamous Epith Cells Urine Bacteria SARS-CoV-2 (PCR) Influenza Type A (PCR) Influenza Type B (PCR) RSV (PCR) POC Troponin I 09/14/22 09/14/22 09/14/22 17:50 17:50 18:26 WBC RBC Hgb Hct MCV MCH MCHC RDW Coeff of Monica Plt Count Neut % (Auto) Lymph % (Auto) [place] % (Auto) Eos % (Auto) Baso % (Auto) Neut # (Auto) Lymph # (Auto) [place] # (Auto) Eos # (Auto) Baso # (Auto) Abs Immat Gran (auto) Imm/Tot Granulo (auto) Diff Slide Review INR 2.25 H VBG pH 7.394 VBG pCO2 50 VBG pO2 41.7 VBG HCO3 31 H Sodium Potassium Chloride Carbon Dioxide BUN Creatinine Estimated Creat Clear Estimated GFR Glucose Lactate Calcium Magnesium Total Bilirubin Direct Bilirubin AST ALT Alkaline Phosphatase Troponin I C-Reactive Protein NT-Pro-B Natriuret Pep Total Protein Albumin TSH Free T4 Urine Color Yellow Urine Appearance Clear Urine pH 5.0 Ur Specific [place] 1.015 Urine Protein Negative Urine Glucose (UA) Negative Urine Ketones Negative Urine Blood 2+ A Urine Nitrite Negative Urine Bilirubin Negative Urine Urobilinogen 0.2 Ur Leukocyte Esterase 1+ A Urine RBC 2-5 A Urine WBC 2-5 Ur Squamous Epith Cells Few Urine Bacteria None SARS-CoV-2 (PCR) Influenza Type A (PCR) Influenza Type B (PCR) RSV (PCR) POC Troponin I 09/14/22 09/15/22 09/15/22 19:21 06:10 06:10 WBC 2.40 L RBC 3.70 L Hgb 10.3 L Hct 32.7 L MCV 88 MCH 28 MCHC 32 RDW Coeff of Monica 18.8 H Plt Count 102 L Neut % (Auto) 51.2 Lymph % (Auto) 29.6 [place] % (Auto) 11.3 H Eos % (Auto) 7.1 H Baso % (Auto) 0.8 Neut # (Auto) 1.20 L Lymph # (Auto) 0.70 L [place] # (Auto) 0.30 Eos # (Auto) 0.20 Baso # (Auto) 0.00 Abs Immat Gran (auto) 0.00 Imm/Tot Granulo (auto) Diff Slide Review Acceptable Review INR VBG pH VBG pCO2 VBG pO2 VBG HCO3 Sodium 137 Potassium 3.2 L Chloride 99 Carbon Dioxide 30 BUN 21 Creatinine 0.9 Estimated Creat Clear 37.12 Estimated GFR 65 Glucose 77 Lactate Calcium 8.9 Magnesium Total Bilirubin Direct Bilirubin AST ALT Alkaline Phosphatase Troponin I 0.02 C-Reactive Protein NT-Pro-B Natriuret Pep 44 Total Protein Albumin TSH Free T4 Urine Color Urine Appearance Urine pH Ur Specific [place] Urine Protein Urine Glucose (UA) Urine Ketones Urine Blood Urine Nitrite Urine Bilirubin Urine Urobilinogen Ur Leukocyte Esterase Urine RBC Urine WBC Ur Squamous Epith Cells Urine Bacteria SARS-CoV-2 (PCR) Influenza Type A (PCR) Influenza Type B (PCR) RSV (PCR) POC Troponin I 09/15/22 09/15/22 09/15/22 06:10 06:10 10:40 WBC RBC Hgb 11.1 L Hct MCV MCH MCHC RDW Coeff of Monica Plt Count Neut % (Auto) Lymph % (Auto) [place] % (Auto) Eos % (Auto) Baso % (Auto) Neut # (Auto) Lymph # (Auto) [place] # (Auto) Eos # (Auto) Baso # (Auto) Abs Immat Gran (auto) Imm/Tot Granulo (auto) Diff Slide Review INR VBG pH 7.437 H VBG pCO2 47 VBG pO2 62.2 H VBG HCO3 32 H Sodium Potassium Chloride Carbon Dioxide BUN Creatinine Estimated Creat Clear Estimated GFR Glucose Lactate Calcium Magnesium 1.7 Total Bilirubin Direct Bilirubin AST ALT Alkaline Phosphatase Troponin I C-Reactive Protein NT-Pro-B Natriuret Pep Total Protein Albumin TSH Free T4 Urine Color Urine Appearance Urine pH Ur Specific [place] Urine Protein Urine Glucose (UA) Urine Ketones Urine Blood Urine Nitrite Urine Bilirubin Urine Urobilinogen Ur Leukocyte Esterase Urine RBC Urine WBC Ur Squamous Epith Cells Urine Bacteria SARS-CoV-2 (PCR) Influenza Type A (PCR) Influenza Type B (PCR) RSV (PCR) POC Troponin I
[2022-09-15] MEDS: ACETAMINOPHEN 325 MG TABLET 975 MG PO (21:08)
[2022-09-15] MEDS: TRAZODONE HCL 50 MG TABLET PO (21:08)
[2022-09-15] MEDS: WARFARIN 2 MG TABLET PO (21:12)
--- NOTE | 2022-09-16 01:59 | PC.NURSE ---
Shift Note [id number]: Shift unremarkable. Pt has been pleasant, a/o, and able to verbalize needs. Moves well with SBA. VS WNL and LS COA. At HS pt rates pain in both hands 5/10, Tylenol given PRN. Tele=Paced rhythm. Pt denies any CP or pressure. No incidents of confusion. She ate most of lemon baked cod with mashed potatoes and green beans for dinner.
[2022-09-16 04:07] VITALS: BP 103/67; PULSE 61; RESP 18; TEMP 36.7; O2SAT 99
[2022-09-16 07:00] VITALS: BP 124/67; PULSE 65; PULSE 75; RESP 12; TEMP 36.6; O2SAT 96
[2022-09-16 07:10] LABS: Basophils Percent Auto 1.1 % (0.0-3.0); Eosinophils Percent Auto 5.3 % (0.0-7.0); Hematocrit 32.1 % (33.0-51.0); Hemoglobin* 10.4 gm/dL (12.0-16.0); Mean Corpuscular HGB Conc 32 gm/dL (32-36); Mean Corpuscular Hemoglobin 29 pg (26-34); Mean Corpuscular Volume 88 fL (80-100); Neutrophils Percent Auto 49.2 % (42.0-72.0); Platelet Count* 111 K/uL (140-440); Red Blood Count 3.65 m/uL (4.00-5.20); White Blood Count* 2.66 K/uL (4.50-11.00)
[2022-09-16 07:14] LABS: Chloride* 99 mmol/L (96-114); Potassium* 3.4 mmol/L (3.6-5.1); Sodium* 136 mmol/L (135-149)
[2022-09-16 07:16] LABS: Est. Creatinine Clearance* 37.12; Estimated Glomerular Filt Rate 57 ml/min
[2022-09-16 07:17] LABS: Blood Urea Nitrogen* 22 mg/dL (7-30); Carbon Dioxide* 33 mmol/L (20-32); Glucose* 100 mg/dL (60-115)
[2022-09-16 07:18] LABS: Calcium* 8.9 mg/dL (8.4-10.6)
[2022-09-16 07:20] LABS: Prothrombin Time 29.1 Seconds
[2022-09-16 07:23] LABS: Slide Review Reflex No
--- NOTE | 2022-09-16 07:27 | PM.DS1 ---
DS: Providers Provider Time Seen by Provider: 07:28 Date Seen: 09/16/22 Date of admission: 09/14/22 22:08 Primary care physician: Not a Local Provider Admitting Clinician: Josie Lujan MD Consults: 09/14/22 23:30 Consult to Occupational Therapy [CONS] Routine Comment: Reason(s) for OT Consult:: Evaluate and Treat Any Restrictions?:: No Restrictions Comment: confusion on admission, please assess to see if MOCA is needed Attending Physician on discharge: Josie Lujan MD Date of Discharge: 09/16/22 DS: Diagnosis Discharge Diagnosis (1) Acute confusion: Status: Acute Problem details: Seizure postictal versus TIA (2) Elevated TSH: Status: Acute Problem details: mild and mild free T4 elevation (3) Thyroid nodule: Status: Acute Problem details: 2.[address] neck 09/15/22 (4) Protein calorie malnutrition: Status: Suspected Problem details: Suspected. Patient is gaunt and appears to have muscle wasting. She has previously been told to increase the calories in her diet. She has trouble doing so because she only likes eating fruit and strongly dislikes meat. (5) Hypokalemia: Status: Acute (6) Hematuria: Status: Acute (7) Pancytopenia: Status: Acute (8) Pulmonary hypertension: Status: Suspected Problem details: On CT chest 09/15/2022: Enlarged main pulmonary artery, may be seen in setting of pulmonary hypertension. (9) Cardiac enlargement: Status: Acute Problem details: On CT chest 09/15/2022: Severe cardiomegaly, especially biatrial enlargement much worse on the left than the right. (10) Edema of left lower extremity: Status: Acute Problem details: Lower extremity ultrasound negative for DVT 09/15/2022. (11) Arthritis: Status: Chronic (12) Essential hypertension: Status: Chronic (13) Anticoagulated on Coumadin: Status: Chronic Problem details: INR within therapeutic range (14) Atrial fibrillation: Status: Chronic (15) Hemorrhoids, external: Status: Acute DS: Summary Hospital Course Hospital Course: This is an 81-year-old female visiting [place] from [place] with a complicated past medical history who had an episode of confusion. She has had prior episodes of confusion, but this was associated with difficulty speaking which is different than previous episodes, according to her daughter. Kaia was in her usual health when she had an episode of dry heaving. It was mostly bilious with a little red tinge at the very end. A little while later she had an episode where she was not responding to her daughter but just staring through her daughter for about a minute. She then started to respond, but was not making sense and her speech was different than usual. She was also confused with this. She began to return to normal and this took a little over an hour. The tail end of the confusion was also witnessed by the ER physician. CT head without contrast was unremarkable. While in the ER she had some shortness of breath for which a CT chest for PE was obtained. There was no PE. Cardiomegaly and pulmonary hypertension were seen as was mild basilar atelectasis and or scarring. Records were obtained from [place] and patient has a very complicated past medical history. Notably she is also pancytopenic on labs and due to a downward trend and the fact that she is anticoagulated with warfarin for atrial fibrillation, she was kept overnight again and these were stable today. She has bleeding hemorrhoids, microscopic hematuria and there was some reddish tinge to emesis seen at home with the dry heaving episode. Her hemoglobin has remained stable. A CTA head/neck was obtained on hospital day 2 that was unremarkable with the exception of a thyroid nodule. She does have a history of a thyroid nodule, but I do not have previous records for comparison. I spoke with the patient and her daughter about the many abnormalities that we have found that are listed above all of which will need outpatient follow-up. She has a primary care provider along with the care team through physician [facility]. It is unclear how many of these conditions have been chronic and have already been addressed. The patient and her daughter have demonstrated understanding and are agreeable that she will follow-up with her primary care physician upon returning home. Given the patient's history, these episodes, including most recent 1, are most likely seizure activity versus TIA. With the patient and her daughter, I discussed doing an echocardiogram here verses her getting 1 done as an outpatient. I recommended that she go back to her primary care provider to determine if an echocardiogram has been done recently. If it has not, then I think she would get most benefit from getting an outpatient echocardiogram there where they can compare with previous echocardiograms, especially since she has an extensive cardiac history. I also spoke with Dr. Christa Wynne from [facility] about these episodes she recommended having shared decision making with the patient regarding the possibility of using Ke[place] I spoke with both the patient and her daughter about Keppra and they have elected to wait until they see the patient's primary care provider and then discuss it with her. She would likely benefit from referral to Neurology and possibly being on Keppra until that time. Consideration should be also given to an echocardiogram if 1 has not been done recently. 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 She will need outpatient follow-up for thyroid nodule with a mildly elevated TSH and mildly elevated free T4, hypokalemia, hematuria, pulmonary hypertension, and cardiac enlargement, as well as her other chronic conditions. She is discharged home today in stable condition. I have asked her to follow-up with her primary care provider upon return home and to bring a copy of her medical records from here to her primary care provider. Status at Discharge Overall status at discharge: patient is back to baseline Time Spent with Patient Time spent: Greater than 30 minutes Specific discharge activities: Today I spent 35 minutes discharging the patient. Greater than 50% included discussing care with the the patient in the room, and later her daughter over the phone, reviewing data, summarizing information for discharge to go to her primary care provider in [place]. Exam Narrative: Exam Narrative: General: No acute distress. Awake, alert, oriented x3. No pallor. No jaundice. Gaunt. Muscle wasting present in face and extremities. Oropharynx: Clear. Mucous membranes moist. Cardiovascular: Irregularly irregular. Harsh grade 3/6 holosystolic murmur loudest at the left sternal border, unchanged. Respiratory: Clear to auscultation bilaterally. No wheezes or crackles. Neuro: There are no focal deficits. Moves all extremities. No facial asymmetry. Const: Vital Signs, click to edit/add: Vital Signs - 24 hr 09/15/22 07:28 09/15/22 07:35 09/15/22 07:36 Temperature 98.2 F Pulse Rate 68 Pulse Rate [Pulse Oximeter] 77 Respiratory Rate 18 Blood Pressure [Le ft Arm] 104/81 Pulse Oximetry 95 95 Oxygen Delivery Me thod Room Air Room Air Oxygen Flow Rate 09/15/22 11:26 09/15/22 15:30 09/15/22 15:00 Temperature 98.1 F Pulse Rate 74 Pulse Rate [Pulse Oximeter] 66 106 H Respiratory Rate 18 20 Blood Pressure [Le ft Arm] 119/70 Pulse Oximetry 94 Oxygen Delivery Me thod Room Air Oxygen Flow Rate 09/15/22 15:00 09/15/22 15:00 09/15/22 19:00 Temperature 98.3 F 98.1 F Pulse Rate Pulse Rate [Pulse Oximeter] 80 81 Respiratory Rate 20 16 16 Blood Pressure [Le ft Arm] 112/66 115/65 Pulse Oximetry 94 99 97 Oxygen Delivery Me thod Nasal Cannula Room Air Room Air Oxygen Flow Rate 2.5 09/15/22 23:00 09/15/22 23:00 09/15/22 23:00 Temperature Pulse Rate 61 Pulse Rate [Pulse Oximeter] 61 Respiratory Rate 16 16 Blood Pressure [Le ft Arm] Pulse Oximetry 100 Oxygen Delivery Me thod Room Air Oxygen Flow Rate 09/15/22 23:00 09/16/22 04:07 Temperature 98.4 F 98.1 F Pulse Rate Pulse Rate [Pulse Oximeter] 61 61 Respiratory Rate 16 18 Blood Pressure [Le ft Arm] 108/63 103/67 Pulse Oximetry 100 99 Oxygen Delivery Me thod Room Air Room Air Oxygen Flow Rate DS: Data Data Completed and Pending Completed studies during hospitalization: 09/14/2022 5:32 p.m. EKG: Wide QRS rhythm with frequent ventricular paced complexes and with occasional premature ventricular complexes. Right bundle-branch block. Marked T-wave abnormality, consider inferior lateral ischemia. 09/14/2022 5:36 p.m. EKG: Atrial fibrillation with frequent ventricular paced complexes, heart rate 65 beats per minute. Right bundle branch block. T-wave abnormality, consider inferior lateral ischemia. Ordering Physician: Kerry Rodriguez MD Date of Service: 09/14/22 Procedure(s): XR chest 1V Accession Number(s): [id number] cc: Kerry Rodriguez MD; Provider,Not a Local ~ For Patients: As a result of the Cures Act, medical imaging exams and procedure reports are released immediately into your electronic medical record. You may view this report before your referring provider. If you have questions, please contact your health care provider. INDICATION: Shortness of breath. TECHNIQUE: Chest 1 views. COMPARISON: None. FINDINGS: Lungs: Diffuse interstitial prominence is suggestive of pulmonary edema. Patchy left lower lobe opacities. Pleura: Small left pleural effusion. Heart and Mediastinum: The heart is enlarged. Single lead pacemaker has its battery pack in the left chest wall. Valve annuloplasty appears to be in the aortic valve. The vessels are unremarkable. Bones: Unremarkable. IMPRESSION: Constellation of findings suggest congestive heart failure. Dictated by Randolph Haro MD @ 09/14/2022 7:17:18 PM (Electronically Signed) Ordering Physician: Kerry Rodriguez MD Date of Service: 09/14/22 Procedure(s): CT head/brain wo con Accession Number(s): [id number] cc: Kerry Rodriguez MD; Provider,Not a Local ~ For Patients: As a result of the Cures Act, medical imaging exams and procedure reports are released immediately into your electronic medical record. You may view this report before your referring provider. If you have questions, please contact your health care provider. INDICATION: Fall. TECHNIQUE: CT head without contrast. COMPARISON: None. FINDINGS: CSF spaces: Within normal limits for age. Brain parenchyma and extra-axial spaces: The freedman-white differentiation is normal. No sign of mass, hemorrhage, or midline shift. No extra-axial fluid collection. Skull base and calvarium: The visualized paranasal sinuses and mastoid air cells demonstrate no acute or significant findings. The visualized orbits are grossly unremarkable. Bilateral lens prostheses. No skull fractures. IMPRESSION: No intracranial hemorrhage identified. No skull fractures identified. Please note that all CT scans at this facility use dose modulation, iterative reconstruction, and/or weight-based dosing when appropriate to reduce radiation dose to as low as reasonably achievable. Dictated by Teresa Mendez MD @ 09/14/2022 7:17:10 PM (Electronically Signed) Ordering Physician: Kerry Rodriguez MD Date of Service: 09/14/22 Procedure(s): CT angio chest PE protocol Accession Number(s): [id number] cc: Kerry Rodriguez MD; Provider,Not a Local ~ For Patients: As a result of the Cures Act, medical imaging exams and procedure reports are released immediately into your electronic medical record. You may view this report before your referring provider. If you have questions, please contact your health care provider. INDICATION: [id number]. TECHNIQUE: CT chest PE was acquired with 95 cc Isovue 370 IV contrast. COMPARISON: None. FINDINGS: Heart and vasculature: Contrast opacification of the pulmonary arterial tree is adequate. No sign of pulmonary embolism. Heart size is severely enlarged, especially biatrial enlargement, much worse on the left than the right. The prosthetic mitral valve is noted. Pacer leads extending to the right ventricle. Calcific atherosclerosis of the ascending aorta and aortic arch. The main pulmonary artery is enlarged measuring up to 34 millimeters in diameter.. Lungs and pleura: Mild bibasilar linear opacities likely atelectasis or scarring. Mild bibasilar bronchial wall thickening is noted. No pleural effusions, pleural thickening, or pneumothorax. Lymph nodes/mediastinum: No mediastinal, hilar, or axillary adenopathy. Prominent mediastinal nodes. Chest wall: Left chest wall pacer generator. Upper abdomen: No acute or significant findings. Status post cholecystectomy. Atrophy of the bilateral kidneys. Bones: Unremarkable for age. IMPRESSION: No pulmonary embolism identified. Severe cardiomegaly, especially biatrial enlargement much worse on the left than the right. Enlarged main pulmonary artery, may be seen in setting of pulmonary hypertension. Mild basilar atelectasis and/or scarring. Mild bronchial wall thickening, which can be seen with viral illness or small airways disease. Please note that all CT scans at this facility use dose modulation, iterative reconstruction, and/or weight-based dosing when appropriate to reduce radiation dose to as low as reasonably achievable. Dictated by Teresa Mendez MD @ 09/14/2022 10:22:13 PM (Electronically Signed) Ordering Physician: Josie Lujan M.D. Date of Service: 09/15/22 Procedure(s): CT angio neck Accession Number(s): [id number] cc: Josie Lujan M.D.; Provider,Not a Local ~ For Patients: As a result of the 21st Century Cures Act, medical imaging exams and procedure reports are released immediately into your electronic medical record. You may view this report before your referring provider. If you have questions, please contact your health care provider. CT ANGIOGRAM NECK DATE: 09/15/2022 CLINICAL HISTORY: Patient with difficulty speaking. TECHNIQUE: Standard helical CT image acquisition of the neck up to the skull base after bolus intravenous contrast enhancement. Multiplanar reconstructed images performed on a separate workstation. COMPARISON: CT 09/14/2022. FINDINGS: The origins of the great vessels from the aortic arch are patent. The origin of the right vertebral artery is patent. The origin of the left vertebral artery is patent. The common carotid arteries are patent. There is no stenosis at the origin of the right internal carotid artery. There is no stenosis at the origin of the left internal carotid artery. The rest of the cervical segments of the internal carotid arteries are patent up to the skull base. The left vertebral artery is dominant. The cervical segments of the vertebral arteries are patent up to the skull base. The visualized lung apices demonstrate marked enlargement of the main pulmonary vein. The thyroid gland demonstrates a 2.5cm hypodense lesion in the left lobe. The soft tissues of the neck are unremarkable. There are degenerative changes in the cervical spine. IMPRESSION: 1. Patent cervical vasculature. 2. Marked enlargement of the main pulmonary vein is suggestive of pulmonary venous hypertension. Clinical correlation is recommended. 3. 2.5cm hypodense left thyroid lesion. Further evaluation with ultrasound is recommended. Please note that all CT scans at this facility use dose modulation, iterative reconstruction, and/or weight-based dosing when appropriate to reduce radiation dose to as low as reasonably achievable. Dictated by: Fatou Mckeon MD @ 09/15/2022 13:01:26 (Electronically Signed) Ordering Physician: Josie Lujan M.D. Date of Service: 09/15/22 Procedure(s): US venous LE LT Accession Number(s): [id number] cc: Josie Lujan M.D.; Provider,Not a Local ~ For Patients: As a result of the Century Cures Act, medical imaging exams and procedure reports are released immediately into your electronic medical record. You may view this report before your referring provider. If you have questions, please contact your health care provider. INDICATION: Leg pain and swelling. TECHNIQUE: Ultrasound venous duplex lower left extremity. Compression venous exam was performed using freedman-scale, color Doppler, and spectral Doppler analysis. COMPARISON: None. FINDINGS: Deep veins: Sonographic imaging demonstrates the left common femoral, deep femoral, superficial femoral, popliteal, posterior tibial and the contralateral right common femoral veins to be fully compressible with normal color Doppler blood flow. Superficial veins: Greater saphenous vein is fully compressible. No popliteal cyst. IMPRESSION: Normal left lower extremity venous ultrasound, no sign of deep venous thrombosis. Dictated by Mendel Navarrete MD @ 09/15/2022 9:46:06 AM (Electronically Signed) Ordering Physician: Chinyere Ch MD Date of Service: 09/15/22 Procedure(s): CT angio head Accession Number(s): [id number] cc: Chinyere Ch MD; Provider,Not a Local ~ For Patients: As a result of the Cures Act, medical imaging exams and procedure reports are released immediately into your electronic medical record. You may view this report before your referring provider. If you have questions, please contact your health care provider. CT ANGIOGRAM HEAD DATE: 09/15/2022 CLINICAL HISTORY: Patient with difficulty speaking. TECHNIQUE: Standard helical CT image acquisition through the intracranial circulation following intravenous administration of contrast material with bolus tracking. Multiplanar reconstructed images were performed and interpreted. COMPARISON: CT 09/14/2022. FINDINGS: There is no cerebral aneurysm or large vessel occlusion. The right internal carotid artery is normal. The right middle cerebral artery and its branches are normal. The right anterior cerebral artery and its branches are normal. The left internal carotid artery is normal. The left middle cerebral artery and its branches are normal. The left anterior cerebral artery and its branches are normal. The anterior communicating artery is well visualized and appears normal. The right vertebral artery and PICA are normal. The left vertebral artery and PICA are normal. The left vertebral artery is dominant. The basilar artery is patent and appears normal. The right posterior cerebral artery is normal. The left posterior cerebral artery is normal. The visualized venous structures are patent. IMPRESSION: Normal CT angiogram of the head without intracranial aneurysm or other neurovascular abnormality. Please note that all CT scans at this facility use dose modulation, iterative reconstruction, and/or weight-based dosing when appropriate to reduce radiation dose to as low as reasonably achievable. Dictated by: Fatou Mckeon MD @ 09/15/2022 13:04:40 (Electronically Signed) Labs on day of discharge: Labs from last 24 hours 09/16/22 09/16/22 09/16/22 06:47 06:47 06:47 WBC 2.66 L RBC 3.65 L Hgb 10.4 L Hct 32.1 L MCV 88 MCH 29 MCHC 32 RDW Coeff of Monica 19.0 H Plt Count 111 L Neut % (Auto) 49.2 Lymph % (Auto) 32.0 Chase % (Auto) 12.0 H Eos % (Auto) 5.3 Baso % (Auto) 1.1 Neut # (Auto) 1.30 L Lymph # (Auto) 0.90 Chase # (Auto) 0.30 Eos # (Auto) 0.10 Baso # (Auto) 0.00 Abs Immat Gran (auto) 0.01 Imm/Tot Granulo (auto) Pending Diff Slide Review INR 2.60 H Sodium 136 Potassium 3.4 L Chloride 99 Carbon Dioxide 33 H BUN 22 Creatinine 1.0 Estimated Creat Clear 37.12 Estimated GFR 57 Glucose 100 Calcium 8.9 Magnesium Troponin I 09/15/22 09/15/22 09/15/22 10:40 06:10 06:10 WBC RBC Hgb 11.1 L Hct MCV MCH MCHC RDW Coeff of Monica Plt Count Neut % (Auto) Lymph % (Auto) Chase % (Auto) Eos % (Auto) Baso % (Auto) Neut # (Auto) Lymph # (Auto) Chase # (Auto) Eos # (Auto) Baso # (Auto) Abs Immat Gran (auto) Imm/Tot Granulo (auto) Diff Slide Review INR Sodium Potassium Chloride Carbon Dioxide BUN Creatinine Estimated Creat Clear Estimated GFR Glucose Calcium Magnesium 1.7 Troponin I 0.02 09/15/22 06:10 WBC RBC Hgb Hct MCV MCH MCHC RDW Coeff of Monica Plt Count Neut % (Auto) Lymph % (Auto) Chase % (Auto) Eos % (Auto) Baso % (Auto) Neut # (Auto) Lymph # (Auto) Chase # (Auto) Eos # (Auto) Baso # (Auto) Abs Immat Gran (auto) Imm/Tot Granulo (auto) Not Reportable Diff Slide Review Acceptable Review INR Sodium Potassium Chloride Carbon Dioxide BUN Creatinine Estimated Creat Clear Estimated GFR Glucose Calcium Magnesium Troponin I Discharge Plan Discharge Disposition: Home, Self-Care Date of Admission: 09/14/22 22:08 Attending Provider on Discharge: Chinyere Ch Primary Care Provider: Provider,Not a Local Condition: Stable Anticipated Discharge Date/Time: 09/16/22 10:32 Discharge Medications: Continued potassium chloride [Klor-Con] 20 mEq packet 20 meq PO BID prednisone 5 mg tablet 5 mg PO DAILY allopurinol 300 mg tablet 300 mg PO DAILY metoprolol succinate [Toprol XL] 100 mg tablet extended release 24 hr 100 mg PO DAILY folic acid 1 mg tablet 1 mg PO DAILY pantoprazole 40 mg tablet,delayed release (DR/EC) 40 mg PO DAILY warfarin 2 mg tablet 2 - 3 mg PO HS amlodipine [Norvasc] 5 mg tablet 5 mg PO DAILY metoprolol succinate 100 mg tablet extended release 24 hr 100 mg PO DAILY hydrochlorothiazide 12.5 mg tablet 12.5 mg PO DAILY trazodone 50 mg tablet 50 mg PO HS furosemide 20 mg tablet 20 mg PO DAILY ergocalciferol (vitamin D2) 1,250 mcg (50,000 unit) capsule 50,000 unit PO .weekly isosorbide mononitrate 30 mg tablet extended release 24 hr 30 mg PO DAILY uaidbijb-lqqd-cirzjo-hyalur ac [id number] mg capsule 1 cap PO BID coenzyme Q10 100 mg capsule 100 mg PO DAILY Discharge Orders: Discharge Order (Routine); Ordered 09/16/22 Ordered By: Chinyere Ch Patient Education: Recurrent Seizures in Adults (DC) Additional Instructions: Follow-up with her primary care provider next week for an INR check. Activity Level: No Restrictions Discharge Diet: Regular Follow Up Appointments: Provider,Not a Local [Primary Care Provider] - (Follow up with PCP Rosmery Harper next week upon returning home.) Forms: [facility] Info Instructions Discharge Comments: Patient may wish to also make appointments with Neurology and Cardiology or discuss 1st with her primary care provider and then have her primary care provider make these referrals.
[2022-09-16] MEDS: POTASSIUM BICARB 25 MEQ EFFERVESCENT TAB PO ×2 (08:35→09:52)
[2022-09-16] MEDS: POTASSIUM CHLORIDE 10 MEQ CAPSULE ER 20 MEQ PO (09:39)
[2022-09-16] MEDS: METOPROLOL SUCCINATE (XL) 100 MG TAB PO (09:40)
[2022-09-16] MEDS: AMLODIPINE 5 MG TABLET PO (09:40)
[2022-09-16] MEDS: OMEPRAZOLE 20 MG CAPSULE DR 40 MG PO (09:40)
[2022-09-16] MEDS: allopurinoL 300 MG TABLET PO (09:40)
[2022-09-16] MEDS: predniSONE 5 MG TABLET PO (09:41)
[2022-09-16] MEDS: FOLIC ACID 1 MG TABLET PO (09:41)
[2022-09-16] MEDS: ISOSORBIDE MONONITRATE ER 30 MG TAB PO (09:41)
[2022-09-16] MEDS: hydroCHLOROthiazide 12.5 MG CAPSULE PO (09:41)
[2022-09-16] MEDS: FUROSEMIDE 20 MG TABLET PO (09:45)
[2022-09-16 11:00] VITALS: BP 128/75; PULSE 63; RESP 14; TEMP 36.5; O2SAT 98
[2022-09-16 11:38] LABS: Immature Granulocytes Pct Auto 0.4 %
--- NOTE | 2022-09-16 14:33 | PC.SOCIAL ---
Social work: At RN request, called dtr and left message offering assistance arranging transportation if needed. Per RN, dtr is unable to pick pt up until 6:30pm and pt is ready for discharge. 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
[2022-09-16 15:00] VITALS: BP 115/77; PULSE 82; RESP 16; TEMP 36.6; O2SAT 97
--- NOTE | 2022-09-16 17:50 | PC.NURSE ---
End of Shift: Patient pleasant and cooperative, A and oriented x3. Patient vitally stable, lungs clear, BS WNL, IV removed catheter intact. Patient independent in room, and showered with OT. Patient used cane to ambulate. Patient rates pain in legs and hand 4-5/10, no pain meds given. Patient tolerating regular diet, had 1 BM, and urinating. Patient signed discharge form and belongings sheet. Patient had no further questions regarding discharge. Discharge information also reviewed with patient daughter. Patient left the floor by wheelchair at 1700 with daughter and belongings.
== END 2022-09-16 17:00 | disposition home or self-care (01) ==
LOC: ED 21:32 → MEDSURG 22:11
PROVIDERS: Family Medicine; Admitting Provider Family Medicine; Emergency Provider Emergency Medicine; Visit Provider Family Medicine
DX: R41.0 Disorientation, unspecified (principal); E46 Unspecified protein-calorie malnutrition; I51.7 Cardiomegaly; I48.91 Unspecified atrial fibrillation; D61.818 Other pancytopenia; I27.20 Pulmonary hypertension, unspecified; E87.6 Hypokalemia; R06.02 Shortness of breath; R94.6 Abnormal results of thyroid function studies; R47.9 Unspecified speech disturbances; J98.11 Atelectasis; R79.89 Other specified abnormal findings of blood chemistry; Z79.01 Long term (current) use of anticoagulants; K64.4 Residual hemorrhoidal skin tags; R31.9 Hematuria, unspecified; E04.1 Nontoxic single thyroid nodule; R60.0 Localized edema; I10 Essential (primary) hypertension; M19.90 Unspecified osteoarthritis, unspecified site; Z86.79 Personal history of other diseases of the circulatory system; Z95.0 Presence of cardiac pacemaker; Z87.891 Personal history of nicotine dependence; Z20.822 Contact with and (suspected) exposure to COVID-19
CPT/HCPCS: 36415; 70450; 70496; 70498; 71045; 71260; 80048; 80076; 81001; 82803; 83605; 83735; 83880; 84439; 84443; 84484; 85018; 85025; 85610; 86140; 87502; 87634; 87635; 93005; 93971; 97165; 97535; 99284; 99285; G0378; A9270; G0379; J7512; Q9967